=== PATIENT | female | born 1980 | race Caucasian/White ===

== ENCOUNTER 2020-06-02 12:25 | Outpatient (REF) | payer MEDICAID, SELFPAY ==
--- NOTE | ~2020-06-02 | MM_ITS ---
EXAMINATION: MM SCREENING DIGITAL BREAST TOMOSYNTHESIS, BILATERAL CLINICAL INFORMATION: Screening. Asymptomatic. The lifetime risk of breast cancer based on the Tyrer-Cuzick Model is 11%. COMPARISON: Mammography: 05/28/2019 (baseline) TECHNIQUE: Digital breast tomosynthesis is performed in both the craniocaudal and mediolateral oblique views along with computer-aided detection (CAD). Synthesized 2D images are generated from the tomosynthesis. FINDINGS: The breasts are heterogeneously dense, which may obscure small masses (ACR BI-RADS breast composition Category c). There are no significant masses, abnormal calcifications, or other abnormalities. Parenchymal pattern is similar to prior study. No significant changes. MM/MM tomosynthesis screening BI IMPRESSION: No mammographic evidence of malignancy. ASSESSMENT: BI-RADS 1: Negative RECOMMENDATION: Routine annual mammography screening. This patient's information was entered into a reminder system with a target due date for their next mammogram.
== END 2020-06-02 12:26 | disposition home or self-care (01) ==
LOC: HO.MAMMO 12:25
PROVIDERS: PCP Nurse Practitioner; Visit Provider Nurse Practitioner
DX: Z12.31 Encounter for screening mammogram for malignant neoplasm of breast (principal)
CPT/HCPCS: 77063; 77067

== ENCOUNTER 2021-01-09 09:49 | Emergency (ER) | payer MEDICAID, SELFPAY ==
[2021-01-09 09:51] VITALS: BP 120/67; PULSE 92; RESP 16; TEMP 36.7; O2SAT 98; BMI 31.8
--- NOTE | 2021-01-09 10:13 | ED.PSYCH ---
HPI - Psych General Chief Complaint: ETOH/Substance Use Stated Complaint: withdrawal Time Seen by Provider: 01/09/21 09:55 Source: patient and family Mode of arrival: ambulatory Limitations: no limitations History of Present Illness HPI Narrative: felt her meds were making her more depressed - now she feels anxious and shaking stopped trazodone 50mg QHS, gabapentin 300mg QHS, hydroxyzine 25mg TID, cymbalta 30mg ER daily complaint: anxiety and other (took herself off her medications 1 week ago) Onset (ago): week(s) (1) Duration: getting worse History of same: Yes Relieving factors: none Exacerbating factors: other (took herself off her meds) Context: not taking psychiatric medications Associated psychiatric symptoms: depression and other (not eating, not sleeping) Treatments prior to arrival: none Related Data Previous Rx's Medication Instructions Recorded lorazepam 1 mg tablet (Ativan) 1 mg PO TID PRN 7 Days #21 tab 01/09/21 Allergies Allergy/AdvReac Type Severity Reaction Status Date / Time No Known Allergies Allergy Unverified 01/10/20 16:37 Review of Systems Review of Systems: Constitutional : No Fever, No Chills, pos anorexia ENT/Mouth : No Ear Pain, No Nasal Congestion, No sore throat Eyes: No Eye Pain, No Swelling, No Redness Cardiovascular : No Chest Pain, No SOB Respiratory : No Cough, No Sputum, No Dyspnea Gastrointestinal : No Nausea, No Vomiting, No Diarrhea, No Hematochezia, No Melena Genitourinary : No Dysuria, No Urinary Frequency, No Hematuria Musculoskeletal : No Myalgias Skin : No Skin Lesions, No rash Neuro : No Weakness, No Numbness, No Paresthesias, No Dizziness, No Headache Psych : positive Anxiety, positive Depression, no SI/HI Heme/Lymph: No Lymphadenopathy Endocrine : No Polyuria, No Polydipsia All other systems reviewed and are negative [facility] Past Medical History Attestation statement: The following information was validated with the patient. Medical History Cleft palate HTN (hypertension) No known health problems Social History Social History (Updated 01/09/21 @ 10:13 by Rubi Todd DO) Alcohol intake: former Patient Tobacco Use Status: Current someday Tobacco user Use of substances other than those prescribed or required for medical reasons: No Advance Directives: No Patient : No Physical Exam Vital Signs: Vital Signs: Last Vital Signs Temp 98.0 F 01/09/21 09:51 Pulse 85 01/09/21 13:23 Resp 16 01/09/21 13:23 BP 115/73 01/09/21 13:23 Pulse Ox 100 01/09/21 13:23 Body Mass Index 31.8 Appearance: Alert. Oriented X3. No acute distress. Anxious Eyes: Pupils equal, round and reactive to light. ENT: Pharynx normal. Neck: Normal inspection. Neck supple. CVS: Normal heart rate and rhythm. Pulses normal. Respiratory: No respiratory distress. Breath sounds normal. Abdomen: Soft and non-tender. Skin: Skin warm and dry. Normal skin color. Normal skin turgor. Extremities: No lower extremity edema. No calf ttp Neuro: Oriented X 3. No motor deficit. No sensory deficit. Tremulous Psych: pos anxiety, pos depressio, no SI Course Course Course Narrative: medically cleared for CARE team discussion with CARE team - encourage to follow up with PCP, [facility], has no SI Dr. Francisco - continue fluoxetine, and ativan PRN 1mg TID for the next 10 days follow up as outpatient MDM - Psych MDM Narrative Medical decision making narrative: 40 yo female with HTN, depression took herself off her medications 1 week ago she thought it was making her more depressed now she feels anxious and shaky. She isn't eating, she is depressed but denies SI. Will obtain labs, hydrate, offer anxiolytic, refer to CARE team/N. Lab Data Result diagrams: 01/09/21 10:21 01/09/21 10:21 Labs: Lab Results 01/09/21 01/09/21 01/09/21 Range/Units 10:21 10:21 10:21 WBC 10.5 (4.8-10.8) X10*3/uL RBC 4.32 (4.20-5.50) X10*6/uL Hgb 12.6 (12.0-16.0) g/dl Hct 36.4 L (37-47) % MCV 84.3 (80-98) fL MCH 29.2 (27.0-33.0) pg MCHC 34.6 (31.0-35.0) g/dl RDW 13.2 (11.0-16.0) % Plt Count 442 H (160-400) X10*3/uL MPV 8.4 L (9.4-12.3) fL Immature Gran % (Auto) 0.3 (0.0-0.4) % Neut % (Auto) 73.1 H (45-73) % Lymph % (Auto) 19.4 L (20-40) % [place] % (Auto) 5.6 (2-11) % Eos % (Auto) 1.3 (0-4) % Baso % (Auto) 0.3 (0-2) % Lymph # (Auto) 2.0 (1.2-4.9) X10*3/uL [place] # (Auto) 0.6 (0.1-1.2) X10*3/uL Eos # (Auto) 0.1 (0.0-0.4) X10*3/uL Baso # (Auto) 0.0 (0.0-0.2) X10*3/uL Abs Immat Gran (auto) 0.03 (0.00-0.03) X10*3/uL Absolute Neuts (auto) 7.7 (2.0-8.3) X10*3/uL Absolute Nucleated RBC 0.000 (0.0-0.012) X10*3/uL Nucleated RBC % (auto) 0.0 (0.0-0.2) /100WBC Sodium 138 (135-145) mmol/L Potassium 3.0 L (3.3-5.1) mmol/L Chloride 101 (96-108) mmol/L Carbon Dioxide 26 (22-29) mmol/L Anion Gap 14 (12-20) BUN 4 L (9-16) mg/dL Creatinine 0.68 (0.5-1.4) mg/dL Estim Creat Clear Calc 54.7 Estimated GFR > 60 Random Glucose 165 H (60-115) mg/dL Calcium 9.9 (8.4-10.2) mg/dL Magnesium 1.5 L (1.6-2.6) mg/dL Total Bilirubin 0.4 (0.0-1.0) mg/dL Direct Bilirubin < 0.2 (0.0-0.5) mg/dL AST 17 (5-31) U/L ALT 16 (0-31) U/L Alkaline Phosphatase 68 (39-117) U/L Total Protein 7.4 (6.5-8.0) g/dL Albumin 4.5 (3.5-5.0) g/dL TSH 0.80 (0.32-4.0) uIU/mL Urine Color Urine Appearance Urine pH (5.0-8.0) Ur Specific [place] (1.005-1.025) Urine Protein (NEG-TRACE) MG/DL Urine Glucose (UA) (NEG) MG/DL Urine Ketones (NEG) MG/DL Urine Blood (NEG) Urine Nitrite (NEG) Ur Leukocyte Esterase (NEG) Urine Test (NEGATIVE) Urine Opiates Screen (Not Detect) Urine Fentanyl Screen (Not Detect) Ur Barbiturates Screen (Not Detect) Ur Phencyclidine Scrn (Not Detect) Ur Amphetamines Screen (Not Detect) U Benzodiazepines Scrn (Not Detect) Urine Cocaine Screen (Not Detect) U Marijuana (THC) Screen (Not Detect) COVID-19 ([place]) Negative (Negative) COVID-19 Clin Com See Note 01/09/21 01/09/21 01/09/21 Range/Units 10:49 10:49 10:49 WBC (4.8-10.8) X10*3/uL RBC (4.20-5.50) X10*6/uL Hgb (12.0-16.0) g/dl Hct (37-47) % MCV (80-98) fL MCH (27.0-33.0) pg MCHC (31.0-35.0) g/dl RDW (11.0-16.0) % Plt Count (160-400) X10*3/uL MPV (9.4-12.3) fL Immature Gran % (Auto) (0.0-0.4) % Neut % (Auto) (45-73) % Lymph % (Auto) (20-40) % [place] % (Auto) (2-11) % Eos % (Auto) (0-4) % Baso % (Auto) (0-2) % Lymph # (Auto) (1.2-4.9) X10*3/uL [place] # (Auto) (0.1-1.2) X10*3/uL Eos # (Auto) (0.0-0.4) X10*3/uL Baso # (Auto) (0.0-0.2) X10*3/uL Abs Immat Gran (auto) (0.00-0.03) X10*3/uL Absolute Neuts (auto) (2.0-8.3) X10*3/uL Absolute Nucleated RBC (0.0-0.012) X10*3/uL Nucleated RBC % (auto) (0.0-0.2) /100WBC Sodium (135-145) mmol/L Potassium (3.3-5.1) mmol/L Chloride (96-108) mmol/L Carbon Dioxide (22-29) mmol/L Anion Gap (12-20) BUN (9-16) mg/dL Creatinine (0.5-1.4) mg/dL Estim Creat Clear Calc Estimated GFR Random Glucose (60-115) mg/dL Calcium (8.4-10.2) mg/dL Magnesium (1.6-2.6) mg/dL Total Bilirubin (0.0-1.0) mg/dL Direct Bilirubin (0.0-0.5) mg/dL AST (5-31) U/L ALT (0-31) U/L Alkaline Phosphatase (39-117) U/L Total Protein (6.5-8.0) g/dL Albumin (3.5-5.0) g/dL TSH (0.32-4.0) uIU/mL Urine Color STRAW Urine Appearance CLEAR Urine pH 7.5 (5.0-8.0) Ur Specific [place] 1.010 (1.005-1.025) Urine Protein NEG (NEG-TRACE) MG/DL Urine Glucose (UA) NEG (NEG) MG/DL Urine Ketones NEG (NEG) MG/DL Urine Blood NEG (NEG) Urine Nitrite NEG (NEG) Ur Leukocyte Esterase NEG (NEG) Urine Test NEGATIVE (NEGATIVE) Urine Opiates Screen Not Detected (Not Detect) Urine Fentanyl Screen Not Detected (Not Detect) Ur Barbiturates Screen Not Detected (Not Detect) Ur Phencyclidine Scrn Not Detected (Not Detect) Ur Amphetamines Screen Not Detected (Not Detect) U Benzodiazepines Scrn Not Detected (Not Detect) Urine Cocaine Screen Not Detected (Not Detect) U Marijuana (THC) Screen POSITIVE H (Not Detect) COVID-19 ([place]) (Negative) COVID-19 Clin Com Discharge Plan Discharge Clinical Impression: Acute hypokalemia, Hypomagnesemia, Depression, Medical non-compliance Patient Disposition: Home, Self-Care Instructions: Hypokalemia (ED), Depression (ED), Hypomagnesemia (ED) Additional Instructions: return to ED for any worsening symptoms or concerns continue to fluoxetine Prescriptions: New lorazepam [Ativan] 1 mg tablet 1 mg PO TID PRN (Reason: anxiety) 7 Days Qty: 21 RF: 0 Referrals: Saba Fishman [Primary Care Provider] - 3 days Denise Barrera [Registered Nurse] - 1 week (any provider call for appointment)
[2021-01-09] MEDS: LORazepam 1 MG TABLET PO (10:28)
[2021-01-09] MEDS: 0.9 % Sodium Chloride 1,000 ML 999 ML IVCONT (10:28)
[2021-01-09 10:29] VITALS: BP 128/83; PULSE 85; RESP 16; O2SAT 99
[2021-01-09 10:31] LABS: MANUAL DIFF FLAG NO
[2021-01-09 10:33] LABS: Basophils Percent Auto 0.3 % (0-2); Eosinophils Absolute Auto 0.1 X10*3/uL (0.0-0.4); Eosinophils Percent Auto 1.3 % (0-4); Hematocrit 36.4 % (37-47); Hemoglobin 12.6 g/dl (12.0-16.0); Imm Gran Abs Auto 0.03 X10*3/uL (0.00-0.03); Imm Gran Pct Auto 0.3 % (0.0-0.4); Lymphocytes Percent Auto 19.4 % (20-40); Mean Corpuscular HGB Conc 34.6 g/dl (31.0-35.0); Mean Corpuscular Hemoglobin 29.2 pg (27.0-33.0); Mean Corpuscular Volume 84.3 fL (80-98); Mean Platelet Volume 8.4 fL (9.4-12.3); Monocytes Absolute Auto 0.6 X10*3/uL (0.1-1.2); Monocytes Percent Auto 5.6 % (2-11); Neutrophils Absolute Auto 7.7 X10*3/uL (2.0-8.3); Neutrophils Percent Auto 73.1 % (45-73); Platelet Count 442 X10*3/uL (160-400); Red Blood Count 4.32 X10*6/uL (4.20-5.50); Red Cell Distribution Width 13.2 % (11.0-16.0); White Blood Count 10.5 X10*3/uL (4.8-10.8)
--- NOTE | 2021-01-09 10:37 | PC.NURSE ---
Pt reports not taking meds for a couple of days, unsure of what meds but via external med claim history pt states some meds including Hydroxyzine, gapapentin, trazodone, cymbalta and flexeril. Pt states she has stopped taking meds d/t feeling crazy and feels as though I don't feel right in this world After pt has stopped meds now reports feeling of being shaky and anxious with lack of motivation. Denies SI or HI. Sister at bedside. IV established and labs sent. Fluids infusing and Ativan given for comfort.
[2021-01-09 10:51] LABS: Alanine Aminotransferase 16 U/L (0-31); Albumin Level 4.5 g/dL (3.5-5.0); Alkaline Phosphatase 68 U/L (39-117); Anion Gap 14 (12-20); Aspartate Amino Transferase 17 U/L (5-31); Bilirubin Direct < 0.2 mg/dL (0.0-0.5); Bilirubin Total 0.4 mg/dL (0.0-1.0); Blood Urea Nitrogen 4 mg/dL (9-16); Calcium 9.9 mg/dL (8.4-10.2); Carbon Dioxide 26 mmol/L (22-29); Chloride 101 mmol/L (96-108); Creatinine Clr Calc Pharmacy 54.7; Estimated Glomerular Filt Rate > 60; Glucose Random 165 mg/dL (60-115); Magnesium 1.5 mg/dL (1.6-2.6); Sodium 138 mmol/L (135-145); Total Protein 7.4 g/dL (6.5-8.0)
[2021-01-09 10:55] LABS: COVID-19 Test Negative (Negative); IDNOW Serial# 9DD0AD1C
[2021-01-09 11:03] LABS: Appearance Urine CLEAR; Color Urine STRAW; Glucose Urine UA NEG (NEG); Leukocyte Esterase Urine NEG (NEG); Nitrite Urine NEG (NEG); PH 7.5 (5.0-8.0); Urine Blood NEG (NEG); Urine Ketones NEG (NEG); Urine Protein NEG (NEG-TRACE)
[2021-01-09 11:05] LABS: UPreg QC Valid YES; Urine Pregnancy NEGATIVE (NEGATIVE)
[2021-01-09] MEDS: Potassium Chloride ER 20 MEQ TAB.ER.PRT 40 MEQ PO (11:11)
[2021-01-09] MEDS: Magnesium Sulfate/H2O 2 GM/50 ML PIGGYBACK IV (11:11)
[2021-01-09 11:32] LABS: Amphetamine Screen Urine Not Detected (Not Detect); Barbiturates, Urine Not Detected (Not Detect); Benzodiazepines Screen Urine Not Detected (Not Detect); Cannabinoid Screen Urine POSITIVE (Not Detect); Cocaine Screen Urine Not Detected (Not Detect); Fentanyl, urine Not Detected (Not Detect); Opiate Screen Urine Not Detected (Not Detect); Phencyclidine Screen Urine Not Detected (Not Detect)
--- NOTE | 2021-01-09 12:08 | MHC.RECOVSUP ---
? Reason for consult:Continuity of care o Current location:BED 20 o Identified substance use concern: nothing - - Intervention: ? Plan: o ? Additional information:PT.denies using anything, Tox screen was negative except for marijuana. Pt. has drank nothing.
[2021-01-09 13:23] VITALS: BP 115/73; PULSE 85; RESP 16; O2SAT 100
--- NOTE | 2021-01-09 13:24 | PC.NURSE ---
seen by CARE team, awaiting dispo
--- NOTE | 2021-01-09 13:45 | MHC.CARE ---
CARE Team was consulted to meet with patient by ED provider. Pt had her eyes closed and appeared tired. Her speech is slow and quiet. Eye contact was within normal limits. Pt reported that she had stopped her psychiatric medications several days ago after taking them for over a year because she was experiencing increased SI and anxiety. CARE Team encouraged pt to speak with medication provider if having side effects from medications in the future before stopping the medications. Pt reported that she hasn't been sleeping or eating well. She has been sleeping more than usual but still feels tired. Pt reports that she has being feeling overwhelmed by trying to find work and other personal stressors. Pt has a 14 y/o son she lives with. Pt reported having good social supports including her siblings who she is close with. Pt does not have a therapist or psychiatrist and would like a referral to [facility]. Pt denied HI/, but reported vague SI without a plan. Pt does not have access to firearms, denies hx of self-harm, denies hx of suicide attempts, and denies hx of inpatient psych admissions. Pt reports history of alcohol use disorder and has been sober for 18 months. CARE Team case consulted with psychiatry, Dr. Francisco who provided medication recommendations and was agreement with discharge to follow up with outpatient providers. CARE Team provided pt with a referral to [facility] and the contact information for crisis and the CARE Team.
--- NOTE | 2021-01-09 14:29 | P.CNPS_ITS ---
History of Present Illness Date of Service: 01/09/2021 Chief Complaint: withdrawal Reason for Consult: medications management recommendations HPI Narrative: pt reports she had been stable on her psych meds regimen for many months but had been feeling increasingly anxious in recent days so stopped taking them. she experienced dysphoria and sweats shortly after and had some SI. this was several days ago and the SI has resolved but she still feels very anxious. she states she has been unemployed recently and has been feeling very stressed about that. she has not been eating or sleeping well. she came to the ED today due to her anxiety. she denies any active substance use disorder, stating she used to drink heavily but has not for a year and 8 months now. she reported she was still taking fluoxetine, but she is not a confident historian. she is interested in therapy and medications mgmt. Past Psychiatric History: no hosps, no SA Medical Evaluation Reviewed: Yes Personal & Social History: unemployed, experiencing severe situational stress [facility] Medical History Cleft palate HTN (hypertension) No known health problems Substance History: h/o alcohol use disorder, sober for the past 18 months. Diagnostics Vital Signs (24Hr): Vital Signs - 24 hr 01/09/21 09:51 01/09/21 10:29 01/09/21 13:23 Temperature 98.0 F Pulse Rate 92 85 85 Respiratory Rate 16 16 16 Blood Pressure 120/67 128/83 115/73 Pulse Oximetry 98 99 100 Body Mass Index 31.8 Labs Results: 01/09/21 10:21 01/09/21 10:21 Labs: Laboratory Results - last 48 hr 01/09/21 01/09/21 01/09/21 10:21 10:21 10:21 WBC 10.5 RBC 4.32 Hgb 12.6 Hct 36.4 L MCV 84.3 MCH 29.2 MCHC 34.6 RDW 13.2 Plt Count 442 H MPV 8.4 L Immature Gran % (Auto) 0.3 Neut % (Auto) 73.1 H Lymph % (Auto) 19.4 L [place] % (Auto) 5.6 Eos % (Auto) 1.3 Baso % (Auto) 0.3 Lymph # (Auto) 2.0 [place] # (Auto) 0.6 Eos # (Auto) 0.1 Baso # (Auto) 0.0 Abs Immat Gran (auto) 0.03 Absolute Neuts (auto) 7.7 Absolute Nucleated RBC 0.000 Nucleated RBC % (auto) 0.0 Sodium 138 Potassium 3.0 L Chloride 101 Carbon Dioxide 26 Anion Gap 14 BUN 4 L Creatinine 0.68 Estim Creat Clear Calc 54.7 Estimated GFR > 60 Random Glucose 165 H Calcium 9.9 Magnesium 1.5 L Total Bilirubin 0.4 Direct Bilirubin < 0.2 AST 17 ALT 16 Alkaline Phosphatase 68 Total Protein 7.4 Albumin 4.5 TSH 0.80 Urine Color Urine Appearance Urine pH Ur Specific [place] Urine Protein Urine Glucose (UA) Urine Ketones Urine Blood Urine Nitrite Ur Leukocyte Esterase Urine Test Urine Opiates Screen Urine Fentanyl Screen Ur Barbiturates Screen Ur Phencyclidine Scrn Ur Amphetamines Screen U Benzodiazepines Scrn Urine Cocaine Screen U Marijuana (THC) Screen COVID-19 ([place]) Negative COVID-19 Clin Com See Note 01/09/21 01/09/21 01/09/21 10:49 10:49 10:49 WBC RBC Hgb Hct MCV MCH MCHC RDW Plt Count MPV Immature Gran % (Auto) Neut % (Auto) Lymph % (Auto) [place] % (Auto) Eos % (Auto) Baso % (Auto) Lymph # (Auto) [place] # (Auto) Eos # (Auto) Baso # (Auto) Abs Immat Gran (auto) Absolute Neuts (auto) Absolute Nucleated RBC Nucleated RBC % (auto) Sodium Potassium Chloride Carbon Dioxide Anion Gap BUN Creatinine Estim Creat Clear Calc Estimated GFR Random Glucose Calcium Magnesium Total Bilirubin Direct Bilirubin AST ALT Alkaline Phosphatase Total Protein Albumin TSH Urine Color STRAW Urine Appearance CLEAR Urine pH 7.5 Ur Specific [place] 1.010 Urine Protein NEG Urine Glucose (UA) NEG Urine Ketones NEG Urine Blood NEG Urine Nitrite NEG Ur Leukocyte Esterase NEG Urine Test NEGATIVE Urine Opiates Screen Not Detected Urine Fentanyl Screen Not Detected Ur Barbiturates Screen Not Detected Ur Phencyclidine Scrn Not Detected Ur Amphetamines Screen Not Detected U Benzodiazepines Scrn Not Detected Urine Cocaine Screen Not Detected U Marijuana (THC) Screen POSITIVE H COVID-19 ([place]) COVID-19 Clin Com Mental Status Exam Mental Status Exam Narrative: appropriately groomed and dressed - hospital shayy in ED, lying in bed. cooperative, no PMA/PMR. speech dysarthric, nml rate, amount, loudness. flattened tone. nml latency. thoughts linear and logical. affect constricted, consistent with context, non-labile, hypo-intense. mood anxious. denies SI/HI/AVH. Medications Allergies Allergies Allergy/AdvReac Type Severity Reaction Status Date / Time No Known Allergies Allergy Unverified 01/10/20 16:37 Assessment & Plan Assessment & Plan (1) Depression: Qualifiers: Depression Type: unspecified Qualified Code(s): F32.9 - Major depressive disorder, single episode, unspecified Status: Acute Code(s): F32.9 - Major depressive disorder, single episode, unspecified (2) Anxiety: Status: Acute Code(s): F41.9 - Anxiety disorder, unspecified Assessment and Plan: situational anxiety is the main underlying cause of this patient's presentation. she recently stopped her SNRI, which may have provoked some SNRI withdrawal syndrome, but she is likely through or nearly through that. she is open to meeting with a presciber and therapist and should be referred for those services. she stated she is still taking fluoxetine, which is dubious, but i do not believe these recent symptoms have anything to do with taking any medication (they may have something to do with stopping a medication); therefore, she can safely continue to take whatever psych meds she would like at this time. she would also benefit from zyprexa 5-10 mg at HS to help with sleep, appetite, and anxiety. alternatively, but a bit more riskily, ativan might be helpful for acute anxiety as a PRN and at HS for insomnia. the focus should be on getting her in to see a therapist and psych MD ALAS. Greater than 50% of the session was spent on counseling and/or coordination of care
== END 2021-01-09 14:56 | disposition home or self-care (01) ==
PROVIDERS: Emergency Provider Emergency Medicine; PCP Nurse Practitioner
DX: F10.239 Alcohol dependence with withdrawal, unspecified (principal); F32.9 Major depressive disorder, single episode, unspecified; F41.9 Anxiety disorder, unspecified; E83.42 Hypomagnesemia; Y90.9 Presence of alcohol in blood, level not specified; E87.6 Hypokalemia; Z20.822 Contact with and (suspected) exposure to COVID-19; Z91.14 Patient's other noncompliance with medication regimen; Z79.899 Other long term (current) drug therapy
CPT/HCPCS: 36415; 80048; 80076; 80307; 81003; 81025; 83735; 84443; 85025; 87635; 96361; 96365; 96366; 99284; 99285; J3475

== ENCOUNTER 2021-02-04 11:58 | Emergency (ER) | payer MEDICAID, SELFPAY ==
[2021-02-04 12:28] VITALS: BP 128/75; PULSE 70; RESP 18; TEMP 36.6; O2SAT 99; BMI 22.0
--- NOTE | 2021-02-04 14:39 | ED.ANXIETY ---
HPI - Anxiety General Chief Complaint: Anxiety Stated Complaint: Anxiety Time Seen by Provider: 02/04/21 13:31 Source: patient Mode of arrival: ambulatory Limitations: no limitations History of Present Illness HPI narrative: 40 y/o female with history of anxiety, hypertension, cleft palate, depression who reports worsening anxiety over the last couple of weeks. She recently took herself off of several of her medications. She does not know the names of. She did not do this under the direction of her doctor. She reports not liking how the medications make her feel but admits now she is more anxious off of them. She has been taking Xanax in the morning for anxiety. She will not tell me where she gets this from. She has not called her doctor about her anxiety. She has not seen a psychiatrist or a therapist. She denies drug use and alcohol use at this time. She feels sweaty and anxious for intermittently throughout the day, worse lately. MD complaint: anxiety Onset (ago): week(s) Symptoms: palpitations, dry mouth and sense of impending doom Severity: moderate Quality: intermittent Place: home History of similar episodes: Yes Provoking factors: none known Relieving factors: medication, deep breaths, rest and sleep Exacerbating factors: nothing Associated symptoms: diaphoresis, headaches and malaise Related Data Previous Rx's Medication Instructions Recorded lorazepam 1 mg tablet (Ativan) 1 mg PO TID PRN 7 Days #21 tab 01/09/21 hydroxyzine HCl 25 mg tablet 25 mg PO BID PRN #20 tab 02/04/21 Allergies Allergy/AdvReac Type Severity Reaction Status Date / Time No Known Allergies Allergy Verified 02/04/21 12:28 Review of Systems Review of Systems: Constitutional: No Fever, + Chills Cardiovascular: No Chest Pain, No SOB Respiratory: No Cough, No Sputum, No Wheezing, + dyspnea (intermittently when anxious only) Gastrointestinal: No Nausea, No Vomiting, No Diarrhea, No abdominal Pain Musculoskeletal: No joint pain, No Myalgias Skin: No Skin Lesions, No rash Neuro: No Weakness, No Numbness, No Dizziness, + Headache Psych: + Anxiety/Panic, + Depression, No SI, No HI Heme/Lymph: No Bruising, No Lymphadenopathy PMFSH Past Medical History Medical History Cleft palate HTN (hypertension) No known health problems Social History Social History (Updated 01/09/21 @ 10:13 by Rubi Todd DO) Alcohol intake: former Patient Tobacco Use Status: Current someday Tobacco user Advance Directives: No Advance Directives Information Provided: No Patient : No Physical Exam Vital Signs: Vital Signs: Last Vital Signs Temp 97.9 F 02/04/21 12:28 Pulse 70 02/04/21 12:28 Resp 18 02/04/21 12:28 BP 128/75 02/04/21 12:28 Pulse Ox 99 02/04/21 12:28 Body Mass Index 22.0 Appearance: Alert. Oriented X3. No acute distress. Eyes: Pupils equal, round and reactive to light. ENT: Pharynx normal. Neck: Normal inspection. Neck supple. CVS: Normal heart rate and rhythm. Pulses normal. Respiratory: No respiratory distress. Breath sounds normal. Skin: Skin warm and dry. Normal skin color. Normal skin turgor. No rashes. Extremities: No lower extremity edema. Neuro: Oriented X 3. No motor deficit. No sensory deficit. Slight hand tremor bilaterally. Course Course Course Narrative: 40-year-old female presenting to the ER with worsening anxiety. She reports taking herself off of multiple medications at home. She did not like the way they are making her feel. She now has worsening anxiety. She reports taking Xanax in the morning. But upon review of [facility] does not appear that she has ever been prescribed Xanax. She was previously prescribed Ativan last time she was here about a month ago. She was given 1 week's worth and told to follow-up with her doctor. She never did. She was also told to follow-up with counselor and she says she called but no one answered and she never got a phone call back. Her next telephone appointment with her doctor is on February 09. We will give her short course of p.r.n. hydroxyzine for anxiety. She was encouraged to call her primary care doctor and try to move up her appointment if she can. She denies SI, HI and feels safe at home. She is stable for discharge home with close outpatient follow-up with her PCP. Critical Care Time Critical Care Time Critical Care Time: No Discharge Plan Discharge Clinical Impression: Anxiety Patient Disposition: Home, Self-Care Instructions: Cognitive Behavioral Therapy (ED), Anxiety (ED) Additional Instructions: Follow up with your doctor BISHOP Take the prescribed medication as needed for anxiety Prescriptions: New hydroxyzine HCl 25 mg tablet 25 mg PO BID PRN (Reason: anxiety) Qty: 20 RF: 0 No Action lorazepam [Ativan] 1 mg tablet 1 mg PO TID PRN (Reason: anxiety) 7 Days Qty: 21 RF: 0 Referrals: [facility] [Primary Care Provider] - 1 day Interventions: ED Discharge Assessment Last Done: 02/04/21 15:03 Discharge Date/Time: 02/04/21 15:05
[2021-02-04] MEDS: hydrOXYzine HCL 25 MG TABLET PO (15:02)
== END 2021-02-04 15:05 | disposition home or self-care (01) ==
PROVIDERS: Emergency Provider Internal Medicine
DX: F41.9 Anxiety disorder, unspecified (principal); I10 Essential (primary) hypertension
CPT/HCPCS: 99283

== ENCOUNTER 2021-03-25 13:44 | Outpatient (REF) | payer MEDICAID, SELFPAY | END 2021-03-25 13:45 | disposition home or self-care (01) | LOC: HO.LAB 13:44 | PROVIDERS: Visit Provider Internal Medicine | DX: Z20.822 Contact with and (suspected) exposure to COVID-19 (principal) | CPT/HCPCS: C9803; U0003; U0005 ==

== ENCOUNTER 2021-04-27 14:13 | Outpatient (REF) | payer MEDICAID, SELFPAY ==
--- NOTE | ~2021-04-27 | XR_ITS ---
EXAMINATION: 1. RADIOGRAPHS RIGHT SHOULDER 2. RADIOGRAPHS LEFT SHOULDER CLINICAL INFORMATION: Bilateral shoulder pain COMPARISON: Radiographs of the left shoulder 10/07/2017 and radiographs of the right shoulder 08/25/2017 TECHNIQUE: 4 views of each shoulder were obtained. FINDINGS: Right shoulder: Visualized portion of the proximal right humerus demonstrate no fracture. Humeral head demonstrates good articulation with the glenoid fossa. Acromioclavicular joint is normal in appearance. Right-sided ribs and lung parenchyma are unremarkable. Left shoulder: Visualized portion of the proximal left humerus demonstrate no fracture. Left humeral head demonstrates good articulation with the glenoid fossa. The left acromioclavicular joint is normal in appearance. Visualized left-sided ribs and lung parenchyma are unremarkable. XR/XR shoulder RT min 2V IMPRESSION: Unremarkable radiographs of the bilateral shoulders.
--- NOTE | ~2021-04-27 | XR_ITS ---
EXAMINATION: 1. RADIOGRAPHS RIGHT SHOULDER 2. RADIOGRAPHS LEFT SHOULDER CLINICAL INFORMATION: Bilateral shoulder pain COMPARISON: Radiographs of the left shoulder 10/07/2017 and radiographs of the right shoulder 08/25/2017 TECHNIQUE: 4 views of each shoulder were obtained. FINDINGS: Right shoulder: Visualized portion of the proximal right humerus demonstrate no fracture. Humeral head demonstrates good articulation with the glenoid fossa. Acromioclavicular joint is normal in appearance. Right-sided ribs and lung parenchyma are unremarkable. Left shoulder: Visualized portion of the proximal left humerus demonstrate no fracture. Left humeral head demonstrates good articulation with the glenoid fossa. The left acromioclavicular joint is normal in appearance. Visualized left-sided ribs and lung parenchyma are unremarkable. XR/XR shoulder LT min 2V IMPRESSION: Unremarkable radiographs of the bilateral shoulders.
--- NOTE | ~2021-04-27 | XR_ITS ---
EXAMINATION: XR CERVICAL SPINE CLINICAL INFORMATION: Cervicalgia COMPARISON: None TECHNIQUE: 6 views of the cervical spine were obtained. FINDINGS: There are no prevertebral soft tissue abnormalities demonstrated. The dens is intact. No compression fractures or subluxations are identified. Alignment is maintained at the atlanto-axial articulation. The disc spaces are preserved. There are equivocal mild endplate changes and uncovertebral degeneration at C5-C6, otherwise no endplate changes are seen. There is straightening of the cervical lordosis with focal reversal at C4-C5 which may be positional. The prevertebral soft tissues are normal. The foramina are patent. XR/XR cervical spine 4V IMPRESSION: Mild degenerative change at C5-C6 and straightening of the cervical lordosis which could be positional in nature. No acute fracture or subluxation.
== END 2021-04-27 14:14 | disposition home or self-care (01) ==
LOC: HO.XRAY 14:13
PROVIDERS: PCP Emergency Medicine; Visit Provider Emergency Medicine
DX: M25.511 Pain in right shoulder (principal); M25.512 Pain in left shoulder; M54.2 Cervicalgia
CPT/HCPCS: 72050; 73030

== ENCOUNTER → 2021-06-08 11:04 | Outpatient (BNVA) | payer MEDICAID, SELFPAY | PROVIDERS: PCP Emergency Medicine; Visit Provider Anesthesiology | DX: M50.30 Other cervical disc degeneration, unspecified cervical region (principal); M47.812 Spondylosis without myelopathy or radiculopathy, cervical region | CPT/HCPCS: 99202 ==

== ENCOUNTER 2022-06-18 17:27 | Emergency (ER) | payer MEDICAID, SELFPAY ==
--- NOTE | ~2022-06-18 | CT_ITS ---
EXAMINATION: CT CERVICAL SPINE WITHOUT CONTRAST CLINICAL INFORMATION: Neck pain with right arm numbness and weakness COMPARISON: Cervical spine radiographs 04/27/2021 TECHNIQUE: Contiguous helical images of the cervical spine were obtained without IV contrast. Multiplanar reconstructions were performed. This CT examination was performed using dose optimization techniques as appropriate, variously including the following: *Automated exposure control *Adjustment of mA and/or kV according to patient size (this includes techniques or standardized protocols for targeted exams where dose is matched to indication/reason for exam; i.e. extremities or head) *Use of iterative reconstruction technique DLP: 265 mGy-cm FINDINGS: Alignment:Mild reversal the normal cervical lordosis. Trace retrolisthesis at C5-C6. No additional subluxation. Vertebra:No acute fracture. No prevertebral soft tissue swelling. Degenerative disc disease:Mild disc height loss and minimal endplate proliferative changes C5-C6 consistent with mild degenerative disc disease. Intervertebral disc heights otherwise maintained. Limited assessment of spinal canal contents via CT without myelographic technique. There is a small posterior disc protrusion at C5-C6 with minimal central canal narrowing. A left subarticular disc extrusion is also seen at C6-C7, which could result in left-sided nerve root impingement. Other findings:Minimal groundglass/atelectasis at the lung apices. Visualized lung apices otherwise grossly clear. Major salivary glands and visualized thyroid gland grossly unremarkable. No cervical lymphadenopathy identified. CT/CT cervical spine wo IV con IMPRESSION: 1. No traumatic subluxation or acute cervical spine fracture. 2. Mild degenerative disc disease at C5-C6 with a small posterior disc protrusion. 3. Suspected left subarticular disc extrusion at C6-C7 which may result in left sided nerve root impingement. Correlate clinically with left-sided radicular symptoms. Consider dedicated MRI cervical spine if concern for radicular pathology.
[2022-06-18 17:47] VITALS: BP 134/75; PULSE 82; RESP 16; TEMP 36.8; O2SAT 96; BMI 24.2
--- NOTE | 2022-06-18 17:48 | ED_ITS ---
HPI - General Adult General Chief complaint: General Medical <NAIF Cramer - Last Filed: 06/18/22 17:49> Stated complaint: R side body pain, numbness- neck, shoulder x 3days <NAIF Cramer - Last Filed: 06/18/22 17:49> Time Seen by Provider: 06/18/22 22:36 <NAIF Cramer - Last Filed: 06/18/22 17:49> Source: patient and family (Sister) <Wayne Medina MD - Last Filed: 06/19/22 01:26> Mode of arrival: ambulatory <Wayne Medina MD - Last Filed: 06/19/22 01:26> Limitations: no limitations <Wayne Medina MD - Last Filed: 06/19/22 01:26> History of Present Illness HPI narrative: 42-year-old female who presents emergency department for evaluation of right-sided with pain radiating down her right arm and numbness of the right arm. The patient states she has had the symptoms for at least 2 weeks. She states the symptoms got worse so she came to the emergency department for evaluation. She has been taking Tylenol and ibuprofen with only minimal relief of her pain. Patient states that she has had similar pain in the past and has had steroid injections in her neck. 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 The patient denied fever, chills, nausea, vomiting. She states that over the past year she has been having night sweats. She denied weight loss or weight gain. <Wayne Medina MD - Last Filed: 06/19/22 01:26> Related Data Home medications: Home Medications Medication Instructions Recorded Confirmed acetaminophen 500 mg tablet 500 - 1,000 mg PO Q8H PRN 06/08/21 baclofen 10 mg tablet 10 mg PO BID PRN muscle spasm 06/08/21 fluoxetine 20 mg capsule 20 mg PO DAILY 06/08/21 ibuprofen 200 mg tablet 200 - 400 mg PO Q6H PRN 06/08/21 lisinopril 10 mg tablet 10 mg PO DAILY 06/08/21 Previous Rx's Medication Instructions Recorded lorazepam 1 mg tablet (Ativan) 1 mg PO TID PRN anxiety 7 days #21 01/09/21 tabs hydroxyzine HCl 25 mg tablet 25 mg PO BID PRN anxiety #20 tabs 02/04/21 cyclobenzaprine 10 mg tablet 10 mg PO TID PRN pain, muscle 06/19/22 spasm #15 tabs prednisone 20 mg tablet 40 mg PO DAILY 7 days #14 tabs 06/19/22 <NAIF Cramer - Last Filed: 06/18/22 17:49> Allergies/adverse reactions: Allergies Allergy/AdvReac Type Severity Reaction Status Date / Time No Known Allergies Allergy Verified 06/18/22 17:47 <NAIF Cramer - Last Filed: 06/18/22 17:49> Review of Systems Review of Systems: Yes all other systems are reviewed and are negative <Wayne Medina MD - Last Filed: 06/19/22 01:26> [facility] Past Medical History [facility] Narrative: Social history: She denies alcohol use. She does smoke cigarettes. She smokes marijuana. She works as a MANAGER CLINIC. <Wayne Medina MD - Last Filed: 06/19/22 01:26> Medical History: Medical History Cleft palate Degeneration, intervertebral disc, cervical HTN (hypertension) No known health problems Spondylosis of cervical joint <NAIF Cramer - Last Filed: 06/18/22 17:49> Social History Social History: Social History Alcohol intake: former Patient Tobacco Use Status: Current someday Tobacco user Advance Directives: No Advance Directives Information Provided: No <NAIF Cramer - Last Filed: 06/18/22 17:49> Physical Exam ED Vital Signs: Vital Signs - 24 hr 06/18/22 17:47 06/18/22 23:53 Temperature 98.2 F Pulse Rate 82 Respiratory Rate 16 16 Blood Pressure 134/75 Pulse Oximetry 96 Oxygen Delivery Method Room Air BMI result Body Mass Index 24.2 <NAIF Cramer - Last Filed: 06/18/22 17:49> Vital Signs - 24 hr 06/18/22 17:47 06/18/22 23:53 Temperature 98.2 F Pulse Rate 82 Respiratory Rate 16 16 Blood Pressure 134/75 Pulse Oximetry 96 Oxygen Delivery Method Room Air BMI result Body Mass Index 24.2 <Wayne Medina MD - Last Filed: 06/19/22 01:26> Const General: cooperative and no acute distress <MD Tana Cook Last Filed: 06/19/22 01:26> Orientation/consciousness: oriented to person and oriented to place <Wayne Medina MD - Last Filed: 06/19/22 01:26> Limitations: no limitations <MD Tana Cook Last Filed: 06/19/22 01:26> HENMT Head: Yes normal to inspection, Yes normocephalic and Yes atraumatic <Wayne Medina MD - Last Filed: 06/19/22 01:26> Ears: external ears normal <Wayne Medina MD - Last Filed: 06/19/22 01:26> General nose exam: Normal external nose present <MD Tana Cook Last Filed: 06/19/22 01:26> Face and sinus: Yes normal facial exam <MD Tana Cook Last Filed: 06/19/22 01:26> Mouth: Normal oral and palatal mucosa present <MD Tana Cook Last Filed: 06/19/22 01:26> Throat: Yes posterior oropharynx normal <Wayne Medina MD - Last Filed: 06/19/22 01:26> Eyes General: appearance normal, both eyes and all related structures <MD Tana Cook Last Filed: 06/19/22 01:26> Pupils: Equal, round and reactive pupils present <MD Tana Cook Last Filed: 06/19/22 01:26> Neck Other: Patient has tenderness palpation of her cervical spine as well as tenderness palpation of her right trapezius muscle. <MD Tana Cook Last Filed: 06/19/22 01:26> Chest Chest palpation & inspection: normal inspection of the chest and normal palpation of entire chest wall <MD Tana Cook Last Filed: 06/19/22 01:26> Resp Effort & Inspection: normal respiratory effort and able to speak in complete sentences <Wayne Medina MD - Last Filed: 06/19/22 01:26> Auscultation: clear to auscultation bilaterally <MD Tana Cook Last Filed: 06/19/22 01:26> Cardio Rate: regular rate <Wayne Medina MD - Last Filed: 06/19/22 01:26> Rhythm: regular rhythm <Wayne Medina MD - Last Filed: 06/19/22 01:26> Heart sounds: S1 normal heart sound present, S2 normal heart sound present and no murmurs <MD Tana Cook Last Filed: 06/19/22 01:26> GI Inspection: Yes normal to inspection <Wayne Medina MD - Last Filed: 06/19/22 01:26> Palpation (GI): Soft to palpation, nontender and no guarding <Wayne Medina MD - Last Filed: 06/19/22 01:26> Auscultation: normal bowel sounds <MD Tana Cook Last Filed: 06/19/22 01:26> General: Yes no CVA tenderness <Wayne Medina MD - Last Filed: 06/19/22 01:26> Back/Spine/Pelvis Back: no CVA tenderness <Wayne Medina MD - Last Filed: 06/19/22 01:26> Skin General skin exam: no rashes or lesions noted <MD Tana Cook Last Filed: 06/19/22 01:26> Neuro Other: Strength is symmetric in the upper extremities, the patient has symmetric normal reflexes of her upper extremities <Wayne Medina MD - Last Filed: 06/19/22 01:26> General: oriented to person and oriented to place <MD Tana Cook Last Filed: 06/19/22 01:26> Cranial nerves: Yes CN's II-XII intact bilaterally and Yes Equal, round and reactive pupils present <Wayne Medina MD - Last Filed: 06/19/22 01:26> Cognition (Neuro): normal cognition <Wayne Medina MD - Last Filed: 06/19/22 01:26> Extrem General: Yes normal to inspection <Wayne Medina MD - Last Filed: 06/19/22 01:26> Psych Appearance: grossly normal <Wayne Medina MD - Last Filed: 06/19/22 01:26> Speech and movement: Normal speech and movement present <Wayne Medina MD - Last Filed: 06/19/22 01:26> Affect: normal affect <Wayne Medina MD - Last Filed: 06/19/22 01:26> Attitude: cooperative <Wayne Medina MD - Last Filed: 06/19/22 01:26> Thought process: Normal thought process present <Wayne Medina MD - Last Filed: 06/19/22 01:26> Thought content: Normal thought content present <Wayne Medina MD - Last Filed: 06/19/22 01:26> Course Course Course Narrative: RME performed by Elizabeth Ramirez PA-C. Patient is a 42 year old female presenting to the emergency department with right sided pain. Patient states that she also can't feel her scalp behind the right side of her hair. Labs ordered. Patient placed back in the waiting room pending results and room availability. <NAIF Cramer - Last Filed: 06/18/22 17:49> Medications Administered Discontinued Medications Generic Name Dose Route Start Last Admin Trade Name Freq PRN Reason Stop Dose Admin Acetaminophen 975 mg 06/18/22 22:56 06/18/22 23:17 Acetaminophen 325 Mg Tablet PO 06/18/22 22:57 975 mg ONCE STA Administration Cyclobenzaprine HCl 10 mg 06/18/22 22:56 06/18/22 23:17 Cyclobenzaprine Hcl 10 Mg Tablet PO 06/18/22 22:57 10 mg ONCE ONE Administration <NAIF Cramer Last Filed: 06/18/22 17:49> Medications Administered Discontinued Medications Generic Name Dose Route Start Last Admin Trade Name Freq PRN Reason Stop Dose Admin Acetaminophen 975 mg 06/18/22 22:56 06/18/22 23:17 Acetaminophen 325 Mg Tablet PO 06/18/22 22:57 975 mg ONCE STA Administration Cyclobenzaprine HCl 10 mg 06/18/22 22:56 06/18/22 23:17 Cyclobenzaprine Hcl 10 Mg Tablet PO 06/18/22 22:57 10 mg ONCE ONE Administration <Wayne Medina MD - Last Filed: 06/19/22 01:26> Medical Decision Making Medical Decision Making [facility] Narrative: 42-year-old female who presents emergency department for evaluation of 2 weeks of right-sided neck pain with numbness and pain radiating down her right arm. The patient does have known degenerative disc disease with spondylosis of the cervical joints. Patient does have normal strength and has normal reflexes. Patient does not have any significant systemic symptoms to suggest that she might have an infectious process. I did order a CT of the patient's cervical spine to evaluate her joints and discs. Patient was ordered to get Tylenol 975 mg orally Flexeril 10 mg orally. 0113: Patient's laboratory evaluation included a CBC, CMP and COVID tests all which were negative. CT scan of the patient's cervical spine did reveal degenerative disc disease C5-C6, C6-C7. The radiologist question possible left subarticular disc extrusion at C6-C7 which may be impinging the left sided nerve root which is on the opposite side of the patient's pain. I did discuss this with the patient. The patient will be treated with prednisone 40 mg once a day for 7 days, Tylenol 1000 mg every 6 hours as needed and Flexeril 10 mg 3 times a day as needed for pain and spasm. I think that the patient will need an MRI as an outpatient and she will need to follow-up with her PCP. I also told that she could try to get seen at [facility] as well. Patient was d ischarged home <Wayne Medina MD - Last Filed: 06/19/22 01:26> Differential Diagnosis Differential diagnosis includes was not limited to degenerative disc disease, degenerative joint disease, nerve impingement <Wayne Medina MD - Last Filed: 06/19/22 01:26> Lab Data [facility] Lab Attestation statement: I reviewed the patient's lab results. <Wayne Medina MD - Last Filed: 06/19/22 01:26> Result Diagrams: 06/18/22 18:24 06/18/22 19:48 <NAIF Cramer - Last Filed: 06/18/22 17:49> Labs: Lab Results 06/18/22 06/18/22 06/18/22 Range/Units 18:24 18:24 19:48 WBC 10.0 (4.8-10.8) X10*3/uL RBC 4.68 (4.20-5.50) X10*6/uL Hgb 13.7 (12.0-16.0) g/dl Hct 40.3 (37.0-47.0) % MCV 86.1 (80.0-98.0) fL MCH 29.3 (27.0-33.0) pg MCHC 34.0 (31.0-35.0) g/dl RDW 13.3 (11.0-16.0) % Plt Count 386 (160-400) X10*3/uL MPV 8.8 L (9.4-12.3) fL Immature Gran % (Auto) 0.8 H (0.0-0.4) % Neut % (Auto) 54.2 (45-73) % Lymph % (Auto) 33.6 (20-40) % [place] % (Auto) 6.2 (2-11) % Eos % (Auto) 4.6 H (0-4) % Baso % (Auto) 0.6 (0-2) % Lymph # (Auto) 3.4 (1.2-4.9) X10*3/uL [place] # (Auto) 0.6 (0.1-1.2) X10*3/uL Eos # (Auto) 0.5 H (0.0-0.4) X10*3/uL Baso # (Auto) 0.1 (0.0-0.2) X10*3/uL Abs Immat Gran (auto) 0.08 H (0.00-0.03) X10*3/uL Absolute Neuts (auto) 5.4 (2.0-8.3) x10*3/uL Absolute Nucleated RBC 0.000 (0.0-0.012) X10*3/uL Nucleated RBC % (auto) 0.0 (0.0-0.2) /100WBC Sodium 138 (135-145) mmol/L Potassium 4.3 D (3.3-5.1) mmol/L Chloride 107 (96-108) mmol/L Carbon Dioxide 20 L (22-29) mmol/L Anion Gap 15 (12-20) BUN 4 L (9-16) mg/dL Creatinine 0.75 (0.5-1.4) mg/dL Estim Creat Clear Calc 72.8 Estimated GFR > 60 Random Glucose 89 (60-115) mg/dL Calcium 9.2 D (8.4-10.2) mg/dL Magnesium 1.8 (1.6-2.6) mg/dL Total Bilirubin 0.4 (0.0-1.0) mg/dL AST 18 (5-31) U/L ALT 13 (0-31) U/L Alkaline Phosphatase 100 (39-117) U/L Total Protein 7.6 (6.5-8.0) g/dL Albumin 4.4 (3.5-5.0) g/dL COVID-19 ([facility]) Negative (Negative) COVID-19 Clin Com See Note <NAIF Cramer - Last Filed: 06/18/22 17:49> Lab Results 06/18/22 06/18/22 06/18/22 Range/Units 18:24 18:24 19:48 WBC 10.0 (4.8-10.8) X10*3/uL RBC 4.68 (4.20-5.50) X10*6/uL Hgb 13.7 (12.0-16.0) g/dl Hct 40.3 (37.0-47.0) % MCV 86.1 (80.0-98.0) fL MCH 29.3 (27.0-33.0) pg MCHC 34.0 (31.0-35.0) g/dl RDW 13.3 (11.0-16.0) % Plt Count 386 (160-400) X10*3/uL MPV 8.8 L (9.4-12.3) fL Immature Gran % (Auto) 0.8 H (0.0-0.4) % Neut % (Auto) 54.2 (45-73) % Lymph % (Auto) 33.6 (20-40) % [place] % (Auto) 6.2 (2-11) % Eos % (Auto) 4.6 H (0-4) % Baso % (Auto) 0.6 (0-2) % Lymph # (Auto) 3.4 (1.2-4.9) X10*3/uL [place] # (Auto) 0.6 (0.1-1.2) X10*3/uL Eos # (Auto) 0.5 H (0.0-0.4) X10*3/uL Baso # (Auto) 0.1 (0.0-0.2) X10*3/uL Abs Immat Gran (auto) 0.08 H (0.00-0.03) X10*3/uL Absolute Neuts (auto) 5.4 (2.0-8.3) x10*3/uL Absolute Nucleated RBC 0.000 (0.0-0.012) X10*3/uL Nucleated RBC % (auto) 0.0 (0.0-0.2) /100WBC Sodium 138 (135-145) mmol/L Potassium 4.3 D (3.3-5.1) mmol/L Chloride 107 (96-108) mmol/L Carbon Dioxide 20 L (22-29) mmol/L Anion Gap 15 (12-20) BUN 4 L (9-16) mg/dL Creatinine 0.75 (0.5-1.4) mg/dL Estim Creat Clear Calc 72.8 Estimated GFR > 60 Random Glucose 89 (60-115) mg/dL Calcium 9.2 D (8.4-10.2) mg/dL Magnesium 1.8 (1.6-2.6) mg/dL Total Bilirubin 0.4 (0.0-1.0) mg/dL AST 18 (5-31) U/L ALT 13 (0-31) U/L Alkaline Phosphatase 100 (39-117) U/L Total Protein 7.6 (6.5-8.0) g/dL Albumin 4.4 (3.5-5.0) g/dL COVID-19 ([facility]) Negative (Negative) COVID-19 Clin Com See Note <Wayne Medina MD - Last Filed: 06/19/22 01:26> Independent Historian Clinical information obtained from an independent historian. History obtained from or confirmed by: Other (Patient's sister) <Wayne Medina MD - Last Filed: 06/19/22 01:26> Discharge Plan Discharge Clinical Impression: Neck pain on right side, Right cervical radiculopathy <NAIF Cramer - Last Filed: 06/18/22 17:49> Patient Disposition: Home, Self-Care <NAIF Cramer - Last Filed: 06/18/22 17:49> Instructions: Cervical Radiculopathy (ED) <NAIF Cramer - Last Filed: 06/18/22 17:49> Additional Instructions: Your blood work was normal. Your COVID-[address] test was [address] The CT scan of your neck did revealed mild degenerative disc disease at C5-C6 and this disease at C6-C7 with bulging discs the left. However this does not explain the right-sided neck and arm pain that you are having. You need to follow-up with your primary care doctor to get an MRI as an outpatient to further evaluate your neck pain and right arm pain. You can also try to follow up with [facility] to see if they can see you if your doctors unable to see you. Take Tylenol (acetaminophen) 500 mg pills, 2 pills every 4 to 6 hours as needed for pain. Take prednisone 20 mg pills, 2 pills once a day for 7 days. While you are taking prednisone, do not take any NSAIDs (Motrin, Advil, ibuprofen, Aleve, naproxen). Take Flexeril (cyclobenzaprine) 10 mg pills, 1 pill every 6-8 hours as needed for pain or spasm. This medication will make you sleepy. Do not drive or work while taking this medication. Follow-up with your doctor in 2 days. Please return to the emergency department if your symptoms get worse or if you develop any symptoms that are concerning to you. When you see your doctor please bring the CT scan report with you. <NAIF Cramer - Last Filed: 06/18/22 17:49> Prescriptions: New cyclobenzaprine 10 mg tablet 10 mg PO TID PRN (Reason: pain, muscle spasm) Qty: 15 0RF prednisone 20 mg tablet 40 mg PO DAILY 7 Days Qty: 14 0RF No Action lorazepam [Ativan] 1 mg tablet 1 mg PO TID PRN (Reason: anxiety) 7 Days Qty: 21 0RF hydroxyzine HCl 25 mg tablet 25 mg PO BID PRN (Reason: anxiety) Qty: 20 0RF fluoxetine 20 mg capsule 20 mg PO DAILY baclofen 10 mg tablet 10 mg PO BID PRN (Reason: muscle spasm) ibuprofen 200 mg tablet 200 - 400 mg PO Q6H PRN acetaminophen 500 mg tablet 500 - 1,000 mg PO Q8H PRN lisinopril 10 mg tablet 10 mg PO DAILY <NAIF Cramer - Last Filed: 06/18/22 17:49>
[2022-06-18 18:29] LABS: MANUAL DIFF FLAG NO
[2022-06-18 18:43] LABS: COVID-19 Test Negative (Negative); IDNOW Serial# BCCEAD1C
[2022-06-18 18:55] LABS: Basophils Absolute Auto 0.1 X10*3/uL (0.0-0.2); Basophils Percent Auto 0.6 % (0-2); Eosinophils Absolute Auto 0.5 X10*3/uL (0.0-0.4); Eosinophils Percent Auto 4.6 % (0-4); Hematocrit 40.3 % (37.0-47.0); Hemoglobin 13.7 g/dl (12.0-16.0); Imm Gran Abs Auto 0.08 X10*3/uL (0.00-0.03); Imm Gran Pct Auto 0.8 % (0.0-0.4); Lymphocytes Absolute Auto 3.4 X10*3/uL (1.2-4.9); Lymphocytes Percent Auto 33.6 % (20-40); Mean Corpuscular Hemoglobin 29.3 pg (27.0-33.0); Mean Corpuscular Volume 86.1 fL (80.0-98.0); Mean Platelet Volume 8.8 fL (9.4-12.3); Monocytes Absolute Auto 0.6 X10*3/uL (0.1-1.2); Monocytes Percent Auto 6.2 % (2-11); Neutrophils Absolute Auto 5.4 x10*3/uL (2.0-8.3); Neutrophils Percent Auto 54.2 % (45-73); Platelet Count 386 X10*3/uL (160-400); Red Blood Count 4.68 X10*6/uL (4.20-5.50); Red Cell Distribution Width 13.3 % (11.0-16.0)
[2022-06-18 20:14] LABS: Alanine Aminotransferase 13 U/L (0-31); Albumin Level 4.4 g/dL (3.5-5.0); Alkaline Phosphatase 100 U/L (39-117); Anion Gap 15 (12-20); Aspartate Amino Transferase 18 U/L (5-31); Bilirubin Total 0.4 mg/dL (0.0-1.0); Blood Urea Nitrogen 4 mg/dL (9-16); Calcium 9.2 mg/dL (8.4-10.2); Carbon Dioxide 20 mmol/L (22-29); Chloride 107 mmol/L (96-108); Creatinine Clr Calc Pharmacy 72.8; Estimated Glomerular Filt Rate > 60; Glucose Random 89 mg/dL (60-115); Magnesium 1.8 mg/dL (1.6-2.6); Potassium 4.3 mmol/L (3.3-5.1); Sodium 138 mmol/L (135-145); Total Protein 7.6 g/dL (6.5-8.0)
[2022-06-18] MEDS: Cyclobenzaprine HCl 10 MG TABLET PO (23:17)
[2022-06-18] MEDS: Acetaminophen 325 MG TABLET 975 MG PO (23:17)
--- NOTE | 2022-06-18 23:19 | PC.NURSE ---
pt medicated per provider order for 8/10 neck pain and right sided numbness. pt pending CT results.
[2022-06-18 23:53] VITALS: RESP 16
--- NOTE | 2022-06-18 23:53 | PC.NURSE ---
pt sleeping, RR even and unlabored.
--- NOTE | 2022-06-19 01:40 | PC.NURSE ---
I assumed nursing care of Christy at 0015 from Sak[facility] CHRISTENSEN. The pt is discharged at this tiem. She verbalized an understanding of all DC orders and ambulated out of the ED independently and with steady gait.
== END 2022-06-19 01:42 | disposition home or self-care (01) ==
PROVIDERS: Physician Assistant Medical; Emergency Provider Emergency Medicine Emergency Medical Services; PCP Nurse Practitioner
DX: M79.10 Myalgia, unspecified site (principal); M54.2 Cervicalgia; R51.9 Headache, unspecified; M79.601 Pain in right arm; Z20.822 Contact with and (suspected) exposure to COVID-19; Z20.828 Contact with and (suspected) exposure to other viral communicable diseases; Z79.899 Other long term (current) drug therapy
CPT/HCPCS: 36415; 72125; 80053; 83735; 85025; 87635; 99284

== ENCOUNTER → 2022-09-01 09:04 | Outpatient (BNVA) | payer MEDICAID, SELFPAY | PROVIDERS: PCP Nurse Practitioner; Visit Provider Anesthesiology | DX: M50.30 Other cervical disc degeneration, unspecified cervical region (principal); M47.812 Spondylosis without myelopathy or radiculopathy, cervical region | CPT/HCPCS: 99212 ==

== ENCOUNTER 2022-09-10 12:21 | Day surgery (SDC) | payer MEDICAID, SELFPAY ==
--- NOTE | 2022-09-09 10:09 | HO.ANESPROP2 ---
Documented by User: Joi Mendez NP 09/09/22 10:11 HPI - Anesthesia Eval Consult details Narrative: 42yo F for C5-C6 Interlaminar Epidural Steroid Injection PMFSH Active Problems Active Problems: All Active Problems (Updated 06/20/22 @ 00:00 by Anabell Franks) Spondylosis of cervical joint (Acute) Degeneration, intervertebral disc, cervical (Acute) Anxiety (Acute) Past Medical History Medical History Cleft palate Degeneration, intervertebral disc, cervical HTN (hypertension) No known health problems Spondylosis of cervical joint Surgical History Surgical History (Updated 09/10/22 @ 13:27 by Brooke Atwood MD) H/O cleft lip repair Social History Social History Alcohol intake: never Patient Tobacco Use Status: Current everyday Tobacco user Tobacco use type: Cigarette Cigarettes Per Day: 5 Second Hand Smoke Exposure: No Use of substances other than those prescribed or required for medical reasons: Yes Substance Use Frequency: Daily Advance Directives: No Advance Directives Information Provided: Yes Meds Allergies Allergy/AdvReac Type Severity Reaction Status Date / Time No Known Allergies Allergy Verified 09/01/22 09:10 Home Medications Medication Instructions Recorded Confirmed Last Taken Type acetaminophen 500 mg tablet 500 - 1,000 mg PO Q8H PRN 06/08/21 Unknown History fluoxetine 20 mg capsule 20 mg PO DAILY 06/08/21 Unknown History cyclobenzaprine 5 mg tablet 5 mg PO TID PRN muscle spasm 09/01/22 Unknown History medroxyprogesterone 150 mg/mL mg IM 09/01/22 Unknown History intramuscular suspension Exam Exam Date and Time: September 09, 2022 1009 Pertinent Lab Results Pertinent Lab Results: Laboratory Tests 06/18/22 06/18/22 18:24 19:48 WBC 10.0 Hgb 13.7 Hct 40.3 Plt Count 386 Sodium 138 Potassium 4.3 D Chloride 107 Carbon Dioxide 20 L BUN 4 L Creatinine 0.75 Assessment and Plan Assessment Anesthesia Assessment: Chart Reviewed Documented by User: Brooke Atwood MD 09/10/22 13:31 PMF Active Problems Active Problems: All Active Problems (Updated 09/10/22 @ 13:17 by Brooke Atwood MD) Spondylosis of cervical joint (Acute) Degeneration, intervertebral disc, cervical (Acute) Anxiety (Acute) Past Medical History Medical History Cleft palate Degeneration, intervertebral disc, cervical HTN (hypertension) No known health problems Spondylosis of cervical joint Family History Family history of problems with anesthesia: No Surgical History Surgical History (Updated 09/10/22 @ 13:27 by Brooke Atwood MD) H/O cleft lip repair History of Problems with Anesthesia: No Social History Social History Alcohol intake: never Patient Tobacco Use Status: Current everyday Tobacco user Tobacco use type: Cigarette Cigarettes Per Day: 5 Second Hand Smoke Exposure: No Use of substances other than those prescribed or required for medical reasons: Yes Substance Use Frequency: Daily Advance Directives: No Advance Directives Information Provided: Yes Meds Allergies Allergy/AdvReac Type Severity Reaction Status Date / Time No Known Allergies Allergy Verified 09/01/22 09:10 Home Medications Medication Instructions Recorded Confirmed Last Taken Type acetaminophen 500 mg tablet 500 - 1,000 mg PO Q8H PRN 06/08/21 Unknown History fluoxetine 20 mg capsule 20 mg PO DAILY 06/08/21 Unknown History cyclobenzaprine 5 mg tablet 5 mg PO TID PRN muscle spasm 09/01/22 Unknown History medroxyprogesterone 150 mg/mL mg IM 09/01/22 Unknown History intramuscular suspension Exam Height,Weight and Vital Signs: Height 4 ft 11 in Weight 53.07 kg Vital Signs Temp Pulse Resp BP Pulse Ox O2 Del Method 09/10/22 13:18 97.8 F 82 16 127/78 98 Room Air Pertinent Lab Results Pertinent Lab Results: Laboratory Tests 06/18/22 06/18/22 18:24 19:48 WBC 10.0 Hgb 13.7 Hct 40.3 Plt Count 386 Sodium 138 Potassium 4.3 D Chloride 107 Carbon Dioxide 20 L BUN 4 L Creatinine 0.75 Lab Results 09/10/22 Range/Units 12:57 Urine Test NEGATIVE (NEGATIVE) Airway Mallampati Class: III TM Dist: >3cm Neck ROM: Full Partial: Upper and Lower Loose/Missing/Broken Teeth: Yes (Partial dentures. Denies broken or loose teeth) Heart: RRR Lungs: CTAB Assessment and Plan Assessment Anesthesia Assessment: Anesthesia Plan Discussed Final Anesthetic Review Family History of Problems with Anesthesia: No History of Problems with Anesthesia: No NPO: Yes ASA Class: II Final Preanesthetic Review: No Changes in Pt Med Stat, Meds/Allgs Chart Reviewed, Consent Obtained/Reviewed and Anes Risks/Benef Reviewed Patient Risk: Low Procedure Risk: Low Assessment/Block/Sedation in SS: Assess/Block/Sedation-SS Anesthetic Plan Anesthetic Plan: MAC: Disposition: Standard PACU
--- NOTE | ~2022-09-10 | FL_ITS ---
EXAMINATION: XR FLUOROSCOPY WITH IMAGES CLINICAL INFORMATION: Pain management, cervical interlaminar MOHAMUD. COMPARISON: Cervical spine radiographs 01/12/2022. TECHNIQUE: Fluoroscopy Supervised By: Dr. Chay Tracey. Fluoroscopy Time: 0.2 minutes. Cumulative Dose: 1.89 mGy. DAP: 0.342 Gycm2. Images: 2. FINDINGS: There is a spinal needle at the lower posterior interlaminar cervical spine. Trace epidural contrast is seen on the lateral view. No visible vascular communication. FL/FL guidance in OR IMPRESSION: Fluoroscopy for pain management procedure.
[2022-09-10 12:53] VITALS: BMI 23.6
[2022-09-10 13:10] LABS: UPreg QC Valid YES; Urine Pregnancy NEGATIVE (NEGATIVE)
[2022-09-10 13:18] VITALS: BP 127/78; PULSE 82; RESP 16; TEMP 36.6; O2SAT 98
[2022-09-10] MEDS: Lactated Ringers 1,000 ML 100 ML IVCONT (13:19)
--- NOTE | 2022-09-10 13:24 | MHC.SHP ---
Pre-Procedural Eval Section A Date of Service: 09/10/22 The patient is an INPATIENT: No Changes since office visit: Yes Patient answered all questions The History & Physical has been completed within 30 days and I have reviewed it.: No Section B Chief Complaint: Other cervical disc degeneration Details of Present Illness: as above Relevant Family History (Specify if Yes): No Relevant Social History: None Present Medications: see Short Stay Collaborative assessment Medical History: No relevant PMH History of Previous Operations: No relevant previous surgery Allergies: Allergies Allergy/AdvReac Type Severity Reaction Status Date / Time No Known Allergies Allergy Verified 09/01/22 09:10 Review of Systems Sugical H&P ROS: Negative: Constitution, Cardiovascular, Respiratory, Neurological, Psychiatric, Hem-Onc, Allergic/Immunologic, Gastrointestinal, Genitourinary, Musculoskeletal, Integumentary, Endocrine and Eyes/Ears/Nose/Throat Exam Surgical H&P Exam: Normal: HEENT, Normal: Heart, Normal: Lungs, Normal: Extremities, Normal: Abdomen, Normal: Skin and Normal: Neurological Plan Diagnosis/Plan: Unchanged I have reviewed the history and physical and performed a pertinent physical examination on my patient. No changes have occurred unless specified. Time Spent With Patient Time: Total time managing care of this patient today ____ minutes.
[2022-09-10 13:59] VITALS: BP 132/81; PULSE 71; RESP 16; TEMP 36.7; O2SAT 100
[2022-09-10 14:14] VITALS: BP 121/93; PULSE 75; RESP 17; O2SAT 100
[2022-09-10 14:26] VITALS: BP 135/90; PULSE 74; RESP 18; TEMP 36.7; O2SAT 99
--- NOTE | 2022-09-10 14:30 | P.BOP_ITS ---
Brief Operative Note Date of Service: 09/10/22 Pre-op diagnosis: disc degeneration lumbar Post-op diagnosis: same Procedure: cervical C5- C6 interlaminar epidural steroid injection. Surgeon: Chay Tracey MD Anesthesia: MAC Was an Edge Trimmer Mechanic used for this Procedure?: No Estimated blood loss (mL): 0 Condition: stable Disposition: PACU
--- NOTE | 2022-09-10 14:34 | P.OP_ITS ---
Operative Note Operative Note Date of Service: 09/10/22 Narrative: Interlaminar C5- C6 epidural steroid injection. Christy is very pleasant 42 y.o female who came today to the OR for interlaminar epidural C5- C6 steroid injection for the treatment of cervical radiculopathy. After obtaining informed consent she was brought to the OR where she was positioned pone on the OR table. ASA monitors were applied and the patient was minimally sedated, she was able to respond to the commands throughout of the procedure. Time out was done delineating name and of the patient, site and side of the procedure and DVT prophylactics need, prophylactic antibiotics need and risk of fire. her back of the head, back of the neck and upper back were prepped with Chloroprep and draped with sterile utilities self-adhesive towels. C- arm was brought to the operating field and C5 and C6 vertebrae were demonstrated on the screen. The RIGHT upper lamina of the C6 vertebra was chosen as a site if the injection. The projection of the upper border of the lamina close to the C6 spinous process to the skin was chosen as a site of the epidural needle insertion. The skin and subcutaneou tissue were infiltrated with lidocaine 1% 2 mls. after that Tuohy 10 cm 20 gauge needle was inserted through the anaesthetized skin and advanced to the upper border of the lamina under intermittent AP ans lateral views. RODRÍGUEZ to PF saline was used as a detector of the epidural space. When the tip of the needle passed 1 mm behind interlaminar line RODRÍGUEZ was sensed and PF saline started to go to the epidural space. [place] 180 contrast was injected into the needle and no intravascular and no intrathec al spread of the contrast was noted. The treatment solution of dexametasone 12 mg mixed with 4 mls of PF saline with trace amount of lidocaine ( few drops) was injected into the epidural space. The needle was removed and bandaid was applied. The patient tolerated the procedure well she was taken outside of the OR to recovery room where recovered uneventfully.
== END 2022-09-10 14:35 | disposition home or self-care (01) ==
PROVIDERS: Nurse Practitioner; PCP Registered Nurse; Visit Provider Anesthesiology
PROC: 3E0R33Z Introduction of Anti-inflammatory into Spinal Canal, Percutaneous Approach (ICD-10-PCS; CPT 62321; principal; 2022-09-10 13:50)
DX: M50.30 Other cervical disc degeneration, unspecified cervical region (principal); M47.812 Spondylosis without myelopathy or radiculopathy, cervical region; I10 Essential (primary) hypertension; Q35.9 Cleft palate, unspecified; F41.1 Generalized anxiety disorder; Z79.899 Other long term (current) drug therapy; F17.210 Nicotine dependence, cigarettes, uncomplicated
CPT/HCPCS: 62321; 81025; J1100

== ENCOUNTER → 2022-10-28 08:32 | Outpatient (BNVA) | payer MEDICAID, SELFPAY | PROVIDERS: PCP Registered Nurse; Visit Provider Anesthesiology | DX: M50.30 Other cervical disc degeneration, unspecified cervical region (principal); M47.812 Spondylosis without myelopathy or radiculopathy, cervical region | CPT/HCPCS: 99212 ==

== ENCOUNTER 2023-02-14 14:02 | Outpatient (AMB) | payer MEDICAID, SELFPAY ==
--- NOTE | 2023-02-14 14:08 | A.OFFVIS_ITS ---
Intake Vital Signs 02/14/23 14:16 Height 4 ft 11 in Weight 110 lb 8 oz BMI 22.3 BP 165/88 H Blood Pressure Location Lt brachial Position Sitting Pulse 76 Pulse Source Pulse Oximeter Pulse Oximetry (%) 100 Oxygen Delivery Method Room Air Intake Visit Reasons: Procedure discussion Intake Note: Pt here stating she would like a repeat C5-C6 MOHAMUD under MAC-she last had this inj in August 2022. Heel Slicker Required: No Allergies No Known Allergies Allergy (Verified 02/14/23 14:17) Medication List - Last Reconciled 02/14/23 by Angeles Blackwood RN acetaminophen 500 - 1,000 mg PO Q8H PRN cyclobenzaprine 5 mg PO TID PRN fluoxetine 20 mg PO DAILY ibuprofen 600 mg PO Q8H PRN lisinopril 5 mg PO DAILY medroxyprogesterone mg IM HPI HPI Comments History of Present Illness Details Christy is Very pleasant 41 years old female who who is here for the follow-up after interlaminar epidural steroid injection C5-C6 more to the right. The procedure was done on 09/10/2022. She reported excellent pain improvement up to 70% for up to 5 month after the procedure. She is here to request repeat of the injection. I will schedule this procedure for her without sedation. CT scan cervical spine dictated as below.? She has large disc extrusion on CT which is by suspicion of radiologist compresses her nerve roots.? She went for interlaminar therapeutic C5-C6 epidural steroid injection, 1 level above her protrusion at C6-C7 area.? She received the injection 09/10/2022. She reports better neck mobility less pain radiating into bilateral arms and forearms, improvement in and stability of hands movements. This is a good results of the injection. I recommended her to give us a call when her pain will be back and stronger again will schedule her procedure right away without her visiting my office. Briefly I explained to her 1 alternative to treat her pain which is Nevro SCS. I would planted in cervical position. She was given brochure to read however she is negative about implantable devices. Prior: ?complains on pain in the right neck with radiation into the right shoulder right arm right forearm with intermittent sensation of pins and needles and numbness in all fingers.? She reports that this pain started few years ago.? She reports that because of this pain she cannot sleep normally she can not do activities of daily living she can take care of herself but she cannot function normally.? She is working part-time as a homemaker.? She is reporting that the cold application weather changes in movements aggravates her pain and oral medications and heat applications alleviate her pain. She had physical therapy 2 years ago and reports good help from physical therapy she also had occupational therapy.? She had x-ray of her shoulders an of her nec k reports of which are dictated as below.? She never had MRI of her neck. She denies drinking alcohol she denies recreational drugs?she reports history of rehabilitation. [facility], [facility] Medical History (Updated 02/14/23 @ 14:39 by Chay Tracey MD) Spondylosis of cervical joint Degeneration, intervertebral disc, cervical Cleft palate HTN (hypertension) No known health problems Surgical History (Updated 09/10/22 @ 13:27 by Brooke Atwood MD) H/O cleft lip repair Social History Alcohol intake: never Patient Tobacco Use Status: Current everyday Tobacco user Tobacco use type: Cigarette Cigarettes Per Day: 5 Second Hand Smoke Exposure: No Review of Systems Const All systems reviewed & are unremarkable except as noted in HPI and below Neuro Denies confusion Psych Denies confusion Physical Exam Vital Signs: Last Vital Signs Pulse 76 02/14/23 14:16 BP 165/88 H 02/14/23 14:16 Pulse Ox 100 02/14/23 14:16 Oxygen Delivery Method Room Air 02/14/23 14:16 BMI result Body Mass Index 22.3 Const General: No confusion Orientation/consciousness: No confusion Eyes Pupils: Equal, round and reactive pupils present EOM: EOMs intact bilaterally Chest Chest palpation & inspection: normal inspection of the chest Resp Effort & Inspection: normal respiratory effort, able to speak in complete sentences, normal respiratory pattern, no audible wheezes and no cough Cardio Jugular venous distension: no JVD Back/Spine/Pelvis Other: Mild tenderness on palpation in paraspinal spinal region in cervical spine. Minimally limited range of motion of the cervical spine. Lhermitte is negative. However Spurling on the right side is positive. Neuro General: No confusion Cranial nerves: Yes Equal, round and reactive pupils present Psych Speech and movement: Normal speech and movement present Affect: normal affect Attitude: cooperative Thought process: Normal thought process present Thought content: Normal thought content present Insight: Good insight present (Psych) Judgement: Good judgement present (Psych) Results Reviewed Results Reviewed: CT CERVICAL SPINE WITHOUT CONTRAST CLINICAL INFORMATION: Neck pain with right arm numbness and weakness COMPARISON: Cervical spine radiographs 04/27/2021 FINDINGS: Alignment:Mild reversal the normal cervical lordosis. Trace retrolisthesis at C5-C6. No additional subluxation. Vertebra:No acute fracture. No prevertebral soft tissue swelling. Degenerative disc disease:Mild disc height loss and minimal endplate proliferative changes C5-C6 consistent with mild degenerative disc disease. Intervertebral disc heights otherwise maintained. Limited assessment of spinal canal contents via CT without myelographic technique. There is a small posterior disc protrusion at C5-C6 with minimal central canal narrowing. A left subarticular disc extrusion is also seen at C6-C7, which could result in left-sided nerve root impingement. Other findings:Minimal groundglass/atelectasis at the lung apices. Visualized lung apices otherwise grossly clear. Major salivary glands and visualized thyroid gland grossly unremarkable. No cervical lymphadenopathy identified. cervical spine wo IV con IMPRESSION: 1.? No traumatic subluxation or acute cervical spine fracture. 2.? Mild degenerative disc disease at C5-C6 with a small posterior disc protrusion. 3.? Suspected left subarticular disc extrusion at C6-C7 which may result in left sided nerve root impingement. Correlate clinically with left-sided radicular symptoms. Consider dedicated MRI cervical spine if concern for radicular pathology. Assessment & Plan Assessment & Plan (1) Degeneration, intervertebral disc, cervical: Code(s): M50.30 - Other cervical disc degeneration, unspecified cervical region (2) Spondylosis of cervical joint: Code(s): M47.812 - Spondylosis without myelopathy or radiculopathy, cervical region Plan: I did C5-C6 interlaminar epidural steroid injection 1 level above the C6-C7 disc protrusion. She reported significant and prolonged pain relief for almost past 2 months since the procedure. I the procedure was performed on 09/10/2022. This is 5 months since her procedure will schedule another injection as such for her as soon as possible. (3) Radiculopathy, cervical: Code(s): M54.12 - Radiculopathy, cervical region Coding Level of Care Code Est Pt Level 3 (02116) Diagnoses Degeneration, intervertebral disc, cervical M50.30 Spondylosis of cervical joint M47.812 Radiculopathy, cervical M54.12
[2023-02-14 14:16] VITALS: BP 165/88; PULSE 76; O2SAT 100; BMI 22.3
== END 2023-02-14 14:33 | disposition home or self-care (01) ==
PROVIDERS: PCP Registered Nurse; Visit Provider Anesthesiology
DX: M50.30 Other cervical disc degeneration, unspecified cervical region (principal); M47.812 Spondylosis without myelopathy or radiculopathy, cervical region; M54.12 Radiculopathy, cervical region
CPT/HCPCS: 99213

== ENCOUNTER → 2023-02-14 14:02 | Outpatient (BNVA) | payer MEDICAID, SELFPAY | PROVIDERS: PCP Registered Nurse; Visit Provider Anesthesiology | DX: M50.30 Other cervical disc degeneration, unspecified cervical region (principal); M47.812 Spondylosis without myelopathy or radiculopathy, cervical region; M54.12 Radiculopathy, cervical region | CPT/HCPCS: 99212 ==

== ENCOUNTER 2023-03-08 06:20 | Outpatient (REF) | payer MEDICAID, SELFPAY ==
--- NOTE | ~2023-03-08 | FL_ITS ---
EXAMINATION: XR FLUOROSCOPY WITH IMAGES CLINICAL INFORMATION: Radiculopathy, cervical region. COMPARISON: None available. TECHNIQUE: Fluoroscopy Supervised By: Dr. Chay Tracey. Fluoroscopy Time: 0.3 minutes. Cumulative Dose: 3.55 mGy. DAP: 0.0324 Gycm2. Images: 2. FINDINGS: AP view demonstrates needle projecting over the lower left side of the cervical spine FL/FL guidance in treatment room IMPRESSION: Fluoroscopy guidance for pain management procedure.
== END 2023-03-08 06:21 | disposition home or self-care (01) ==
LOC: CF 06:20
PROVIDERS: PCP Registered Nurse; Visit Provider Anesthesiology
DX: M54.12 Radiculopathy, cervical region (principal); M47.812 Spondylosis without myelopathy or radiculopathy, cervical region; M50.30 Other cervical disc degeneration, unspecified cervical region
CPT/HCPCS: 62321; J1100; Q9967

== ENCOUNTER 2023-03-08 07:02 | Outpatient (AMB) | payer MEDICAID, SELFPAY ==
[2023-03-08 07:08] VITALS: BP 110/72; PULSE 82; RESP 12; O2SAT 100
--- NOTE | 2023-03-08 07:08 | A.OFFVIS_ITS ---
Intake Vital Signs 03/08/23 07:08 BP 110/72 Blood Pressure Location Rt brachial Position Sitting Respiration 12 Pulse 82 Pulse Source Pulse Oximeter Pulse Oximetry (%) 100 Oxygen Delivery Method Room Air Intake Visit Reasons: C5-C6 INTERLAMINAR MOHAMUD-MORE TO THE R/LOCAL Allergies No Known Allergies Allergy (Verified 03/08/23 07:09) [facility] [place] Medical History (Updated 02/14/23 @ 14:39 by Chay Tracey MD) Spondylosis of cervical joint Degeneration, intervertebral disc, cervical Cleft palate HTN (hypertension) No known health problems Surgical History (Updated 09/10/22 @ 13:27 by Brooke Atwood MD) H/O cleft lip repair Social History Alcohol intake: never Patient Tobacco Use Status: Current everyday Tobacco user Tobacco use type: Cigarette Cigarettes Per Day: 5 Second Hand Smoke Exposure: No Physical Exam Vital Signs: Last Vital Signs Pulse 82 03/08/23 07:08 Resp 12 03/08/23 07:08 BP 110/72 03/08/23 07:08 Pulse Ox 100 03/08/23 07:08 Oxygen Delivery Method Room Air 03/08/23 07:08 Assessment & Plan Assessment & Plan (1) Radiculopathy, cervical: Code(s): M54.12 - Radiculopathy, cervical region (2) Spondylosis of cervical joint: Code(s): M47.812 - Spondylosis without myelopathy or radiculopathy, cervical region (3) Degeneration, intervertebral disc, cervical: Code(s): M50.30 - Other cervical disc degeneration, unspecified cervical region Plan Interlaminar C5- C6 epidural steroid injection. Christy is very pleasant 42 y.o female who came today to the OR for interlaminar epidural C5- C6 steroid injection for the treatment of cervical radiculopathy. After obtaining informed consent she was brought to the OR where she was positioned pone on the OR table. Time out was done delineating name and of the patient, site and side of the procedure and DVT prophylactics need, prophylactic antibiotics need and risk of fire. her back of the head, back of the neck and upper back were prepped with Chloroprep and draped with sterile utilities self-adhesive towels. C- arm was brought to the operating field and C5 and C6 vertebrae were demonstrated on the screen. The RIGHT upper lamina of the C6 vertebra was chosen as a site if the injection. The projection of the upper border of the lamina close to the C6 spinous process to the skin was chosen as a site of the epidural needle insertion. The skin and subcutaneou tissue were infiltrated with lidocaine 1% 2 mls. after that Tuohy 10 cm 20 gauge needle was inserted through the anaesthetized skin and advanced to the upper border of the lamina under intermittent AP , contralateral oblique ans lateral views. RODRÍGUEZ toair was used as a detector of the epidural space. When the tip of the needle passed 1 mm behind interlaminar line RODRÍGUEZ was sensed and [place] 180 contrast was injected into the needle and no intravascular and no intrathecal spread of the contrast was noted. The treatment solution of dexametasone 10 mg mixed with 5 mls of PF saline with trace amount of PF lidocaine ( few drops) was injected into the epidural space. The needle was removed and bandaid was applied. The patient tolerated the procedure well she was taken outside of the OR to recovery room where recovered uneventfully. Orders: Orders FL guidance in treatment room Today M54.12 - Radiculopathy, cervical region Coding Level of Care Code Procedure Only Diagnoses Radiculopathy, cervical M54.12 Spondylosis of cervical joint M47.812 Degeneration, intervertebral disc, cervical M50.30
== END 2023-03-08 08:22 | disposition home or self-care (01) ==
LOC: HO.PMCPRC 07:02
PROVIDERS: PCP Registered Nurse; Visit Provider Anesthesiology
DX: M54.12 Radiculopathy, cervical region (principal); M47.812 Spondylosis without myelopathy or radiculopathy, cervical region; M50.30 Other cervical disc degeneration, unspecified cervical region
CPT/HCPCS: 62321

== ENCOUNTER 2023-04-11 08:26 | Outpatient (AMB) | payer MEDICAID, SELFPAY ==
--- NOTE | 2023-04-11 08:30 | A.OFFVIS_ITS ---
Intake Vital Signs 04/11/23 08:37 Height 4 ft 11 in Weight 111 lb 6 oz BMI 22.5 BP 112/78 Blood Pressure Location Lt brachial Position Sitting Respiration 16 Pulse 82 Pulse Source Pulse Oximeter Pulse Oximetry (%) 99 Oxygen Delivery Method Room Air Intake Visit Reasons: C5-C6 INTERLAMINAR MOHAMUD 03/08/23/lvm Allergies No Known Allergies Allergy (Verified 04/11/23 08:40) HPI HPI Comments History of Present Illness Details Christy is Very pleasant 41 years old female who who is here for the follow-up after interlaminar epidural steroid injection C5-C6 more to the right. The procedure was done on 03/08/2023. She reports before the procedure her pain was 7/10. Today after the procedure 1 month she reported pain 2/10. She reported only unpleasant sensation in the left(!) shoulder. Her procedure was done more to the right. She reports that she takes Tylenol for the unpleasant sensations in the shoulder. She reports that she cannot take NSAIDs because they upset her stomach. I recommended her to try diclofenac gel OTC this will help her to bypass her stomach in delivering the medication to the painful area. Prior to that she had epidural steroid injection on 09/10/2022. She reported excellent pain improvement up to 70% for up to 5 month after the procedure. CT scan cervical spine dictated as below.? She has large disc extrusion on CT which is by suspicion of radiologist compresses her nerve roots.? In the past we discussed possibility of treating her pain with neuro surgery and as an alternative as treating her pain with Nevro SCS. She is very negative to go for neuro surgery, is very negative to try spinal cord stimulation. Prior: ?complains on pain in the right neck with radiation into the right shoulder right arm right forearm with intermittent sensation of pins and needles and numbness in all fingers.? She reports that this pain started few years ago.? She reports that because of this pain she cannot sleep normally she can not do activities of daily living she can take care of herself but she cannot function normally.? She is working part-time as a homemaker.? She is reporting that the cold application weather changes in movements aggravates her pain and oral medications and heat applications alleviate her pain. She had physical therapy 2 years ago and reports good help from physical therapy she also had occupational therapy.? She had x-ray of her shoulders an of her neck reports of which are dictated as below.? She never had MRI of her neck. She denies drinking alcohol she denies recreational drugs?she reports history of rehabilitation. [facility] Medical History (Updated 02/14/23 @ 14:39 by Chay Tracey MD) Spondylosis of cervical joint Degeneration, intervertebral disc, cervical Cleft palate HTN (hypertension) No known health problems Surgical History (Updated 09/10/22 @ 13:27 by Brooke Atwood MD) H/O cleft lip repair Social History Alcohol intake: never Patient Tobacco Use Status: Current everyday Tobacco user Tobacco use type: Cigarette Cigarettes Per Day: 5 Second Hand Smoke Exposure: No Review of Systems Const All systems reviewed & are unremarkable except as noted in HPI and below Neuro Denies confusion Psych Denies confusion Physical Exam Vital Signs: Last Vital Signs Pulse 82 04/11/23 08:37 Resp 16 04/11/23 08:37 BP 112/78 04/11/23 08:37 Pulse Ox 99 04/11/23 08:37 Oxygen Delivery Method Room Air 04/11/23 08:37 Const General: No confusion Orientation/consciousness: No confusion Eyes Pupils: Equal, round and reactive pupils present EOM: EOMs intact bilaterally Chest Chest palpation & inspection: normal inspection of the chest Resp Effort & Inspection: normal respiratory effort, able to speak in complete sentences, normal respiratory pattern, no audible wheezes and no cough Cardio Jugular venous distension: no JVD Back/Spine/Pelvis Other: Mild tenderness on palpation in paraspinal spinal region in cervical spine. Minimally limited range of motion of the cervical spine. Lhermitte is negative. However Spurling on the right side is positive. Neuro General: No confusion Cranial nerves: Yes Equal, round and reactive pupils present Psych Speech and movement: Normal speech and movement present Affect: normal affect Attitude: cooperative Thought process: Normal thought process present Thought content: Normal thought content present Insight: Good insight present (Psych) Judgement: Good judgement present (Psych) Results Reviewed Results Reviewed: CT CERVICAL SPINE WITHOUT CONTRAST CLINICAL INFORMATION: Neck pain with right arm numbness and weakness COMPARISON: Cervical spine radiographs 04/27/2021 FINDINGS: Alignment:Mild reversal the normal cervical lordosis. Trace retrolisthesis at C5-C6. No additional subluxation. Vertebra:No acute fracture. No prevertebral soft tissue swelling. Degenerative disc disease:Mild disc height loss and minimal endplate proliferative changes C5-C6 consistent with mild degenerative disc disease. Intervertebral disc heights otherwise maintained. Limited assessment of spinal canal contents via CT without myelographic technique. There is a small posterior disc protrusion at C5-C6 with minimal central canal narrowing. A left subarticular disc extrusion is also seen at C6-C7, which could result in left-sided nerve root impingement. Other findings:Minimal groundglass/atelectasis at the lung apices. Visualized lung apices otherwise grossly clear. Major salivary glands and visualized thyroid gland grossly unremarkable. No cervical lymphadenopathy identified. cervical spine wo IV con IMPRESSION: 1.? No traumatic subluxation or acute cervical spine fracture. 2.? Mild degenerative disc disease at C5-C6 with a small posterior disc protrusion. 3.? Suspected left subarticular disc extrusion at C6-C7 which may result in left sided nerve root impingement. Correlate clinically with left-sided radicular symptoms. Consider dedicated MRI cervical spine if concern for radicular pathology. Assessment & Plan Assessment & Plan (1) Degeneration, intervertebral disc, cervical: Code(s): M50.30 - Other cervical disc degeneration, unspecified cervical region (2) Spondylosis of cervical joint: Code(s): M47.812 - Spondylosis without myelopathy or radiculopathy, cervical region Plan: I did C5-C6 interlaminar epidural steroid injection 1 level above the C6-C7 disc protrusion. She reported significant and prolonged pain relief for 1 month after the procedure. This procedure was performed on 03/08/2023. Prior to that she had the procedure done on 09/10/2022. She reports that minor discomfort she is treating with Tylenol. She reports that she cannot take NSAIDs. Her stomach is getting seriously upset. I recommended her to try OTC diclofenac gel to help her pain.. (3) Radiculopathy, cervical: Code(s): M54.12 - Radiculopathy, cervical region Plan: Plan Coding Level of Care Code Est Pt Level 3 (26438) Diagnoses Degeneration, intervertebral disc, cervical M50.30 Spondylosis of cervical joint M47.812 Radiculopathy, cervical M54.12
[2023-04-11 08:37] VITALS: BP 112/78; PULSE 82; RESP 16; O2SAT 99; BMI 22.5
== END 2023-04-11 08:42 | disposition home or self-care (01) ==
PROVIDERS: PCP Registered Nurse; Visit Provider Anesthesiology
DX: M50.30 Other cervical disc degeneration, unspecified cervical region (principal); M47.812 Spondylosis without myelopathy or radiculopathy, cervical region; M54.12 Radiculopathy, cervical region
CPT/HCPCS: 99213

== ENCOUNTER → 2023-04-11 08:26 | Outpatient (BNVA) | payer MEDICAID, SELFPAY | PROVIDERS: PCP Registered Nurse; Visit Provider Anesthesiology | DX: M50.30 Other cervical disc degeneration, unspecified cervical region (principal); M47.812 Spondylosis without myelopathy or radiculopathy, cervical region; M54.12 Radiculopathy, cervical region | CPT/HCPCS: 99212 ==

== ENCOUNTER 2023-09-30 08:50 | Outpatient (REF) | payer MEDICAID, SELFPAY ==
[2023-09-30 11:47] LABS: Anion Gap 14 (12-20); Blood Urea Nitrogen 9 mg/dL (9-16); Calcium 9.1 mg/dL (8.4-10.2); Carbon Dioxide 21 mmol/L (22-29); Chloride 107 mmol/L (96-108); Estimated Glomerular Filt Rate > 60; Glucose Random 159 mg/dL (60-115); Potassium 3.2 mmol/L (3.3-5.1); Sodium 139 mmol/L (135-145)
== END 2023-09-30 08:51 | disposition home or self-care (01) ==
LOC: HO.HHCL 08:50
PROVIDERS: Visit Provider Registered Nurse
DX: I10 Essential (primary) hypertension (principal)
CPT/HCPCS: 36415; 80048

== ENCOUNTER → 2023-10-10 16:15 | Outpatient (BNV) | payer MEDICAID, SELFPAY | PROVIDERS: PCP Registered Nurse; Visit Provider Radiology Diagnostic Radiology | DX: Z12.31 Encounter for screening mammogram for malignant neoplasm of breast (principal) | CPT/HCPCS: 77063; 77067 ==

== ENCOUNTER 2023-10-10 16:17 | Outpatient (REF) | payer MEDICAID, SELFPAY | END 2023-10-10 16:18 | disposition home or self-care (01) | LOC: HO.MAMMO 16:17 | PROVIDERS: PCP Registered Nurse; Visit Provider Registered Nurse | DX: Z12.31 Encounter for screening mammogram for malignant neoplasm of breast (principal) | CPT/HCPCS: 77063; 77067 ==

== ENCOUNTER 2023-11-16 11:51 | Outpatient (REF) | payer MEDICAID, SELFPAY ==
[2023-11-16 13:21] LABS: MANUAL DIFF FLAG NO
[2023-11-16 13:28] LABS: Basophils Absolute Auto 0.1 X10*3/uL (0.0-0.2); Basophils Percent Auto 0.5 % (0-2); Eosinophils Absolute Auto 0.2 X10*3/uL (0.0-0.4); Eosinophils Percent Auto 2.2 % (0-4); Hematocrit 38.1 % (37.0-47.0); Hemoglobin 12.9 g/dl (12.0-16.0); Imm Gran Abs Auto 0.03 X10*3/uL (0.00-0.03); Imm Gran Pct Auto 0.3 % (0.0-0.4); Lymphocytes Percent Auto 27.5 % (20-40); Mean Corpuscular HGB Conc 33.9 g/dl (31.0-35.0); Mean Corpuscular Hemoglobin 29.5 pg (27.0-33.0); Mean Platelet Volume 8.9 fL (9.4-12.3); Monocytes Absolute Auto 0.8 X10*3/uL (0.1-1.2); Monocytes Percent Auto 7.5 % (2-11); Neutrophils Absolute Auto 6.8 x10*3/uL (2.0-8.3); Platelet Count 430 X10*3/uL (160-400); Red Blood Count 4.38 X10*6/uL (4.20-5.50); Red Cell Distribution Width 13.8 % (11.0-16.0); White Blood Count 10.9 X10*3/uL (4.8-10.8)
[2023-11-16 13:49] LABS: Alanine Aminotransferase 18 U/L (0-31); Albumin Level 4.6 g/dL (3.5-5.0); Alkaline Phosphatase 79 U/L (39-117); Anion Gap 16 (12-20); Aspartate Amino Transferase 17 U/L (5-31); Bilirubin Total 0.3 mg/dL (0.0-1.0); Blood Urea Nitrogen 9 mg/dL (9-16); Calcium 10.2 mg/dL (8.4-10.2); Carbon Dioxide 22 mmol/L (22-29); Chloride 105 mmol/L (96-108); Estimated Glomerular Filt Rate > 60; Glucose Random 86 mg/dL (60-115); Potassium 3.2 mmol/L (3.3-5.1); Sodium 140 mmol/L (135-145); Total Protein 8.2 g/dL (6.5-8.0)
[2023-11-16 14:13] LABS: TSH reflex Free T4 1.12 uIU/mL (0.32-4.0); Vitamin D 25-OH Total 42.1 ng/mL (>30)
[2023-11-16 14:24] LABS: Folate 13.4 ng/mL (> or = 4.0); Vitamin B12 558 pg/mL (200-900)
[2023-11-19 16:53] LABS: Methylmalonic Acid 72 nmol/L (55-335)
== END 2023-11-16 11:52 | disposition home or self-care (01) ==
LOC: HO.HHCL 11:51
PROVIDERS: Visit Provider Registered Nurse
DX: R53.83 Other fatigue (principal)
CPT/HCPCS: 36415; 80053; 82306; 82607; 82746; 83921; 84443; 85025

== ENCOUNTER 2023-12-14 14:15 | Outpatient (REF) | payer MEDICAID, SELFPAY ==
[2023-12-14 17:17] LABS: Anion Gap 12 (12-20); Blood Urea Nitrogen 8 mg/dL (9-16); Calcium 9.9 mg/dL (8.4-10.2); Carbon Dioxide 26 mmol/L (22-29); Chloride 107 mmol/L (96-108); Estimated Glomerular Filt Rate > 60; Glucose Random 83 mg/dL (60-115); Potassium 3.9 mmol/L (3.3-5.1); Sodium 141 mmol/L (135-145)
== END 2023-12-14 14:16 | disposition home or self-care (01) ==
LOC: HO.HHCL 14:15
PROVIDERS: Visit Provider Registered Nurse
DX: E87.6 Hypokalemia (principal)
CPT/HCPCS: 36415; 80048

== ENCOUNTER 2024-02-15 12:20 | Outpatient (REF) | payer MEDICAID, SELFPAY ==
[2024-02-15 13:43] LABS: Estimated Average Glucose 128 mg/dL; Hemoglobin A1C 150.3887 umol/L; Hemoglobin A1c % 6.1 % (<6.0); Total Hemoglobin (HGBA1C) 3465.8729 umol/L
[2024-02-15 14:25] LABS: Anion Gap 13 (12-20); Blood Urea Nitrogen 7 mg/dL (9-16); Calcium 9.8 mg/dL (8.4-10.2); Carbon Dioxide 25 mmol/L (22-29); Chloride 103 mmol/L (96-108); Estimated Glomerular Filt Rate > 60; Glucose Random 79 mg/dL (60-115); Sodium 138 mmol/L (135-145)
[2024-02-15 14:37] LABS: Potassium 2.9 mmol/L (3.3-5.1)
== END 2024-02-15 12:21 | disposition home or self-care (01) ==
LOC: HO.HHCL 12:20
PROVIDERS: Visit Provider Registered Nurse
DX: Z00.00 Encounter for general adult medical examination without abnormal findings (principal); I10 Essential (primary) hypertension
CPT/HCPCS: 36415; 80048; 83036

== ENCOUNTER 2024-03-01 15:04 | Outpatient (REF) | payer MEDICAID, SELFPAY ==
[2024-03-01 17:59] LABS: Anion Gap 13 (12-20); Blood Urea Nitrogen 6 mg/dL (9-16); Calcium 9.3 mg/dL (8.4-10.2); Carbon Dioxide 23 mmol/L (22-29); Chloride 107 mmol/L (96-108); Estimated Glomerular Filt Rate > 60; Glucose Random 135 mg/dL (60-115); Potassium 3.3 mmol/L (3.3-5.1); Sodium 140 mmol/L (135-145)
== END 2024-03-01 15:05 | disposition home or self-care (01) ==
LOC: HO.CHCLDS 15:04
PROVIDERS: Visit Provider Registered Nurse
DX: I10 Essential (primary) hypertension (principal)
CPT/HCPCS: 36415; 80048

== ENCOUNTER 2024-06-13 22:20 | Emergency (ER) | payer MEDICAID, SELFPAY ==
--- NOTE | ~2024-06-13 | XR_ITS ---
EXAMINATION: XR CERVICAL SPINE CLINICAL INFORMATION: Neck pain COMPARISON: None available. TECHNIQUE: 3 views of the cervical spine were obtained. FINDINGS: No scoliosis. Mild reversal of the normal lordosis. No fracture, subluxation, compression deformity, or suspicious bone lesion. Craniocervical junction and C1-2 articulation are intact and aligned. There is normal facet alignment. No significant facet arthropathy. There is mild to moderate focal disc degeneration at C5-6. Discs are otherwise preserved. No prevertebral or paravertebral soft tissue abnormality. Lung apices are clear. XR/XR cervical spine 3V IMPRESSION: 1. No acute findings of the cervical spine. 2. Mild reversal of the normal lordosis. 3. Mild to moderate degenerative disc changes C5-6. Electronically signed by: Rigoberto Ledbetter MD 06/14/2024 02:27 PM FABIANO
[2024-06-13 22:22] VITALS: BP 174/110; PULSE 103; RESP 20; TEMP 36.5; O2SAT 100; BMI 22.2
--- OUTSIDE RECORDS SUMMARY | 2024-06-14 10:03 | XMS_ITS | Encounter Summary ---
Author Organization [employer] Address [address] [place] [address] [address] [place] [address] Care Team Providers Care Highway Maintenance Technician Name Role Phone Virgie Cartagena Primary Care Provider [phone] Reason for Visit * Reason Comments Med Refill Encounter Details Date Type Department Care Team ([facility] st Contact Info) Description 03/25/2023 Refill [facility] [address], [place] [phone] Virgie Cartagena FNP [address] [place], [place] [phone] Neck pain Social History Tobacco Use Types Packs/Day Years Used Date Smoking Tobacco: Every Day Cigarettes Smokeless Tobacco: Never Alcohol Use Standard Drinks/Week Comments Not Currently 0 (1 standard drink = 0.6 oz pur e alcohol) Depression Answer Date Recorded Patient Health Questionnaire-9 Score 7 08/30/2022 Housing Stability Answer Date Recorded What is your housing situation today? I have david frazier 02/10/[address] you li ve. Do you have problems with any of the following? None of the above 02/10/2023 Food Insecurity Answer Date Recorded Within the past 12 months, y ou worried that your food would run out before you got money to buy more: Never True 02/10/2023 Within the past 12 months,th e food you bought just didn't last and you didn't have enough money to get more: Never True Transportation Answer Date Recorded In the past 12 months, has l ack of transportation kept you from medical appts, meetings, work or from getting things needed for daily living? No 02/10/2023 Utilities Answer Date Recorded In the past 12 months, has t he electric, gas, oil or water company threatened to shut off services in your home? No 02/10/2023 Depression Answer Date Recorded Patient Health Questionnaire-2 Score 2 08/30/2022 Comments Unknown Sex and Gender Information Value Date Recorded Sex Assigned at Female 02/22/2022 10:16 AM EDT Legal Sex Female 10:16 AM EDT Gender Identity Female 07/29/2022 3:58 PM EDT Sexual Orientation Choose not to disclose 2021 10:16 AM EDT documented as of this encounter Plan of Treatment Upcoming Encounters Date Type Department Care Team (Late st Contact Info) Description 08/02/2024 1:00 PM EDT Office Visit [facility] AD[facility] DENTAL [address] [place] [address] Nydia, Esthela [address] [place] [address] 09/07/2024 10:00 AM EDT Office Visit [facility] OPTOMETRY [address] [place] [address] Nsaim, Elma, OD [address] [place] [address] documented as of this encounter Visit Diagnoses Diagnosis Neck pain Cervicalgia documented in this encounter Additional Health Concerns Assessment Noted Time PHQ-9 Depression Total Score: 7 08/31/19 23 11:48 AM EDT documented as of this encounter Care Teams Highway Maintenance Technician Relationship Specialty Start Date End Date Virgie Cartagena FNP [address] [place] [address] PCP - General Family Medicine 12/15/21 documented as of this encounter
--- OUTSIDE RECORDS SUMMARY | 2024-06-14 10:03 | XMS_ITS | Clinical Summary ---
Author Organization [employer] Address [address] [facility] [address] [place] [address] Care Team Providers Care Provisioning Analyst Name Role Phone Virgie Cartagena PRODUCTION POSTING CLERK Primary Care Provider [phone] Allergies No known active allergies Medications Diclofenac Sodium 1 % gel Apply 2 g topically every 6 (six) hours. 2 Active nicotine (Nicoderm, Step 2) 14 MG/24HR patch Apply 1 patch q a.m. (transdermal route) as explained. Alternate shoulders every other day. 1 Active nicotine polacrilex (Commit) 2 MG lozenge 1or 2 lozenges PO ~ q 4 hrs as needed instead of a cigarette. Allow it to dissolve slowly in your mouth. 1 Active omeprazole OTC (PriLOSEC OTC) 20 MG EC tablet Take 1 tablet (20 mg) by mouth before breakfast. Do not crush, chew, or split. 30 tablet 3 Active Acetaminophen Extra Strength 500 MG tablet TAKE 1 TO 2 TABLETS BY MOUTH EVERY 8 HOURS NEEDED FOR PAIN 100 tablet 3 4 Active ammonium lactate (Amlactin) 12 % creamIndications :Xerosis of skin apply 1 liberally by Topical route 1 time every day to feet 140 g 3 4 Active Additional Information Patient not taking.Reported on 02/23/2024 tretinoin (Retin-A) 0.025 % gelIndications:O ther acne Apply topically at bedtime. 20 g 3 4 Active Additional Information Patient not taking.Reported on 02/23/2024 Blood Pressure kitIndications:E ssential hypertension Use to check blood pressure as directed 1 kit 4 Active olmesartan (Benicar) 5 MG tabletIndication s:Essential hypertension Take 1 tablet (5 mg) by mouth Once per day. 90 tablet 4 02/15/20 25 Active cyclobenzaprine (Flexeril) 5 MG tabletIndication s:Neck pain TAKE 1 TABLET BY MOUTH DAILY AT BEDTIME NEEDED FOR MUSCLE SPASMS 15 tablet 2 5 Active Active Problems Problem Noted Date Diagnosed Date Ill-fitting dentures 02/23/2024 Palpitations 02/23/2024 Assessment & Plan (02/23/2024 5:59 PM EDT): Referred to cardiology Jan 2024 Last TSH WNL October 2023 Other acne 11/16/2023 Assessment & Plan (11/16/2023 5:21 PM EDT): Continue tretinoin 0.025% gel for acne (aware not covered by insurance, plan to pay out of pocket) Dental caries 02/10/2023 GERD (gastroesophageal reflux disease) 3 Assessment & Plan (02/01/2023 7:49 PM EDT): Pt reports GERD symptoms possible associated w NSAIDS use -omepraole trial -px today -life style changes advised, decrease heavy meals at night, HOB elevation -t f w PCP Periodontal disease 01/10/2023 Cervical radiculopathy 09/29/2022 Overview (09/12/2023): Followed by [facility] Pain Management Intralaminar epidural steroid injection 1 level above C6-C7 disc protrusion August 2022 Interlaminar epidural C5-C6 steroid injection Feb 2023 Plan for referral to Neurosurgery if interventions through Pain Management not effective Assessment & Plan (06/11/2024 5:29 PM EST): -Continues with cyclobenzaprine and ibuprofen Prn for pain -Referral to re-establish with Pain Management placed May 2024 Assessment & Plan (02/05/2023 1:42 PM EDT): -Continues with cyclobenzaprine and ibuprofen Prn for pain -Upcoming follow up scheduled with pain management (02/14/23) for consideration of repeat injection Assessment & Plan (02/01/2023 7:53 PM EDT): Cr wnl 06/2022 - from last PM 's note CT scan of the neck :large disc extrusion on CT which is by suspicion of radiologist compresses her nerve roots. Pt is s/p interlaminar therapeutic C5-C6 epidural steroid injection with improvement of symptoms as well tried w PT Symptoms and from exam current pain is muscular with no abnormal neuro exam at this time -warm compresses -cyclobenzaprine prn HS -explained to avoid ETOH,and to not drive or use heavy machinery after taking medication -tylenol prn -ibuprofen 400 pr x moderate pain -has at home -PM apt this month 02/14/2023 planned for possible another injection -alarm signs and symptoms discussed today Assessment & Plan (09/29/2022 5:49 PM EDT): Pt hesitant/cautious about surgery. Discussed treatment options include conservative measures versus surgical interventions. Encouraged to discuss benefits and risks in further detail with specialists, may benefit from consult with Neurosurgery to discuss expectations, risks, and benefits around surgery. Pt will consider. Encouraged to continue with symptomatic management for the time being Routine health maintenance 08/29/2022 Overview (06/11/2024): Pap 08/23/22: NILM HPV neg Mammo: BIRADS 1 on 10/10/23 Last PE 05/16/24 Colon Cancer screening: Cologuard order placed 05/16/24 OPH: referral to [facility] placed 05/16/24 Dental calculus 08/03/2022 Neck pain 06/25/2022 Assessment & Plan (09/01/2022 9:46 AM EDT): ?? No red flag symptoms ?? Continue with symptomatic management including pharm and non-pharm methods ?? Pharm: diclofenac gel and cyclobenzaprine PRN. Reviewed med safety and SE ?? Non-pharm: cont with light stretching, massage, and rest. Encouraged PT, pt will consider ?? Specialists: Upcoming appt to establish with Pain Management on 09/01/22. Assessment & Plan (07/29/2022 4:30 PM EDT): -Continue with symptomatic management including pharm and non-pharm methods -Pharm: diclofenac gel and cyclobenzaprine PRN. Reviewed med safety and SE -Non-pharm: cont with light stretching, massage, and rest. Encouraged PT, pt will consider -Referral to Pain Medicine for further eval and tx Assessment & Plan (07/09/2022 12:46 PM EDT): She has an orthopedic surgery appointment at [facility] on July 28 at 1400. Assessment & Plan (06/25/2022 5:03 PM EST): Return to the emergency department with new or worsening symptoms weakness, fevers, chills, loss of bladder or bowel control, numbness or tingling Pain in joint of right shoulder 06/10/2021 Assessment & Plan (06/25/2022 5:02 PM EST): Return to the emergency department with new or worsening symptoms weakness, fevers, chills, loss of bladder or bowel control, numbness or tingling Mixed anxiety and depressive disorder 03/06/2021 Assessment & Plan (11/16/2023 5:22 PM EDT): Plan to start taper of fluoxetine: decrease to 10mg daily x 2 weeks. Then may stop. If experiences withdrawal symptoms, additional pills provided to taper more slowly. Call PRN. Denies SI/HI/thoughts of self harm Assessment & Plan (08/29/2022 8:55 PM EDT): ?? Continues with fluoxetine 20mg daily ?? Denies SI/HI/thoughts of self harm History of alcohol abuse 01/23/2020 Cleft palate 02/12/2015 Dyslipidemia 02/12/2015 Essential hypertension 02/12/2015 Overview (06/11/2024): Encourage to continue with lifestyle interventions such as low salt diet, smoking cessation, and goal 150 mins exercise weekly Currently well controlled w/o pharmacotherapy Previous medications: -Chlorthalidone dc d/y hypokalemia (Jan 2024) -Olmesartan 5mg daily dc d/t well controlled w/o medication Assessment & Plan (02/23/2024 6:02 PM EDT): Repeat BMP with hypokalemia. Plan to DC chlorthalidone, replace with olmesartan. Potassium chloride BID x 3 days rx sent to pharmacy. Lab Results Component Value Date K 2.9 (LL) 02/15/2024 Assessment & Plan (02/15/2024 3:13 PM EDT): Well controlled Continue chlorthalidone 25mg daily. Reviewed med use and SE Re-check BMP Assessment & Plan (11/16/2023 5:23 PM EDT): Well controlled Continue chlorthalidone 25mg daily. Reviewed med use and SE Re-check BMP Assessment & Plan (09/13/2023 10:58 AM EDT): STOP lisinopril START chlorthalidone 25mg daily. Reviewed med use and SE Check BMP in 2 weeks Assessment & Plan (02/05/2023 1:41 PM EDT): -BP readings persistently elevated in office -Shared decision making to re-start lisinopril 5mg daily. Reviewed med safety and SE (no hx cough with med) -Review home readings over the next 2 weeks and bring to follow up appt with nurse -BP goal < 140/90 mmHg -If readings above goal at RN BP check, consider increase in lisinopril to 10mg daily -ED precautions -Repeat BMP following RN visit Assessment & Plan (02/01/2023 7:54 PM EDT): Pt used to take BP meds but hold in the past w normal BP at home Possible elevated BP now is in setting of acute pain -advised pt to resume checking BP at home once pain is better controlled and to bring readings to PCP in 1 week-already scheduled apt to monitor if need to resume BP med Assessment & Plan (09/29/2022 5:49 PM EDT): Mild elevation in office, possibly in setting of pain exacerbation Encourage to continue monitoring BP readings at home and follow up if continued to be elevated Assessment & Plan (08/31/2022 10:38 AM EDT): Started patient on Lisinopril due to elevated diastolic blood pressure. Her systolic bp did drop quite a bit while on lisinopril, she complained of lightheadedness and stopped taking the medication. Patients home blood pressure log showes borderline hypotension after stopping lisinopril. She is to continue logging her BP and bring logs to her PCP appointment on 07/29/22. Discontinued lisinopril. Tobacco dependence syndrome 02/12/2015 Assessment & Plan (06/11/2024 5:31 PM EST): Smoking 5 cigg/day Encouraged smoking cessation resources such as pharmacomtherapy, [facility] smoking cessation group, and [facility] pharmacy smoking cessation clinic Assessment & Plan (02/23/2024 6:03 PM EDT): Smoking 5 cigg/day Encouraged smoking cessation resources such as pharmacomtherapy, [facility] smoking cessation group, and [facility] pharmacy smoking cessation clinic Assessment & Plan (02/04/2023 2:59 PM EDT): ?? Smoking 5 cigg/day Vitamin D deficiency 02/12/2015 Resolved Problems Problem Noted Date Diagnosed Date Resolved Date COVID 04/23/2022 07/29/2022 Encounters Date Type Department Care Team Description 06/12/2024 Telephone [facility] [address] [place] [id number] Virgie Cartagena FNP 05/16/2024 9:15 AM EST Office Visit [facility] [address] [place] [address] Virgie Cartagena FNP Encounter for routine history and physical examination of adult (Primary Dx); Routine health maintenance; Essential hypertension; Screening for colon cancer; Cervical radiculopathy; Encounter for other contraceptive management; Dietary counseling; Exercise counseling; Tobacco dependence syndrome 05/16/2024 Patient Outreach [facility] [address] [place] [address] Virgie Cartagena FNP Care Coordination (CHW outreach for SDOH PT-1 and food needs-LVM ) 05/16/2024 Travel 05/15/2024 Telephone [facility] [address] [place] [address] Peggy Nash MA Chart Prep 05/04/2024 Patient Outreach [facility] [address] [place] [address] Virgie Cartagena FNP Pre-visit Planning (Pre-visit planning - LVM ) 04/30/2024 Refill [facility] [address] [place] [address] Virgie Cartagena FNP Neck pain from Last 3 Months Immunizations Name Administration Dates Next Due Hep B, adult 06/25/2010,03/09/2010,11/14/2001 Influenza injectable quadriv alent IIV4 with preservative 02/01/2018,02/05/2016,01/10/2015 Influenza injectable quadriv alent preservative free 02/04/2023,01/19/2021,01/23/2020,2018,02/10/2017 Influenza, IIV3, injectable 02/08/2014, 1,03/09/2010 Influenza, Split (incl. bunny fied surface antigen) 03/15/2013,02/02/2012 Influenza, seasonal, injecta ble, preservative free 02/15/2024 Pfizer Covid-19 Vaccine 12+ 02/15/2024, 4 Pneumococcal Conjugate PCV 20 09/12/2023 TD (adult), 2 Lf tetanus tox oid, preservative free, adsorbed 03/06/2021,06/25/2010,11/14/2001 Tdap 03/09/2010 Family History Medical History Relation Name Comments diabetes mellitus Brother Alcohol abuse Father Alzheimer's disease Father Hypertension Father diabetes mellitus Father diabetes mellitus Sister Relation Name Status Comments Brother Father Sister Social History Tobacco Use Types Packs/Day Years Used Date Smoking Tobacco: Every Day Cigarettes Smokeless Tobacco: Never Tobacco Cessation:Ready to Q uit: Not Asked; Counseling Given: Not Answered Alcohol Use Standard Drinks/Week Comments Not Currently 0 (1 standard drink = 0.6 oz pur e alcohol) Alcohol Answer Date Recorded Frequency of Alcohol Consumption Not on file 02/15/2024 Average Number of Drinks Not on file 024 Frequency of Binge Drinking Not on file 01/24 Score 0 02/15/2024 Depression Answer Date Recorded Patient Health Questionnaire-9 Score 12 06/11/2024 Patient Health Questionnaire-9 Score 12 06/11/2024 Last PHQ-9: Questionnaire Data Not on file 0 06/11/2024 Housing Stability Answer Date Recorded What is your housing situation today? I have david frazier 05/16/[address] you li ve. Do you have problems with any of the following? None of the above 05/16/2024 Food Insecurity Answer Date Recorded Within the past 12 months, y ou worried that your food would run out before you got money to buy more: Never True 11/08/2023 Within the past 12 months,th e food you bought just didn't last and you didn't have enough money to get more: Never True Transportation Answer Date Recorded In the past 12 months, has l ack of transportation kept you from medical appts, meetings, work or from getting things needed for daily living? No 11/08/2023 Utilities Answer Date Recorded In the past 12 months, has t he electric, gas, oil or water company threatened to shut off services in your home? Yes 05/16/2024 Depression Answer Date Recorded Patient Health Questionnaire-2 Score 4 06/11/2024 Internet Access Answer Date Recorded Internet Access Q1 Yes 12/26/2023 Internet Access Q2 Not on file 12/26/2023 Comments No Sex and Gender Information Value Date Recorded Sex Assigned at Female 02/22/2022 10:16 AM EDT Legal Sex Female 10:16 AM EDT Gender Identity Female 07/29/2022 3:58 PM EDT Sexual Orientation Choose not to disclose 2021 10:16 AM EDT Last Filed Vital Signs Vital Sign Reading Time Taken Comments Blood Pressure 136/88 05/16/2024 9:41 AM EST Pulse 84 05/16/2024 9:39 AM EST Temperature 36.3 ??C (97.4 ??F) 05/16/2024 9:39 AM ES T Respiratory Rate 20 05/16/2024 9:39 AM EST Oxygen Saturation 100% 05/16/2024 9:39 AM EST Inhaled Oxygen Concentration - - Weight 52.3 kg (115 lb 6 oz) 05/16/2024 9:39 AM EST Height 141.6 cm (4' 7.75 ) 05/16/2024 9:39 AM ES T Body Mass Index 26.1 05/16/2024 9:39 AM EST Plan of Treatment Upcoming Encounters Date Type Department Care Team (Late st Contact Info) Description 08/02/2024 1:00 PM EDT Office Visit [facility] [address] [place] [address] Nydia, Esthela [address] [place] [address] 09/07/2024 10:00 AM EDT Office Visit [facility] [address] [place] [address] Nasim, Elma, OD [address] [place] [address] Health Maintenance Due Date Last Done Comments CT Colonography 1979 Colonoscopy 1979 Colorectal Cancer Screening 1979 FIT DNA/Cologuard 1979 FIT 1979 FOBT 1979 Sigmoidoscopy 1979 Dental Oral Exam 08/02/2024 02/01/2024, 08/03/2022 Dental Prophylaxis 08/02/2024 02/01/2024, 08/19/2022 Mammogram 10/09/2024 10/10/2023, 02/0 11/2020, 05/29/2019 Depression Monitoring (PHQ-9) 12/09/2024 06/11/2024, 06/11/2024 Dental X-Ray: Bitewings 02/01/2025 02/01/2024, 08/03 Diabetes: Hemoglobin A1C 02/14/2025 024, 09/17/2020, 11/15/2019 Alcohol/Substance Use Screening 05/16/2025 05/16/2024 SDOH Screening 05/16/2025 05/16/2024 Tobacco Screening 05/16/2025 05/16/2024 Depression Screening 06/11/2025 06/11/2024, 06/11/19 Family Planning (PISQ) 06/11/2025 06/11/2024 Dental X-Ray: Full Mouth 08/04/2025 08/03/2022 Pap Smear 08/23/2025 08/23/2022 Lipid Panel 09/17/2025 09/17/2020, 05/26, 11/15/2019 Cervical Cancer Screening 08/24/2027 HPV/Cotest 08/24/2027 08/23/2022, 02/10/2017 Zoster Vaccines (1 of 2) 2029 DTaP/Tdap/Td Vaccines (4 - Td or Tdap) 03/06/2031 03/06/2021, 06/25/2010, 03/09/2010, Additional history exists RSV Patients and Patients Aged 60 years or older (1 - 1-dose 75+ series) 2054 Hepatitis B Vaccines Completed 06/25/2010, 03/09/2010, 11/14/2001 HIV Screening Completed 01/19/2021, 04/09/2019 Hepatitis C Screening Completed 01/19/2021 , 01/19/2021, 04/09/2019 Pneumococcal Vaccine: Pediatrics (0 to 5 Years) and At-Risk Patients (6 to 49) Years) Completed 09/12/2023 COVID-19 Vaccine Completed 02/15/2024, , 04/07/2021, Additional history exists Influenza Vaccine Completed 02/15/2024, , 01/19/2021, Additional history exists HIB Vaccines Aged Out No longer eligi ble based on patient's age to complete this topic HPV Vaccines Aged Out No longer eligi ble based on patient's age to complete this topic Hepatitis A Vaccines Discontinued IPV Vaccines Aged Out No longer eligi ble based on patient's age to complete this topic Meningococcal Vaccine Aged Out No margaret preston eligible based on patient's age to complete this topic RSV under 20 months Aged Out No longe r eligible based on patient's age to complete this topic Rotavirus Vaccines Aged Out No longer eligible based on patient's age to complete this topic Procedures Procedure Name Priority Date/Time Associated Diagnosis Comments POCT , URINE Routine 05/16/2024 10:53 AM EST Encounter for routine history and physical examination of adult HEMOGLOBIN A1C Routine 02/15/2024 12:20 PM EDT Routine health maintenance PROPHYLAXIS - ADULT Routine 02/01/2024 1 0:00 AM EDT Dental calculus Periodontal disease BITEWINGS - 4 RADIOGRAPHIC IMAGES Routine 02/01/2024 10:00 AM EDT Dental calculus Periodontal disease PERIODIC ORAL EVALUATION - ESTABLISHED PATIENT Routine 02/01/2024 10:00 AM EDT BI MAMMOGRAM SCREENING TOMOSYNTHESIS BILATERAL Routine 10/10/2023 4:31 PM EDT Routine health maintenance Encounter for screening mammogram for malignant neoplasm of breast IMAGE-GUIDED PAP W/AGE BASED SCR PROTOCOLS Routine 08/23/2022 11:08 AM EDT Cervical cancer screening INTRAORAL - COMPLETE SERIES OF RADIOGRAPHIC IMAGES Routine 08/03/2022 11:00 AM EDT HEPATITIS C ANTIBODY (EXTERNAL RESULTS ONLY) Routine 01/19/2021 9:39 PM EDT HIV 1/2 ANTIGEN/ANTIBODY, FOURTH GENERATION W/RFL Routine 01/19/2021 3:09 PM EDT LIPID PANEL, STANDARD Routine 09/17/2020 1:10 PM EDT from Last 3 Months or Most Recently Relevant to Health Maintenance Results * POCT Urine (05/16/2024 10:53 AM EST) Preg Test, Ur Negative Negative, Indeterminate, None Detected, Invalid, Specimen unsatisfactory for evaluation, Weakly Positive QC Media Lot # [id number] Lot# Expiration Date [id number] Urine 05/16/2024 10:5 3 AM EST us Virgie MADRID POINT OF CARE TEST ENTER/EDIT ORDERABLES Final Result * (ABNORMAL) Hemoglobin A1c (02/15/2024 12:20 PM EDT) Hemoglobin A1c 6.1(H) <6.0 % [facility] Comment:Hemoglobin A1C Refer ence Range Adults: 4.8 - 6.0 % Non diabetic: < 6.0 % Goal: < 7.0 %Additional Action Suggested: > 8.0 %Note: Hemoglobin A1c results are invalid for patients with abnormal amounts of HbF. Blood transfusions may impact the HbA1c concentration in the patient sample. Estimated Average Glucose 128 mg/dL [facility] Comment:eAG = Estimated ave rage glucose which is %A1C expressed asaverage glucose, using the formula of the Z9H-[id number] Glucose study (ADAG), Diabetes Care, Vol.31,#8,Nov. 2007 Blood Venous blood specimen / Unknown 02/15/2024 12:20 PM EDT 02/15/2024 1:24 PM EDT us Virgie Cartagena PRODUCTION POSTING CLERK LAB BLOOD ORDERABLES Final Res ult [facility] [address] [place] [address] [phone] * BI Mammogram Screening Tomosynthesis Bilateral (10/10/2023 4:31 PM EDT) Anatomical Region Laterality Modality Breast Bilateral Mammography 10/10/2023 4:31 PM EDT Narrative 11/09/2023 7:12 AM EDT ? [facility] [place] ? [address] ?[place] [address] ? Mammography Report ? Signed ? Patient: Shannan,Christy A ?MR#: [id number] ?? 25 ? : 1980 ?Acct:[id number] ? Age/Sex: 43 / F ?ADM Date: 06/17/24 ? Loc: HO.MAMMO ? Attending Ollie Cartagena PRODUCTION POSTING CLERK ? Ordering Physician: Virgie Cartagena PRODUCTION POSTING CLERK ?Results: 1Negat ?? kelsi ? Date of Service: 10/10/23 ?Follow Up: 1 Year From Orig ?? inal Mammogram ? Procedure(s): MM tomosynthesis screening BI ?? Accession Number(s): [id number] ? cc: Virgie Cartagena PRODUCTION POSTING CLERK ? EXAMINATION: ?? MM SCREENING DIGITAL BREAST TOMOSYNTHESIS, BILATERAL ? CLINICAL INFORMATION: ? Screening. Asymptomatic. ? COMPARISON: ?? Mammography: This study is compared with prior exams dating back to ?? 2019. ? TECHNIQUE: ?? Digital breast tomosynthesis is performed in both the craniocaudal and ?? mediolateral oblique views along with computer-aided detection (CAD). ?? Synthesized 2D images are generated from the tomosynthesis. ? FINDINGS: ?? The breasts are heterogeneously dense, which may obscure small masses ?? (ACR BI-RADS breast composition Category c). ? There are no significant masses, abnormal calcifications, or other ?? abnormalities. ? MM/MM tomosynthesis screening BI ?? IMPRESSION: ?? No mammographic evidence of malignancy. ? ASSESSMENT: ? BI-RADS BI-RADS 1 - Negative ? RECOMMENDATION: ?? Routine annual mammography screening. ? 1 year F/U ? This examination should not preclude the clinical evaluation of a ?? suspicious palpable abnormality. ? This patient's information was entered into a reminder system with a ?? target due date for their next mammogram. ? Dictated By: ?Tawny Buckley MD ? Signed By: ?<Electronically signed by Tawny Buckley MD in OV> ? 11/09/23 0707 ? DD/ 1631 ? TD/TT: ? Legal Administrative Secretary: ? Procedure Note Donotuseinterpreter, Image - 11/09/2023 [place] [facility] [address] [place] [address] Mammography Report Signed Patient: Christy Campbell AMR#: [id number] 25 : 1980Acct:[id number] Age/Sex: 43 / FADM Date: 10/10/23 Loc: HO.MAMMO Attending Dr: Virgie MADRID Ordering Physician: Virgie CartagenaPResults: 1Negat [place] Date of Service: 10/10/23Follow Up: 1 Year From Orig inal Mammogram Procedure(s): MM tomosynthesis screening BI Accession Number(s): [id number] cc: Virgie Cartagena EXAMINATION: MM SCREENING DIGITAL BREAST TOMOSYNTHESIS, BILATERAL CLINICAL INFORMATION: Screening. Asymptomatic. COMPARISON: Mammography: This study is compared with prior exams dating back to 2019. TECHNIQUE: Digital breast tomosynthesis is performed in both the craniocaudal and mediolateral oblique views along with computer-aided detection (CAD). Synthesized 2D images are generated from the tomosynthesis. FINDINGS: The breasts are heterogeneously dense, which may obscure small masses (ACR BI-RADS breast composition Category c). There are no significant masses, abnormal calcifications, or other abnormalities. MM/MM tomosynthesis screening BI IMPRESSION: No mammographic evidence of malignancy. ASSESSMENT: BI-RADS BI-RADS 1 - Negative RECOMMENDATION: Routine annual mammography screening. 1 year F/U This examination should not preclude the clinical evaluation of a suspicious palpable abnormality. This patient's information was entered into a reminder system with a target due date for their next mammogram. Dictated By: Tawny Buckley MD Signed By: <Electronically signed by Tawny Buckley MD in OV> 11/09/23 0707 DD/ 1631 TD/TT: Legal Administrative Secretary: Virgie MADRID IMG BI PROCEDURES Final Result * Image-Guided Pap with Age-Based Screening Protocols (08/23/2022 11:08 AM EDT) Comment [facility] Comment: This order for age-based cervical cancer and STI screening follows ACOG guidelines(PB 168, 140, VGK715). See individual assays for performing site location. Clinical Information: None given [facility] LMP: NONE GIVEN [facility] Prev. PAP: NONE GIVEN [facility] Prev. BX: NONE GIVEN [facility] SOURCE: None given [facility] Statement Of Adequacy: [facility] Comment: Satisfactory for evaluation. Endocervical/transformation zone component present. Interpretation/ Result: Negative for intraepithelial lesion or malignancy. [facility] COMMENT: This Pap test has been evaluated with computer assisted technology. [facility] Cytotechnologis t: [facility] Comment: KR, CT(ASCP) CT screening location: [address] ??[address] [facility] [employer]: [facility] Comment: ALS, CT(ASCP) CT screening location: [address] ??[address] (Always Message) [facility] Comment: EXPLANATORY NOTE: The Pap is a screening test for cervical cancer. It is not a diagnostic test and is subject to false negative and false positive results. It is most reliable when a satisfactory sample, regularly obtained, is submitted with relevant clinical findings and history, and when the Pap result is evaluated along with historic and current clinical information. HPV nRNA E6/E7 Not Detected Not Detected LIAt Comment: Methodology: Molder Foam Rubber-Mediated Amplification This assay detects E6/E7 viral messenger RNA (mRNA) from 14 high-risk HPV types (16,18,31,33,35,39,45,51,52,56,58,59,66,68). Cervical sources are required for HPV testing. If a vaginal source from a patient who has had a total hysterectomy with removal of cervix was submitted, please contact the testing laboratory for alternative testing options. For additional information, please refer to http://Tactile.MumsWay/faq/JVI628k7 (This link if provided for information/ educational purposes only.) Pap Vial 08/23/2022 11:0 8 AM EDT 08/24/2022 7:37 AM EDT Madhavi Powers CN LAB BLOOD ORDERABLES Nurys l Result [facility] [address] [facility], [place] [address] [facility] [address] [place] [address] * Hepatitis C Antibody (01/19/2021 9:39 PM EDT) Hepatitis C Antibody Nonreactive Blood 01/19/2021 9:39 PM EDT Historical Provider MD POINT OF CARE TEST ENTER/ EDIT ORDERABLES Final Result * HIV 1/2 ANTIGEN/ANTIBODY,FOURTH GENERATION W/RFL (01/19/2021 3:09 PM EDT) HIV-1/2 ANTIGEN AND ANTIBODIES, 4TH GENERATION W/ REFLEX NON-REACT KELSI NON-REACT KELSI [facility] Comment: HIV-1 antigen and HIV-1/HIV-2 antibodies were not detected. There is no laboratory evidence of HIV infection. ?? PLEASE NOTE: This information has been disclosed to you from records whose confidentiality may be protected by state law. ??If your state requires such protection, then the state law prohibits you from making any further disclosure of the information without the specific written consent of the person to whom it pertains, or as otherwise permitted by law. A general authorization for the release of medical or other information is NOT sufficient for this purpose. ? For additional information please refer to http://Tactile.MumsWay/faq/NPZ944 (This link is being provided for informational/ educational purposes only.) ? The performance of this assay has not been clinically validated in patients less than 2 years old. ?? 01/19/2021 3:09 PM EDT us Shaina Ramos PRODUCTION POSTING CLERK LAB BLOOD ORDERABLES Final Res ult Performing Organization Address [facility]/ZIP Co de Phone Number [facility] [address] * (ABNORMAL) LIPID PANEL, STANDARD (09/17/2020 1:10 PM EDT) Chol/HDLC Ratio 6.9(H) <5.0 (calc) [facility] Cholesterol, Total 243(H) <200 mg/dL [facility] HDL Cholesterol 35(L) > OR = 50 mg/dL [facility] LDL Cholesterol 181(H) mg/dL (calc) [facility] Comment: Reference range: <100 ?? Desirable range <100 mg/dL for primary prevention; ?? <70 mg/dL for patients with CHD or diabetic patients ?? with > or = 2 CHD risk factors. ?? LDL-C is now calculated using the Onofre-Rodriguez ?? calculation, which is a validated novel method providing ?? better accuracy than the Friedewald equation in the ?? estimation of LDL-C. ?? Onofre SS et al. SAVANNAH. 2013;310(19): 4663-0982 ?? (http://education.WhatsOpen/faq/JFD979) Non-HDL Cholesterol 208(H) <130 mg/dL (calc) [facility] Comment: For patients with diabetes plus 1 major ASCVD risk ?? factor, treating to a non-HDL-C goal of <100 mg/dL ?? (LDL-C of <70 mg/dL) is considered a therapeutic ?? option. Triglycerides 136 <150 mg/dL [facility] 09/17/2020 1:10 PM EDT us Saba Fishman MEDICAL GENETICS DIRECTOR LAB BLOOD ORDERABLES Final Resu lt Performing Organization Address [facility] Co de Phone Number [facility] [address] from Last 3 Months or Most Recently Relevant to Health Maintenance [place] AD[place] Care Teams Provisioning Analyst Relationship Specialty Start Date End Date Virgie Cartagena FNP [address] [place] [address] PCP - General Family Medicine 12/15/21
--- OUTSIDE RECORDS SUMMARY | 2024-06-14 10:03 | XMS_ITS | Encounter Summary ---
Author Organization [employer] Address [address] [facility] [address] [place] [address] Care Team Providers Care Customer Records Division Supervisor Name Role Phone Virgie Cartagena [employer] Primary Care Provider [phone] Encounter Details Date Type Department Care Team ([facility] st Contact Info) Description 11/22/2023 Orders Only [facility] CHC MED & PEDS [address] [place], [place] [phone] Virgie Cartagena FNP [address] [place] [address] Hypokalemia (Primary Dx) Social History Tobacco Use Types Packs/Day Years Used Date Smoking Tobacco: Every Day Cigarettes Smokeless Tobacco: Never Alcohol Use Standard Drinks/Week Comments Not Currently 0 (1 standard drink = 0.6 oz pur e alcohol) Depression Answer Date Recorded Patient Health Questionnaire-9 Score 6 09/12/2023 Patient Health Questionnaire-9 Score 6 09/12/2023 Last PHQ-9: Questionnaire Data Not on file 0 09/12/2023 Housing Stability Answer Date Recorded What is your housing situation today? I have david frazier 11/08/[address] you li ve. Do you have problems with any of the following? Water leaks 11/08/2023 Food Insecurity Answer Date Recorded Within the [...] shut off services in your home? No 11/08/2023 Depression Answer Date Recorded Patient Health Questionnaire-2 Score 4 09/12/2023 Comments Unknown Sex and Gender Information Value [...] Description 08/02/2024 1:00 PM EDT Office Visit [facility] ADULT DENTAL [address] [place] [address] Nydia, Esthela [address] [place] [address] 09/07/2024 10:00 AM EDT Office Visit [facility] OPTOMETRY [address] [place] [address] Nasim, Elma, OD [address] [place] [address] documented as of this encounter Procedures Procedure Name Priority Date/Time Associated Diagnosis Comments BASIC METABOLIC PANEL Routine 12/14/2023 2:16 PM EDT Hypokalemia documented in this encounter Results * (ABNORMAL) Basic Metabolic Panel (12/14/2023 2:16 PM EDT) Sodium 141 135 - 145 mmol/L [facility] Potassium 3.9 3.3 - 5.1 mmol/L [facility] Chloride 107 96 - 108 mmol/L [facility] Carbon Dioxide 26 22 - 29 mmol/L [facility] Anion Gap 12 12 - 20 [facility] Urea Nitrogen (BUN) 8(L) 9 - 16 mg/dL [facility] Creatinine, Serum 0.71 0.5 - 1.4 mg/dL [facility] Estimated Glomerular Filt Rate >60 [facility] Comment:NOTE: For -Am erican individuals, multiply the result by 1.210.Chronic Kidney Disease: Estimated GFR < 60 mL/min/1.76p4Hmhlfw Kidney Disease: Estimated GFR < 15 mL/min/1.73m2 Glucose 83 60 - 115 mg/dL [facility] Calcium 9.9 8.4 - 10.2 mg/dL [facility] Blood Venous blood specimen / Unknown 12/14/2023 2:16 PM EDT 12/14/2023 4:46 PM EDT us Virgie MADRID LAB BLOOD ORDERABLES Final Res ult [facility] [address] [place] [address] [phone] documented in this encounter Visit Diagnoses Diagnosis Hypokalemia- Primary Hypopotassemia documented in this encounter Additional Health Concerns Assessment Noted Time PHQ-9 Depression Total Score: 6 09/12/19 24 1:31 PM EDT documented as of this encounter Care Teams Customer Records Division Supervisor Relationship Specialty Start Date End Date Virgie Cartagena FNP [address] [place] [address] PCP - General Family Medicine 12/15/21 documented as of this encounter
--- OUTSIDE RECORDS SUMMARY | 2024-06-14 10:03 | XMS_ITS | Encounter Summary ---
Demographics Address [address] [place] [id number] Mobile Phone Home Phone Email Address . [employer] Preferred Language en Marital Status Single Orthodoxy Affiliation Unknown Race Other Race Ethnic Group Unknown Author Organization [employer] Address [address] [place] [address] [address] [place] [address] Care Team Providers Care Adjunct Writing Instructor Name Role Phone Virgie Cartagena Primary Care Provider [phone] Reason for Visit * Reason Comments Care Coordination CHW outreach for SDO H PT-1 and food needs-LVM Encounter Details Date Type Department Care Team (Latest Contact Info) Description 05/16/2024 Patient Outreach [facility] CHC MED & PEDS [address] [place], [place] [phone] Virgie Cartagena FNP [address] [place] [address] Care Coordination (CHW outreach for SDOH PT-1 and food needs-LVM ) Social History Tobacco Use Types Packs/Day Years [...] Recorded Patient Health Questionnaire-2 Score 4 09/12/2023 Internet Access Answer Date Recorded Internet Access Q1 Yes 12/26/2023 Internet Access Q2 Not on file 12/26/2023 Comments No Sex and Gender Information Value Date Recorded Sex Assigned at Female 02/22/2022 10:16 AM EDT Legal Sex Female 10:16 AM EDT Gender Identity Female 07/29/2022 3:58 PM EDT Sexual Orientation Choose not to disclose 2021 10:16 AM EDT documented as of this encounter Progress Notes * Sorin Rodriguez - 05/16/2024 1:45 PM EST CHW Sorin Rodriguez, placed outbound call to patient for assistance with SDOH as a referral was placed by the provider. Patient had screened positive for the following SDOH insecurities. No answer atthis time. Patient's name and were not confirmed. CHW left detailed message and provided contact information requesting return call for assistance. Patient educated on extended clinic hours on Mondays through Wednesdays, and Walk-In Urgent Care Located in [facility]. Patient provided with after-hours line for [facility], , which offer night time triage service and option to transfer toon call provider if needed. documented in this encounter Plan of Treatment Upcoming Encounters Date Type Department Care Team ([facility] Contact Info) Description 08/02/2024 1:00 PM EDT Office Visit [facility] ADULT DENTAL [address] [place] [address] Nydia, Esthela [address] [place] [address] 09/07/2024 10:00 AM EDT Office Visit [facility] OPTOMETRY [address] [place] [address] Nasim, Elma, OD [address] [place] [address] documented as of this encounter Visit Diagnoses Not on filedocumented in this encounter Additional Health Concerns Assessment Noted Time PHQ-9 Depression Total Score: 6 09/12/19 24 1:31 PM EDT documented as of this encounter Care Teams Adjunct Writing Instructor Relationship Specialty Start Date End Date Virgie Cartagena FNP [address] [place] [address] PCP - General Family Medicine 12/15/21 documented as of this encounter
--- OUTSIDE RECORDS SUMMARY | 2024-06-14 10:03 | XMS_ITS | Encounter Summary ---
Author Organization [employer] Address [address] [place] [address] [address] [place] [address] Care Team Providers Care Mechanical Design Engineer Facilities Name Role Phone Virgie Cartagena Primary Care Provider [phone] Reason for Referral * Consultation (Routine) - Canceled Specialty Diagnoses / Procedures Referred By Joy mcguire Referred To Contact Obstetrics and Gynecology Diagnoses Encounter for other contraceptive management Virgie Cartagena FNP [address] [place] [address] Phone: tel: fax: [facility] Referral ID Status Reason Start Date Expiration Date Visits Requested Visits Authorized [id number] Canceled Specialty Services Required 06/11/2024 06/11/2025 1 1 * Consultation (Routine) - Canceled Specialty Diagnoses / Procedures Referred By Joy mcguire Referred To Contact Pain Medicine Diagnoses Cervical radiculopathy Virgie Cartagena FNP [address] [place] [address] Phone: tel: fax: [facility] Referral ID Status Reason Start Date Expiration Date Visits Requested Visits Authorized [id number] Canceled Specialty Services Required 06/11/2024 06/11/2025 1 1 * Consultation (Routine) - Closed Specialty Diagnoses / Procedures Referred By Contjosefa t Referred To Contact Optometry Diagnoses Essential hypertension Virgie Cartagena FNP [address] [place] [address] Phone: tel: fax: [facility] OPT[facility] [address] [place] [address] Phone: tel: fax: Referral ID Status Reason Start Date Expiration Date V isits Requested Visits Authorized [id number] Closed Consult and Treat 05/16/2024 05/16/2025 1 1 Reason for Visit * Reason Comments Annual Exam Encounter Details Date Type Department Care Team (Latest Contact Info) Description 05/16/2024 9:15 AM EST Office Visit [facility] MED[facility] [address] [place] [address] Virgie Cartagena FNP [address] [place] [address] Encounter for routine history and physical examination of adult (Primary Dx); Routine health maintenance; Essential hypertension; Screening for colon cancer; Cervical radiculopathy; Encounter for other contraceptive management; Dietary counseling; Exercise counseling; Tobacco dependence syndrome Social History Tobacco Use Types Packs/Day Years [...] AM EDT documented as of this encounter Last Filed Vital Signs Vital Sign Reading [...] Mass Index 26.1 05/16/2024 9:39 AM EST documented in this encounter Patient Instructions * Patient Instructions* JULIUS Suresh - 05/16/2024 9:15 AM EST Benzoyl Peroxide wash (5%) - Over the counter option for acne Referrals for Pain Management and OBGYN will be placed. Please let us know if you do not hear aboutreferral details within 2 weeks. documented in this encounter Progress Notes * Virgie Cartagena, LATIN PROFESSOR - 05/16/2024 9:15 AM EST Subjective: Christy Campbell is a 44 y.o. female w/ PMH hypertension, cervical radiculopathy, GERD, tobacco use, mixed anxiety/depressive disorder, who presents to the office for a physical exam. Interim history: Last PCP visit: 02/15/24 Referred to podiatry and cardiology Prediabetes Potassium level - hypokalemia (2.9) suspected med SE. Improved to 3.3 after switching anti-hypertensive medication. HPI: Hypertension: Home BP readings well controlled in the 110-120/70-80s without medication. No longer taking olmesartan. Denies any chest pain, palpations, SOB, or swelling in legs. Will plan to continue off medication and cont with lifestyle interventions at this time Contraception: sexually active with male partner and continues with menses. Would be interested in consult for BTL for permanent contraceptive method as no longer interested in having children. Cervical radiculopathy: previously followed by [facility] Pain Management for cervical radiculopathy with intralaminar steroid injections. Interested in returning to care as pain has been worsening over past few months. Updated referral placed. Patient Active Problem List Diagnosis Cleft palate Dyslipidemia Essential hypertension History of alcohol abuse Mixed anxiety and depressive disorder Pain in joint of right shoulder Tobacco dependence syndrome Vitamin D deficiency Neck pain Dental calculus Routine health maintenance Cervical radiculopathy Periodontal disease GERD (gastroesophageal reflux disease) Dental caries Other acne Ill-fitting dentures Palpitations No past surgical history on file. Family History Problem Relation Alcohol abuse Father Alzheimer's disease Father Other (diabetes mellitus) Father Hypertension Father Other (diabetes mellitus) Sister Other (diabetes mellitus) Brother Social History Living situation: lives with adolescent son Substance use: -alcohol: none -tobacco: 5 cigg/day -opioids: none Sexual activity: male partner Contraception: condoms/withdrawal method. Referral for consideration of BTL placed May 2024 Mental health: denies SI/HI/thoughts of self harm Previously worked as a AUTO SERVICER started 1996 or 1997 Family: son graduating High school in 2023 Patient's last menstrual period was 04/22/2024 (exact date). No Known Allergies Review of Systems Constitutional: Negative for chills and fever. Respiratory: Negative for cough, shortness of breath and wheezing. Cardiovascular: Negative for chest pain and palpitations. Gastrointestinal: Negative for diarrhea, nausea and vomiting. Musculoskeletal: Positive for arthralgias and neck pain. Skin: Negative for rash. Psychiatric/Behavioral: Negative for suicidal ideas. Visit Vitals BP 136/88 (BP Location: Right arm, Patient Position: Sitting, BP Cuff Size: Adult) Pulse 84 Temp 97.4 ??F (36.3 ??C) (Oral) Resp 20 Ht 4' 7.75 (1.416 m) Wt 115 lb 6 oz (52.3 kg) LMP 04/22/2024 (Exact Date) SpO2 100% BMI 26.10 kg/m?? OB Status Menstrual status unknown Smoking Status Every Day BSA 1.43 m?? Physical Exam Constitutional: Appearance: Normal appearance. HENT: Head: Atraumatic. Right Ear: Tympanic membrane, ear canal and external ear normal. Left Ear: Tympanic membrane, ear canal and external ear normal. Nose: No congestion. Mouth/Throat: Mouth: Mucous membranes are moist. Pharynx: No posterior oropharyngeal erythema. Eyes: General: Right eye: No discharge. Left eye: No discharge. Pupils: Pupils are equal, round, and reactive to light. Cardiovascular: Rate and Rhythm: Normal rate and regular rhythm. Pulmonary: Effort: Pulmonary effort is normal. Breath sounds: Normal breath sounds. Abdominal: Palpations: Abdomen is soft. Musculoskeletal: General: Normal range of motion. Skin: General: Skin is warm. Capillary Refill: Capillary refill takes less than 2 seconds. Neurological: Mental Status: She is alert and oriented to person, place, and time. Psychiatric: Mood and Affect: Mood normal. Behavior: Behavior normal. Problem List Items Addressed This Visit Nervous Cervical radiculopathy Overview Followed by [facility] Pain Management Intralaminar epidural steroid injection 1 level above C6-C7 disc protrusion August 2022 Interlaminar epidural C5-C6 steroid injection Feb 2023 Plan for referral to Neurosurgery if interventions through Pain Management not effective Current Assessment & Plan -Continues with cyclobenzaprine and ibuprofen Prn for pain -Referral to re-establish with Pain Management placed May 2024 Relevant Orders Referral to Pain Medicine Circulatory Essential hypertension Overview Encourage to continue with lifestyle interventions such as low salt diet, smoking cessation, and goal 150 mins exercise weekly Currently well controlled w/o pharmacotherapy Previous medications: -Chlorthalidone dc nathalie/y hypokalemia (Jan 2024) -Olmesartan 5mg daily dc d/t well controlled w/o medication Relevant Orders Referral to [facility] Eye Care Other Tobacco dependence syndrome Current Assessment & Plan Smoking 5 cigg/day Encouraged smoking cessation resources such as pharmacomtherapy, [facility] smoking cessation group, and [facility] pharmacy smoking cessation clinic Routine health maintenance Overview Pap 08/23/22: NILM HPV neg Mammo: BIRADS 1 on 10/10/23 Last PE 05/16/24 Colon Cancer screening: Cologuard order placed 05/16/24 OPH: referral to [facility] Eye Care placed 05/16/24 Other Visit Diagnoses Encounter for routine history and physical examination of adult - Primary Relevant Orders POCT Urine (Completed) Screening for colon cancer Relevant Orders Cologuard?? colon cancer screening Encounter for other contraceptive management Relevant Orders Referral to Obstetrics / Gynecology Dietary counseling Exercise counseling Follow up: 3 months chronic conditions, sooner as needed Current Outpatient Medications Medication Sig Dispense Refill Acetaminophen Extra Strength 500 MG tablet TAKE 1 TO 2 TABLETS BY MOUTH EVERY 8 HOURS NEEDED FORPAIN 100 tablet 3 ammonium lactate (Amlactin) 12 % cream apply 1 liberally by Topical route 1 time every day to feet (Patient not taking: Reported on 02/23/2024) 140 g 3 Blood Pressure kit Use to check blood pressure as directed 1 kit 0 cyclobenzaprine (Flexeril) 5 MG tablet TAKE 1 TABLET BY MOUTH DAILY AT BEDTIME NEEDED FOR MUSCLESPASMS 15 tablet 2 Diclofenac Sodium 1 % gel Apply 2 g topically every 6 (six) hours. nicotine (Nicoderm, Step 2) 14 MG/24HR patch Apply 1 patch q a.m. (transdermal route) as explained.Alternate shoulders every other day. nicotine polacrilex (Commit) 2 MG lozenge 1or 2 lozenges PO ~ q 4 hrs as needed instead of a cigarette. Allow it to dissolve slowly in your mouth. olmesartan (Benicar) 5 MG tablet Take 1 tablet (5 mg) by mouth Once per day. 90 tablet 0 omeprazole OTC (PriLOSEC OTC) 20 MG EC tablet Take 1 tablet (20 mg) by mouth before breakfast. Do not crush, chew, or split. 30 tablet 0 tretinoin (Retin-A) 0.025 % gel Apply topically at bedtime. (Patient not taking: Reported on 02/23/2024) 20 g 3 No current facility-administered medications for this visit. Immunization History Administered Date(s) Administered Hep B, adult 11/14/2001, 03/09/2010, 06/25/2010 Influenza injectable quadrivalent IIV4 with preservative 01/10/2015, 02/05/2016, 02/01/2018 Influenza injectable quadrivalent preservative free 02/10/2017, 01/16/2019, 01/23/2020, 01/19/2021,02/04/2023 Influenza, IIV3, injectable 03/09/2010, 02/15/2011, 02/08/2014 Influenza, Split (incl. purified surface antigen) 02/02/2012, 03/15/2013 Influenza, seasonal, injectable, preservative free 02/15/2024 Pfizer Covid-19 Vaccine 12+ 05/05/2020, 05/26/2020, 04/07/2021, 09/12/2023, 02/15/2024 Pneumococcal Conjugate PCV 20 09/12/2023 TD (adult), 2 Lf tetanus toxoid, preservative free, adsorbed 11/14/2001, 06/25/2010, 03/06/2021 Tdap 03/09/2010 documented in this encounter Miscellaneous Notes * Assessment & Plan Note - JULIUS Suresh - 06/11/2024 5:31 PM ESTAssociated Problem(s): Tobacco dependence syndrome Smoking 5 cigg/day Encouraged smoking cessation resources such as pharmacomtherapy, [facility] smoking cessation group, and [facility] pharmacy smoking cessation clinic * Assessment & Plan Note - JULIUS Suresh - 06/11/2024 5:29 PM ESTAssociated Problem(s): Cervical radiculopathy -Continues with cyclobenzaprine and ibuprofen Prn for pain -Referral to re-establish with Pain Management placed May 2024 documented in this encounter Plan of Treatment Upcoming Encounters Date Type Department Care Team (Late st Contact Info) Description 08/02/2024 1:00 PM EDT Office Visit [facility] ADULT DENTAL [address] [place] [address] Nydia, Esthela [address] [place] [address] 09/07/2024 10:00 AM EDT Office Visit [facility] OPTOMETRY [address] [place] [address] Nasim, Elma, OD [address] [place] [address] Scheduled Orders Name Type Priority Associated Diagnoses Orde r Schedule Cologuard?? colon cancer screening Lab Routine Screening for colon cancer Ordered: 05/16/2024 Scheduled Referrals Name Type Priority Associated Diagnoses Orde r Schedule Referral to [facility] Care Outpatient Referral Routine Essential hypertension Expected: 05/16/2024 (Approximate), Expires: 05/16/2025 Referral to Pain Medicine Outpatient Referral Routine Cervical radiculopathy Expected: 06/11/2024 (Approximate), Expires: 06/11/2025 Referral to Obstetrics / Gynecology Outpatient Referral Routine Encounter for other contraceptive management Expected: 06/11/2024 (Approximate), Expires: 06/11/2025 documented as of this encounter Procedures Procedure Name Priority Date/Time Associated Diagnosis Comments POCT , URINE Routine 05/16/2024 10:53 AM EST Encounter for routine history and physical examination of adult documented in this encounter Results * POCT Urine (05/16/2024 10:53 AM EST) Preg Test, Ur Negative Negative, Indeterminate, None Detected, Invalid, Specimen unsatisfactory for evaluation, Weakly Positive QC Media Lot # [id number] Lot# Expiration Date [id number] Urine 05/16/2024 10:5 3 AM EST Virgie MADRID POINT OF CARE TEST ENTER/EDIT ORDERABLES Final Result documented in this encounter Visit Diagnoses Diagnosis Encounter for routine history and physical examination of adult- Primary Routine health maintenance Unspecified examination Essential hypertension Unspecified essential hypertension Screening for colon cancer Special screening for malignant neoplasms, colon Cervical radiculopathy Brachial neuritis or radiculitis nos Encounter for other contraceptive management Dietary counseling Dietary surveillance and counseling Exercise counseling Tobacco dependence syndrome Tobacco use disorder documented in this encounter Additional Health Concerns Assessment Noted Time PHQ-9 Depression Total Score: 12 06/11/ 025 5:28 PM EST documented as of this encounter Care Teams Mechanical Design Engineer Facilities Relationship Specialty Start Date End Date Virgie Cartagena FNP [address] [place] [address] PCP - General Family Medicine 12/15/21 documented as of this encounter
--- OUTSIDE RECORDS SUMMARY | 2024-06-14 10:03 | XMS_ITS | Encounter Summary ---
Author Organization [employer] Address [address] [place] [address] [address] [place] [address] Care Team Providers Care Structural Steel Painter Name Role Phone Virgie Cartagena SENIOR FUNCTIONAL ANALYST Primary Care Provider Reason for Visit * Reason Comments Med Refill Encounter Details Date Type Department Care Team (Late Contact Info) Description 05/20/2022 Refill [facility] MED[facility] [address] [place] [address] Virgie Bryant FNP Social History Tobacco Use Types Packs/Day Years Used Date Smoking Tobacco: Never Assessed Comments Unknown Sex and Gender Information Value Date Recorded Sex Assigned at Female 02/22/2022 10:16 AM EDT Legal Sex Female 10:16 AM EDT Gender Identity Female 07/29/2022 3:58 PM EDT Sexual Orientation Choose not to disclose 2021 10:16 AM EDT COVID-19 Exposure Response Date Recorded In the last 10 days, have yo u been in contact with someone who was confirmed or suspected to have Coronavirus/COVID-19? No / Unsure 05/03/2022 10:16 AM EST documented as of this encounter Plan of Treatment Upcoming Encounters Date Type Department Care Team (Late st Contact Info) Description 08/02/2024 1:00 PM EDT Office Visit [facility] ADULT DENTAL [address] [place], [place] [phone] Nydia, Esthela [address] [place] [address] 09/07/2024 10:00 AM EDT Office Visit [facility] OPTOMETRY [address] [place], [place] [phone] Nasim, Elma, OD [address] [place] [address] documented as of this encounter Visit Diagnoses Not on filedocumented in this encounter Care Teams Structural Steel Painter Relationship Specialty Start Date End Date Virgie Cartagena FNP [address] [place] [address] PCP - General Family Medicine 12/15/21 documented as of this encounter
--- OUTSIDE RECORDS SUMMARY | 2024-06-14 10:03 | XMS_ITS | Encounter Summary ---
Author Organization [employer] Address [address] [facility] [address] [place] [address] Care Team Providers Care Cigar Sorter Name Role Phone Virgie Cartagena COUNTY PROGRAM TECHNICIAN Primary Care Provider [phone] Encounter Details Date Type Department Care Team (Late Contact Info) Description 09/02/2022 Abstract [facility] ADULT DENTAL [address] [place] [address] Tyrone Rangel DDS [address] [place] [address] Social History Tobacco Use Types Packs/Day Years Used Date Smoking Tobacco: Every Day Cigarettes Smokeless Tobacco: Never Alcohol Use Standard Drinks/Week Comments Not Currently 0 (1 standard drink = 0.6 oz pur e alcohol) Depression Answer Date Recorded Patient Health Questionnaire-9 Score 7 08/30/2022 Depression Answer Date Recorded Patient Health Questionnaire-2 Score 2 08/30/2022 Comments No Sex and Gender Information Value [...] suspected to have Coronavirus/COVID-19? No / Unsure 08/30/2022 11:21 AM EDT documented as of this encounter Plan of Treatment Upcoming Encounters Date Type Department Care Team (Late Contact Info) Description 08/02/2024 1:00 PM EDT Office Visit [facility] ADULT DENTAL [address] [place], [place] [phone] Esthela Stafford [address] [place] [address] 09/07/2024 10:00 AM EDT Office Visit [facility] OPTOMETRY [address] [place], [place] [phone] Nasim Elma, OD [address] [place] [address] documented as of this encounter Visit Diagnoses Not on filedocumented in this encounter Additional Health Concerns Assessment Noted Time PHQ-9 Depression Total Score: 7 08/31/19 23 11:48 AM EDT documented as of this encounter Care Teams Cigar Sorter Relationship Specialty Start Date End Date Virgie Cartagena FNP [address] [place] [address] PCP - General Family Medicine 12/15/21 documented as of this encounter
--- OUTSIDE RECORDS SUMMARY | 2024-06-14 10:03 | XMS_ITS | Encounter Summary ---
Author Organization [employer] Address [address] [facility] [address] [place] [address] Care Team Providers Care Claim Rep Name Role Phone Virgie Cartagena AUTOMOTIVE FINANCE MANAGER Primary Care Provider [phone] Encounter Details Date Type Department Care Team (Late st Contact Info) Description 08/11/2022 Telephone [facility] MED[facility]INE [address] [place], [place] [phone] Mackenzie Us LPN Social History Tobacco Use Types Packs/Day Years Used Date Smoking Tobacco: Every Day Cigarettes Smokeless Tobacco: Never Alcohol Use Standard Drinks/Week Comments Not Currently 0 (1 standard drink = 0.6 oz pur e alcohol) Comments Unknown Sex and Gender Information Value [...] suspected to have Coronavirus/COVID-19? No / Unsure 08/03/2022 11:06 AM EDT documented as of this encounter Plan of Treatment Upcoming Encounters Date Type Department Care Team (Late st Contact Info) Description 08/02/2024 1:00 PM EDT Office Visit [facility] ADULT DENTAL [address] [place], [place] [phone] Nydia, Esthela [address] [place] [address] 09/07/2024 10:00 AM EDT Office Visit [facility] OPTOMETRY [address] [place], [place] [phone] Elma Rouse, OD [address] [place] [address] documented as of this encounter Visit Diagnoses Not on filedocumented in this encounter Care Teams Claim Rep Relationship Specialty Start Date End Date Virgie Cartagena FNP [address] [place] [address] PCP - General Family Medicine 12/15/21 documented as of this encounter
--- OUTSIDE RECORDS SUMMARY | 2024-06-14 10:03 | XMS_ITS | Encounter Summary ---
Author Organization [employer] Address [address] [facility] [address] [place] [address] Care Team Providers Care Field Kiln Burner Name Role Phone Virgie Cartagena Primary Care Provider [phone] Encounter Details Date Type Department Care Team ([facility] st Contact Info) Description 06/12/2024 Telephone [employer] Health Information Management [address] [place] [address] Virgie Cartagena FNP [address] [place] [address] Social History Tobacco Use Types Packs/Day Years [...] your housing situation today? I have david freddie 05/16/[address] you li [...] AM EDT documented as of this encounter Miscellaneous Notes * Telephone Encounter - Brenda Pro - 06/12/2024 9:57 AM EST Patient with no active insurance. TC to patient but unable to leave message due to voicemail box full. documented in this encounter Plan of Treatment Upcoming Encounters Date Type Department Care Team (Late st Contact Info) Description 08/02/2024 1:00 PM EDT Office Visit [facility] ADULT DENTAL [address] [place] [address] Nydia, Esthela [address] [place] [address] 09/07/2024 10:00 AM EDT Office Visit [facility] OPTOMETRY [address] [place] [address] Nasim, Elma, OD [address] [place] [address] documented as of this encounter Visit Diagnoses Not on filedocumented in this encounter Additional Health Concerns Assessment Noted Time PHQ-9 Depression Total Score: 12 025 5:28 PM EST documented as of this encounter Care Teams Field Kiln Burner Relationship Specialty Start Date End Date Virgie Cartagena FNP [address] [place] [address] PCP - General Family Medicine 12/15/21 documented as of this encounter
--- OUTSIDE RECORDS SUMMARY | 2024-06-14 10:03 | XMS_ITS | Encounter Summary ---
Author Organization [email or web address] Address [address] [place] [address] [address] [place] [address] Care Team Providers Care Brake Operator Helper Name Role Phone Virgie Cartagena Primary Care Provider [phone] Reason for Visit * Reason Comments Med Refill Encounter Details Date Type Department Care Team ([facility] st Contact Info) Description 03/30/2023 Refill [facility] [address] [place], [place] [phone] Virgie Cartagena FNP [address] [place], [place] [phone] Neck pain Social History Tobacco Use Types [...] Description 08/02/2024 1:00 PM EDT Office Visit [facility] ADULT DENTAL [address] [place] [address] Nydia, Esthela [address] [place] [address] 09/07/2024 10:00 AM EDT Office Visit [facility] OPTOMETRY [address] [place] [address] Nasim, Elma, OD [address] [place] [address] documented as of this encounter Visit Diagnoses Diagnosis Neck pain Cervicalgia documented in this encounter Additional Health Concerns Assessment Noted Time PHQ-9 Depression Total Score: 7 08/31/19 23 11:48 AM EDT documented as of this encounter Care Teams Brake Operator Helper Relationship Specialty Start Date End Date Virgie Cartagena FNP [address] [place] [address] PCP - General Family Medicine 12/15/21 documented as of this encounter
--- OUTSIDE RECORDS SUMMARY | 2024-06-14 10:03 | XMS_ITS | Encounter Summary ---
Author Organization [employer] Address [address] [place] [address] [address] [place] [address] Care Team Providers Care Community Education Coordinator Name Role Phone Virgie Cartagena MINI SHIFTER Primary Care Provider [phone] Encounter Details Date Type Department Care Team (Late st Contact Info) Description 08/31/2022 Abstract [facility] ADULT DENTAL [address] [place] [address] Nydia, Esthela [address] [place] [address] Social History Tobacco Use Types Packs/Day Years [...] Description 08/02/2024 1:00 PM EDT Office Visit [facility] ADULT DENTAL [address] [place] [address] Esthela Stafford [address] [place] [address] 09/07/2024 10:00 AM EDT Office Visit [facility] OPTOMETRY [address] [place] [address] Elma Rouse, OD [address] [place] [address] documented as of this encounter Visit Diagnoses Not on filedocumented in this encounter Additional Health Concerns Assessment Noted Time PHQ-9 Depression Total Score: 7 08/31/19 11:48 AM EDT documented as of this encounter Care Teams Community Education Coordinator Relationship Specialty Start Date End Date Virgie Cartagena FNP [address] [place] [address] PCP - General Family Medicine 12/15/21 documented as of this encounter
--- OUTSIDE RECORDS SUMMARY | 2024-06-14 10:03 | XMS_ITS | Clinical Summary ---
Author Organization [facility] ity Address [address] [place] [address] Care Team Providers Care Community Outreach Director Name Role Phone Physician, Pcp Unknown Primary Care Provider Guera vailable Social History Tobacco Use Types Packs/Day Years Used Date Smoking Tobacco: Never Assessed Comments Unknown Sex and Gender Information Value Date Recorded Sex Assigned at Not on file Legal Sex Female 1:37 AM EST Gender Identity Not on file Sexual Orientation Not on file Plan of Treatment Upcoming Encounters Date Type Department Care Team ([facility] st Contact Info) Description 06/21/2024 1:45 PM EST Consult Orthopedic Surgery - [place] [address] [phone] Douglas Mina, DPM [address] [address] Health Maintenance Due Date Last Done Comments Breast Cancer Screening 1979 DTaP,Tdap,and Td Vaccines (1 - Tdap) 1998 Hepatitis B Vaccines (1 of 3 - 19+ 3-dose series) 1998 Cervical Cancer Screening: P ap Smear 2000 COVID-19 Vaccine (2023-2 5 season) 2023 Influenza Vaccine (#1) 2023 Colorectal Cancer Screening: Colonoscopy 05/04/2024 Depression Screening 05/04/2024 HIV Screening 05/04/2024 Hepatitis C Screening 05/04/2024 Social Influencers of Health Screening 05/04/2024 HIB Vaccines Aged Out No longer eligi ble based on patient's age to complete this topic HPV Vaccines Aged Out No longer eligi ble based on patient's age to complete this topic Hepatitis A Vaccines Aged Out No long er eligible based on patient's age to complete this topic IPV Vaccines Aged Out No longer eligi ble based on patient's age to complete this topic MMR Vaccines Aged Out No longer eligi ble based on patient's age to complete this topic Meningococcal ACWY Vaccine Aged Out N o longer eligible based on patient's age to complete this topic Meningococcal B Vacine Aged Out No lo nger eligible based on patient's age to complete this topic Pneumococcal Vaccine: Pediat rics (0 to 5 Years) and At-Risk Patients (6 to 64 Years) Aged Out No longer eligible b ased on patient's age to complete this topic RSV Immunization Patients Un miriam 20 months Aged Out No longer eligible b ased on patient's age to complete this topic Varicella Vaccines Aged Out No longer eligible based on patient's age to complete this topic Care Teams Community Outreach Director Relationship Specialty Start Date End Date Physician, Pcp Unknown PCP - General 06/06/24
--- OUTSIDE RECORDS SUMMARY | 2024-06-14 10:03 | XMS_ITS | Encounter Summary ---
Author Organization [employer] Address [address] [place] [address] Care Team Providers Care Cloth Examiner Hand Name Role Phone Virgie Cartagena DATE PULLER Primary Care Provider [phone] Reason for Visit * Reason Onset Date Comments Chart Prep 05/15/2024 Encounter Details Date Type Department Care Team ([facility] st Contact Info) Description 05/15/2024 Telephone [facility] [address] [place], [place] [id number] Peggy Nash MA Chart Prep Social History Tobacco Use Types Packs/Day Years [...] is your housing situation today? I have davidconor frazier 05/16/[address] you [...] encounter Miscellaneous Notes * Telephone Encounter - Peggy Sims MA - 05/15/2024 9:11 AM EST Chart Prep Labs: done Images: done Vaccines due: no updates Referrals: pending appt Screenings: colonoscopy , PISQ Overdue care gaps: N/A documented in this encounter Plan of Treatment Upcoming Encounters Date Type Department Care Team (Late st Contact Info) Description 08/02/2024 1:00 PM EDT Office Visit [facility] ADULT DENTAL [address] [place] [address] Nydia, Esthela [address] [place] [address] 09/07/2024 10:00 AM EDT Office Visit [facility] OPTOMETRY [address] [place] [address] Nasim, Elma, OD [address] [place] [address] documented as of this encounter Visit Diagnoses Not on filedocumented in this encounter Additional Health Concerns Assessment Noted Time PHQ-9 Depression Total Score: 6 09/12/19 24 1:31 PM EDT documented as of this encounter Care Teams Cloth Examiner Hand Relationship Specialty Start Date End Date Virgie Cartagena FNP [address] [place] [address] PCP - General Family Medicine 12/15/21 documented as of this encounter
--- OUTSIDE RECORDS SUMMARY | 2024-06-14 10:03 | XMS_ITS | Encounter Summary ---
Author Organization [employer] Address [address] [facility] [address] [place] [address] Care Team Providers Care Cargo Trimmer Name Role Phone Virgie Cartagena STEWARD/STEWARDESS BANQUET Primary Care Provider [phone] Encounter Details Date Type Department Care Team (Latest Contact Info) Description 05/16/2024 Travel Social History Tobacco Use Types Packs/Day Years [...] Description 08/02/2024 1:00 PM EDT Office Visit [facility] ADULT DENTAL [address] [place] [address] Nydia, Esthela [address] [place] [address] 09/07/2024 10:00 AM EDT Office Visit [facility] OPTOMETRY [address] [place] [address] Nasim, Elma, OD [address] [place] [address] documented as of this encounter Visit Diagnoses Not on filedocumented in this encounter Additional Health Concerns Assessment Noted Time PHQ-9 Depression Total Score: 6 09/12/19 24 1:31 PM EDT documented as of this encounter Care Teams Cargo Trimmer Relationship Specialty Start Date End Date Virgie Cartagena FNP [address] [place] [address] PCP - General Family Medicine 12/15/21 documented as of this encounter
--- NOTE | 2024-06-14 10:14 | ED_ITS ---
HPI - Neck Pain/Injury General Chief Complaint: Neck Pain/Injury Stated Complaint: neck pain Time Seen by Provider: 06/14/24 09:48 Source: patient Mode of arrival: ambulatory Limitations: no limitations History of Present Illness ED Provider: DR. Melendez HPI Narrative: 44-year-old female history of cervical radiculopathy presented with neck pain radiating to her left arm, symptoms started 5 years ago was evaluated by pain management require cervical injection in the past, patient was arrested by the police 5 days ago and reported aggressive arrest causing her neck pain to become worse and radiating to the left upper extremity, feels intermittent numbness in the left hand, no fever, no chills, patient declined history of IV drug use in the past. No CP, no SOB, no weakness, no numbness. Related Data Home Medications ?Medication ?Instructions ?Recorded ?Confirmed acetaminophen 500 mg tablet 500 - 1,000 mg PO Q8H PRN 06/08/21 02/14/23 fluoxetine 20 mg capsule 20 mg PO DAILY 06/08/21 02/14/23 cyclobenzaprine 5 mg tablet 5 mg PO TID PRN muscle spasm 09/01/22 02/14/23 medroxyprogesterone 150 mg/mL mg IM 09/01/22 intramuscular suspension ibuprofen 600 mg tablet 600 mg PO Q8H PRN 02/14/23 02/14/23 lisinopril 5 mg tablet 5 mg PO DAILY 02/14/23 02/14/23 Previous Rx's ?Medication ?Instructions ?Recorded cyclobenzaprine 10 mg tablet 10 mg PO TID PRN muscle spasm #7 06/14/24 tabs ibuprofen 600 mg tablet 600 mg PO Q8H PRN pain #10 tabs 06/14/24 Allergies Allergy/AdvReac Type Severity Reaction Status Date / Time No Known Allergies Allergy Verified 06/13/24 22:24 Review of Systems 2 Review of Systems: All other systems are reviewed and are negative Constitutional: Reports as per HPI and Reports no additional constitutional complaints Eyes: Reports as per HPI and Reports no additional eye complaints Reports system reviewed and no additional complaints, except as documented Cardiovascular: Reports as per HPI and Reports no additional cardiovascular complaints Respiratory: Reports as per HPI and Reports no additional respiratory complaints Gastrointestinal: Reports as per HPI and Reports no additional gastrointestinal complaints Genitourinary: Reports no additional female genitourinary complaints Musculoskeletal: Reports no additional musculoskeletal complaints Skin/Breast: Reports system reviewed and no additional complaints, except as docu Psychiatric: Reports no additional psychiatric complaints Endocrine: Reports no additional endocrine complaints Hematologic/Lymphatic: Reports no additional hematologic/lymphatic complaints Allergic/Immunologic: Reports no additional allergic/immunologic complaints Reports system reviewed and no additional complaints, except as documented and Reports Abnormal speech present [facility] Past Medical History Medical History Spondylosis of cervical joint Degeneration, intervertebral disc, cervical Cleft palate HTN (hypertension) No known health problems Surgical History H/O cleft lip repair Social History Social History Alcohol intake: never Patient Tobacco Use Status: Current everyday Tobacco user Tobacco use type: Cigarette Cigarettes Per Day: 5 Second Hand Smoke Exposure: No Advance Directives: No Advance Directives Information Provided: Yes Physical Exam 2 Vital Signs: Vital Signs: Last Vital Signs Temp 97.7 F 06/13/24 22:22 Pulse 103 H 06/13/24 22:22 Resp 16 06/14/24 11:14 BP 174/110 H 06/13/24 22:22 Pulse Ox 100 06/13/24 22:22 O2 Del Method Room Air 06/13/24 22:22 BMI result Body Mass Index 22.2 Vital signs have been reviewed and appear to be correct. Blood pressure elevated. Heart rate normal. Respiratory rate normal. Temperature normal. Oxygen saturation normal. Appearance: Alert. Oriented X3. No acute distress. Head: Normal external exam. Normocephalic. Atraumatic. No Rosenthal signs noted. No raccoon eyes noted Eyes: PERRLA. EOMI. Conjunctiva and sclera normal. Eyelids normal. ENT: TM's Normal. Pharynx normal. Uvula midline. Moist mucous membranes. No trismus noted. No drooling noted. No muffled voice noted. Neck: Normal inspection. Neck supple. FROM. No adenopathy. Thyroid Normal. No meningeal signs. No neck mass noted. CVS: Normal heart rate and rhythm. Heart sound normal. No murmurs noted. Pulses normal throughout. Respiratory: No respiratory distress. Painless inspiration. Breath sounds normal. No wheezes/rales/rhonchi noted. Chest nontender. No accessory muscle usage noted or decreased air movement noted. Abdomen: Soft and nontender. Bowel sounds normal in all 4 quadrants. No distention noted. No organomegaly noted. No visible injury noted. Back: No CVA tenderness. Full range of motion noted. Skin: Skin warm and dry. Normal skin color. Normal skin turgor. No rashes/lesions/lacerations noted. Extremities: No lower extremity edema. Extremities exhibit normal range of motion. Extremities nontender. Neuro: Oriented X 3. Cranial nerve exam: II-XII are grossly intact No motor deficit. No sensory deficit. Reflexes normal. Course Reevaluation(s) Reevaluation #1: Left-sided cervical radiculopathy, no neurological deficit, feels better after Toradol and morphine injection patient was instructed to follow-up with spine/pain management clinic that the patient is already a patient there. Time: 13:00 Medications Administered Discontinued Medications Generic Name Dose Route Start Last Admin Trade Name Freq PRN Reason Stop Dose Admin Ketorolac Tromethamine 15 mg 06/14/24 09:58 06/14/24 11:14 Ketorolac Tromethamine 15 Mg/Ml Vial IM 06/14/24 09:59 15 mg ONCE ONE Administration Morphine Sulfate 2 mg 06/14/24 09:58 06/14/24 11:14 Morphine Sulfate 2 Mg/Ml Cartridge IM 06/14/24 09:59 2 mg ONCE ONE Administration Protocol Medical Decision Making Differential Diagnosis Differential Diagnoses: The differential diagnosis associated with the presentation includes (Cervical radiculopathy, ACS, electrolyte derangement, severe anemia.) Admission/Observation Consideration of admission/observation: Escalation of care including admission/observation considered Lab Data MDM Lab Attestation statement: I reviewed the patient's lab results. 06/14/24 10:29 06/14/24 10:29 Labs: Lab Results 06/14/24 Range/Units 10:29 WBC 8.1 (4.8-10.8) X10*3/uL RBC 4.33 (4.20-5.50) X10*6/uL Hgb 12.8 (12.0-16.0) g/dl Hct 37.4 (37.0-47.0) % MCV 86.4 (80.0-98.0) fL MCH 29.6 (27.0-33.0) pg MCHC 34.2 (31.0-35.0) g/dl RDW 14.3 (11.0-16.0) % Plt Count 319 D (160-400) X10*3/uL MPV 8.5 L (9.4-12.3) fL Immature Gran % (Auto) 0.2 (0.0-0.4) % Neut % (Auto) 64.7 (45-73) % Lymph % (Auto) 24.2 (20-40) % Bosque % (Auto) 6.8 (2-11) % Eos % (Auto) 3.6 (0-4) % Baso % (Auto) 0.5 (0-2) % Lymph # (Auto) 2.0 (1.2-4.9) X10*3/uL [place] # (Auto) 0.6 (0.1-1.2) X10*3/uL Eos # (Auto) 0.3 (0.0-0.4) X10*3/uL Baso # (Auto) 0.0 (0.0-0.2) X10*3/uL Abs Immat Gran (auto) 0.02 (0.00-0.03) X10*3/uL Absolute Neuts (auto) 5.2 (2.0-8.3) x10*3/uL Absolute Nucleated RBC 0.000 (0.0-0.012) X10*3/uL Nucleated RBC % (auto) 0.0 (0.0-0.2) /100WBC Sodium 139 (135-145) mmol/L Potassium 3.7 (3.3-5.1) mmol/L Chloride 112 H (96-108) mmol/L Carbon Dioxide 20 L (22-29) mmol/L Anion Gap 11 L (12-20) BUN 7 L (9-16) mg/dL Creatinine 0.56 (0.5-1.4) mg/dL Estim Creat Clear Calc 86.4 Estimated GFR > 60 Random Glucose 93 (60-115) mg/dL Calcium 8.8 (8.4-10.2) mg/dL Troponin I High Sens < 2.7 (<3.5-17.0) ng/L Independent Interpretation I performed an independent interpretation of an: Plain X-Ray (Cervical spine:1. No acute findings of the cervical spine. 2. Mild reversal of the normal lordosis. 3. Mild to moderate degenerative disc changes C5-6.) Radiology Impression Discussion of test interpretation with radiology: I have reviewed the radiologist's reading. Discharge Plan Discharge Clinical Impression: Radiculopathy, cervical Patient Disposition: Home, Self-Care Instructions: Cervical Radiculopathy (ED) Prescriptions: New cyclobenzaprine 10 mg tablet 10 mg PO TID PRN (Reason: muscle spasm) Qty: 7 0RF ibuprofen 600 mg tablet 600 mg PO Q8H PRN (Reason: pain) Qty: 10 0RF No Action fluoxetine 20 mg capsule 20 mg PO DAILY acetaminophen 500 mg tablet 500 - 1,000 mg PO Q8H PRN cyclobenzaprine 5 mg tablet 5 mg PO TID PRN (Reason: muscle spasm) medroxyprogesterone 150 mg/mL suspension IM ibuprofen 600 mg tablet 600 mg PO Q8H PRN lisinopril 5 mg tablet 5 mg PO DAILY Referrals: Virgie Cartagena FNP [Primary Care Provider] - Print Language: Burmese
[2024-06-14 10:33] LABS: MANUAL DIFF FLAG NO
[2024-06-14 10:36] LABS: Basophils Percent Auto 0.5 % (0-2); Eosinophils Absolute Auto 0.3 X10*3/uL (0.0-0.4); Eosinophils Percent Auto 3.6 % (0-4); Hematocrit 37.4 % (37.0-47.0); Hemoglobin 12.8 g/dl (12.0-16.0); Imm Gran Abs Auto 0.02 X10*3/uL (0.00-0.03); Imm Gran Pct Auto 0.2 % (0.0-0.4); Lymphocytes Percent Auto 24.2 % (20-40); Mean Corpuscular HGB Conc 34.2 g/dl (31.0-35.0); Mean Corpuscular Hemoglobin 29.6 pg (27.0-33.0); Mean Corpuscular Volume 86.4 fL (80.0-98.0); Mean Platelet Volume 8.5 fL (9.4-12.3); Monocytes Absolute Auto 0.6 X10*3/uL (0.1-1.2); Monocytes Percent Auto 6.8 % (2-11); Neutrophils Absolute Auto 5.2 x10*3/uL (2.0-8.3); Neutrophils Percent Auto 64.7 % (45-73); Platelet Count 319 X10*3/uL (160-400); Red Blood Count 4.33 X10*6/uL (4.20-5.50); Red Cell Distribution Width 14.3 % (11.0-16.0); White Blood Count 8.1 X10*3/uL (4.8-10.8)
[2024-06-14 10:57] LABS: Anion Gap 11 (12-20); Blood Urea Nitrogen 7 mg/dL (9-16); Calcium 8.8 mg/dL (8.4-10.2); Carbon Dioxide 20 mmol/L (22-29); Chloride 112 mmol/L (96-108); Creatinine Clr Calc Pharmacy 86.4; Estimated Glomerular Filt Rate > 60; Glucose Random 93 mg/dL (60-115); Potassium 3.7 mmol/L (3.3-5.1); Sodium 139 mmol/L (135-145)
[2024-06-14 11:10] LABS: Troponin-I High Sensitivity < 2.7 ng/L (<3.5-17.0)
[2024-06-14 11:14] VITALS: RESP 16
[2024-06-14] MEDS: Ketorolac Tromethamine 15 MG/ML VIAL IM (11:14)
[2024-06-14] MEDS: Morphine Sulfate 2 MG/ML CARTRIDGE IM (11:14)
--- NOTE | 2024-06-14 13:51 | PC.NURSE ---
Pt. is refusing to leave b/c she would like an x-ray. Linda Melendez MD aware
[2024-06-14 15:40] VITALS: BP 0/0; PULSE 0; RESP 0; TEMP -17.7; TEMP 0; O2SAT 0
--- NOTE | 2024-06-14 15:41 | PC.NURSE ---
This RN resumed care of patient at 1500, xray negative, wanting to move forward with dc. DC papers brought to pt and pt in agreement with dc at this time. Pt able to ambulate out of ED with sister.
== END 2024-06-14 15:41 | disposition home or self-care (01) ==
PROVIDERS: Emergency Provider Emergency Medicine; PCP Registered Nurse
DX: M54.12 Radiculopathy, cervical region (principal); M54.2 Cervicalgia; F17.210 Nicotine dependence, cigarettes, uncomplicated; Z79.899 Other long term (current) drug therapy
CPT/HCPCS: 36415; 72040; 80048; 84484; 85025; 96372; 99283; 99284; J1885; J2270

== ENCOUNTER → 2024-06-14 13:52 | Outpatient (BNV) | payer SELFPAY | PROVIDERS: Emergency Provider Emergency Medicine; PCP Registered Nurse; Visit Provider Radiology Diagnostic Radiology | DX: M50.322 Other cervical disc degeneration at C5-C6 level (principal) | CPT/HCPCS: 72040 ==

== ENCOUNTER 2024-07-19 10:25 | Outpatient (AMB) | payer MEDICAID, SELFPAY ==
--- NOTE | 2024-07-19 10:31 | MHC.OFFVIS ---
Vital Signs 07/19/24 10:32 Height 4 ft 11 in Weight 109 lb 6 oz BMI 22.1 BP 191/102 H Blood Pressure Location Rt brachial Position Sitting Pulse 99 Pulse Source Pulse Oximeter Pulse Oximetry (%) 99 Oxygen Delivery Method Room Air Intake Visit Reasons: FU neck pain/last seen 04/11/23 Allergies No Known Allergies Allergy (Verified 07/19/24 10:31) HPI Comments Details: Christy is back in my office with complains on pain in the cervical spine returning. She received interlaminar C5-C6 more to the right epidural steroid injection on 03/08/2023. She reported that she had very good pain relief for 1 year and a half. She is here today with request to repeat this procedure. I will schedule her for the procedure as soon as possible. Prior: CT scan cervical spine dictated as below.? She has large disc extrusion on CT which is by suspicion of radiologist compresses her nerve roots.? In the past we discussed possibility of treating her pain with neuro surgery and as an alternative as treating her pain with Nevro SCS. She is very negative to go for neuro surgery, is very negative to try spinal cord stimulation. Prior: ?complains on pain in the right neck with radiation into the right shoulder right arm right forearm with intermittent sensation of pins and needles and numbness in all fingers.? She reports that this pain started few years ago.? She reports that because of this pain she cannot sleep normally she can not do activities of daily living she can take care of herself but she cannot function normally.? She is working part-time as a homemaker.? She is reporting that the cold application weather changes in movements aggravates her pain and oral medications and heat applications alleviate her pain. She had physical therapy 2 years ago and reports good help from physical therapy she also had occupational therapy.? She had x-ray of her shoulders an of her neck reports of which are dictated as below.? She never had MRI of her neck. She denies drinking alcohol she denies recreational drugs?she reports history of rehabilitation. [facility] Medical History Spondylosis of cervical joint Degeneration, intervertebral disc, cervical Cleft palate HTN (hypertension) No known health problems Surgical History H/O cleft lip repair Social History Alcohol intake: never Patient Tobacco Use Status: Current everyday Tobacco user Tobacco use type: Cigarette Cigarettes Per Day: 5 Second Hand Smoke Exposure: No Review of Systems Const All systems reviewed & are unremarkable except as noted in HPI and below Neuro Denies confusion Psych Denies confusion Physical Exam Vital Signs: Last Vital Signs Pulse 99 07/19/24 10:32 BP 191/102 H 07/19/24 10:32 Pulse Ox 99 07/19/24 10:32 Oxygen Delivery Method Room Air 07/19/24 10:32 BMI result Body Mass Index 22.1 Const General: No confusion Orientation/consciousness: No confusion Eyes Pupils: Equal, round and reactive pupils present EOM: EOMs intact bilaterally Chest Chest palpation & inspection: normal inspection of the chest Resp Effort & Inspection: normal respiratory effort, able to speak in complete sentences, normal respiratory pattern, no audible wheezes and no cough Cardio Jugular venous distension: no JVD Back/Spine/Pelvis Other: Mild tenderness on palpation in paraspinal spinal region in cervical spine. Minimally limited range of motion of the cervical spine. Lhermitte is negative. However Spurling on the right side is positive. Neuro General: No confusion Cranial nerves: Yes Equal, round and reactive pupils present Psych Speech and movement: Normal speech and movement present Affect: normal affect Attitude: cooperative Thought process: Normal thought process present Thought content: Normal thought content present Insight: Good insight present (Psych) Judgement: Good judgement present (Psych) Results Reviewed Results Reviewed: CT CERVICAL SPINE WITHOUT CONTRAST CLINICAL INFORMATION: Neck pain with right arm numbness and weakness COMPARISON: Cervical spine radiographs 04/27/2021 FINDINGS: Alignment:Mild reversal the normal cervical lordosis. Trace retrolisthesis at C5-C6. No additional subluxation. Vertebra:No acute fracture. No prevertebral soft tissue swelling. Degenerative disc disease:Mild disc height loss and minimal endplate proliferative changes C5-C6 consistent with mild degenerative disc disease. Intervertebral disc heights otherwise maintained. Limited assessment of spinal canal contents via CT without myelographic technique. There is a small posterior disc protrusion at C5-C6 with minimal central canal narrowing. A left subarticular disc extrusion is also seen at C6-C7, which could result in left-sided nerve root impingement. Other findings:Minimal groundglass/atelectasis at the lung apices. Visualized lung apices otherwise grossly clear. Major salivary glands and visualized thyroid gland grossly unremarkable. No cervical lymphadenopathy identified. cervical spine wo IV con IMPRESSION: 1.? No traumatic subluxation or acute cervical spine fracture. 2.? Mild degenerative disc disease at C5-C6 with a small posterior disc protrusion. 3.? Suspected left subarticular disc extrusion at C6-C7 which may result in left sided nerve root impingement. Correlate clinically with left-sided radicular symptoms. Consider dedicated MRI cervical spine if concern for radicular pathology. Assessment & Plan Assessment & Plan (1) Degeneration, intervertebral disc, cervical: Code(s): M50.30 - Other cervical disc degeneration, unspecified cervical region Category: Medical (2) Spondylosis of cervical joint: Code(s): M47.812 - Spondylosis without myelopathy or radiculopathy, cervical region Category: Medical Plan: I did C5-C6 interlaminar epidural steroid injection 1 level above the C6-C7 disc protrusion. She reported significant and prolonged pain relief for more than 1 year after the procedure. She reports increased pain now injury she requests me to repeat this procedure. I will schedule her for the injection. I will see her after the procedure. (3) Radiculopathy, cervical: Code(s): M54.12 - Radiculopathy, cervical region Category: Medical Plan: She is suffering from radiculopathy of the cervical region this condition is chronic and her injection is very rare with very good results. Plan Patient Instructions: I here by testify that I spent 30 minutes in conversation with this patient as well as planning her care and organizing this note. Coding Level of Care Code Est Pt Level 4 (32048) Diagnoses Degeneration, intervertebral disc, cervical M50.30 Spondylosis of cervical joint M47.812 Radiculopathy, cervical M54.12
[2024-07-19 10:32] VITALS: BP 191/102; PULSE 99; O2SAT 99; BMI 22.1
== END 2024-07-19 11:00 | disposition home or self-care (01) ==
LOC: HO.PMC 10:26
PROVIDERS: PCP Registered Nurse; Referring Provider Registered Nurse; Visit Provider Anesthesiology
DX: M50.30 Other cervical disc degeneration, unspecified cervical region (principal); M47.812 Spondylosis without myelopathy or radiculopathy, cervical region; M54.12 Radiculopathy, cervical region
CPT/HCPCS: 99214

== ENCOUNTER → 2024-07-19 10:25 | Outpatient (BNVA) | payer MEDICAID, SELFPAY | PROVIDERS: PCP Registered Nurse; Referring Provider Registered Nurse; Visit Provider Anesthesiology | DX: M50.30 Other cervical disc degeneration, unspecified cervical region (principal); M47.812 Spondylosis without myelopathy or radiculopathy, cervical region; M54.12 Radiculopathy, cervical region | CPT/HCPCS: 99212 ==

== ENCOUNTER 2024-08-01 08:57 | Outpatient (AMB) | payer MEDICAID, SELFPAY ==
[2024-08-01 09:08] VITALS: BP 162/100; PULSE 73; BMI 21.4
--- NOTE | 2024-08-01 09:08 | MHC.OFFVIS ---
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 She was a 44 year female with longstanding history of hypertension but currently not taking any medications. She said that she was hoping that the antianxiety medicines that she is taking currently would help with a blood pressure control. She said the medicines are helping with anxiety but a blood pressure have remained elevated significantly. She was also significantly elevated today. She denies any headache. Denied any exertional chest pain or shortness of breath. She was in exercise much due to her spine issues but with exercise does not have any significant symptoms. She says she has been having symptoms of palpitation where she feels fluttering in his chest multiple times a day especially when she is under stress. Symptoms then subside within a minute. Occasionally gets lightheaded with these symptoms. She denies any syncopal episodes. Denies any orthopnea, PND, leg edema. She has been prescribed antihypertensive medication, seems like olmesartan although she is not sure by your office but she has not started taking. She does use quite a bit of salt in his diet as per the sister. She also has symptoms of daytime somnolence and snoring. She has not hypertension that she thinks she has had in the past. [facility] Medical History Spondylosis of cervical joint Degeneration, intervertebral disc, cervical Cleft palate HTN (hypertension) No known health problems Surgical History H/O cleft lip repair Social History Alcohol intake: never Patient Tobacco Use Status: Current everyday Tobacco user Tobacco use type: Cigarette Cigarettes Per Day: 5 Second Hand Smoke Exposure: No Review of Systems Const Denies chills, Denies daytime sleepiness, Denies fatigue, Denies fever(s), Denies frequent falls, Denies poor appetite, Denies snoring, Denies stops breathing during sleep, Denies weakness, Denies weight gain and Denies weight loss Eyes Denies loss of vision ENT Denies dizziness and Denies hearing loss Card Denies chest pain, Denies claudication, Denies leg edema, Denies lightheadedness, Reports palpitations, Denies dyspnea, Denies dyspnea on exertion and Denies orthopnea Resp Denies cough, Denies excessive phlegm production, Denies dyspnea, Denies dyspnea on exertion, Denies snoring and Denies wheezing GI Denies abdominal pain, Denies hematochezia, Denies change in bowel habits, Denies nausea and Denies vomiting Denies urinary frequency and Denies dysuria Musc Denies arthralgias, Denies muscle weakness, Denies numbness and Denies other (frequent falls) Skin/Breast Denies nail changes and Denies rash Neuro Denies Abnormal speech present, Denies dizziness, Denies frequent falls, Denies loss of vision, Denies memory loss, Denies numbness and Denies weakness Psych Denies depression and Denies memory loss Endo Denies fatigue and Reports palpitations Jackson/Lymph Reports easy bruising and Reports other (anemia) Aller/Immun Denies wheezing Physical Exam Vital Signs: Last Vital Signs Pulse 73 08/01/24 09:08 BP 162/100 H 08/01/24 09:08 BMI result Body Mass Index 21.4 Const General: cooperative, comfortable, no acute distress, alert, awake and Physically active Nutritional Appearance: thin Orientation/consciousness: patient oriented x3 Limitations: no limitations HEENT Head: Yes normocephalic and Yes atraumatic Neck Neck: Yes trachea midline, Yes supple and Yes no JVD Resp Effort & Inspection: normal respiratory effort Auscultation: clear to auscultation bilaterally Cardio Jugular venous distension: no JVD Palpation: normal PMI Rate: regular rate Rhythm: regular rhythm Heart sounds: S1 normal heart sound present, S2 normal heart sound present, no click, no gallops, no murmurs and no rubs GI Auscultation: normal bowel sounds Skin General skin exam: no rashes or lesions noted Neuro General: patient oriented x3 and no focal motor deficits Speech: No Abnormal speech present Extrem General: Yes no clubbing, cyanosis or edema Psych Appearance: grossly normal Office Procedures EKG Details: EKG shows normal sinus rhythm normal EKG at 73 beats per minute [id number], Complete Assessment & Plan Assessment & Plan (1) Uncontrolled hypertension: Code(s): I10 - Essential (primary) hypertension Category: Medical Plan: Longstanding uncontrolled hypertension this middle-aged woman, noncompliant with medication because she thought this medicines for anxiety would help a blood pressure. Although blood pressure remains uncontrolled. Need to rule out secondary hypertension such as renovascular hypertension with fibromuscular dysplasia in young women, obstructive sleep apnea given her symptoms as well as hormonal imbalance. If these are ruled out I have advised her to start her on her usual low-dose olmesartan that has been prescribed through office. Importance of this was discussed in details. Risk of end-organ damage were discussed in details. Advise lower salt diet. Also advise smoking cessation. (2) Palpitations: Code(s): R00.2 - Palpitations Category: Medical Plan: Palpitation which either suggestive of short atrial tachycardia or extra systoles. Will need a 7 day Holter monitor to assess the same. This will help with diagnose as well as prognosis. Will also suggest echocardiogram to evaluate LV systolic and diastolic function. These tests will be scheduled in near future. Will follow up in the clinic in 6 weeks time, sooner p.r.n.. Thank you for allowing me to partake in his care Coding Level of Care Code New Pt Level 4 (01162) Complex EM visit Add On G2211 Diagnoses Uncontrolled hypertension I10 Palpitations R00.2 CPT Codes EKG - CPT: 37393-[id number], Complete ([id number])
--- OUTSIDE RECORDS SUMMARY | 2024-08-01 09:23 | XMS_ITS | Clinical Summary ---
Author Organization [facility] Address [address] [place] [address] Phone Care Team Providers Care Archaeologist Name Role Phone Physician, Pcp Unknown Primary Care Provider Guera vailable Allergies No known active allergies Medications No known medications Encounters Date Type Department Care Team Description 06/21/2024 1:45 PM EST Consult Orthopedic Surgery - [place] [address] [id number] Douglas Mina DPM Hypertrophy of nail (Primary Dx); Verruca plantaris; Ingrowing nail from Last 3 Months Social History Tobacco Use Types Packs/Day Years Used Date Smoking Tobacco: Never Assessed Comments Unknown Sex and Gender Information Value Date Recorded Sex Assigned at Not on file Legal Sex Female 1:37 AM EST Gender Identity Not on file Sexual Orientation Not on file Last Filed Vital Signs Vital Sign Reading Time Taken Comments Blood Pressure - - Pulse - - Temperature - - Respiratory Rate - - Oxygen Saturation - - Inhaled Oxygen Concentration - - Weight 52.2 kg (115 lb) 06/21/2024 1:52 PM EST Height 147.3 cm (4' 10 ) 06/21/2024 1:52 PM EST Body Mass Index 24.04 06/21/2024 1:52 PM EST Plan of Treatment Health Maintenance Due Date Last Done Comments Breast Cancer Screening 1979 Cervical Cancer Screening: Pap Smear 2000 Colorectal Cancer Screening: Colonoscopy 05/04/2024 Hepatitis C Screening 05/04/2024 Social Influencers of Health Screening 05/04/2024 Depression Screening 06/11/2025 06/11/2024 Hypertension/CHF/CAD Annual BMP Blood Test 06/14/2025 06/14/2024 Cholesterol Screening (Lipid Panel) 09/17/2025 09/17/2020 DTaP,Tdap,and Td Vaccines (5 - Td or Tdap) 03/06/2031 03/06/2021, 06/25/2010, 03/09/2010, Additional history exists Hepatitis B Vaccines Completed 06/25/2010, 03/09/2010, 11/14/2001 HIV Screening Completed 01/19/2021 Pneumococcal Vaccine: Pediatrics (0 to 5 Years) and At-Risk Patients (6 to 64 Years) Aged Out 09/12/2023 No longer eligible based on patient's age to complete this topic COVID-19 Vaccine Completed 02/15/2024, , 04/07/2021, Additional [...] age to complete this topic Meningococcal B Vaccine Aged Out No l onger eligible based on patient's age to complete this topic RSV Immunization Patients Under 20 months Aged Out No longer eligible based on patient's age to complete this topic Varicella Vaccines Aged Out No longer eligible based on patient's age to complete this topic Insurance MEDICAID - [place] Care Teams Archaeologist Relationship Specialty Start Date End Date Physician, Pcp Unknown PCP - General 2/12/25
--- OUTSIDE RECORDS SUMMARY | 2024-08-01 09:23 | XMS_ITS | Encounter Summary ---
Author Organization [employer] Address [address] [place] [address] [address] [place] [address] Care Team Providers Care Manager Paper Name Role Phone Virgie Cartagena Primary Care Provider Reason for Visit * Reason Comments Med Refill Encounter Details Date Type Department Care Team ([facility] st Contact Info) Description 03/25/2023 Refill [facility] CHC MED & PEDS [address] [place], [place] [phone] Virgie Cartagena FNP [address] [place], [place] [phone] Neck pain Social History Tobacco Use Types [...] Care Team (Late st Contact Info) Description 09/07/2024 10:00 AM EDT Office Visit [facility] OPTOMETRY [address] [place] [address] Elma Rouse, OD [address] [place] [address] documented as of this encounter Visit Diagnoses Diagnosis Neck pain Cervicalgia documented in this encounter Additional Health Concerns Assessment Noted Time PHQ-9 Depression Total Score: 7 08/31/19 23 11:48 AM EDT documented as of this encounter Care Teams Manager Paper Relationship Specialty Start Date End Date Virgie Cartagena FNP [address] [place] [address] PCP - General Family Medicine 12/15/21 documented as of this encounter
--- OUTSIDE RECORDS SUMMARY | 2024-08-01 09:23 | XMS_ITS | Encounter Summary ---
Author Organization [employer] Address [address] [place] [address] [address] [place] [address] Care Team Providers Care Salesforce Business Analyst Name Role Phone Virgie Cartagena Primary Care Provider [phone] Reason for Visit * Reason Comments Med Refill Encounter Details Date Type Department Care Team ([facility] Contact Info) Description 05/20/[address] [facility] MEDICINE [address] [place] [address] Virgie Bryant FNP Social History Tobacco Use [...] Department Care Team (Late Contact Info) Description 09/07/2024 10:00 AM EDT Office Visit [facility] OPTOMETRY [address] [place] [address] Elma Rouse, OD [address] [place] [address] documented as of this encounter Visit Diagnoses Not on filedocumented in this encounter Care Teams Salesforce Business Analyst Relationship Specialty Start Date End Date Virgie Cartagena FNP [address] [place] [address] PCP - General Family Medicine 12/15/21 documented as of this encounter
--- OUTSIDE RECORDS SUMMARY | 2024-08-01 09:23 | XMS_ITS | Encounter Summary ---
Author Organization [employer] Address [address] [place] [address] [address] [place] [address] Care Team Providers Care Patternmaker Metal Bench Name Role Phone Virgie Cartagena PRACTICE OR STUDENT TEACHER Primary Care Provider [phone] Encounter Details Date Type Department Care Team ([facility] Contact Info) Description 08/11/2022 Telephone [facility] MEDICINE [address] [place], [place] [phone] Mackenzie Us LPN Social History Tobacco Use [...] Upcoming Encounters Date Type Department Care Team ([facility] Contact Info) Description 09/07/2024 10:00 AM EDT Office Visit [facility] OPTOMETRY [address] [place], [place] [phone] Nasim, Elma, OD [address] [place] [address] documented as of this encounter Visit Diagnoses Not on filedocumented in this encounter Care Teams Patternmaker Metal Bench Relationship Specialty Start Date End Date Virgie Cartagena FNP [address] [place] [address] PCP - General Family Medicine 12/15/21 documented as of this encounter
--- OUTSIDE RECORDS SUMMARY | 2024-08-01 09:23 | XMS_ITS | Encounter Summary ---
Author Organization [employer] Address [address] [facility] [address] [place] [address] Care Team Providers Care Veterinary Toxicologist Name Role Phone Virgie Cartagena VEGETABLE COOK Primary Care Provider [phone] Encounter Details Date Type Department Care Team ([facility] st Contact Info) Description 11/22/2023 Orders Only [facility] CHC MED & PEDS [address] [place], [place] [phone] Virgie Cartagena FNP [address] [place] [address] Hypokalemia (Primary Dx) Social History Tobacco Use [...] Description 09/07/2024 10:00 AM EDT Office Visit [facility] OPTOMETRY [address] [place], [place] [phone] Nasim, Elma, OD [address] [place] [address] documented as of this encounter Procedures Procedure Name Priority Date/Time Associated Diagnosis Comments BASIC METABOLIC PANEL Routine 12/14/2023 2:16 PM EDT Hypokalemia documented in this encounter Results * (ABNORMAL) Basic Metabolic Panel (12/14/2023 2:16 PM EDT) Sodium 141 135 - 145 mmol/L [facility] Potassium 3.9 3.3 - 5.1 mmol/L [facility] Chloride 107 96 - 108 mmol/L [facility] Carbon Dioxide 26 22 - 29 mmol/L [facility] Anion Gap 12 12 - 20 [facility] Urea Nitrogen (BUN) 8(L) 9 - 16 mg/dL [facility] Creatinine, Serum 0.71 0.5 - 1.4 mg/dL [facility] Estimated Glomerular Filt Rate >60 [facility] Comment:NOTE: For -Am erican individuals, multiply the result by 1.210.Chronic Kidney Disease: Estimated GFR < 60 mL/min/[id number] Kidney Disease: Estimated GFR < 15 mL/min/1.73m2 Glucose 83 60 - 115 mg/dL [facility] Calcium 9.9 8.4 - 10.2 mg/dL [facility] Blood Venous blood specimen / Unknown 12/14/2023 2:16 PM EDT 12/14/2023 4:46 PM EDT us Virgie MADRID LAB BLOOD ORDERABLES Final Res ult [facility] [address] [place] [address] [phone] documented in this encounter Visit Diagnoses Diagnosis Hypokalemia- Primary Hypopotassemia documented in this encounter Additional Health Concerns Assessment Noted Time PHQ-9 Depression Total Score: 6 09/12/19 24 1:31 PM EDT documented as of this encounter Care Teams Veterinary Toxicologist Relationship Specialty Start Date End Date Virgie Cartagena FNP [address] [place] [address] PCP - General Family Medicine 12/15/21 documented as of this encounter
--- OUTSIDE RECORDS SUMMARY | 2024-08-01 09:23 | XMS_ITS | Encounter Summary ---
Author Organization [employer] Address [address] [facility] [address] [place] [address] Care Team Providers Care Registered Radiologic Technologist Name Role Phone Virgie Cartagena AUTO BODY REPAIRMAN Primary Care Provider Encounter Details Date Type Department Care Team (Late Contact Info) Description 08/31/2022 Abstract [facility] ADULT DENTAL [address] [place] [address] Esthela Stafford [address] [place] [address] Social History Tobacco Use Types Packs/Day Years [...] Description 09/07/2024 10:00 AM EDT Office Visit [facility] OPTOMETRY [address] [place] [address] Elma Rouse, OD [address] [place] [address] documented as of this encounter Visit Diagnoses Not on filedocumented in this encounter Additional Health Concerns Assessment Noted Time PHQ-9 Depression Total Score: 7 08/31/19 23 11:48 AM EDT documented as of this encounter Care Teams Registered Radiologic Technologist Relationship Specialty Start Date End Date Virgie Cartagena FNP [address] [place] [address] PCP - General Family Medicine 12/15/21 documented as of this encounter
--- OUTSIDE RECORDS SUMMARY | 2024-08-01 09:23 | XMS_ITS | Clinical Summary ---
Author Organization [employer] Address [address] [facility] [address] [place] [address] Care Team Providers Care Cryptographic Technician Name Role Phone Virgie Cartagena HEADRIG SAWYER Primary Care Provider Allergies No known active allergies Medications * This document contains information received from the source organization and may not represent a complete record from that organization. Diclofenac Sodium 1 % gel Apply 2 [...] tablet 4 02/15/20 25 Active cyclobenzaprine (Flexeril) 10 MG tablet Take 1 tablet (10 mg) by mouth if needed at bedtime for muscle spasms. 30 tablet 2 5 Active FLUoxetine (PROzac) 20 MG capsule Take 1 capsule (20 mg) by mouth Once per day. 90 capsule 1 5 12/25/19 25 Active Active Problems Problem Noted Date Diagnosed Date DEVAN (generalized anxiety disorder) 06/27/2024 Cannabis use disorder 06/27/2024 Ill-fitting dentures 02/23/2024 Palpitations 02/23/2024 Assessment & Plan (02/23/2024 5:59 PM EDT): Referred to cardiology Jan 2024 Last TSH WNL October 2023 Other acne 11/16/2023 Assessment & Plan (11/16/2023 5:21 PM EDT): Continue tretinoin 0.025% gel for acne (aware not covered by insurance, plan to pay out of pocket) Dental caries 02/10/2023 GERD (gastroesophageal reflux disease) Assessment & Plan (02/01/2023 7:49 PM EDT): Pt reports GERD symptoms possible associated w NSAIDS use -omepraole trial -px today -life style changes advised, decrease heavy meals at night, HOB elevation -t f w PCP Periodontal disease 01/10/2023 Cervical radiculopathy 09/29/2022 Overview (09/12/2023): Followed by [facility] Intralaminar epidural steroid injection 1 level above C6-C7 disc protrusion August 2022 Interlaminar epidural C5-C6 steroid injection Feb 2023 Plan for referral to Neurosurgery if interventions through Pain Management not effective Assessment & Plan (06/28/2024 4:17 PM EST): -Continues with cyclobenzaprine and ibuprofen Prn for pain -Referral to re-establish with Pain Management placed June 2024 Assessment & Plan (06/11/2024 5:29 PM EST): [...] time being Routine health maintenance 08/29/2022 Overview (06/28/2024): Pap 08/23/22: NILM HPV neg Mammo: BIRADS 1 on 10/10/23 Last PE 05/16/24 Colon Cancer screening: Cologuard order placed 05/16/24, reordered 06/27/2024 OPH: referral to [facility] Eye Care placed 05/16/24 Dental calculus 08/03/2022 [...] She has an orthopedic surgery appointment at [facility] on July 28 at 1400. Assessment & [...] bladder or bowel control, numbness or tingling Major depressive episode 03/06/2021 Assessment & Plan (11/16/2023 5:22 PM [...] 02/12/2015 Dyslipidemia 02/12/2015 Essential hypertension 02/12/2015 Overview (06/28/2024): Encourage to continue with lifestyle interventions such as low salt diet, smoking cessation, and goal 150 mins exercise weekly Previous medications: -Chlorthalidone dc d/y hypokalemia (Jan 2024) -Olmesartan 5mg daily dc d/t well controlled w/o medication Assessment & Plan (06/28/2024 4:18 PM EST): Reports home readings well-controlled. suspect elevated in office secondary to acute pain. Encouraged to follow-up if home readings above goal. Assessment & Plan (02/23/2024 6:02 PM EDT): [...] Tobacco dependence syndrome 02/12/2015 Assessment & Plan (06/28/2024 4:18 PM EST): Smoking 5 cigg/day Encouraged smoking cessation resources such as pharmacomtherapy, [facility] smoking cessation group, and [facility] pharmacy smoking cessation clinic Assessment & Plan (06/11/2024 5:31 PM EST): Smoking 5 cigg/day Encouraged smoking cessation resources such as pharmacomtherapy, [facility] smoking cessation group, and [facility] pharmacy smoking cessation clinic Assessment & Plan (02/23/2024 6:03 PM EDT): Smoking 5 cigg/day Encouraged smoking cessation resources such as pharmacomtherapy, [facility] smoking cessation group, and [facility] pharmacy smoking cessation clinic Assessment & Plan (02/04/2023 2:59 PM EDT): ?? Smoking 5 cigg/day Vitamin D deficiency 02/12/2015 Resolved Problems Problem Noted Date Diagnosed Date Resolved Date COVID 04/23/2022 07/29/2022 Encounters * This document contains information received from the source organization and may not represent a complete record from that organization. Date Type Department Care Team Description 07/06/2024 Population Health Risk Score [facility] (C3) Department [address] [phone] Provider, Population Health Generic 06/27/2024 10:15 AM EST Office Visit [facility] MEDICINE [address] [place] [phone] Virgie Cartagena FNP Cervical radiculopathy (Primary Dx); Screening for colon cancer; Essential hypertension; Tobacco dependence syndrome; Routine health maintenance 06/27/2024 Travel 06/18/[address] [address] Virgie Cartagena FNP ER Follow-up 06/14/2024 Orders Only GENERIC EXTERNAL DATA DEPARTMENT Provider, Generic External Data 06/12/2024 Telephone [facility] [address] [place] [address] Virgie Cartagena FNP 05/16/2024 9:15 AM EST Office Visit [address] [address] Virgie Cartagena FNP Encounter for routine history and physical examination of adult (Primary Dx); Routine health maintenance; Essential hypertension; Screening for colon cancer; Cervical radiculopathy; Encounter for other contraceptive management; Dietary counseling; Exercise counseling; Tobacco dependence syndrome 05/16/2024 Patient Outreach [facility] [address], [place] [phone] Virgie Cartagena FNP Care Coordination (CHW outreach for SDOH PT-1 and food needs-LVM ) 05/16/2024 Travel 05/15/2024 Telephone [facility] [address] [place] [address] Peggy Nash MA Chart Prep 05/04/2024 Patient Outreach [facility] [address] [place] [address] Virgie Cartagena FNP Pre-visit Planning (Pre-visit planning - LVM ) from Last 3 Months Immunizations Name Administration [...] Answer Date Recorded Patient Health Questionnaire-9 Score 15 06/27/2024 Patient Health Questionnaire-9 Score 15 06/27/2024 Last PHQ-9: Questionnaire Data Not on file 0 06/27/2024 Housing Stability Answer Date Recorded What is [...] Answer Date Recorded Patient Health Questionnaire-2 Score 3 06/27/2024 Internet Access Answer Date Recorded Internet Access [...] Sign Reading Time Taken Comments Blood Pressure 154/96 06/27/2024 10:36 AM EST Pulse 64 06/27/2024 10:35 AM EST Temperature 36.4 ??C (97.5 ??F) 06/27/2024 10:[address] Respiratory Rate 17 06/27/2024 10:35 AM EST Oxygen Saturation 99% 06/27/2024 10:35 AM EST Inhaled Oxygen Concentration - - Weight 50.4 kg (111 lb 2 oz) 06/27/2024 10:35 AM EST Height 141.6 cm (4' 7.75 ) 06/27/2024 10:[address] Body Mass Index 25.14 06/27/2024 10:35 AM EST Plan of Treatment Upcoming Encounters Date Type Department Care Team (Late st Contact Info) Description 09/07/2024 10:00 AM EDT Office Visit [facility] [address] [place] [address] Elma Rouse, OD [address] [place] [address] Health Maintenance Due Date Last Done Comments CT Colonography 1979 Colonoscopy 1979 Colorectal Cancer Screening 1979 FIT DNA/Cologuard 1979 FIT 1979 FOBT 1979 Sigmoidoscopy 1979 Dental Oral Exam 08/02/2024 02/01/2024, 08/03/2022 Dental Prophylaxis 08/02/2024 02/01/2024, 08/19/2022 Mammogram 10/09/2024 10/10/2023, 02/0 11/2020, 05/29/2019 Depression Monitoring (PHQ-9) 12/28/2024 06/27/2024, 06/27/2024 Dental X-Ray: Bitewings 02/01/2025 02/01/2024, 08/03 Diabetes: Hemoglobin A1C 02/14/2025 024, 09/17/2020, 11/15/2019 Alcohol/Substance Use Screening 05/16/2025 05/16/2024 SDOH Screening 05/16/2025 05/16/2024 Family Planning (PISQ) 06/11/2025 06/11/2024 Depression Screening 06/27/2025 06/27/2024, 06/28/19 25 Tobacco Screening 06/27/2025 06/27/2024 Dental X-Ray: Full Mouth 08/04/2025 08/03/2022 Pap [...] Procedure Name Priority Date/Time Associated Diagnosis Comments XR CERVICAL SPINE 3V Routine 06/14/2024 1:52 PM EST HIGH SENSITIVITY TROPONIN I Routine 06/14/2024 10:29 AM EST BASIC METABOLIC PANEL Routine 06/14/2024 10:29 AM EST CBC WITH AUTO DIFFERENTIAL Routine 06/14/2024 10:29 AM EST POCT , URINE Routine 05/16/2024 10:53 AM [...] Recently Relevant to Health Maintenance Results * XR CERVICAL SPINE 3V (06/14/2024 1:52 PM EST) Anatomical Region Laterality Modality Abdomen Radiographic Eileen ging 06/14/2024 1:52 PM EST Narrative 06/14/2024 2:30 PM EST ? [facility] ?[address] ?[place] [address] ?XRay Report ? Signed ? Patient: Shannan,Christy A ?MR#: [id number] ?? 25 ? : 1980 ?Acct:[id number] ? Age/Sex: 44 / F ?ADM Date: 02/20/25 ? Loc: HO.ED ? Attending Dr: ? Ordering Physician: Amari Melendez MD ?? Date of Service: 06/14/24 ?? Procedure(s): XR cervical spine 3V ?? Accession Number(s): [id number] ? cc: Amari Melendez MD; Virgie Cartagena ? EXAMINATION: ?? XR CERVICAL SPINE ? CLINICAL INFORMATION: ?? Neck pain ? COMPARISON: ?? None available. ? TECHNIQUE: ?? 3 views of the cervical spine were obtained. ? FINDINGS: ?? No scoliosis. Mild reversal of the normal lordosis. ?? No fracture, subluxation, compression deformity, or suspicious bone ?? lesion. ?? Craniocervical junction and C1-2 articulation are intact and aligned. ?? There is normal facet alignment. No significant facet arthropathy. ?? There is mild to moderate focal disc degeneration at C5-6. Discs are ?? otherwise preserved. ? No prevertebral or paravertebral soft tissue abnormality. Lung apices ?? are clear. ? XR/XR cervical spine 3V ?? IMPRESSION: ?? 1. No acute findings of the cervical spine. ?? 2. Mild reversal of the normal lordosis. ?? 3. Mild to moderate degenerative disc changes C5-6. ? Electronically signed by: ??Rigoberto Ledbetter MD ??06/14/2024 02:27 PM EST RP ? Dictated By: ?Rigoberto Ledbetter MD ? Signed By: ?<Electronically signed by Rigoberto Ledbetter MD in OV> ?06/14/24 1427 ? DD/ 1352 ? TD/TT: 06/14/24 1420 ? Mortgage Loan Specialist: ? Procedure Note Hans, Image - 06/14/2024 [place] [address] XRay Report Signed Patient: Christy Campbell AMR#: [id number] [birth year] : 1980Acct:[id number] Age/Sex: 44 / FADM Date: 06/14/24 Loc: HO.ED Attending Dr: Ordering Physician: Amari Melendez MD Date of Service: 06/14/24 Procedure(s): XR cervical spine 3V Accession Number(s): [id number] cc: Amari Melendez MD; Virgie Cartagena HEADRIG SAWYER EXAMINATION: XR CERVICAL SPINE CLINICAL INFORMATION: Neck pain COMPARISON: None available. TECHNIQUE: 3 views of the cervical spine were obtained. FINDINGS: No scoliosis. Mild reversal of the normal lordosis. No fracture, subluxation, compression deformity, or suspicious bone lesion. Craniocervical junction and C1-2 articulation are intact and aligned. There is normal facet alignment. No significant facet arthropathy. There is mild to moderate focal disc degeneration at C5-6. Discs are otherwise preserved. No prevertebral or paravertebral soft tissue abnormality. Lung apices are clear. XR/XR cervical spine 3V IMPRESSION: 1. No acute findings of the cervical spine. 2. Mild reversal of the normal lordosis. 3. Mild to moderate degenerative disc changes C5-6. Electronically signed by: Rigoberto Ledbetter MD 06/14/2024 02:27 PM EST Dictated By: Rigoberto Ledbetter MD Signed By: <Electronically signed by Rigoberto Ledbetter MD in OV> 06/14/24 1427 DD/ 1352 TD/TT: 06/14/24 1420 Mortgage Loan Specialist: [facility] External Provider IMG XR PROCEDURES Final Result * High Sensitivity Troponin I (06/14/2024 10:29 AM EST) [facility] TROPONIN I HIGH SENSITIVITY <2.7 <3.5 - 17.0 ng/L [facility] Comment:The Gillespie high sens itivity Troponin-I results should beused in conjunction with other diagnostic information suchas ECG, clinical observations and information, and patientsymptoms to aid in the diagnosis of IL. 06/14/2024 10:2 9 AM EST 06/14/2024 10:32 AM EST Generic External Data Provider LAB BLOOD ORDERAB LES Final Result [facility] [address] [place] [phone] * (ABNORMAL) CBC auto differential (06/14/2024 10:29 AM EST) Pathologist [facility] White Blood Count 8.1 4.8 - 10.8 X10*3/uL [facility] Red Blood Count 4.33 4.20 - 5.50 X10*6/uL [facility] Hemoglobin 12.8 12.0 - 16.0 g/dl [facility] Hematocrit 37.4 37.0 - 47.0 % [facility] Mean Corpuscular Volume 86.4 80.0 - 98.0 fL [facility] Mean Corpuscular Hemoglobin 29.6 27.0 - 33.0 pg [facility] Mean Corpuscular HGB Conc 34.2 31.0 - 35.0 g/dl [facility] Red Cell Distribution Width 14.3 11.0 - 16.0 % [facility] Platelet Count 319 160 - 400 X10*3/uL [facility] Mean Platelet Volume 8.5(L) 9.4 - 12.3 fL [facility] Neutrophils Percent Auto 64.7 45 - 73 % [facility] Imm Gran Pct Auto 0.2 0.0 - 0.4 % [facility] Lymphocytes Percent Auto 24.2 20 - 40 % [facility] Monocytes Percent Auto 6.8 2 - 11 % [facility] Eosinophils Percent Auto 3.6 0 - 4 % [facility] Basophils Percent Auto 0.5 0 - 2 % [facility] NRBC Pct Auto 0.0 0.0 - 0.2 /100WBC [facility] Neutrophils Absolute Auto 5.2 2.0 - 8.3 x10*3/uL [facility] Imm Gran Abs Auto 0.02 0.00 - 0.03 X10*3/uL [facility] Lymphocytes Absolute Auto 2.0 1.2 - 4.9 X10*3/uL [facility] Monocytes Absolute Auto 0.6 0.1 - 1.2 X10*3/uL [facility] Eosinophils Absolute Auto 0.3 0.0 - 0.4 X10*3/uL [facility] Basophils Absolute Auto 0.0 0.0 - 0.2 X10*3/uL [facility] NRBC Abs Auto 0.000 0.0 - 0.012 X10*3/uL [facility] 06/14/2024 10:2 9 AM EST 06/14/2024 10:32 AM EST us Generic External Data Provider LAB BLOOD ORDERAB LES Final Result Performing Organization Address City/[facility] Hospital/ZIP Co de Phone Number [facility] [address] [place] [address] [phone] * (ABNORMAL) Basic Metabolic Panel (06/14/2024 10:29 AM EST) Sodium 139 135 - 145 mmol/L [facility] Potassium 3.7 3.3 - 5.1 mmol/L [facility] Chloride 112(H) 96 - 108 mmol/L [facility] Carbon Dioxide 20(L) 22 - 29 mmol/L [facility] Anion Gap 11(L) 12 - 20 [facility] Urea Nitrogen (BUN) 7(L) 9 - 16 mg/dL [facility] Creatinine, Serum 0.56 0.5 - 1.4 mg/dL [facility] Creatinine Clr Calc Pharmacy 86.4 [facility] Comment:Provided height and weight: 149.86 cm,49.895 kg.eGFR (calculated from the MDRD study equation) and eCrCl(calculated from the Cockcroft-Gault equation) are based ondifferent parameters and may not yield comparable results.If eCrCl result is absurd, please check patient'sheight/weight. Estimated Glomerular Filt Rate >60 [facility] Comment:Chronic Kidney Disea se: Estimated GFR < 60 mL/min/1.01w8Gfcbnd Kidney Disease: Estimated GFR < 15 mL/min/1.73m2 Glucose 93 60 - 115 mg/dL [facility] Calcium 8.8 8.4 - 10.2 mg/dL [facility] 06/14/2024 10:2 9 AM EST 06/14/2024 10:32 AM EST us Generic External Data Provider LAB BLOOD ORDERAB LES Final Result [facility] [address] [place] [address] [phone] * POCT Urine (05/16/2024 10:53 AM EST) Preg Test, Ur Negative Negative, Indeterminate, None Detected, Invalid, Specimen unsatisfactory for evaluation, Weakly Positive QC Media Lot # [id number] Lot# Expiration Date [id number] Urine 05/16/2024 10:5 3 AM EST Virgie Phalen HEADRIG SAWYER POINT OF CARE TEST ENTER/EDIT ORDERABLES Final Result * (ABNORMAL) Hemoglobin A1c (02/15/2024 12:20 PM EDT) Hemoglobin A1c 6.1(H) <6.0 % [facility] Comment:Hemoglobin A1C Refer ence Range Adults: 4.8 - 6.0 % Non diabetic: < 6.0 % Goal: < 7.0 %Additional Action Suggested: > 8.0 %Note: Hemoglobin A1c results are invalid for patients with abnormal amounts of HbF. Blood transfusions may impact the HbA1c concentration in the patient sample. Estimated Average Glucose 128 mg/dL [facility] Comment:eAG = Estimated ave rage glucose which is %A1C expressed asaverage glucose, using the formula of the A5O-TfpnjyeGjqnxea Glucose study (ADAG), Diabetes Care, Vol.31,#8,Nov. 2007 Blood Venous blood specimen / Unknown 02/15/2024 12:20 PM EDT 02/15/2024 1:24 PM EDT Virgie [employer] HEADRIG SAWYER LAB BLOOD ORDERABLES Final Res ult Performing Organization Address [facility]RUST Co de Phone Number [facility] [address] [place] [address] [phone] * BI Mammogram Screening Tomosynthesis Bilateral (10/10/2023 4:31 PM EDT) Anatomical Region Laterality Modality Breast Bilateral Mammography 10/10/2023 4:31 PM EDT Narrative 11/09/2023 7:12 AM EDT ? [facility] ? [address] ?[place] [address] ? Mammography Report ? Signed ? Patient: Shannan,Christy A ?MR#: [id number] ?? 25 ? : 1980 ?Acct:[id number] ? Age/Sex: 43 / F ?ADM Date: 10/10/23 ? Loc: HO.MAMMO ? Attending Dr: Virgie Cartagena HEADRIG SAWYER ? Ordering Physician: Virgie Cartagena HEADRIG SAWYER ?Results: 1Negat ?? kelsi ? Date of Service: 10/10/23 ?Follow Up: 1 Year From Orig ?? inal Mammogram ? Procedure(s): MM tomosynthesis screening BI ?? Accession Number(s): [id number] ? cc: Virgie Cartagena HEADRIG SAWYER ? EXAMINATION: ?? MM SCREENING DIGITAL BREAST [...] by Tawny Buckley MD in OV> ? 11/09/23706 ? DD/ 1631 ? TD/TT: ? Mortgage Loan Specialist: ? Procedure Note Harjit Maxwell - 11/09/2023 [facility] [address] [place] [address] Dr. Pete, [place] [address] Mammography Report Signed Patient: Christy Campbell AMR#: [id number] 25 : 1980Acct:[id number] Age/Sex: 43 / FADM Date: 10/10/23 Loc: HO.MAMMO Attending Dr: Virgie Cartagena HEADRIG SAWYER Ordering Physician: Virgie CartagenaPResults: 1Negat kelsi Date of Service: 10/10/23Follow Up: 1 Year From Orig inal Mammogram Procedure(s): MM tomosynthesis screening BI Accession Number(s): [id number] cc: Virgie Cartagena EXAMINATION: MM SCREENING DIGITAL [...] in OV> 11/09/23 0707 DD/ 1631 TD/TT: Mortgage Loan Specialist: Virgie Cartagena HEADRIG SAWYER IMG BI PROCEDURES Final Result * Image-Guided Pap with Age-Based Screening Protocols (08/23/2022 11:08 AM EDT) Comment [facility] Comment: This order for age-based cervical cancer and STI screening follows ACOG guidelines(PB 168, 140, LQY736). See individual assays for performing site location. Clinical Information: None given [facility] [facility] LMP: NONE GIVEN [facility] [employer] Prev. PAP: NONE GIVEN [facility] Prev. BX: NONE GIVEN [facility] SOURCE: None given [employer] Statement Of Adequacy: [facility] Comment: Satisfactory for evaluation. Endocervical/transformation zone component present. Interpretation/ Result: Negative for intraepithelial lesion or malignancy. [facility] COMMENT: This Pap test has been evaluated with computer assisted technology. [facility] Cytotechnologis t: [facility] Comment: KR, CT(ASCP) CT screening location: [address] ??[phone] Review [employer]otechnolog[employer]: [facility] Comment: ALS, CT(ASCP) CT screening location: [address] ??[phone] (Always Message) [facility] Comment: EXPLANATORY NOTE: The Pap is a [...] HPV nRNA E6/E7 Not Detected Not Detected [facility] Comment: Methodology: Nursing Unit Coordinator-Mediated Amplification This assay detects E6/E7 viral messenger RNA (mRNA) from 14 high-risk HPV types (16,18,31,33,35,39,45,51,52,56,58,59,66,68). Cervical sources are required for HPV testing. If a vaginal source from a patient who has had a total hysterectomy with removal of cervix was submitted, please contact the testing laboratory for alternative testing options. For additional information, please refer to http://education.Ram Power/faq/MGW051b3 (This link if provided for information/ educational purposes only.) Pap Vial 08/23/2022 11:0 8 AM EDT 08/24/2022 7:37 AM EDT Madhavi NICOLE LAB BLOOD ORDERABLES Nurys l Result [facility] [address], [place] [address] bright box [facility] [address] [place] [address] * Hepatitis C Antibody (01/19/2021 9:39 PM EDT) Hepatitis C Antibody Nonreactive Blood 01/19/2021 9:39 PM EDT Historical Provider MD POINT OF CARE TEST ENTER/ EDIT ORDERABLES Final Result * HIV 1/2 ANTIGEN/ANTIBODY,FOURTH GENERATION W/RFL (01/19/2021 3:09 PM EDT) HIV-1/2 ANTIGEN AND ANTIBODIES, 4TH GENERATION W/ REFLEX NON-REACT KELSI NON-REACT KELSI [facility] Comment: HIV-1 antigen and HIV-1/HIV-2 [...] ? For additional information please refer to http://[employer] Power/faq/HOP007 (This link is being provided for informational/ educational purposes only.) ? The performance of this assay has not been clinically validated in patients less than 2 years old. ?? 01/19/2021 3:09 PM EDT us Shaina Ramos [facility] LAB BLOOD ORDERABLES Final Res ult [facility] [address] * (ABNORMAL) LIPID PANEL, STANDARD (09/17/2020 [...] ?? LDL-C is now calculated using the Hever ?? calculation, which is a validated novel method providing ?? better accuracy than the Friedewald equation in the ?? estimation of LDL-C. ?? Onofre DUMONT et al. SAVANNAH. 2013;310(19): 5249-8053 ?? (http://education.Buy.On.Social/faq/TIN162) Non-HDL Cholesterol 208(H) <130 mg/dL (calc) [facility] Comment: For patients with diabetes plus 1 major ASCVD risk ?? factor, treating to a non-HDL-C goal of <100 mg/dL ?? (LDL-C of <70 mg/dL) is considered a therapeutic ?? option. Triglycerides 136 <150 mg/dL [facility] 09/17/2020 1:10 PM EDT us Saba Fishman BLUEPRINTING AND PHOTOCOPY SUPERVISOR LAB BLOOD ORDERABLES Final Resu lt [facility] [address] from Last 3 Months or Most Recently Relevant to Health Maintenance Insurance [facility] C3 DENTAL-[facility] MEDICAID STAND ADULT Care Teams Cryptographic Technician Relationship Specialty Start Date End Date Virgie Cartagena FNP [address] [place] [phone] PCP - General Family Medicine 12/15/21
--- OUTSIDE RECORDS SUMMARY | 2024-08-01 09:23 | XMS_ITS | Encounter Summary ---
Author Organization [employer] Address [address] [facility] [address] [place] [address] Care Team Providers Care Hand Former Helper Name Role Phone Virgie Cartagena JAVA SDET Primary Care Provider [phone] Encounter Details Date Type Department Care Team ([facility] Contact Info) Description 09/02/2022 Abstract [facility] ADULT DENTAL [address] [place] [address] Tyrone Rangel DDS [address] [place] [address] Social History Tobacco Use Types Packs/Day Years [...] Upcoming Encounters Date Type Department Care Team ([facility] Contact Info) Description 09/07/2024 10:00 AM EDT Office Visit [facility] [address] [place] [address] Elma Rouse, OD [address] [place] [address] documented as of this encounter Visit Diagnoses Not on filedocumented in this encounter Additional Health Concerns Assessment Noted Time PHQ-9 Depression Total Score: 7 08/31/19 23 11:48 AM EDT documented as of this encounter Care Teams Hand Former Helper Relationship Specialty Start Date End Date Virgie Cartagena FNP [address] [place] [address] PCP - General Family Medicine 12/15/21 documented as of this encounter
--- OUTSIDE RECORDS SUMMARY | 2024-08-01 09:23 | XMS_ITS | Encounter Summary ---
Author Organization [employer] Address [address] [place] [address] 7t [place] [address] Care Team Providers Care Line Runner Name Role Phone Virgie Cartagena Primary Care Provider [phone] Reason for Visit * Reason Comments Med Refill Encounter Details Date Type Department Care Team ([facility] st Contact Info) Description 03/30/2023 Refill [facility] CHC MED & PEDS [address] [place], [place] [phone] Virgie Cartagena FNP [address] [place], [place] [phone] Neck pain Social History Tobacco Use Types [...] Description 09/07/2024 10:00 AM EDT Office Visit [facility] OPTOMETRY [address] [place] [address] Elma Rouse, OD [address] [place] [address] documented as of this encounter Visit Diagnoses Diagnosis Neck pain Cervicalgia documented in this encounter Additional Health Concerns Assessment Noted Time PHQ-9 Depression Total Score: 7 08/31/19 23 11:48 AM EDT documented as of this encounter Care Teams Line Runner Relationship Specialty Start Date End Date Virgie Cartagena FNP [address] [place] [address] PCP - General Family Medicine 12/15/21 documented as of this encounter
== END 2024-08-01 09:43 | disposition home or self-care (01) ==
LOC: HO.HCS 08:57
PROVIDERS: PCP Registered Nurse; Visit Provider Internal Medicine Cardiovascular Disease
DX: I10 Essential (primary) hypertension (principal); R00.2 Palpitations
CPT/HCPCS: 93010; 99204

== ENCOUNTER 2024-08-01 08:57 | Outpatient (REF) | payer MEDICAID, SELFPAY ==
--- OUTSIDE RECORDS SUMMARY | 2024-08-01 10:45 | XMS_ITS | Encounter Summary ---
Author Organization [employer] Address [address] [facility] 7t [place] [address] Care Team Providers Care Medication Aid Name Role Phone Virgie Cartagena CONVERTING TECHNICIAN Primary Care Provider [phone] Encounter Details Date Type Department Care Team ([facility] Contact Info) Description 09/02/2022 Abstract [facility] ADULT DENTAL [address] [place] [address] Tyrone Rangel DDS [address] [place] [address] Social History Tobacco Use Types Packs/Day Years [...] Upcoming Encounters Date Type Department Care Team ([facility] Contact Info) Description 09/07/2024 10:00 AM EDT Office Visit [facility] OPTOMETRY [address] [place] [address] Elma Rouse, OD [address] [place] [address] documented as of this encounter Visit Diagnoses Not on filedocumented in this encounter Additional Health Concerns Assessment Noted Time PHQ-9 Depression Total Score: 7 08/31/19 23 11:48 AM EDT documented as of this encounter Care Teams Medication Aid Relationship Specialty Start Date End Date Virgie Cartagena FNP [address] [place] [address] PCP - General Family Medicine 12/15/21 documented as of this encounter
--- OUTSIDE RECORDS SUMMARY | 2024-08-01 10:45 | XMS_ITS | Encounter Summary ---
Author Organization [employer] Address [address] [place] [address] 7t [place] [address] Care Team Providers Care Electronics Assembler Name Role Phone Virgie Cartagena HYGIENE COORDINATOR Primary Care Provider [phone] Encounter Details Date Type Department Care Team ([facility] Contact Info) Description 08/11/2022 Telephone [facility] MEDICINE [address] [place], [place] [phone] Mackenzie Us LPN Social History Tobacco Use [...] Upcoming Encounters Date Type Department Care Team ([facility] Contact Info) Description 09/07/2024 10:00 AM EDT Office Visit [facility] OPTOMETRY [address] [place], [place] [phone] Nasim, Elma, OD [address] [place] [address] documented as of this encounter Visit Diagnoses Not on filedocumented in this encounter Care Teams Electronics Assembler Relationship Specialty Start Date End Date Virgie Cartagena FNP [address] [place] [address] PCP - General Family Medicine 12/15/21 documented as of this encounter
--- OUTSIDE RECORDS SUMMARY | 2024-08-01 10:45 | XMS_ITS | Encounter Summary ---
Author Organization [employer] Address [address] [facility] 7t [place] [address] Care Team Providers Care Nurse Staff Community Health Name Role Phone Virgie Cartagena TUBULAR STOCK GLASS BULB MACHINE FORMER Primary Care Provider [phone] Encounter Details Date Type Department Care Team ([facility] st Contact Info) Description 11/22/2023 Orders Only [facility] CHC MED & PEDS [address] [place], [place] [phone] Virgie Cartagena FNP [address] [place] [address] Hypokalemia (Primary Dx) Social History Tobacco Use [...] Description 09/07/2024 10:00 AM EDT Office Visit [facility] OPTOMETRY [address] [place], [place] [phone] Nasim, Elma, OD [address] [place] [address] documented as of this encounter Procedures Procedure Name Priority Date/Time Associated Diagnosis Comments BASIC METABOLIC PANEL Routine 12/14/2023 2:16 PM EDT Hypokalemia documented in this encounter Results * (ABNORMAL) Basic Metabolic Panel (12/14/2023 2:16 PM EDT) Sodium 141 135 - 145 mmol/L [facility] Potassium 3.9 3.3 - 5.1 mmol/L [facility] Chloride 107 96 - 108 mmol/L [facility] Carbon Dioxide 26 22 - 29 mmol/L [facility] Anion Gap 12 12 - 20 [facility] Urea Nitrogen (BUN) 8(L) 9 - 16 mg/dL [facility] Creatinine, Serum 0.71 0.5 - 1.4 mg/dL [facility] Estimated Glomerular Filt Rate >60 [facility] Comment:NOTE: For -Am erican individuals, multiply the result by 1.210.Chronic Kidney Disease: Estimated GFR < 60 mL/min/1.33p0Igmkxy Kidney Disease: Estimated GFR < 15 mL/min/1.73m2 Glucose 83 60 - 115 mg/dL [facility] Calcium 9.9 8.4 - 10.2 mg/dL [facility] Blood Venous blood specimen / Unknown 12/14/2023 2:16 PM EDT 12/14/2023 4:46 PM EDT us Virgie [facility] BLOOD ORDERABLES Final Res ult [facility] [address] [place] [address] [phone] documented in this encounter Visit Diagnoses Diagnosis Hypokalemia- Primary Hypopotassemia documented in this encounter Additional Health Concerns Assessment Noted Time PHQ-9 Depression Total Score: 6 09/12/19 24 1:31 PM EDT documented as of this encounter Care Teams Nurse Staff Community Health Relationship Specialty Start Date End Date Virgie Cartagena FNP [address] [place] [address] PCP - General Family Medicine 12/15/21 documented as of this encounter
--- OUTSIDE RECORDS SUMMARY | 2024-08-01 10:45 | XMS_ITS | Encounter Summary ---
Author Organization [employer] Address [address] [place] [address] 7[address] [place] [address] Care Team Providers Care Motor Vehicle Operator Road Supervisor Name Role Phone Virgie Cartagena Primary Care Provider [phone] Reason for Visit * Reason Comments Med Refill Encounter Details Date Type Department Care Team ([facility] st Contact Info) Description 03/30/2023 Refill [facility] CHC MED & PEDS [address] [place], [place] [phone] Virgie Cartagena FNP [address] [place], [place] [phone] Neck pain Social History Tobacco Use Types [...] Description 09/07/2024 10:00 AM EDT Office Visit [facility] OPTOMETRY [address] [place] [address] Elma Rouse, OD [address] [place] [address] documented as of this encounter Visit Diagnoses Diagnosis Neck pain Cervicalgia documented in this encounter Additional Health Concerns Assessment Noted Time PHQ-9 Depression Total Score: 7 08/31/19 23 11:48 AM EDT documented as of this encounter Care Teams Motor Vehicle Operator Road Supervisor Relationship Specialty Start Date End Date Virgie Cartagena FNP [address] [place] [address] PCP - General Family Medicine 12/15/21 documented as of this encounter
--- OUTSIDE RECORDS SUMMARY | 2024-08-01 10:45 | XMS_ITS | Encounter Summary ---
Author Organization [employer] Address [address] [place] [address] [address] [place] [address] Care Team Providers Care Wire Splicer Name Role Phone Virgie Cartagena Primary Care Provider [phone] Reason for Visit * Reason Comments Med Refill Encounter Details Date Type Department Care Team ([facility] Contact Info) Description 05/20/2022 Refill [facility] MEDICINE [address] [place] [address] Virgie Bryant FNP Social History Tobacco Use [...] Description 09/07/2024 10:00 AM EDT Office Visit [facility] OPTOMETRY [address] [place] [address] Elma Rouse, OD [address] [place] [address] documented as of this encounter Visit Diagnoses Not on filedocumented in this encounter Care Teams Wire Splicer Relationship Specialty Start Date End Date Virgie Cartagena FNP [address] [place] [address] PCP - General Family Medicine 12/15/21 documented as of this encounter
--- OUTSIDE RECORDS SUMMARY | 2024-08-01 10:45 | XMS_ITS | Encounter Summary ---
Author Organization [employer] Address [address] [place] [address] 7[address] [place] [address] Care Team Providers Care Operations Research Scientist Name Role Phone Virgie Cartagena Primary Care Provider [phone] Reason for Visit * Reason Comments Med Refill Encounter Details Date Type Department Care Team ([facility] st Contact Info) Description 03/25/2023 Refill [facility] CHC MED & PEDS [address] [place], [place] [phone] Virgie Cartagena FNP [address] [place], [place] [phone] Neck pain Social History Tobacco Use Types [...] Description 09/07/2024 10:00 AM EDT Office Visit [facility] OPTOMETRY [address] [place] [address] Elma Rouse, OD [address] [place] [address] documented as of this encounter Visit Diagnoses Diagnosis Neck pain Cervicalgia documented in this encounter Additional Health Concerns Assessment Noted Time PHQ-9 Depression Total Score: 7 08/31/19 23 11:48 AM EDT documented as of this encounter Care Teams Operations Research Scientist Relationship Specialty Start Date End Date Virgie Cartagena FNP [address] [place] [address] PCP - General Family Medicine 12/15/21 documented as of this encounter
--- OUTSIDE RECORDS SUMMARY | 2024-08-01 10:45 | XMS_ITS | Clinical Summary ---
Author Organization [employer] Address 75 [facility] 7t [place] [address] Care Team Providers Care Title I Teacher Name Role Phone Virgie Cartagena SLAB STRIPPER Primary Care Provider [phone] Allergies No known active allergies Medications * [...] Cervical radiculopathy 09/29/2022 Overview (09/12/2023): Followed by [facility] Pain Management Intralaminar epidural steroid injection 1 [...] placed 05/16/24, reordered 06/27/2024 OPH: referral to [facility] Eye Care placed 05/16/24 Dental calculus [...] She has an orthopedic surgery appointment at [facility] on July 28 at 1400. Assessment & [...] as pharmacomtherapy, [facility] smoking cessation group, and [facility] pharmacy smoking cessation clinic Assessment & Plan (06/11/2024 5:31 PM EST): Smoking 5 cigg/day Encouraged smoking cessation resources such as pharmacomtherapy, [facility] smoking cessation group, and [facility] pharmacy smoking cessation clinic Assessment & Plan (02/23/2024 6:03 PM EDT): Smoking 5 cigg/day Encouraged smoking cessation resources such as pharmacomtherapy, [facility] smoking cessation group, and [facility] pharmacy smoking cessation clinic Assessment & [...] Team Description 07/06/2024 Population Health Risk Score [facility] (C3) Department [address] [phone] Provider, Population Health Generic 06/27/2024 10:15 AM EST Office Visit [facility] MEDICINE [address] [place] [phone] Virgie Cartagena FNP Cervical radiculopathy (Primary Dx); Screening for colon cancer; Essential hypertension; Tobacco dependence syndrome; Routine health maintenance 06/27/2024 Travel 06/18/[address] [address] Virgie Cartagena FNP ER Follow-up 06/14/2024 Orders Only GENERIC EXTERNAL DATA DEPARTMENT Provider, Generic External Data 06/12/2024 Telephone [facility] [address] [place] [address] Virgie Cartagena FNP 05/16/2024 9:15 AM EST Office Visit [address] [address] Virgie Cartagena FNP Encounter for routine history and physical examination of adult (Primary Dx); Routine health maintenance; Essential hypertension; Screening for colon cancer; Cervical radiculopathy; Encounter for other contraceptive management; Dietary counseling; Exercise counseling; Tobacco dependence syndrome 05/16/2024 Patient Outreach [facility] MED & PEDS [address] [place], [place] [phone] Virgie Cartagena FNP Care Coordination (CHW outreach for SDOH PT-1 and food needs-LVM ) 05/16/2024 Travel 05/15/2024 Telephone [facility] MED & PEDS [address] [place] [address] Peggy Nash [place] Chart Prep 05/04/2024 Patient Outreach [facility] MED & PEDS [address] [place] [id number] Virgie Cartagena FNP Pre-visit Planning (Pre-visit planning [...] EDT Office Visit [facility] [address] [place] [address] Elma Rouse, OD [address] [place] [address] Health Maintenance Due Date Last Done Comments [...] EST Narrative 06/14/2024 2:30 PM EST ? [facility] ?[address] ?[place] [address] ?XRay Report ? Signed ? Patient: Shannan,Christy A ?MR#: [id number] ?? 25 ? : 1980 ?Acct:[id number] ? Age/Sex: 44 / F ?ADM Date: 02/20/25 ? Loc: HO.ED ? Attending Dr: ? Ordering Physician: Amari Melendez MD ?? Date of Service: 06/14/24 ?? Procedure(s): XR cervical spine 3V ?? Accession Number(s): [id number] ? cc: Amari Melendez MD; Virgie Cartagena [...] DD/ 1352 ? TD/TT: 06/14/24 1420 ? Manager In Training: ? Procedure Note Hans, Image - 06/14/2024 [place] [address] XRay Report Signed Patient: Christy Campbell AMR#: [id number] 26 : 1980Acct:[id number] Age/Sex: 44 / FADM Date: 06/14/24 Loc: HO.ED Attending Dr: Ordering Physician: Amari Melendez MD Date of Service: 06/14/24 Procedure(s): XR cervical spine 3V Accession Number(s): [id number] cc: Amari Melendez MD; Virgie Cartagena SLAB STRIPPER EXAMINATION: XR CERVICAL SPINE CLINICAL INFORMATION: Neck [...] 06/14/24 1427 DD/ 1352 TD/TT: 06/14/24 1420 Manager In Training: [facility] External Provider IMG XR PROCEDURES Final Result * High Sensitivity Troponin I (06/14/2024 10:29 AM EST) [facility] TROPONIN I HIGH SENSITIVITY <2.7 <3.5 - 17.0 ng/L [facility] Comment:The Gillespie high sens itivity Troponin-I results should beused in conjunction with other diagnostic information suchas ECG, clinical observations and information, and patientsymptoms to aid in the diagnosis of [place]. 06/14/2024 10:2 9 AM EST 06/14/2024 10:32 AM EST Generic External Data Provider LAB BLOOD ORDERAB LES Final Result [facility] [address] [place] [phone] * (ABNORMAL) CBC auto differential (06/14/2024 10:29 AM EST) Pathologist [facility] White Blood Count 8.1 4.8 - 10.8 X10*3/uL [facility] Red Blood Count 4.33 4.20 - 5.50 X10*6/uL [facility] Hemoglobin 12.8 12.0 - 16.0 g/dl [facility] Hematocrit 37.4 37.0 - 47.0 % [facility] Mean Corpuscular Volume 86.4 80.0 - 98.0 fL [facility] Mean Corpuscular Hemoglobin 29.6 27.0 - 33.0 pg [facility] Mean Corpuscular HGB Conc 34.2 31.0 - 35.0 g/dl [facility] Red Cell Distribution Width 14.3 11.0 - 16.0 % [facility] Platelet Count 319 160 - 400 X10*3/uL [facility] Mean Platelet Volume 8.5(L) 9.4 - 12.3 fL [facility] Neutrophils Percent Auto 64.7 45 - 73 % [facility] Imm Gran Pct Auto 0.2 0.0 - 0.4 % [facility] Lymphocytes Percent Auto 24.2 20 - 40 % [facility] Monocytes Percent Auto 6.8 2 - 11 % [facility] Eosinophils Percent Auto 3.6 0 - 4 % [facility] Basophils Percent Auto 0.5 0 - 2 % [facility] NRBC Pct Auto 0.0 0.0 - 0.2 /100WBC [facility] Neutrophils Absolute Auto 5.2 2.0 - 8.3 x10*3/uL [facility] Imm Gran Abs Auto 0.02 0.00 - 0.03 X10*3/uL [facility] Lymphocytes Absolute Auto 2.0 1.2 - 4.9 X10*3/uL [facility] Monocytes Absolute Auto 0.6 0.1 - 1.2 X10*3/uL [facility] Eosinophils Absolute Auto 0.3 0.0 - 0.4 X10*3/uL [facility] Basophils Absolute Auto 0.0 0.0 - 0.2 X10*3/uL [facility] NRBC Abs Auto 0.000 0.0 - 0.012 X10*3/uL [facility] 06/14/2024 10:2 9 AM EST 06/14/2024 10:32 AM EST us Generic External Data Provider LAB BLOOD ORDERAB LES Final Result Performing Organization Address City/[facility]/ZIP Co de Phone Number [facility] [address] [place] [address] [phone] * (ABNORMAL) Basic Metabolic Panel (06/14/2024 10:29 AM EST) Sodium 139 135 - 145 mmol/L [facility] Potassium 3.7 3.3 - 5.1 mmol/L [facility] Chloride 112(H) 96 - 108 mmol/L [facility] Carbon Dioxide 20(L) 22 - 29 mmol/L [facility] Anion Gap 11(L) 12 - 20 [facility] Urea Nitrogen (BUN) 7(L) 9 - 16 mg/dL [facility] Creatinine, Serum 0.56 0.5 - 1.4 mg/dL [facility] Creatinine Clr Calc Pharmacy 86.4 [facility] Comment:Provided height and weight: 149.86 cm,49.895 kg.eGFR (calculated from the MDRD study equation) and eCrCl(calculated from the Cockcroft-Gault equation) are based ondifferent parameters and may not yield comparable results.If eCrCl result is absurd, please check patient'sheight/weight. Estimated Glomerular Filt Rate >60 [facility] Comment:Chronic Kidney Disea se: Estimated GFR < 60 mL/min/1.81l7Zmsorc Kidney Disease: Estimated GFR < 15 mL/min/1.73m2 Glucose 93 60 - 115 mg/dL [facility] Calcium 8.8 8.4 - 10.2 mg/dL [facility] 06/14/2024 10:2 9 AM EST 06/14/2024 10:32 AM EST us Generic External Data Provider LAB BLOOD ORDERAB LES Final Result [facility] [address] [place] [address] [phone] * POCT Urine (05/16/2024 10:53 AM EST) Preg Test, Ur Negative Negative, Indeterminate, None Detected, Invalid, Specimen unsatisfactory for evaluation, Weakly Positive QC Media Lot # [id number] Lot# Expiration Date [id number] Urine 05/16/2024 10:5 3 AM EST Virgie Phalen SLAB STRIPPER POINT OF CARE TEST ENTER/EDIT ORDERABLES Final Result * (ABNORMAL) Hemoglobin A1c (02/15/2024 12:20 PM EDT) Hemoglobin A1c 6.1(H) <6.0 % [facility] Comment:Hemoglobin A1C Refer ence Range Adults: 4.8 - 6.0 % Non diabetic: < 6.0 % Goal: < 7.0 %Additional Action Suggested: > 8.0 %Note: Hemoglobin A1c results are invalid for patients with abnormal amounts of HbF. Blood transfusions may impact the HbA1c concentration in the patient sample. Estimated Average Glucose 128 mg/dL [facility] Comment:eAG = Estimated ave rage glucose which is %A1C expressed asaverage glucose, using the formula of the B6Z-JlgoopsLnbnylm Glucose study (ADAG), Diabetes Care, Vol.31,#8,Nov. 2007 Blood Venous blood specimen / Unknown 02/15/2024 12:20 PM EDT 02/15/2024 1:24 PM EDT Virgie IceWEBen SLAB STRIPPER LAB BLOOD ORDERABLES Final Res ult Performing Organization Address [facility] Co de Phone Number [facility] [address] [place] [address] [phone] * BI Mammogram Screening Tomosynthesis Bilateral (10/10/2023 4:31 PM EDT) Anatomical Region Laterality Modality Breast Bilateral Mammography 10/10/2023 4:31 PM EDT Narrative 11/09/2023 7:12 AM EDT ? [facility] ? [address] ?[place] [address] ? Mammography Report ? Signed ? Patient: Shannan,Christy A ?MR#: [id number] ?? 26 ? : 1980 ?Acct:[id number] ? Age/Sex: 43 / F ?ADM Date: 10/10/23 ? Loc: HO.MAMMO ? Attending Dr: Virgie Cartagena SLAB STRIPPER ? Ordering Physician: Virgie Cartagena SLAB STRIPPER ?Results: 1Negat ?? kelsi ? Date of Service: 10/10/23 ?Follow Up: 1 Year From Orig ?? inal Mammogram ? Procedure(s): MM tomosynthesis screening BI ?? Accession Number(s): [id number] ? cc: Virgie Cartagena SLAB STRIPPER ? EXAMINATION: ?? MM SCREENING DIGITAL BREAST [...] 11/09/23706 ? DD/ 1631 ? TD/TT: ? Manager In Training: ? Procedure Note Harjit Maxwell - 11/09/2023 [facility] [address] [place] [address] Dr. Pete, PAULINA [address] Mammography Report Signed Patient: Christy Campbell AMR#: [id number] [birth year] : 1980Acct:[id number] Age/Sex: 43 / FADM Date: 10/10/23 Loc: HO.MAMMO Attending Dr: Virgie Cartagena SLAB STRIPPER Ordering Physician: Virgie CartagenaPResults: 1Negat kelsi Date of Service: 10/10/23Follow Up: 1 Year From Orig inal Mammogram Procedure(s): MM tomosynthesis screening BI Accession Number(s): [id number] cc: Virgie Cartagena EXAMINATION: MM SCREENING DIGITAL [...] in OV> 11/09/23 0707 DD/ 1631 TD/TT: Manager In Training: Virgie Cartagena SLAB STRIPPER IMG BI PROCEDURES Final Result * Image-Guided Pap with Age-Based Screening Protocols (08/23/2022 11:08 AM EDT) Comment [employer] Comment: This order for age-based cervical cancer and STI screening follows ACOG guidelines(PB 168, 140, ZWC787). See individual assays for performing site location. Clinical Information: None given [employer] LMP: NONE GIVEN [facility] Prev. PAP: NONE GIVEN [facility] [facility] Prev. BX: NONE GIVEN [facility] SOURCE: None given [employer] Statement Of Adequacy: [employer] [facility] Comment: Satisfactory for evaluation. Endocervical/transformation zone component present. Interpretation/ Result: Negative for intraepithelial lesion or malignancy. [employer] [facility] COMMENT: This Pap test has been evaluated with computer assisted technology. [facility] Cytotechnologis t: [facility] Comment: KR, CT(ASCP) CT screening location: [address] ??[phone] Review Cytotechnologis t: [facility] Comment: ALS, CT(ASCP) CT screening location: [address] ??[phone] (Always Message) [employer] Comment: EXPLANATORY NOTE: The Pap is a [...] HPV nRNA E6/E7 Not Detected Not Detected [facility] Comment: Methodology: Senior Project Manager-Mediated Amplification This assay detects E6/E7 viral messenger RNA (mRNA) from 14 high-risk HPV types (16,18,31,33,35,39,45,51,52,56,58,59,66,68). Cervical sources are required for HPV testing. If a vaginal source from a patient who has had a total hysterectomy with removal of cervix was submitted, please contact the testing laboratory for alternative testing options. For additional information, please refer to http://education.Netlog/faq/XUZ687o6 (This link if provided for information/ educational purposes only.) Pap Vial 08/23/2022 11:0 8 AM EDT 08/24/2022 7:37 AM EDT Madhavi NICOLE LAB BLOOD ORDERABLES Nurys l Result [facility] [address], [place] [address] [employer] [facility] [address] [place] [address] * Hepatitis C Antibody (01/19/2021 9:39 PM EDT) Hepatitis C Antibody Nonreactive Blood 01/19/2021 9:39 PM EDT Historical Provider MD POINT OF CARE TEST ENTER/ EDIT ORDERABLES Final Result * HIV 1/2 ANTIGEN/ANTIBODY,FOURTH GENERATION W/RFL (01/19/2021 3:09 PM EDT) HIV-1/2 ANTIGEN AND ANTIBODIES, 4TH GENERATION W/ REFLEX NON-REACT KELSI NON-REACT KELSI [facility] Comment: HIV-1 antigen and HIV-1/HIV-2 [...] ? For additional information please refer to http://Pervasip.Netlog/faq/XOF001 (This link is being provided for informational/ educational purposes only.) ? The performance of this assay has not been clinically validated in patients less than 2 years old. ?? 01/19/2021 3:09 PM EDT us Shaina Ramos [facility] LAB BLOOD ORDERABLES Final Res ult [facility] [address] * (ABNORMAL) LIPID PANEL, STANDARD (09/17/2020 [...] ?? Onofre DUMONT et al. SAVANNAH. 2013;310(19): 4686-1014 ?? (http://education.[employer]/faq/ILU338) Non-HDL Cholesterol 208(H) <130 mg/dL (calc) [facility] Comment: For patients with diabetes plus 1 major ASCVD risk ?? factor, treating to a non-HDL-C goal of <100 mg/dL ?? (LDL-C of <70 mg/dL) is considered a therapeutic ?? option. Triglycerides 136 <150 mg/dL [facility] 09/17/2020 1:10 PM EDT us Saba Fishman FORM SETTER STEEL PAN FORMS LAB BLOOD ORDERABLES Final Resu lt [facility] [address] from Last 3 Months or Most Recently Relevant to Health Maintenance Insurance [facility] C3 DENTAL-[facility] MEDICAID STAND ADULT Care Teams Title I Teacher Relationship Specialty Start Date End Date Virgie Cartagena FNP [address] [place] [phone] PCP - General Family Medicine 12/15/21
--- OUTSIDE RECORDS SUMMARY | 2024-08-01 10:45 | XMS_ITS | Clinical Summary ---
Author Organization [address] [facility] Address [address] [place] [address] Phone Care Team Providers Care Center Medical Specialist Name Role Phone Physician, Pcp Unknown Primary Care Provider Guera vailable Allergies No known active allergies Medications No known medications Encounters Date Type Department Care Team Description 06/21/2024 1:45 PM EST Consult Orthopedic Surgery - [facility] [address] [address] Douglas Mina DPM Hypertrophy of [...] topic Insurance MEDICAID - [place] Care Teams Center Medical Specialist Relationship Specialty Start Date End Date Physician, Pcp Unknown PCP - General 2/12/25
--- OUTSIDE RECORDS SUMMARY | 2024-08-01 10:45 | XMS_ITS | Encounter Summary ---
Author Organization [employer] Address [address] [facility] 7t [place] [address] Care Team Providers Care Fireworks Display Specialist Name Role Phone Virgie Cartagena BARTENDER SERVER Primary Care Provider [phone] Encounter Details Date Type Department Care Team (Late Contact Info) Description 08/31/2022 Abstract [facility] ADULT DENTAL [address] [place] [address] Esthela Stafford [address] [place] [address] Social History Tobacco Use Types Packs/Day Years [...] Description 09/07/2024 10:00 AM EDT Office Visit [facility] OPTOMETRY [address] [place] [address] Elma Rouse, OD [address] [place] [address] documented as of this encounter Visit Diagnoses Not on filedocumented in this encounter Additional Health Concerns Assessment Noted Time PHQ-9 Depression Total Score: 7 08/31/19 23 11:48 AM EDT documented as of this encounter Care Teams Fireworks Display Specialist Relationship Specialty Start Date End Date Virgie Cartagena FNP [address] [place] [address] PCP - General Family Medicine 12/15/21 documented as of this encounter
[2024-08-01 11:17] LABS: Anion Gap 13 (12-20); Blood Urea Nitrogen 7 mg/dL (9-16); Carbon Dioxide 24 mmol/L (22-29); Chloride 105 mmol/L (96-108); Estimated Glomerular Filt Rate > 60; Glucose Random 97 mg/dL (60-115); Potassium 3.7 mmol/L (3.3-5.1); Sodium 138 mmol/L (135-145)
[2024-08-01 11:32] LABS: Cortisol Random 14.6 ug/dL
[2024-08-01 11:35] LABS: TSH reflex Free T4 1.17 uIU/mL (0.32-4.0)
[2024-08-06 13:48] LABS: Plasma Renin Activity 4.32 ng/mL/h (0.25-5.82)
[2024-08-06 19:48] LABS: Metanephrine, Free <25 pg/mL (<=57); Normetanephrines, Free 72 pg/mL (<=148); Total Metanephrine, Free 72 pg/mL (<=205)
== END 2024-08-01 08:58 | disposition home or self-care (01) ==
LOC: HO.LAB 08:57
PROVIDERS: PCP Registered Nurse; Visit Provider Internal Medicine Cardiovascular Disease
DX: I10 Essential (primary) hypertension (principal); R00.2 Palpitations
CPT/HCPCS: 36415; 80048; 82088; 82533; 83835; 84443; 93005; 99202

== ENCOUNTER → 2024-08-27 11:09 | Outpatient (REF) | payer MEDICAID, SELFPAY ==
--- NOTE | 2024-08-27 11:13 | CA_ITS ---
Transthoracic Echocardiogram Patient (Last, First, Middle): Christy Campbell A Gender: Female Date of : 1980 Age: 44 Procedure Date: 08/27/2024 Procedure Type: Transthoracic Echocardiogram Location: OP Height: 149.86 cm Weight: 47.63 kg BSA: 1.40 m2 Heart Rate: bpm BP: 124 / 90 mmHg Trailer Sections Assembler: TRICIA Referring MD: Galileo Magdaleno MD Symptoms: R00.2 - Palpitations Study Quality: Adequate ECG Rhythm: Sinus Conclusions: - The left ventricular systolic function is normal. The calculated ejection fraction is 65% by biplane method. - No obvious valvular pathology seen on this study. Findings Left Ventricle Normal left ventricular cavity size. There is normal left ventricular wall thickness. The left ventricular systolic function is normal. The calculated ejection fraction is 65% by biplane method. There is no evidence of regional wall motion abnormalities. Diastolic function is normal for age. Right Ventricle Normal right ventricular cavity size and systolic function. Atria Both atria are normal in size. Aortic Valve The aortic valve structure and function is likely normal. There is no aortic valve stenosis. There is no aortic valve regurgitation. Mitral Valve The mitral valve appears normal. There is no mitral valve regurgitation. There is no mitral valve stenosis. Pulmonic Valve The pulmonic valve is likely normal. Tricuspid Valve There is no tricuspid valve regurgitation. Tricuspid regurgitation envelope is inadequate for calculation of right ventricular systolic pressure. Great Vessels The asc aorta is normal in size. Venous The inferior vena cava is normal in size and collapses greater than 50% with inspiration. Pericardium/Pleural There is no evidence of pericardial effusion. Prior Study Comparison No prior study available for comparison. Recommendations, Care & Conclusions No obvious valvular pathology seen on this study. Measurements 2D Linear Measurements IVSd: 0.85 0.6-0.9/0.6-1.0 cm LVIDd: 3.66 3.9-5.3/4.2-5.9 cm LVIDd Index: 2.61 2.4-3.2/2.2-3.1 cm/m2 LVIDs: 2.35 2.0-3.6 cm LVPWd: 1.04 0.7-1.1 cm LA Diam: 3.00 2.7-3.8/3.0-4.0 cm LAIDs Index: 2.14 1.5-2.3 cm/m2 LV Mass: 126.80 67-162/88-224 g LV Mass Index: 90.57 43-95/49-115 g/m2 LVOT Diam: 1.80 3.0+(-)1.3 cm 2D Systolic Function EF 4C: 63.00 >55% EF 2C: 68.00 >55% EF BiP: 64.90 >55% Mitral Valve MV Pk E: 1.01 MV PK A: 0.72 MV Decel Time: 195.00 E/A: 1.40 E'Lateral: 11.20 E'Medial: 8.70 E/E' Med: 11.60 E/E' Lat: 9.00 PHT: 57.00 MVA PHT: 3.86 Decel [place]: 5.19 Aortic Valve AoV Pk Roldan: 1.15 AoV Mn Roldan: 0.82 AoV VTI: 0.27 AoV Pk Grad: 5.00 Aov Mn Grad: 3.00 DARION Cont.VTI: 1.66 LVOT LVOT Pk Roldan: 0.78 LVOT Mn Roldan: 0.53 LVOT VTI: 0.17 LVOT Pk Grad: 2.00 LVOT Mn Grad: 1.00 LVOT Diam: 1.80 LVOT Area: 2.54 Diastolic Function MV Pk E: 1.01 MV Pk A: 0.72 E/A: 1.40 E'Medial: 8.70 E/E' Med: 11.60 E' Laterial: 11.20 E/E' Lat: 9.00 Right Ventricle TAPSE (mm): 23.60 TVS' Roldan: 10.60 Tricuspid Valve RA Press: 3.00 Great Vessels Aorta Sinus of Valsalva: 2.49 2.0-3.[address] [place]: 2.27 1.7-3.4 cm Ao Asc: 2.80 2.1-3.4 cm Updated in Other Vendor System with Status of Final Enoc Ortega MD electronically signed on 08/28/2024 3:52:31 PM with status of Final
--- OUTSIDE RECORDS SUMMARY | 2024-08-27 12:54 | XMS_ITS | Encounter Summary ---
Author Organization [employer] Address 75 [facility] 7t [place] [address] Care Team Providers Care Kiln Tender Name Role Phone Virgie Cartagena BREAD JOCKEY Primary Care Provider [phone] Encounter Details Date Type Department Care Team ([facility] Contact Info) Description 09/02/2022 Abstract [facility] ADULT DENTAL [address] [place] [address] Tyrone Rangel DDS [address] [place] [address] Social History Tobacco Use Types Packs/Day Years [...] Upcoming Encounters Date Type Department Care Team ([facility] Contact Info) Description 09/07/2024 10:00 AM EDT Office Visit [facility] OPTOMETRY [address] [place] [address] Elma Rouse, OD [address] [place] [address] documented as of this encounter Visit Diagnoses Not on filedocumented in this encounter Additional Health Concerns Assessment Noted Time PHQ-9 Depression Total Score: 7 08/31/19 23 11:48 AM EDT documented as of this encounter Care Teams Kiln Tender Relationship Specialty Start Date End Date Virgie Cartagena FNP [address] [place] [address] PCP - General Family Medicine 12/15/21 documented as of this encounter
--- OUTSIDE RECORDS SUMMARY | 2024-08-27 12:54 | XMS_ITS | Encounter Summary ---
Author Organization [employer] Address 75 [facility] 7t [place] [address] Care Team Providers Care Milieu Manager Name Role Phone Virgie Cartagena GERIATRIC NURSING ASSISTANT Primary Care Provider [phone] Encounter Details Date Type Department Care Team ([facility] st Contact Info) Description 11/22/2023 Orders Only [facility] CH[facility] MED & PEDS [address] [place], [place] [phone] Virgie Cartagena FNP [address] [place] [address] Hypokalemia (Primary Dx) Social History Tobacco Use [...] Office Visit [facility] OPTOMETRY [address] [place], [place] [phone] Nasim, Elma, OD [address] [place] [address] documented as of this encounter Procedures Procedure Name Priority Date/Time Associated Diagnosis Comments BASIC METABOLIC PANEL Routine 12/14/2023 2:16 PM EDT Hypokalemia documented in this encounter Results * (ABNORMAL) Basic Metabolic Panel (12/14/2023 2:16 PM EDT) Sodium 141 135 - 145 mmol/L [facility] Potassium 3.9 3.3 - 5.1 mmol/L [facility] Chloride 107 96 - 108 mmol/L [facility] Carbon Dioxide 26 22 - 29 mmol/L [facility] Anion Gap 12 12 - 20 [facility] Urea Nitrogen (BUN) 8(L) 9 - 16 mg/dL [facility] Creatinine, Serum 0.71 0.5 - 1.4 mg/dL [facility] Estimated Glomerular Filt Rate >60 [facility] Comment:NOTE: For -Am erican individuals, multiply the result by 1.210.Chronic Kidney Disease: Estimated GFR < 60 mL/min/1.23n8Vbfbwo Kidney Disease: Estimated GFR < 15 mL/min/1.73m2 Glucose 83 60 - 115 mg/dL [facility] Calcium 9.9 8.4 - 10.2 mg/dL [facility] Blood Venous blood specimen / Unknown 12/14/2023 2:16 PM EDT 12/14/2023 4:46 PM EDT us Virgie MADRID LAB BLOOD ORDERABLES Final Res ult [facility] [address] [place] [address] [phone] documented in this encounter Visit Diagnoses Diagnosis Hypokalemia- Primary Hypopotassemia documented in this encounter Additional Health Concerns Assessment Noted Time PHQ-9 Depression Total Score: 6 09/12/19 24 1:31 PM EDT documented as of this encounter Care Teams Milieu Manager Relationship Specialty Start Date End Date Virgie Cartagena FNP [address] [place] [address] PCP - General Family Medicine 12/15/21 documented as of this encounter
--- OUTSIDE RECORDS SUMMARY | 2024-08-27 12:54 | XMS_ITS | Encounter Summary ---
Author Organization [employer] Address [address] [place] [address] [address] [place] [address] Care Team Providers Care Checkman Name Role Phone Virgie Cartagena Primary Care Provider [phone] Reason for Visit * Reason Comments Med Refill Encounter Details Date Type Department Care Team ([facility] st Contact Info) Description 03/25/2023 Refill [facility] [address] [place], [place] [phone] Virgie Cartagena FNP [address] [place], [place] [phone] Neck pain Social History Tobacco Use Types [...] Description 09/07/2024 10:00 AM EDT Office Visit [facility] [address] [place] [address] Elma Rouse, OD [address] [place] [address] documented as of this encounter Visit Diagnoses Diagnosis Neck pain Cervicalgia documented in this encounter Additional Health Concerns Assessment Noted Time PHQ-9 Depression Total Score: 7 08/31/19 23 11:48 AM EDT documented as of this encounter Care Teams Checkman Relationship Specialty Start Date End Date Virgie Cartagena FNP [address] [place] [address] PCP - General Family Medicine 12/15/21 documented as of this encounter
--- OUTSIDE RECORDS SUMMARY | 2024-08-27 12:54 | XMS_ITS | Encounter Summary ---
Author Organization [employer] Address [address] [facility] [address] [place] [address] Care Team Providers Care Career Advisor Name Role Phone Virgie Cartagena SUPERVISOR SANDBLASTER Primary Care Provider [phone] Encounter Details Date Type Department Care Team (Late Contact Info) Description 08/31/2022 Abstract [facility] [address] [place] [address] Esthela Stafford [address] [place] [address] Social History Tobacco Use Types Packs/Day Years [...] Description 09/07/2024 10:00 AM EDT Office Visit [facility] [address] [place] [address] Elma Rouse, OD [address] [place] [address] documented as of this encounter Visit Diagnoses Not on filedocumented in this encounter Additional Health Concerns Assessment Noted Time PHQ-9 Depression Total Score: 7 08/31/19 23 11:48 AM EDT documented as of this encounter Care Teams Career Advisor Relationship Specialty Start Date End Date Virgie Cartagena FNP [address] [place] [address] PCP - General Family Medicine 12/15/21 documented as of this encounter
--- OUTSIDE RECORDS SUMMARY | 2024-08-27 12:54 | XMS_ITS | Encounter Summary ---
Author Organization [employer] Address [address] [place] [address] [address] [place] [address] Care Team Providers Care Hospitalist Nocturnist Physician Name Role Phone Virgie Cartagena Primary Care Provider [phone] Reason for Visit * Reason Comments Med Refill Encounter Details Date Type Department Care Team ([facility] st Contact Info) Description 03/30/2023 Refill [facility] [address] [place], [place] [phone] Virgie Cartagena FNP [address] [place], [place] [phone] Neck pain Social History Tobacco Use Types [...] Description 09/07/2024 10:00 AM EDT Office Visit [facility] [address] [place] [address] Elma Rouse, OD [address] [place] [address] documented as of this encounter Visit Diagnoses Diagnosis Neck pain Cervicalgia documented in this encounter Additional Health Concerns Assessment Noted Time PHQ-9 Depression Total Score: 7 08/31/19 23 11:48 AM EDT documented as of this encounter Care Teams Hospitalist Nocturnist Physician Relationship Specialty Start Date End Date Virgie Cartagena FNP [address] [place] [address] PCP - General Family Medicine 12/15/21 documented as of this encounter
--- OUTSIDE RECORDS SUMMARY | 2024-08-27 12:54 | XMS_ITS | Encounter Summary ---
Author Organization [employer] Address [address] [place] [address] 7[address] [place] [address] Care Team Providers Care Senior Cytotechnologist Name Role Phone Virgie Cartagena SAMPLE TAKER OPERATOR Primary Care Provider [phone] Encounter Details Date Type Department Care Team ([facility] Contact Info) Description 08/11/2022 Telephone [facility] [address] [place], [place] [phone] Mackenzie Us LPN Social History Tobacco Use [...] Department Care Team ([facility] Contact Info) Description 09/07/2024 10:00 AM EDT Office Visit [facility] [address] [place], [place] [phone] Nasim, Elma, OD [address] [place] [address] documented as of this encounter Visit Diagnoses Not on filedocumented in this encounter Care Teams Senior Cytotechnologist Relationship Specialty Start Date End Date Virgie Cartagena FNP [address] [place] [address] PCP - General Family Medicine 12/15/21 documented as of this encounter
--- OUTSIDE RECORDS SUMMARY | 2024-08-27 12:55 | XMS_ITS | Clinical Summary ---
Author Organization [facility] Address [address] [place] [address] Phone Care Team Providers Care Cnc Operator Machinist Name Role Phone Physician, Pcp Unknown Primary Care Provider Guera vailable Allergies No known active allergies Medications No known medications Encounters Date Type Department Care Team Description 06/21/2024 1:45 PM EST Consult [facility] [place] [address] [phone] Douglas Mina DPM Hypertrophy of [...] topic Insurance MEDICAID - [place] Care Teams Cnc Operator Machinist Relationship Specialty Start Date End Date Physician, Pcp Unknown PCP - General 2/12/25
--- OUTSIDE RECORDS SUMMARY | 2024-08-27 12:55 | XMS_ITS | Clinical Summary ---
Author Organization [employer] Address [address] [facility] [address] [place] [address] Care Team Providers Care Human Factors Advisor Lead Name Role Phone Virgie Cartagena BUSINESS ACCOUNT EXECUTIVE Primary Care Provider [phone] Allergies No known active allergies Medications * This document contains information received from the source organization and may not represent a complete record from that organization. Diclofenac Sodium 1 % gel Apply 2 g topically every 6 (six) hours. 07/17/19 22 Active nicotine (Nicoderm, Step 2) 14 MG/24HR patch Apply 1 patch q a.m. (transdermal route) as explained. Alternate shoulders every other day. 09/18/19 21 Active nicotine polacrilex (Commit) 2 MG lozenge 1or 2 lozenges PO ~ q 4 hrs as needed instead of a cigarette. Allow it to dissolve slowly in your mouth. 09/18/19 21 Active omeprazole OTC (PriLOSEC OTC) 20 MG EC tablet Take 1 tablet (20 mg) by mouth before breakfast. Do not crush, chew, or split. 30 tablet 01/29/20 23 Active Acetaminophen Extra Strength 500 MG tablet TAKE 1 TO 2 TABLETS BY MOUTH EVERY 8 HOURS NEEDED FOR PAIN 100 tablet 3 05/02/19 24 Active ammonium lactate (Amlactin) 12 % creamIndication s:Xerosis of skin apply 1 liberally by Topical route 1 time every day to feet 140 g 3 11/16/19 24 Active Additional Information Patient not taking.Reported on 02/23/2024 tretinoin (Retin-A) 0.025 % gelIndications: Other acne Apply topically at bedtime. 20 g 3 11/16/19 24 Active Additional Information Patient not taking.Reported on 02/23/2024 Blood Pressure kitIndications: Essential hypertension Use to check blood pressure as directed 1 kit 02/15/20 Active cyclobenzaprine (Flexeril) 10 MG tablet Take 1 tablet (10 mg) by mouth if needed at bedtime for muscle spasms. 30 tablet 2 06/28/19 Active FLUoxetine (PROzac) 20 MG capsule Take 1 capsule (20 mg) by mouth Once per day. 90 capsule 1 06/28/19 25 2024 Active olmesartan (Benicar) 5 MG tabletIndicatio ns:Essential hypertension TAKE 1 TABLET BY MOUTH EVERY DAY 90 tablet 08/10/19 25 Active olmesartan (Benicar) 5 MG tabletIndicatio ns:Essential hypertension Take 1 tablet (5 mg) by mouth Once per day. 90 tablet 02/15/202024 Discontinued(R eorder (will not trigger notification to Pharmacy)) Active Problems Problem Noted Date Diagnosed Date [...] Cervical radiculopathy 09/29/2022 Overview (09/12/2023): Followed by [facility] Pain Management Intralaminar epidural steroid injection 1 [...] placed 05/16/24, reordered 06/27/2024 OPH: referral to [facility] placed 05/16/24 Dental calculus 08/03/2022 [...] She has an orthopedic surgery appointment at [facility] on July 28 at 1400. Assessment & [...] Encouraged smoking cessation resources such as pharmacomtherapy, [facility] smoking cessation group, and [facility] pharmacy smoking cessation clinic Assessment & Plan (06/11/2024 5:31 PM EST): Smoking 5 cigg/day Encouraged smoking cessation resources such as pharmacomtherapy, [facility] smoking cessation group, and [facility] pharmacy smoking cessation clinic Assessment & Plan (02/23/2024 6:03 PM EDT): Smoking 5 cigg/day Encouraged smoking cessation resources such as pharmacomtherapy, [facility] smoking cessation group, and [facility] pharmacy smoking cessation clinic Assessment & Plan (02/04/2023 2:59 PM EDT): ?? Smoking 5 cigg/day Vitamin D deficiency 02/12/2015 Resolved Problems Problem Noted Date Diagnosed Date Resolved Date COVID 04/23/2022 07/29/2022 Encounters * This document contains information received from the source organization and may not represent a complete record from that organization. Date Type Department Care Team Description 08/09/2024 Refill [facility] [address] [place] [address] Virgie Cartagena FNP Essential hypertension 08/01/2024 Orders Only GENERIC EXTERNAL DATA DEPARTMENT Provider, Generic External Data 07/06/2024 Population Health Risk Score Community [facility] (C[facility]) Department [address] [place] [address] [phone] Provider, Population Health Generic 06/27/2024 10:15 AM EST Office Visit [facility] [address] [place], [place] [phone] Virgie Cartagena FNP Cervical radiculopathy (Primary Dx); Screening for colon cancer; Essential hypertension; Tobacco dependence syndrome; Routine health maintenance 06/27/2024 Travel 06/18/2024 Telephone [facility] [address] [place], [place] [phone] Virgie Cartagena FNP ER Follow-up 06/14/2024 Orders Only GENERIC EXTERNAL DATA DEPARTMENT Provider, Generic External Data 06/12/2024 Telephone [facility] [address] [place] [address] Virgie Cartagena FNP from Last 3 Months Immunizations Name Administration Dates Next Due Hep B, adult 06/25/2010,03/09/2010,11/14/2001 Influenza injectable quadriv alent IIV4 with preservative 02/01/2018,02/05/2016,01/10/2015 Influenza injectable quadriv alent preservative free 02/04/2023,01/19/2021,01/23/2020,2018,02/10/2017 Influenza, IIV3, injectable 02/08/2014, 1,03/09/2010 Influenza, Split (incl. bunny fied surface antigen) 03/15/2013,02/02/2012 Influenza, seasonal, injecta ble, preservative free 02/15/2024 Pfizer Covid-19 Vaccine 12+ 02/15/2024, Pneumococcal Conjugate PCV 20 09/12/2023 TD (adult), [...] Description 09/07/2024 10:00 AM EDT Office Visit [facility] [address] [place] [address] Nasim, Elma, OD [address] [place] [address] Health Maintenance Due Date Last Done Comments CT Colonography 1979 Colonoscopy 1979 Colorectal Cancer Screening 1980 FIT DNA/Cologuard 1979 FIT 1979 FOBT 1979 Sigmoidoscopy 1980 Dental Oral Exam 08/02/2024 02/01/2024, 08/03/2022 Dental Prophylaxis 08/02/2024 02/01/2024, 08/19/2022 Mammogram 10/09/2024 10/10/2023, 02/0 11/2020, 05/29/2019 Dental X-Ray: Bitewings 02/01/2025 02/01/2024, 08/03 Diabetes: Hemoglobin A1C 02/14/2025 024, 09/17/2020, 11/15/2019 Alcohol/Substance Use Screening 05/16/2025 05/16/2024 SDOH Screening 05/16/2025 05/16/2024 Family Planning (PISQ) 06/11/2025 06/11/2024 Depression Screening 06/27/2025 06/27/2024, 06/28/19 Tobacco Screening 06/27/2025 06/27/2024 Dental X-Ray: Full [...] Procedure Name Priority Date/Time Associated Diagnosis Comments METANEPHRINES, FRACT, FREE, LC/MS/MS, PLASMA Routine 08/01/2024 10:04 AM EDT ALDOSTERONE/PLASMA RENIN ACTIVITY RATIO, LC/MS/MS Routine 08/01/2024 10:04 AM EDT TSH W/REFLEX TO FT4 Routine 08/01/2024 1 0:04 AM EDT CORTISOL RANDOM Routine 08/01/2024 10:04 AM EDT BASIC METABOLIC PANEL Routine 08/01/2024 10:04 AM EDT XR CERVICAL SPINE 3V Routine 06/14/2024 1:52 PM EST HIGH SENSITIVITY TROPONIN I Routine 06/14/2024 10:29 AM EST BASIC METABOLIC PANEL Routine 06/14/2024 10:29 AM EST CBC WITH AUTO DIFFERENTIAL Routine 06/14/2024 10:29 AM EST HEMOGLOBIN A1C Routine 02/15/2024 12:20 PM EDT [...] Recently Relevant to Health Maintenance Results * Metanephrines, Fractionated, Free, LC/MS/MS, Plasma (08/01/2024 10:04 AM EDT) Metanephrine, Free <25 <=57 pg/mL [facility] Comment:This test was develo ped and its analytical performancecharacteristics have been determined by [employer] [place], [place]. It hasnot been cleared or approved by the U.S. Food and DrugAdministration. This assay has been validated pursuantto the CLIA regulations and is used for clinicalpurposes. Normetanephrine, Free 72 <=148 pg/mL [facility] Comment:This test was develo ped and its analytical performancecharacteristics have been determined by [employer] [place], [place]. It hasnot been cleared or approved by the U.S. Food and DrugAdministration. This assay has been validated pursuantto the CLIA regulations and is used for clinicalpurposes. Total, Free (MN+NMN) 72 <=205 pg/mL [facility] Comment: For additional information, please refer tohttp://education.[employer]/faq/MetFractFree(This link is being provided for informational/educatioinformational/educational purposes only.)Elevations >4-fold upper reference range: stronglysuggestive of a pheochromocytoma(1).Elevations >1- 4-fold upper reference range:significant but not diagnostic, may be due tomedications or stress. Suggest running 24 hr urinefractionated metanephrines and/or serum Chromagranin Afor confirmation.Reference:(1)Samantha Johnson et al, Plasma Chromogranin Aor Urine Fractionated Metanephrines Follow-Up TestingImproves the Diagnostic Accuracy of Plasma FractionatedMetanephrines for Pheochromocytoma. The Journal ofClinical Endocrinology # Metabolism 93(1), 91-95, 2008.This test was developed and its analytical performancecharacteristics have been determined by [employer]. It hasnot been cleared or approved by the U.S. Food and DrugAdministration. This assay has been validated pursuantto the CLIA regulations and is used for clinicalpurposes.THIS TEST WAS PERFORMED AT:[employer] [place], [place] ??[phone] MAYEN MD,PHD 08/01/2024 10:0 4 AM EDT 08/01/2024 10:04 AM EDT us Generic External Data Provider LAB BLOOD ORDERAB LES Final Result [facility] [address] [place] [address] [phone] * Cortisol Random (08/01/2024 10:04 AM EDT) Cortisol Random 14.6 ug/dL [facility] Comment:Reference Range*: Be fore 10 am 6.2-19.4 ug/dL After 5 pm 2.3-11.9 ug/dL*Please interpret above results accordingly.This test was performed using the Gillespie chemiluminescentmethod. Values obtained from different assay methods cannotbe used interchangeably.Patients receiving fludrocortisone, prednisolone orprednisone may show artificially elevated cortisol valuesdue to cross-reactivity. 08/01/2024 10:0 4 AM EDT 08/01/2024 10:04 AM EDT Generic External Data Provider LAB BLOOD ORDERAB LES Final Result Performing Organization Address [facility] Co de Phone Number [facility] [address] [place] [phone] * TSH with Reflex to Free T4 (08/01/2024 10:04 AM EDT) TSH reflex Free T4 1.17 0.32 - 4.0 uIU/mL [facility] 08/01/2024 10:0 4 AM EDT 08/01/2024 10:04 AM EDT Generic External Data Provider LAB BLOOD ORDERAB LES Final Result Performing Organization Address [facility] de Phone Number [facility] [address] [place] [phone] * Aldosterone/Plasma Renin Activity Ratio, LC/MS/MS (08/01/2024 10:04 AM EDT) Aldosterone 13 see note ng/dL [facility] Comment:Unable to flag abnor mal result(s), please refer to reference range(s) below:Adult Reference Ranges for Aldosterone, LC/MS/MS: Upright 8:00 - 10:00 am < or = 28 ng/dL Upright 4:00 - 6:00 pm < or = 21 ng/dL Supine 8:00 - 10:00 am 3 - 16 ng/dLTHIS TEST WAS PERFORMED AT:[employer]/[facility] [place] [address]DOMNQOYRICCO MAYEN MD,PHD Plasma Renin Activity 4.32 0.25 - 5.82 ng/mL/h [facility] Aldosterone/Renin Ratio 3.0 0.9 - 28.9 Ratio [facility] Comment:This test was develo ped and its analytical performancecharacteristics have been determined by [employer] [place], [place]. It hasnot been cleared or approved by the U.S. Food and DrugAdministration. This assay has been validated pursuantto the CLIA regulations and is used for clinicalpurposes.THIS TEST WAS PERFORMED AT:[employer] [place] [address]PYYXRIQRICCO MAYEN MD,PHD 08/01/2024 10:0 4 AM EDT 08/01/2024 10:04 AM EDT us Generic External Data Provider LAB BLOOD ORDERAB LES Final Result [facility] [address] [place] [phone] * (ABNORMAL) Basic Metabolic Panel (08/01/2024 10:04 AM EDT) Only the most recent of2 resultswithin the time period is included. Sodium 138 135 - 145 mmol/L [facility] Potassium 3.7 3.3 - 5.1 mmol/L [facility] Chloride 105 96 - 108 mmol/L [facility] Carbon Dioxide 24 22 - 29 mmol/L [facility] Anion Gap 13 12 - 20 [facility] Urea Nitrogen (BUN) 7(L) 9 - 16 mg/dL [facility] Creatinine, Serum 0.75 0.5 - 1.4 mg/dL [facility] Estimated Glomerular Filt Rate >60 [facility] Comment:Chronic Kidney Disea se: Estimated GFR < 60 mL/min/1.41q0Auzacw Kidney Disease: Estimated GFR < 15 mL/min/1.73m2 Glucose 97 60 - 115 mg/dL [facility] Calcium 10.0 8.4 - 10.2 mg/dL [facility] 08/01/2024 10:0 4 AM EDT 08/01/2024 10:04 AM EDT us Generic External Data Provider LAB BLOOD ORDERAB LES Final Result [facility] [address] [facility] [place] [phone] * XR CERVICAL SPINE 3V (06/14/2024 1:52 PM EST) Anatomical Region Laterality Modality Abdomen Radiographic Eileen ging 06/14/2024 1:52 PM EST Narrative 06/14/2024 2:30 PM EST ? [facility] ?[address] ?[place] [address] ?XRay Report ? Signed ? Patient: Shannan,Christy A ?MR#: [id number] ?? 25 ? : 1980 ?Acct:[id number] ? Age/Sex: 44 / F ?ADM Date: 06/14/24 ? Loc: HO.ED ? Attending Dr: ? Ordering Physician: Amari Melendez MD ?? Date of Service: 06/14/24 ?? Procedure(s): XR cervical spine 3V ?? Accession Number(s): [id number] ? cc: Amari Melendez MD; Virgie Cartagena [...] DD/ 1352 ? TD/TT: 06/14/24 1420 ? City Planner: ? Procedure Note Donsamaninterpreter, Image - 06/14/[address] [address] XRay Report Signed Patient: Christy Campbell AMR#: [id number] [birth year] : 1980Acct:[id number] Age/Sex: 44 / FADM Date: 06/14/24 Loc: HO.ED Attending Dr: Ordering Physician: Amari Melendez MD Date of Service: 06/14/24 Procedure(s): XR cervical spine 3V Accession Number(s): [id number] cc: Amari Melendez MD; Virgie Cartagena BUSINESS ACCOUNT EXECUTIVE EXAMINATION: XR CERVICAL SPINE CLINICAL INFORMATION: Neck [...] by: Rigoberto Ledbetter MD 06/14/2024 02:27 PM [facility] Dictated By: Rigoberto Ledbetter MD Signed By: <Electronically signed by Rigoberto Ledbetter MD in OV> 06/14/24 1427 DD/ 1352 TD/TT: 06/14/24 1420 City Planner: [facility] External Provider IMG XR PROCEDURES Final Result * High Sensitivity Troponin I (06/14/2024 10:29 AM EST) [facility] TROPONIN I HIGH SENSITIVITY <2.7 <3.5 - 17.0 ng/L [facility] Comment:The Gillespie high sens itivity Troponin-I results should beused in conjunction with other diagnostic information suchas ECG, clinical observations and information, and patientsymptoms to aid in the diagnosis of [place]. 06/14/2024 10:2 9 AM EST 06/14/2024 10:32 AM EST Generic External Data Provider LAB BLOOD ORDERAB LES Final Result Performing Organization Address City/State/[facility] Co de Phone Number [facility] [address] [place] [phone] * (ABNORMAL) CBC auto differential (06/14/2024 10:29 AM EST) [facility] White Blood Count 8.1 4.8 - 10.8 X10*3/uL [facility] Red Blood Count 4.33 4.20 - 5.50 X10*6/uL [facility] Hemoglobin 12.8 12.0 - 16.0 g/dl [facility] Hematocrit 37.4 37.0 - 47.0 % [facility] Mean Corpuscular Volume 86.4 80.0 - 98.0 fL [facility] Mean Corpuscular Hemoglobin 29.6 27.0 - 33.0 pg [facility] Mean Corpuscular HGB Conc 34.2 31.0 - 35.0 g/dl [facility] Red Cell Distribution Width 14.3 11.0 - 16.0 % [facility] Platelet Count 319 160 - 400 X10*3/uL [facility] Mean Platelet Volume 8.5(L) 9.4 - 12.3 fL [facility] Neutrophils Percent Auto 64.7 45 - 73 % [facility] Imm Gran Pct Auto 0.2 0.0 - 0.4 % [facility] Lymphocytes Percent Auto 24.2 20 - 40 % [facility] Monocytes Percent Auto 6.8 2 - 11 % [facility] Eosinophils Percent Auto 3.6 0 - 4 % [facility] Basophils Percent Auto 0.5 0 - 2 % [facility] NRBC Pct Auto 0.0 0.0 - 0.2 /100WBC [facility] Neutrophils Absolute Auto 5.2 2.0 - 8.3 x10*3/uL [facility] Imm Gran Abs Auto 0.02 0.00 - 0.03 X10*3/uL [facility] Lymphocytes Absolute Auto 2.0 1.2 - 4.9 X10*3/uL [facility] Monocytes Absolute Auto 0.6 0.1 - 1.2 X10*3/uL [facility] Eosinophils Absolute Auto 0.3 0.0 - 0.4 X10*3/uL [facility] Basophils Absolute Auto 0.0 0.0 - 0.2 X10*3/uL [facility] NRBC Abs Auto 0.000 0.0 - 0.012 X10*3/uL [facility] 06/14/2024 10:2 9 AM EST 06/14/2024 10:32 AM EST us Generic External Data Provider LAB BLOOD ORDERAB LES Final Result [facility] [address] [place] [address] [phone] * (ABNORMAL) Hemoglobin A1c (02/15/2024 12:20 PM EDT) Hemoglobin A1c 6.1(H) <6.0 % [facility] Comment:Hemoglobin A1C Refer ence Range Adults: 4.8 - 6.0 % Non diabetic: < 6.0 % Goal: < 7.0 %Additional Action Suggested: > 8.0 %Note: Hemoglobin A1c results are invalid for patients with abnormal amounts of HbF. Blood transfusions may impact the HbA1c concentration in the patient sample. Estimated Average Glucose 128 mg/dL [facility] Comment:eAG = Estimated ave rage glucose which is %A1C expressed asaverage glucose, using the formula of the F5P-JrkqvshXybkguf Glucose study (ADAG), Diabetes Care, Vol.31,#8,Nov. 2007 Blood Venous blood specimen / Unknown 02/15/2024 12:20 PM EDT 02/15/2024 1:24 PM EDT us Virgie Cartagena BUSINESS ACCOUNT EXECUTIVE LAB BLOOD ORDERABLES Final Res ult [facility] [address] [place] [phone] * BI Mammogram Screening Tomosynthesis Bilateral (10/10/2023 4:31 PM EDT) Anatomical Region Laterality Modality Breast Bilateral Mammography 10/10/2023 4:31 PM EDT Narrative 11/09/2023 7:12 AM EDT ? [facility] [place] ? [address] ?[place] [address] ? Mammography Report ? Signed ? Patient: Shannan,Christy A ?MR#: [id number] ?? 25 ? : 1980 ?Acct:[id number] ? Age/Sex: 43 / F ?ADM Date: 06/17/24 ? Loc: HO.MAMMO ? Attending Dr: Virgie Cartagena BUSINESS ACCOUNT EXECUTIVE ? Ordering Physician: Osiel,Virgie BUSINESS ACCOUNT EXECUTIVE ?Results: 1Negat ?? kelsi ? Date of Service: 10/10/23 ?Follow Up: 1 Year From Orig ?? inal Mammogram ? Procedure(s): MM tomosynthesis screening BI ?? Accession Number(s): [id number] ? cc: Virgie Cartagena BUSINESS ACCOUNT EXECUTIVE ? EXAMINATION: ?? MM SCREENING DIGITAL BREAST [...] 11/09/23706 ? DD/ 1631 ? TD/TT: ? City Planner: ? Procedure Note Hans, Harjit - 11/09/2023 [facility] [address] [place] [address] Mammography Report Signed Patient: Christy Campbell AMR#: [id number] [birth year] : 1980Acct:[id number] Age/Sex: 43 / FADM Date: 10/10/23 Loc: HO.MAMMO Attending Dr: Virgie MADRID Ordering Physician: Virgie CartagenaPResults: 1Negat kelsi Date of Service: 10/10/23Follow Up: 1 Year From Orig inal Mammogram Procedure(s): MM tomosynthesis screening BI Accession Number(s): [id number] cc: Virgie Cartagena EXAMINATION: MM SCREENING DIGITAL [...] in OV> 11/09/23 0707 DD/ 1631 TD/TT: City Planner: Virgie MADRID IMG BI PROCEDURES Final Result * Image-Guided Pap with Age-Based Screening Protocols (08/23/2022 11:08 AM EDT) Comment [facility] Comment: This order for age-based cervical cancer and STI screening follows ACOG guidelines(PB 168, 140, MCM523). See individual assays for performing site location. Clinical Information: None given [facility] LMP: NONE GIVEN [facility] Prev. PAP: NONE GIVEN [facility] Prev. BX: NONE GIVEN [facility] ([facility]) Diagnostics [facility] SOURCE: None given [facility] Statement Of Adequacy: [facility] Comment: Satisfactory for evaluation. Endocervical/transformation zone component present. Interpretation/ Result: Negative for intraepithelial lesion or malignancy. [facility] [place] [facility] COMMENT: This Pap test has been evaluated with computer assisted technology. [facility] [place] [employer]: QA on Requestt Comment: KR, CT(ASCP) CT screening location: [address] ??[address] Review Cytotechnologis t: [facility] [place] [facility] Comment: ALS, CT(ASCP) CT screening location: [address] ??[address] (Always Message) QA on Requestt Comment: EXPLANATORY NOTE: The Pap is a [...] HPV nRNA E6/E7 Not Detected Not Detected [facility] Comment: Methodology: Sugar Boiler-Mediated Amplification This assay detects E6/E7 viral messenger RNA (mRNA) from 14 high-risk HPV types (16,18,31,33,35,39,45,51,52,56,58,59,66,68). Cervical sources are required for HPV testing. If a vaginal source from a patient who has had a total hysterectomy with removal of cervix was submitted, please contact the testing laboratory for alternative testing options. For additional information, please refer to http://education.[employer]/faq/SZQ644z5 (This link if provided for information/ educational purposes only.) Pap Vial 08/23/2022 11:0 8 AM EDT 08/24/2022 7:37 AM EDT Madhavi Powers CNM LAB BLOOD ORDERABLES Nurys l Result [facility] [address], [place] [address] [facility] [place] [facility] [address] [place] [address] * Hepatitis C Antibody (01/19/2021 9:39 PM EDT) Hepatitis C Antibody Nonreactive Blood 01/19/2021 9:39 PM EDT Historical Provider MD POINT OF CARE TEST ENTER/ EDIT ORDERABLES Final Result * HIV 1/2 ANTIGEN/ANTIBODY,FOURTH GENERATION W/RFL (01/19/2021 3:09 PM EDT) HIV-1/2 ANTIGEN AND ANTIBODIES, 4TH GENERATION W/ REFLEX NON-REACT KELSI NON-REACT KELSI [facility] Comment: HIV-1 antigen and HIV-1/HIV-2 [...] ? For additional information please refer to http://education.[employer]/faq/EPT046 (This link is being provided for informational/ educational purposes only.) ? The performance of this assay has not been clinically validated in patients less than 2 years old. ?? 01/19/2021 3:09 PM EDT Result [facility] Shaina Ramos BUSINESS ACCOUNT EXECUTIVE LAB BLOOD ORDERABLES Final Res ult [facility] [address] * (ABNORMAL) LIPID PANEL, STANDARD (09/17/2020 [...] ?? Onofre DUMONT et al. SAVANNAH. 2013;310(19): 7054-2629 ?? (http://education.[facility] [employer]/faq/JFK087) Non-HDL Cholesterol 208(H) <130 mg/dL (calc) [facility] Comment: For patients with diabetes plus 1 major ASCVD risk ?? factor, treating to a non-HDL-C goal of <100 mg/dL ?? (LDL-C of <70 mg/dL) is considered a therapeutic ?? option. Triglycerides 136 <150 mg/dL [facility] 09/17/2020 1:10 PM EDT us Saba Fishman DIRECTOR OF GRADUATE MEDICAL EDUCATION LAB BLOOD ORDERABLES Final Resu lt [facility] [address] from Last 3 Months or Most Recently Relevant to Health Maintenance Insurance [place] AD[place] Care Teams Human Factors Advisor Lead Relationship Specialty Start Date End Date Virgie Cartagena FNP [address] [place] [address] PCP - General Family Medicine 12/15/21
--- OUTSIDE RECORDS SUMMARY | 2024-08-27 12:55 | XMS_ITS | Encounter Summary ---
Author Organization [employer] Address [address] [place] [address] 7t [place] [address] Care Team Providers Care Wax Pot Tender Name Role Phone Virgie Cartagena Primary Care Provider [phone] Reason for Visit * Reason Comments Med Refill Encounter Details Date Type Department Care Team ([facility] Contact Info) Description 05/20/2022 Refill [facility] [address] [place] [address] Virgie Bryant FNP Social History Tobacco Use [...] Description 09/07/2024 10:00 AM EDT Office Visit [facility] [address] [place] [address] Elma Rouse, OD [address] [place] [address] documented as of this encounter Visit Diagnoses Not on filedocumented in this encounter Care Teams Wax Pot Tender Relationship Specialty Start Date End Date Virgie Cartagena FNP [address] [place] [address] PCP - General Family Medicine 12/15/21 documented as of this encounter
== END ==
LOC: HO.CARD 11:09
PROVIDERS: PCP Registered Nurse; Visit Provider Internal Medicine Cardiovascular Disease
DX: R00.2 Palpitations (principal)
CPT/HCPCS: 93242; 93306

== ENCOUNTER → 2024-08-27 11:13 | Outpatient (BNV) | payer MEDICAID, SELFPAY | PROVIDERS: PCP Registered Nurse; Visit Provider Internal Medicine | DX: R00.2 Palpitations (principal) | CPT/HCPCS: 93306 ==

== ENCOUNTER 2024-09-11 06:05 | Outpatient (REF) | payer MEDICAID, SELFPAY ==
--- NOTE | ~2024-09-11 | FL_ITS ---
EXAMINATION: XR FLUOROSCOPY WITH IMAGES CLINICAL INFORMATION: Cervical epidural pain management injection COMPARISON: 06/14/2024 radiographs cervical spine. TECHNIQUE: Fluoroscopy provided to: Dr. Tracey Fluoroscopy time: 0.3 minutes DAP: 0.0510 mGycm2 Images: 2 FINDINGS: 2 fluoroscopic spot images of the lower cervical spine taken during epidural injection. Please refer to the full procedural report for details. FL/FL guidance in treatment room IMPRESSION: Fluoroscopic guidance. Electronically signed by: Rigoberto Ledbetter MD 09/11/2024 10:39 AM EDT
--- OUTSIDE RECORDS SUMMARY | 2024-09-11 06:07 | XMS_ITS | Encounter Summary ---
Author Organization [employer] Address [address] [place] [address] 7t [place] [address] Care Team Providers Care Nursing Home Assistant Administrator Name Role Phone Virgie Cartagena JULIUS Primary Care Provider [phone] Encounter Details Date Type Department Care Team (Late st Contact Info) Description 09/02/2022 Abstract [facility] AD[facility] [address] [place] [address] Tyrone Rangel DDS [address] [place] [address] Social History Tobacco Use Types Packs/Day Years [...] as of this encounter Plan of Treatment Not on file documented as of this encounter Visit Diagnoses Not on filedocumented in this encounter Additional Health Concerns Assessment Noted Time PHQ-9 Depression Total Score: 7 08/31/19 23 11:48 AM EDT documented as of this encounter Care Teams Nursing Home Assistant Administrator Relationship Specialty Start Date End Date Virgie Cartagena FNP [address] [place] [address] PCP - General Family Medicine 12/15/21 documented as of this encounter
--- OUTSIDE RECORDS SUMMARY | 2024-09-11 06:07 | XMS_ITS | Clinical Summary ---
Author Organization [employer] Address [address] [facility] 7t [place] [address] Care Team Providers Care Salvage Laborer Name Role Phone Virgie Cartagena JULIUS Primary Care Provider [phone] Allergies No known active allergies Medications * [...] pressure as directed 1 kit 4 Active cyclobenzaprine (Flexeril) 10 MG tablet Take 1 tablet (10 mg) by mouth if needed at bedtime for muscle spasms. 30 tablet 2 5 Active FLUoxetine (PROzac) 20 MG capsule Take 1 capsule (20 mg) by mouth Once per day. 90 capsule 1 5 12/25/19 25 Active olmesartan (Benicar) 5 MG tabletIndication s:Essential hypertension TAKE 1 TABLET BY MOUTH EVERY DAY 90 tablet 5 Active Active Problems Problem Noted Date [...] Cervical radiculopathy 09/29/2022 Overview (09/12/2023): [place] [facility] Intralaminar epidural steroid injection 1 [...] placed 05/16/24, reordered 06/27/2024 OPH: referral to [facility] placed 05/16/24 Dental calculus [...] She has an orthopedic surgery appointment at [facility] on July 28 at 1400. Assessment & [...] as pharmacomtherapy, [facility] smoking cessation group, and [facility] pharmacy smoking cessation clinic Assessment & Plan (06/11/2024 5:31 PM EST): Smoking 5 cigg/day Encouraged smoking cessation resources such as pharmacomtherapy, [facility] smoking cessation group, and [facility] pharmacy smoking cessation clinic Assessment & Plan (02/23/2024 6:03 PM EDT): Smoking 5 cigg/day Encouraged smoking cessation resources such as pharmacomtherapy, [facility] smoking cessation group, and [facility] pharmacy smoking cessation clinic Assessment & Plan (02/04/2023 2:59 PM EDT): ?? Smoking 5 cigg/day Vitamin D deficiency 02/12/2015 Resolved Problems Problem Noted Date Diagnosed Date Resolved Date COVID 04/23/2022 07/29/2022 Encounters * This document contains information received from the source organization and may not represent a complete record from that organization. Date Type Department Care Team Description 09/07/2024 Telephone [facility] OPTOMETRY [address] [place] [address] AnsimCompa parksn, OD 09/06/2024 Telephone [facility] MEDICINE [address] [place], [place] [phone] Virgie Cartagena FNP May recall 08/09/2024 Refill [facility] MED & PEDS [address] [place], [place] [phone] Virgie Cartagena FNP Essential hypertension 08/01/2024 Orders Only GENERIC EXTERNAL DATA DEPARTMENT Provider, Generic External Data 07/06/2024 Population Health Risk Score [facility] [address] [phone] Provider, Population Health Generic 06/27/2024 10:15 AM EST Office Visit [facility] [address] [place] [address] Virgie Cartagena FNP Cervical radiculopathy (Primary Dx); Screening for colon cancer; Essential hypertension; Tobacco dependence syndrome; Routine health maintenance 06/27/2024 Travel 06/18/2024 Telephone [facility] [address] [place] [address] Virgie Cartagena FNP ER Follow-up 06/14/2024 Orders Only GENERIC EXTERNAL DATA DEPARTMENT Provider, Generic External Data from Last 3 Months Immunizations Immunization Administration Dates Next Due Hep B, adult [...] Q2 Not on file 12/26/2023 Comments No Intention Date Recorded No desire to become (finding) 0 05/16/2024 Sex and Gender Information Value Date Recorded [...] 06/27/2024 10:35 AM EST Plan of Treatment Health Maintenance Due Date Last Done Comments CT Colonography 1979 Colonoscopy 1979 Colorectal Cancer Screening 1979 FIT DNA/Cologuard 1979 FIT 1979 FOBT 1980 Sigmoidoscopy 1979 Disability Screening 1979 Dental Oral Exam 08/02/2024 02/01/2024, 08/03/2022 [...] AM EDT) Metanephrine, Free <25 <=57 pg/mL [facility] Comment:This test was develo ped and its analytical performancecharacteristics have been determined by [employer] [place], [place]. It hasnot been cleared or approved by the U.S. Food and DrugAdministration. This assay has been validated pursuantto the CLIA regulations and is used for clinicalpurposes. Normetanephrine, Free 72 <=148 pg/mL [facility] Comment:This test was develo ped and its analytical performancecharacteristics have been determined by [employer] [place], [place]. It hasnot been cleared or approved by the U.S. Food and DrugAdministration. This assay has been validated pursuantto the CLIA regulations and is used for clinicalpurposes. Total, Free (MN+NMN) 72 <=205 pg/mL [facility] Comment: For additional information, please refer tohttp://education.Enviance.Garpun/faq/MetFractFree(This link is being provided for informational/educatioinformational/educational purposes only.)Elevations >4-fold upper reference range: stronglysuggestive of a pheochromocytoma(1).Elevations >1- 4-fold upper reference range:significant but not diagnostic, may be due tomedications or stress. Suggest running 24 hr urinefractionated metanephrines and/or serum Chromagranin Afor confirmation.Reference:(1)Samantha Johnson et salbador, Plasma Chromogranin Aor Urine Fractionated Metanephrines Follow-Up TestingImproves the Diagnostic Accuracy of Plasma FractionatedMetanephrines for Pheochromocytoma. The Journal ofClinical Endocrinology # Metabolism 93(1), 91-95, 2008.This test was developed and its analytical performancecharacteristics have been determined by [employer] [place], [place]. It hasnot been cleared or approved by the U.S. Food and DrugAdministration. This assay has been validated pursuantto the CLIA regulations and is used for clinicalpurposes.THIS TEST WAS PERFORMED AT:[employer] [place], [place] ??[address]CPPWQYORICCO MAYEN MD,PHD 08/01/2024 10:0 4 AM EDT 08/01/2024 10:04 AM EDT us Generic External Data Provider LAB BLOOD ORDERAB LES Final Result [facility] [address] [place] [phone] * Cortisol Random (08/01/2024 10:04 AM EDT) Cortisol Random 14.6 ug/dL [facility] Comment:Reference Range*: Be fore 10 am 6.2-19.4 ug/dL After 5 pm 2.3-11.9 ug/dL*Please interpret above results accordingly.This test was performed using the GenePeeks chemiluminescentmethod. Values obtained from different assay methods cannotbe used interchangeably.Patients receiving fludrocortisone, prednisolone orprednisone may show artificially elevated cortisol valuesdue to cross-reactivity. 08/01/2024 10:0 4 AM EDT 08/01/2024 10:04 AM EDT us Generic External Data Provider LAB BLOOD ORDERAB LES Final Result Performing Organization Address [facility]/ZIP Co de Phone Number [facility] [address] [place] [phone] * TSH with Reflex to Free T4 (08/01/2024 10:04 AM EDT) TSH reflex Free T4 1.17 0.32 - 4.0 uIU/mL [facility] 08/01/2024 10:0 4 AM EDT 08/01/2024 10:04 AM EDT us Generic External Data Provider LAB BLOOD ORDERAB LES Final Result Performing Organization Address [facility] Co de Phone Number [facility] [address] [place] [phone] * Aldosterone/Plasma Renin Activity Ratio, LC/MS/MS (08/01/2024 10:04 AM EDT) Aldosterone 13 see note ng/dL [facility] Comment:Unable to flag abnor mal result(s), please refer to reference range(s) below:Adult Reference Ranges for Aldosterone, LC/MS/MS: Upright 8:00 - 10:00 am < or = 28 ng/dL Upright 4:00 - 6:00 pm < or = 21 ng/dL Supine 8:00 - 10:00 am 3 - 16 ng/dLTHIS TEST WAS PERFORMED AT:[employer]/[facility] [place] [address]NHMUBVXRICCO MAYEN MD,PHD Plasma Renin Activity 4.32 0.25 - 5.82 ng/mL/h [facility] Aldosterone/Renin Ratio 3.0 0.9 - 28.9 Ratio [facility] Comment:This test was develo ped and its analytical performancecharacteristics have been determined by [employer] [place], [place]. It hasnot been cleared or approved by the U.S. Food and DrugAdministration. This assay has been validated pursuantto the CLIA regulations and is used for clinicalpurposes.THIS TEST WAS PERFORMED AT:[employer] [place] [address]TQLGAOERICCO MAYEN MD,PHD 08/01/2024 10:0 4 AM EDT 08/01/2024 10:04 AM EDT us Generic External Data Provider LAB BLOOD ORDERAB LES Final Result [facility] [address] [place] [phone] * (ABNORMAL) Basic Metabolic Panel (08/01/2024 10:04 AM EDT) Only the most recent of2 resultswithin the time period is included. Sodium 138 135 - 145 mmol/L [facility] Potassium 3.7 3.3 - 5.1 mmol/L [facility] Chloride 105 96 - 108 mmol/L [facility] Carbon Dioxide 24 22 - 29 mmol/L [facility] Anion Gap 13 12 - 20 [facility] Urea Nitrogen (BUN) 7(L) 9 - 16 mg/dL [facility] Creatinine, Serum 0.75 0.5 - 1.4 mg/dL [facility] Estimated Glomerular Filt Rate >60 [facility] Comment:Chronic Kidney Disea se: Estimated GFR < 60 mL/min/1.87z4Blxwpj Kidney Disease: Estimated GFR < 15 mL/min/1.73m2 Glucose 97 60 - 115 mg/dL [facility] Calcium 10.0 8.4 - 10.2 mg/dL [facility] 08/01/2024 10:0 4 AM EDT 08/01/2024 10:04 AM EDT us Generic External Data Provider LAB BLOOD ORDERAB LES Final Result [facility] [address] [place] [phone] * XR CERVICAL SPINE 3V (06/14/2024 1:52 PM EST) Anatomical Region Laterality Modality Abdomen Radiographic Eileen ging 06/14/2024 1:52 PM EST Narrative 06/14/2024 2:30 PM EST ? [facility] ?[address] ?[place] [address] ?XRay Report ? Signed ? Patient: Shannan,Christy A ?MR#: [id number] ?? 25 ? : 1980 ?Acct:[id number] ? Age/Sex: 44 / F ?ADM Date: 06/14/24 ? Loc: HO.ED ? Attending Dr: ? Ordering Physician: Amari Melendez MD ?? Date of Service: 06/14/24 ?? Procedure(s): XR cervical spine 3V ?? Accession Number(s): [id number] ? cc: Amari Melendez MD; Virgie Cartagena [...] 02:27 PM EST RP ? Dictated By: ?Rigobreto Ledbetter MD ? Signed By: ?<Electronically signed by Rigoberto Ledbetter MD in OV> ?06/14/24 1427 ? DD/ 1352 ? TD/TT: 06/14/24 1420 ? Healthcare Or Medical: ? Procedure Note Hans, Image - 06/14/[address] [address] XRay Report Signed Patient: Christy Campbell AMR#: [id number] [birth year] : 1980Acct:[id number] Age/Sex: 44 / FADM Date: 06/14/24 Loc: HO.ED Attending Dr: Ordering Physician: Amari Melendez MD Date of Service: 06/14/24 Procedure(s): XR cervical spine 3V Accession Number(s): [id number] cc: Amari Melendez MD; Virgie Cartagena JIGGER OPERATOR EXAMINATION: XR CERVICAL SPINE CLINICAL INFORMATION: Neck [...] by: Rigoberto Ledbetter MD 06/14/2024 02:27 PM [facility] Dictated By: Rigoberto Ledbetter MD Signed By: <Electronically signed by Rigoberto Ledbetter MD in OV> 06/14/24 1427 DD/ 1352 TD/TT: 06/14/24 1420 Healthcare Or Medical: [facility] External Provider IMG XR PROCEDURES Final Result * High Sensitivity Troponin I (06/14/2024 10:29 AM EST) Pathologist [facility] TROPONIN I HIGH SENSITIVITY <2.7 <3.5 - 17.0 ng/L [facility] Comment:The Gillespie high sens itivity Troponin-I results should beused in conjunction with other diagnostic information suchas ECG, clinical observations and information, and patientsymptoms to aid in the diagnosis of UT. 06/14/2024 10:2 9 AM EST 06/14/2024 10:32 AM EST us Generic External Data Provider LAB BLOOD ORDERAB LES Final Result [facility] [address] [place] [phone] * (ABNORMAL) CBC auto differential (06/14/2024 10:29 AM EST) [facility] White Blood Count 8.1 4.8 - 10.8 X10*3/uL [facility] Red Blood Count 4.33 4.20 - 5.50 X10*6/uL [facility] Hemoglobin 12.8 12.0 - 16.0 g/dl [facility] Hematocrit 37.4 37.0 - 47.0 % [facility] Mean Corpuscular Volume 86.4 80.0 - 98.0 fL [facility] Mean Corpuscular Hemoglobin 29.6 27.0 - 33.0 pg [facility] Mean Corpuscular HGB Conc 34.2 31.0 - 35.0 g/dl [facility] Red Cell Distribution Width 14.3 11.0 - 16.0 % [facility] Platelet Count 319 160 - 400 X10*3/uL [facility] Mean Platelet Volume 8.5(L) 9.4 - 12.3 fL [facility] Neutrophils Percent Auto 64.7 45 - 73 % [facility] Imm Gran Pct Auto 0.2 0.0 - 0.4 % [facility] Lymphocytes Percent Auto 24.2 20 - 40 % [facility] Monocytes Percent Auto 6.8 2 - 11 % [facility] Eosinophils Percent Auto 3.6 0 - 4 % [facility] Basophils Percent Auto 0.5 0 - 2 % [facility] NRBC Pct Auto 0.0 0.0 - 0.2 /100WBC [facility] Neutrophils Absolute Auto 5.2 2.0 - 8.3 x10*3/uL [facility] Imm Gran Abs Auto 0.02 0.00 - 0.03 X10*3/uL [facility] Lymphocytes Absolute Auto 2.0 1.2 - 4.9 X10*3/uL [facility] Monocytes Absolute Auto 0.6 0.1 - 1.2 X10*3/uL [facility] Eosinophils Absolute Auto 0.3 0.0 - 0.4 X10*3/uL [facility] Basophils Absolute Auto 0.0 0.0 - 0.2 X10*3/uL [facility] NRBC Abs Auto 0.000 0.0 - 0.012 X10*3/uL [facility] 06/14/2024 10:2 9 AM EST 06/14/2024 10:32 AM EST us Generic External Data Provider LAB BLOOD ORDERAB LES Final Result [facility] [address] [place] [phone] * (ABNORMAL) Hemoglobin A1c (02/15/2024 12:20 PM EDT) Hemoglobin A1c 6.1(H) <6.0 % [facility] Comment:Hemoglobin A1C Refer ence Range Adults: 4.8 - 6.0 % Non diabetic: < 6.0 % Goal: < 7.0 %Additional Action Suggested: > 8.0 %Note: Hemoglobin A1c results are invalid for patients with abnormal amounts of HbF. Blood transfusions may impact the HbA1c concentration in the patient sample. Estimated Average Glucose 128 mg/dL [facility] Comment:eAG = Estimated ave rage glucose which is %A1C expressed asaverage glucose, using the formula of the L9D-YgwnokqHjkmijp Glucose study (ADAG), Diabetes Care, Vol.31,#8,Aug. 2008 Blood Venous blood specimen / Unknown 02/15/2024 12:20 PM EDT 02/15/2024 1:24 PM EDT us Virgie Cartagena JIGGER OPERATOR LAB BLOOD ORDERABLES Final Res ult [facility] [address] [place] [phone] * BI Mammogram Screening Tomosynthesis Bilateral (10/10/2023 4:31 PM EDT) Anatomical Region Laterality Modality Breast Bilateral Mammography 10/10/2023 4:31 PM EDT Narrative 11/09/2023 7:12 AM EDT ? [facility] ? [address] ?[place] [address] ? Mammography Report ? Signed ? Patient: On License Of [facility],Christy A ?MR#: [id number] ?? 25 ? : 1980 ?Acct:[id number] ? Age/Sex: 43 / F ?ADM Date: //24 ? Loc: HO.MAMMO ? Attending Dr: Virgie Cartagena JIGGER OPERATOR ? Ordering Physician: Osiel,Virgie JIGGER OPERATOR ?Results: 1Negat ?? kelsi ? Date of Service: 10/09/24 ?Follow Up: 1 Year From Orig ?? inal Mammogram ? Procedure(s): MM tomosynthesis screening BI ?? Accession Number(s): [id number] ? cc: Osiel,Virgie JIGGER OPERATOR ? EXAMINATION: ?? MM SCREENING DIGITAL BREAST [...] 0707 ? DD/ 1631 ? TD/TT: ? Healthcare Or Medical: ? Procedure Note Harjit Maxwell - 11/09/2023 [facility] [address] [place] [address] Dr. [place], [place] [address] Mammography Report Signed Patient: Christy Campbell AMR#: [id number] [birth year] : 1980Acct:[id number] Age/Sex: 43 / FADM Date: 10/10/23 Loc: HO.MAMMO Attending Dr: Virgie Cartagena JIGGER OPERATOR Ordering Physician: Virgie CartagenaPResults: 1Negat kelsi Date of Service: 10/10/23Follow Up: 1 Year From Orig inal Mammogram Procedure(s): MM tomosynthesis screening BI Accession Number(s): [id number] cc: Virgie Cartagena EXAMINATION: MM SCREENING DIGITAL [...] in OV> 11/09/23 0707 DD/ 1631 TD/TT: Healthcare Or Medical: Virgie MADRID IMG BI PROCEDURES Final Result * Image-Guided Pap with Age-Based Screening Protocols (08/23/2022 11:08 AM EDT) Comment [facility] Comment: This order for age-based cervical cancer and STI screening follows ACOG guidelines(PB 168, 140, QIA453). See individual assays for performing site location. Clinical Information: None given [facility] [employer] LMP: NONE GIVEN [facility] Prev. PAP: NONE GIVEN [facility] Prev. BX: NONE GIVEN [facility] SOURCE: None given [facility] [place] [employer] Statement Of Adequacy: [employer] [place] [employer] Comment: Satisfactory for evaluation. Endocervical/transformation zone component present. Interpretation/ Result: Negative for intraepithelial lesion or malignancy. [employer] [place] [employer] COMMENT: This Pap test has been evaluated with computer assisted technology. [employer] [place] [employer] Cytotechnologis t: [employer] [place] [employer] Comment: KR, CT(ASCP) CT screening location: [address] ??[address] Review Cytotechnologis t: [employer] [place] [employer] Comment: ALS, CT(ASCP) CT screening location: [address] ??[address] (Always Message) [employer] [place] [employer] Comment: EXPLANATORY NOTE: The Pap is a [...] HPV nRNA E6/E7 Not Detected Not Detected [employer] Comment: Methodology: Compensator Worker-Mediated Amplification This assay detects E6/E7 viral messenger RNA (mRNA) from 14 high-risk HPV types (16,18,31,33,35,39,45,51,52,56,58,59,66,68). Cervical sources are required for HPV testing. If a vaginal source from a patient who has had a total hysterectomy with removal of cervix was submitted, please contact the testing laboratory for alternative testing options. For additional information, please refer to http://education.Enviance.Garpun/faq/MQY209y8 (This link if provided for information/ educational purposes only.) Pap Vial 08/23/2022 11:0 8 AM EDT 08/24/2022 7:37 AM EDT us Madhavi NICOLE LAB BLOOD ORDERABLES Nurys l Result [facility] [address], [place] [address] [employer] [facility] [address] [place] [phone] * Hepatitis C Antibody (01/19/2021 9:39 PM EDT) Hepatitis C Antibody Nonreactive Blood 01/19/2021 9:3 9 PM EDT Historical Provider MD POINT OF [...] ? For additional information please refer to http://education.Climateminder/faq/AVL194 (This link is being provided for informational/ educational purposes only.) ? The performance of this assay has not been clinically validated in patients less than 2 years old. ?? 01/19/2021 3:[address] [facility] LAB BLOOD ORDERABLES Final Res ult [facility] [address] * (ABNORMAL) LIPID PANEL, STANDARD (09/17/2020 [...] ?? Onofre DUMONT et al. SAVANNAH. 2013;310(19): 4919-7001 ?? (http://DataEmail Group.ZeaKal/faq/LVY312) Non-HDL Cholesterol 208(H) <130 mg/dL (calc) [facility] Comment: For patients with diabetes plus 1 major ASCVD risk ?? factor, treating to a non-HDL-C goal of <100 mg/dL ?? (LDL-C of <70 mg/dL) is considered a therapeutic ?? option. Triglycerides 136 <150 mg/dL [facility] 09/17/2020 1:10 PM EDT us Saba Fishman NP LAB BLOOD ORDERABLES Final Resu lt [facility] [address] from Last 3 Months or Most Recently Relevant to Health Maintenance Insurance [employer] [place] AD[place] Care Teams Salvage Laborer Relationship Specialty Start Date End Date Virgie Cartagena FNP [address] [place] [address] PCP - General Family Medicine 12/15/21
--- OUTSIDE RECORDS SUMMARY | 2024-09-11 06:07 | XMS_ITS | Encounter Summary ---
Author Organization [employer] Address [address] [place] [address] 7t [place] [address] Care Team Providers Care Crown Wheel Assembler Name Role Phone Virgie Cartagena Primary Care Provider [phone] Encounter Details Date Type Department Care Team ([facility] st Contact Info) Description 08/11/2022 Telephone [facility] MEDICINE [address] [place] [address] Mackenzie Us LPN Social History Tobacco Use [...] on filedocumented in this encounter Care Teams Crown Wheel Assembler Relationship Specialty Start Date End Date Virgie Cartagena FNP [address] [place] [address] PCP - General Family Medicine 12/15/21 documented as of this encounter
--- OUTSIDE RECORDS SUMMARY | 2024-09-11 06:07 | XMS_ITS | Encounter Summary ---
Author Organization [employer] Address [address] [place] [address] 7t [place] [address] Care Team Providers Care Radiology Assistant Name Role Phone Virgie Cartagena Primary Care Provider [phone] Reason for Visit * Reason Comments Med Refill Encounter Details Date Type Department Care Team ([facility] st Contact Info) Description 03/25/2023 Refill [facility] CHC MED & PEDS [address] [place], [place] [phone] Virgie Cartagena FNP 505 [place] [address] Neck pain Social History Tobacco Use Types [...] documented as of this encounter Care Teams Radiology Assistant Relationship Specialty Start Date End Date Virgie Cartagena FNP [address] [place] [address] PCP - General Family Medicine 12/15/21 documented as of this encounter
--- OUTSIDE RECORDS SUMMARY | 2024-09-11 06:07 | XMS_ITS | Encounter Summary ---
Author Organization [employer] Address [address] [place] [address] 7t [place] [address] Care Team Providers Care High School Sports Coach Name Role Phone Virgie Cartagena Primary Care Provider [phone] Reason for Visit * Reason Onset Date Comments May recall 09/06/2024 Encounter Details Date Type Department Care Team ([facility] Contact Info) Description 09/06/2024 Telephone [facility] MEDICINE [address] [place] [address] Virgie Cartagena FNP [address] [place] [address] May recall Social History Tobacco Use Types Packs/Day Years [...] Telephone Encounter - Peggy Sims [place] - 09/06/2024 8:43 AM EDT Telephone call to patient to schedule a recall appointment. No answer, Left voicemail to return call to clinic.. Recall letter sent. Visit type: Follow up Appointment notes: Chronic Conditions Month due: May With: Osiel Please schedule appointment above if patient returns call [facility]AIL[facility] documented in this encounter Plan of Treatment Not on file documented as of this encounter Visit Diagnoses Not on filedocumented in this encounter Additional Health Concerns Assessment Noted Time PHQ-9 Depression Total Score: 15 025 10:50 AM EST documented as of this encounter Care Teams High School Sports Coach Relationship Specialty Start Date End Date Virgie Cartagena FNP [address] [place] [address] PCP - General Family Medicine 12/15/21 documented as of this encounter
--- OUTSIDE RECORDS SUMMARY | 2024-09-11 06:07 | XMS_ITS | Encounter Summary ---
Author Organization [employer] Address [address] [place] [address] 7t [place] [address] Care Team Providers Care Chemist Water Purification Name Role Phone Virgie Cartagena JULIUS Primary Care Provider [phone] Encounter Details Date Type Department Care Team (Late st Contact Info) Description 08/31/2022 Abstract [facility] ADULT DENTAL [address] [place] [address] Gonsalo Staffordaris [address] [place] [address] Social History Tobacco Use Types Packs/Day Years [...] documented as of this encounter Care Teams Chemist Water Purification Relationship Specialty Start Date End Date Virgie Cartagena FNP [address] [place] [address] PCP - General Family Medicine 12/15/21 documented as of this encounter
--- OUTSIDE RECORDS SUMMARY | 2024-09-11 06:07 | XMS_ITS | Clinical Summary ---
Author Organization [facility] Address [address] [place] [address] Phone Care Team Providers Care Chief Technologist Name Role Phone Physician, Pcp Unknown Primary Care Provider Guera vailable Allergies No known active allergies Medications No known medications Encounters Date Type Department Care Team Description 06/21/2024 1:45 PM EST Consult Orthopedic Surgery - [place] [address] [address] Douglas Mina DPM Hypertrophy of [...] topic Insurance MEDICAID - [place] Care Teams Chief Technologist Relationship Specialty Start Date End Date Physician, Pcp Unknown PCP - General 2/12/25
--- OUTSIDE RECORDS SUMMARY | 2024-09-11 06:07 | XMS_ITS | Encounter Summary ---
Author Organization [employer] Address [address] [facility] 7t [place] [address] Care Team Providers Care Strap Machine Operator Automatic Name Role Phone Virgie Cartagena VARNISHER Primary Care Provider [phone] Encounter Details Date Type Department Care Team ([facility] st Contact Info) Description 09/07/2024 Telephone [facility] [address] [place] [address] Nasim, Elma, OD [address] [place] [address] Social History Tobacco Use Types Packs/Day Years [...] documented as of this encounter Care Teams Strap Machine Operator Automatic Relationship Specialty Start Date End Date Virgie Cartagnea FNP [address] [place] [address] PCP - General Family Medicine 12/15/21 documented as of this encounter
--- OUTSIDE RECORDS SUMMARY | 2024-09-11 06:07 | XMS_ITS | Encounter Summary ---
Author Organization [employer] Address [address] [place] [address] 7t [place] [address] Care Team Providers Care Cemetery Laborer Name Role Phone Virgie Cartagena Primary Care Provider [phone] Reason for Visit * Reason Comments Med Refill Encounter Details Date Type Department Care Team ([facility] st Contact Info) Description 03/30/2023 Refill [facility] CHC MED & PEDS [address] [place], [place] [phone] Virgie Cartagena FNP [address] [place] [address] Neck pain Social History Tobacco Use Types [...] documented as of this encounter Care Teams Cemetery Laborer Relationship Specialty Start Date End Date Virgie Cartagena FNP [address] [place] [address] PCP - General Family Medicine 12/15/21 documented as of this encounter
--- OUTSIDE RECORDS SUMMARY | 2024-09-11 06:07 | XMS_ITS | Encounter Summary ---
Author Organization [employer] Address [address] [place] [address] 7t [place] [address] Care Team Providers Care Pantograph Transferrer Name Role Phone Virgie Cartagena Primary Care Provider Encounter Details Date Type Department Care Team ([facility] st Contact Info) Description 11/22/2023 Orders Only [facility] CHC MED & PEDS [address] [place], [place] [phone] Virgie Cartagena FNP [address] [place] [address] Hypokalemia (Primary Dx) Social History Tobacco Use [...] on file documented as of this encounter Procedures Procedure Name Priority Date/Time Associated Diagnosis Comments BASIC METABOLIC PANEL Routine 12/14/2023 2:16 PM EDT Hypokalemia documented in this encounter Results * (ABNORMAL) Basic Metabolic Panel (12/14/2023 2:16 PM EDT) Sodium 141 135 - 145 mmol/L [facility] Potassium 3.9 3.3 - 5.1 mmol/L [facility] Chloride 107 96 - 108 mmol/L [facility] Carbon Dioxide 26 22 - 29 mmol/L [facility] Anion Gap 12 12 - 20 [facility] Urea Nitrogen (BUN) 8(L) 9 - 16 mg/dL [facility] Creatinine, Serum 0.71 0.5 - 1.4 mg/dL [facility] Estimated Glomerular Filt Rate >60 [facility] Comment:NOTE: For -Am erican individuals, multiply the result by 1.210.Chronic Kidney Disease: Estimated GFR < 60 mL/min/1.80f3Gndstm Kidney Disease: Estimated GFR < 15 mL/min/1.73m2 Glucose 83 60 - 115 mg/dL [facility] Calcium 9.9 8.4 - 10.2 mg/dL [facility] Blood Venous blood specimen / Unknown 12/14/2023 2:16 PM EDT 12/14/2023 4:46 PM EDT us Virgie MADRID LAB BLOOD ORDERABLES Final Res ult [facility] [address] [place] [address] [phone] documented in this encounter Visit Diagnoses Diagnosis Hypokalemia- Primary Hypopotassemia documented in this encounter Additional Health Concerns Assessment Noted Time PHQ-9 Depression Total Score: 6 09/12/19 24 1:31 PM EDT documented as of this encounter Care Teams Pantograph Transferrer Relationship Specialty Start Date End Date Virgie Cartagena FNP [address] [place] [address] PCP - General Family Medicine 12/15/21 documented as of this encounter
--- OUTSIDE RECORDS SUMMARY | 2024-09-11 06:07 | XMS_ITS | Encounter Summary ---
Author Organization [employer] Address [address] [place] [address] 7 [place] [address] Care Team Providers Care Financial Analysis Manager Name Role Phone Virgie Cartagena Primary Care Provider [phone] Reason for Visit * Reason Comments Med Refill Encounter Details Date Type Department Care Team (Late st Contact Info) Description 05/20/2022 Refill [facility] MEDICINE [address] [place], [place] [phone] Virgie Bryant FNP Social History Tobacco Use [...] on filedocumented in this encounter Care Teams Financial Analysis Manager Relationship Specialty Start Date End Date Virgie Cartagena FNP [address] [place], [place] [phone] PCP - General Family Medicine 12/15/21 documented as of this encounter
== END 2024-09-11 06:06 | disposition home or self-care (01) ==
LOC: CF 06:05
PROVIDERS: Visit Provider Anesthesiology
DX: M47.22 Other spondylosis with radiculopathy, cervical region (principal); M50.122 Cervical disc disorder at C5-C6 level with radiculopathy
CPT/HCPCS: 62321; J1100; J2003; Q9967

== ENCOUNTER 2024-09-11 09:07 | Outpatient (AMB) | payer MEDICAID, SELFPAY ==
[2024-09-11 09:19] VITALS: BP 130/70; PULSE 71; RESP 16; O2SAT 16
--- NOTE | 2024-09-11 09:19 | MHC.OFFVIS ---
Vital Signs 09/11/24 09:19 09/11/24 09:49 BP 130/70 108/64 Blood Pressure Location Lt brachial Lt brachial Position Sitting Sitting Respiration 16 16 Pulse 71 70 Pulse Source Pulse Oximeter Pulse Oximeter Pulse Oximetry (%) 16 L 99 Oxygen Delivery Method Room Air Room Air Intake Visit Reasons: C5, C6 INTERLAMINAR MOHAMUD Delivery Assistant Required: No Allergies No Known Allergies Allergy (Verified 09/11/24 09:19) PFSH Medical History Spondylosis of cervical joint Degeneration, intervertebral disc, cervical Cleft palate HTN (hypertension) No known health problems Surgical History H/O cleft lip repair Social History Alcohol intake: never Patient Tobacco Use Status: Current everyday Tobacco user Tobacco use type: Cigarette Cigarettes Per Day: 5 Second Hand Smoke Exposure: No Physical Exam Vital Signs: Last Vital Signs Pulse 70 09/11/24 09:49 Resp 16 09/11/24 09:49 BP 108/64 09/11/24 09:49 Pulse Ox 99 09/11/24 09:49 Oxygen Delivery Method Room Air 09/11/24 09:49 Assessment & Plan Assessment & Plan (1) Radiculopathy, cervical: Code(s): M54.12 - Radiculopathy, cervical region Category: Medical (2) Spondylosis of cervical joint: Code(s): M47.812 - Spondylosis without myelopathy or radiculopathy, cervical region Category: Medical (3) Degeneration, intervertebral disc, cervical: Code(s): M50.30 - Other cervical disc degeneration, unspecified cervical region Category: Medical Plan Interlaminar C5- C6 epidural steroid injection. Christy is very pleasant 42 y.o female who came today to the OR for interlaminar epidural C5- C6 steroid injection for the treatment of cervical radiculopathy. After obtaining informed consent she was brought to the OR where she was positioned pone on the OR table. Time out was done delineating name and of the patient, site and side of the procedure and DVT prophylactics need, prophylactic antibiotics need and risk of fire. her back of the head, back of the neck and upper back were prepped with Chloroprep and draped with sterile utilities self-adhesive towels. C- arm was brought to the operating field and C5 and C6 vertebrae were demonstrated on the screen. The left upper lamina of the C6 vertebra was chosen as a site if the injection. The projection of the upper border of the lamina close to the C6 spinous process to the skin was chosen as a site of the epidural needle insertion. The skin and subcutaneou tissue were infiltrated with lidocaine 1% 2 mls. after that Tuohy 10 cm 20 gauge needle was inserted through the anaesthetized skin and advanced to the upper border of the lamina under intermittent AP , contralateral oblique ans lateral views. RODRÍGUEZ toair was used as a detector of the epidural space. When the tip of the needle passed 1 mm behind interlaminar line RODRÍGUEZ was sensed and Isoview M contrast was injected into the needle and no intravascular and no intrathecal spread of the contrast was noted. The treatment solution of dexametasone 10 mg mixed with 5 mls of PF saline with trace amount of PF lidocaine ( few drops) was injected into the epidural space. The needle was removed and bandaid was applied. The patient tolerated the procedure well she was taken outside of the OR to recovery room where recovered uneventfully. Orders: Orders [place] guidance in treatment room Today M54.12 - Radiculopathy, cervical region Coding Level of Care Code Procedure Only Diagnoses Radiculopathy, cervical M54.12 Spondylosis of cervical joint M47.812 Degeneration, intervertebral disc, cervical M50.30
--- OUTSIDE RECORDS SUMMARY | 2024-09-11 09:48 | XMS_ITS | Encounter Summary ---
Author Organization [employer] Address [address] [place] [address] 7t [place] [address] Care Team Providers Care Rn Medicare Name Role Phone Virgie Cartagena Primary Care Provider [phone] Encounter Details Date Type Department Care Team ([facility] st Contact Info) Description 08/11/2022 Telephone [facility] MEDICINE [address] [place] [address] Mackenzie Us LPN Social History Tobacco Use [...] on filedocumented in this encounter Care Teams Rn Medicare Relationship Specialty Start Date End Date Virgie Cartagena FNP [address] [place] [address] PCP - General Family Medicine 12/15/21 documented as of this encounter
--- OUTSIDE RECORDS SUMMARY | 2024-09-11 09:48 | XMS_ITS | Clinical Summary ---
Author Organization 175 [facility] Address [address] [place] [address] Phone Care Team Providers Care Seed Service Advisor Name Role Phone Physician, Pcp Unknown Primary Care Provider Guera vailable Allergies No known active allergies Medications No known medications Encounters Date Type Department Care Team Description 06/21/2024 1:45 PM EST Consult Orthopedic Surgery - [place] [address] [address] Douglas Mina DPM Hypertrophy of [...] topic Insurance MEDICAID - [place] Care Teams Seed Service Advisor Relationship Specialty Start Date End Date Physician, Pcp Unknown PCP - General 2/12/25
--- OUTSIDE RECORDS SUMMARY | 2024-09-11 09:48 | XMS_ITS | Encounter Summary ---
Author Organization [employer] Address [address] [place] [address] 7t [place] [address] Care Team Providers Care Broke Beater Name Role Phone Virgie Cartagena Primary Care Provider [phone] Reason for Visit * Reason Onset Date Comments May recall 09/06/2024 Encounter Details Date Type Department Care Team ([facility] Contact Info) Description 09/06/2024 Telephone [facility] MEDICINE [address] [place] [address] Virgie Cartagena FNP [address] [place] [address] May recall Social History Tobacco Use Types [...] documented as of this encounter Care Teams Broke Beater Relationship Specialty Start Date End Date Virgie Cartagena FNP [address] [place] [address] PCP - General Family Medicine 12/15/21 documented as of this encounter
--- OUTSIDE RECORDS SUMMARY | 2024-09-11 09:48 | XMS_ITS | Encounter Summary ---
Author Organization [employer] Address [address] [place] [address] 7t [place] [address] Care Team Providers Care Metallurgical Tester Name Role Phone Virgie Cartagena Primary Care Provider [phone] Encounter Details Date Type Department Care Team ([facility] st Contact Info) Description 11/22/2023 Orders Only [facility] CHC MED & PEDS [address] [place], [place] [phone] Virgie Cartagena FNP [address] [place] [address] Hypokalemia (Primary Dx) Social History Tobacco Use [...] EDT) Sodium 141 135 - 145 mmol/L [facility] Potassium 3.9 3.3 - 5.1 mmol/L [facility] Chloride 107 96 - 108 mmol/L [facility] Carbon Dioxide 26 22 - 29 mmol/L [facility] Anion Gap 12 12 - 20 [facility] Urea Nitrogen (BUN) 8(L) 9 - 16 mg/dL [facility] Creatinine, Serum 0.71 0.5 - 1.4 mg/dL [facility] Estimated Glomerular Filt Rate >60 [facility] Comment:NOTE: For -Am erican individuals, multiply the result by 1.210.Chronic Kidney Disease: Estimated GFR < 60 mL/min/1.62u0Udaizf Kidney Disease: Estimated GFR < 15 mL/min/1.73m2 Glucose 83 60 - 115 mg/dL [facility] Calcium 9.9 8.4 - 10.2 mg/dL [facility] Blood Venous blood specimen / Unknown 12/14/2023 2:16 PM EDT 12/14/2023 4:46 PM EDT us Virgie MADRID LAB BLOOD ORDERABLES Final Res ult [facility] [address] [place] [address] [phone] documented in this encounter Visit Diagnoses Diagnosis Hypokalemia- Primary Hypopotassemia documented in this encounter Additional Health Concerns Assessment Noted Time PHQ-9 Depression Total Score: 6 09/12/19 24 1:31 PM EDT documented as of this encounter Care Teams Metallurgical Tester Relationship Specialty Start Date End Date Virgie Cartagena FNP [address] [place] [address] PCP - General Family Medicine 12/15/21 documented as of this encounter
--- OUTSIDE RECORDS SUMMARY | 2024-09-11 09:48 | XMS_ITS | Encounter Summary ---
Author Organization [employer] Address [address] [facility] 7t [place] [address] Care Team Providers Care Ramp Jockey Name Role Phone Virgie Cartagena DESK PEN SET ASSEMBLER Primary Care Provider [phone] Encounter Details Date Type Department Care Team ([facility] st Contact Info) Description 09/07/2024 Telephone [facility] [address] [place] [address] Nasim, Elma, OD [address] [place] [address] Social History Tobacco Use Types Packs/Day Years [...] documented as of this encounter Care Teams Ramp Jockey Relationship Specialty Start Date End Date Virgie Cartagena FNP [address] [place] [address] PCP - General Family Medicine 12/15/21 documented as of this encounter
--- OUTSIDE RECORDS SUMMARY | 2024-09-11 09:48 | XMS_ITS | Encounter Summary ---
Author Organization [employer] Address [address] [place] [address] 7t [place] [address] Care Team Providers Care Manager Body Name Role Phone Virgie Cartagena JULIUS Primary Care Provider [phone] Encounter Details Date Type Department Care Team (Late st Contact Info) Description 08/31/2022 Abstract [facility] ADULT DENTAL [address] [place] [address] Gonsalo Staffordaris [address] [place] [address] Social History Tobacco Use Types Packs/Day Years [...] as of this encounter Care Teams Manager Body Relationship Specialty Start Date End Date Virgie Cartagena FNP [address] [place] [address] PCP - General Family Medicine 12/15/21 documented as of this encounter
--- OUTSIDE RECORDS SUMMARY | 2024-09-11 09:48 | XMS_ITS | Encounter Summary ---
Author Organization [employer] Address [address] [place] [address] 7t [place] [address] Care Team Providers Care School Bus Inspector Name Role Phone Virgie Cartagena JULIUS Primary Care Provider [phone] Encounter Details Date Type Department Care Team (Late st Contact Info) Description 09/02/2022 Abstract [facility] ADULT DENTAL [address] [place] [address] Tyrone Rangel DDS [address] [place] [address] Social History Tobacco Use Types Packs/Day Years [...] documented as of this encounter Care Teams School Bus Inspector Relationship Specialty Start Date End Date Virgie Cartagena FNP [address] [place] [address] PCP - General Family Medicine 12/15/21 documented as of this encounter
--- OUTSIDE RECORDS SUMMARY | 2024-09-11 09:48 | XMS_ITS | Encounter Summary ---
Author Organization [employer] Address [address] [place] [address] 7 [place] [address] Care Team Providers Care Fence Installer Name Role Phone Virgie Cartagena Primary Care Provider [phone] Reason for Visit * Reason Comments Med Refill Encounter Details Date Type Department Care Team (Late st Contact Info) Description 05/20/2022 Refill [facility] MEDICINE [address] [place], [place] [phone] Virgie Bryant FNP Social History Tobacco Use [...] on filedocumented in this encounter Care Teams Fence Installer Relationship Specialty Start Date End Date Virgie Cartagena FNP [address] [place], [place] [phone] PCP - General Family Medicine 12/15/21 documented as of this encounter
--- OUTSIDE RECORDS SUMMARY | 2024-09-11 09:48 | XMS_ITS | Encounter Summary ---
Author Organization [employer] Address [address] [place] [address] 7t [place] [address] Care Team Providers Care Installer Metal Flooring Name Role Phone Virgie Cartagena Primary Care Provider [phone] Reason for Visit * Reason Comments Med Refill Encounter Details Date Type Department Care Team ([facility] st Contact Info) Description 03/30/2023 Refill [facility] CHC MED & PEDS [address] [place], [place] [phone] Virgie Cartagena FNP [address] [place] [address] Neck pain Social History Tobacco Use Types [...] documented as of this encounter Care Teams Installer Metal Flooring Relationship Specialty Start Date End Date Virgie Cartagena FNP [address] [place] [address] PCP - General Family Medicine 12/15/21 documented as of this encounter
--- OUTSIDE RECORDS SUMMARY | 2024-09-11 09:48 | XMS_ITS | Encounter Summary ---
Author Organization [employer] Address [address] [place] [address] 7t [place] [address] Care Team Providers Care Factory Manager Name Role Phone Virgie Cartagena Primary Care Provider [phone] Reason for Visit * Reason Comments Med Refill Encounter Details Date Type Department Care Team ([facility] st Contact Info) Description 03/25/2023 Refill [facility] CHC MED & PEDS [address] [place], [place] [phone] Virgie Cartagena FNP [address] [place] [address] Neck pain Social History Tobacco Use Types [...] documented as of this encounter Care Teams Factory Manager Relationship Specialty Start Date End Date Virgie Cartagena FNP [address] [place] [address] PCP - General Family Medicine 12/15/21 documented as of this encounter
--- OUTSIDE RECORDS SUMMARY | 2024-09-11 09:48 | XMS_ITS | Clinical Summary ---
Author Organization [employer] Address [address] [facility] 7t [place] [address] Care Team Providers Care Latent Fingerprint Examiner Name Role Phone Virgie Cartagena JULIUS Primary Care Provider Allergies No known active [...] Cervical radiculopathy 09/29/2022 Overview (09/12/2023): Followed by [facility] Pain Management Intralaminar epidural [...] placed 05/16/24, reordered 06/27/2024 OPH: referral to [facility] Eye Care placed 05/16/24 Dental calculus 08/03/2022 [...] She has an orthopedic surgery appointment at [facility] on July 28 at [...] as pharmacomtherapy, [facility] smoking cessation group, and [facility] pharmacy smoking cessation clinic Assessment & Plan (06/11/2024 5:31 PM EST): Smoking 5 cigg/day Encouraged smoking cessation resources such as pharmacomtherapy, [facility] smoking cessation group, and [facility] pharmacy smoking cessation clinic Assessment & Plan (02/23/2024 6:03 PM EDT): Smoking 5 cigg/day Encouraged smoking cessation resources such as pharmacomtherapy, [facility] smoking cessation group, and [facility] pharmacy smoking cessation clinic Assessment & Plan (02/04/2023 2:59 PM EDT): ?? Smoking 5 cigg/day Vitamin D deficiency 02/12/2015 Resolved Problems Problem Noted Date Diagnosed Date Resolved Date COVID 04/23/2022 07/29/2022 Encounters * This document contains information received from the source organization and may not represent a complete record from that organization. Date Type Department Care Team Description 09/07/2024 Telephone [facility] OPTOMETRY [address] [place] [address] NasimCompa parksn, OD 09/06/2024 Telephone [facility] MEDICINE [address] [place], [place] [phone] Virgie Cartagena FNP May recall 08/09/2024 Refill [facility] CHC MED & PEDS [address] [place], [place] [phone] Virgie Cartagena FNP Essential hypertension 08/01/2024 Orders Only GENERIC EXTERNAL DATA DEPARTMENT Provider, Generic External Data 07/06/2024 Population Health Risk Score [facility] Department [address] [phone] Provider, Population Health Generic 06/27/2024 10:15 AM EST Office Visit [facility] MEDICINE [address] [place] [address] Virgie Cartagena FNP Cervical radiculopathy (Primary Dx); Screening for colon cancer; Essential hypertension; Tobacco dependence syndrome; Routine health maintenance 06/27/2024 Travel 06/18/2024 Telephone [facility] MEDICINE [address] [place] [address] Virgie Cartagena FNP ER Follow-up 06/14/2024 Orders [...] AM EDT) Metanephrine, Free <25 <=57 pg/mL [facility] Comment:This test was develo ped and its analytical performancecharacteristics have been determined by [employer] [place], [place]. It hasnot been cleared or approved by the U.S. Food and DrugAdministration. This assay has been validated pursuantto the CLIA regulations and is used for clinicalpurposes. Normetanephrine, Free 72 <=148 pg/mL [facility] Comment:This test was develo ped and its analytical performancecharacteristics have been determined by [employer] [place], [place]. It hasnot been cleared or approved by the U.S. Food and DrugAdministration. This assay has been validated pursuantto the CLIA regulations and is used for clinicalpurposes. Total, Free (MN+NMN) 72 <=205 pg/mL [facility] Comment: For additional information, please refer tohttp://education.[employer].Appirio/faq/MetFractFree(This link is being provided for informational/educatioinformational/educational purposes [...] its analytical performancecharacteristics have been determined by [employer] [place], [place]. It hasnot been cleared or approved by the U.S. Food and DrugAdministration. This assay has been validated pursuantto the CLIA regulations and is used for clinicalpurposes.THIS TEST WAS PERFORMED AT:[employer] [place], [place] ??[phone] MAYEN MD,PHD 08/01/2024 10:0 4 AM EDT 08/01/2024 10:04 AM EDT us Generic External Data Provider LAB BLOOD ORDERAB LES Final Result [facility] [address] [place] [phone] * Cortisol Random (08/01/2024 10:04 AM EDT) Cortisol Random 14.6 ug/dL [facility] Comment:Reference Range*: Be fore 10 am 6.2-19.4 ug/dL After 5 pm 2.3-11.9 ug/dL*Please interpret above results accordingly.This test was performed using the [employer]_ [employer] chemiluminescentmethod. Values obtained from different assay methods cannotbe used interchangeably.Patients receiving fludrocortisone, prednisolone orprednisone may show artificially elevated cortisol valuesdue to cross-reactivity. 08/01/2024 10:0 4 AM EDT 08/01/2024 10:04 AM EDT us Generic External Data Provider LAB BLOOD ORDERAB LES Final Result Performing Organization Address [facility]/ZIP Co de Phone Number [facility] [address] [place] [phone] * TSH with Reflex to Free T4 (08/01/2024 10:04 AM EDT) TSH reflex Free T4 1.17 0.32 - 4.0 uIU/mL [facility] 08/01/2024 10:0 4 AM EDT 08/01/2024 10:04 AM EDT us Generic External Data Provider LAB BLOOD ORDERAB LES Final Result Performing Organization Address [facility] Co de Phone Number [facility] [address] [place] [phone] * Aldosterone/Plasma Renin Activity Ratio, LC/MS/MS (08/01/2024 10:04 AM EDT) Aldosterone 13 see note ng/dL [facility] Comment:Unable to flag abnor mal result(s), please refer to reference range(s) below:Adult Reference Ranges for Aldosterone, LC/MS/MS: Upright 8:00 - 10:00 am < or = 28 ng/dL Upright 4:00 - 6:00 pm < or = 21 ng/dL Supine 8:00 - 10:00 am 3 - 16 ng/dLTHIS TEST WAS PERFORMED AT:[employer] [place] [address]IEUEPHPRICCO MAYEN MD,PHD Plasma Renin Activity 4.32 0.25 - 5.82 ng/mL/h [facility] Aldosterone/Renin Ratio 3.0 0.9 - 28.9 Ratio [facility] Comment:This test was develo ped and its analytical performancecharacteristics have been determined by [employer] [place], [place]. It hasnot been cleared or approved by the U.S. Food and DrugAdministration. This assay has been validated pursuantto the CLIA regulations and is used for clinicalpurposes.THIS TEST WAS PERFORMED AT:[employer] [place] [address]NJDHOGYRICCO MAYEN MD,PHD 08/01/2024 10:0 4 AM EDT 08/01/2024 10:04 AM EDT us Generic External Data Provider LAB BLOOD ORDERAB LES Final Result [facility] [address] [place] [phone] * (ABNORMAL) Basic Metabolic Panel (08/01/2024 10:04 AM EDT) Only the most recent of2 resultswithin the time period is included. Sodium 138 135 - 145 mmol/L [facility] Potassium 3.7 3.3 - 5.1 mmol/L [facility] Chloride 105 96 - 108 mmol/L [facility] Carbon Dioxide 24 22 - 29 mmol/L [facility] Anion Gap 13 12 - 20 [facility] Urea Nitrogen (BUN) 7(L) 9 - 16 mg/dL [facility] Creatinine, Serum 0.75 0.5 - 1.4 mg/dL [facility] Estimated Glomerular Filt Rate >60 [facility] Comment:Chronic Kidney Disea se: Estimated GFR < 60 mL/min/1.75x4Xjmfid Kidney Disease: Estimated GFR < 15 mL/min/1.73m2 Glucose 97 60 - 115 mg/dL [facility] Calcium 10.0 8.4 - 10.2 mg/dL [facility] 08/01/2024 10:0 4 AM EDT 08/01/2024 10:04 AM EDT us Generic External Data Provider LAB BLOOD ORDERAB LES Final Result [facility] [address] [place] [phone] * XR CERVICAL SPINE 3V (06/14/2024 1:52 PM EST) Anatomical Region Laterality Modality Abdomen Radiographic Eileen ging 06/14/2024 1:52 PM EST Narrative 06/14/2024 2:30 PM EST ? [facility] ?[address] ?[place] [address] ?XRay Report ? Signed ? Patient: Shannan,Christy A ?MR#: [id number] ?? 25 ? : 1980 ?Acct:[id number] ? Age/Sex: 44 / F ?ADM Date: 06/14/24 ? Loc: HO.ED ? Attending Dr: ? Ordering Physician: Amari Melendez MD ?? Date of Service: 06/14/24 ?? Procedure(s): XR cervical spine 3V ?? Accession Number(s): [id number] ? cc: Amari Melendez MD; Virgie Cartagena [...] DD/ 1352 ? TD/TT: 06/14/24 1420 ? Hand I Tube Bender: ? Procedure Note Hans, Image - 06/14/[address] [address] XRay Report Signed Patient: Christy Campbell AMR#: [id number] [birth year] : 1980Acct:[id number] Age/Sex: 44 / FADM Date: 06/14/24 Loc: HO.ED Attending Dr: Ordering Physician: Amari Melendez MD Date of Service: 06/14/24 Procedure(s): XR cervical spine 3V Accession Number(s): [id number] cc: Amari Melendez MD; Virgie Cartagena PAINT ROLLER ASSEMBLER EXAMINATION: XR CERVICAL SPINE CLINICAL INFORMATION: Neck [...] by: Rigoberto Ledbetter MD 06/14/2024 02:27 PM [facility] Dictated By: Rigoberto Ledbetter MD Signed By: <Electronically signed by Rigoberto Ledbetter MD in OV> 06/14/24 1427 DD/ 1352 TD/TT: 06/14/24 1420 Hand I Tube Bender: [facility] External Provider IMG XR PROCEDURES Final Result * High Sensitivity Troponin I (06/14/2024 10:29 AM EST) Pathologist [facility] TROPONIN I HIGH SENSITIVITY <2.7 <3.5 - 17.0 ng/L [facility] Comment:The Gillespie high sens itivity Troponin-I results should beused in conjunction with other diagnostic information suchas ECG, clinical observations and information, and patientsymptoms to aid in the diagnosis of [place]. 06/14/2024 10:2 9 AM EST 06/14/2024 10:32 AM EST us Generic External Data Provider LAB BLOOD ORDERAB LES Final Result [facility] [address] [place] [phone] * (ABNORMAL) CBC auto differential (06/14/2024 10:29 AM EST) [facility] [address] [place] Blood Count 8.1 4.8 - 10.8 X10*3/uL [facility] Red Blood Count 4.33 4.20 - 5.50 X10*6/uL [facility] Hemoglobin 12.8 12.0 - 16.0 g/dl [facility] Hematocrit 37.4 37.0 - 47.0 % [facility] Mean Corpuscular Volume 86.4 80.0 - 98.0 fL [facility] Mean Corpuscular Hemoglobin 29.6 27.0 - 33.0 pg [facility] Mean Corpuscular HGB Conc 34.2 31.0 - 35.0 g/dl [facility] Red Cell Distribution Width 14.3 11.0 - 16.0 % [facility] Platelet Count 319 160 - 400 X10*3/uL [facility] Mean Platelet Volume 8.5(L) 9.4 - 12.3 fL [facility] Neutrophils Percent Auto 64.7 45 - 73 % [facility] Imm Gran Pct Auto 0.2 0.0 - 0.4 % [facility] Lymphocytes Percent Auto 24.2 20 - 40 % [facility] Monocytes Percent Auto 6.8 2 - 11 % [facility] Eosinophils Percent Auto 3.6 0 - 4 % [facility] Basophils Percent Auto 0.5 0 - 2 % [facility] NRBC Pct Auto 0.0 0.0 - 0.2 /100WBC [facility] Neutrophils Absolute Auto 5.2 2.0 - 8.3 x10*3/uL [facility] Imm Gran Abs Auto 0.02 0.00 - 0.03 X10*3/uL [facility] Lymphocytes Absolute Auto 2.0 1.2 - 4.9 X10*3/uL [facility] Monocytes Absolute Auto 0.6 0.1 - 1.2 X10*3/uL [facility] Eosinophils Absolute Auto 0.3 0.0 - 0.4 X10*3/uL [facility] Basophils Absolute Auto 0.0 0.0 - 0.2 X10*3/uL [facility] NRBC Abs Auto 0.000 0.0 - 0.012 X10*3/uL [facility] 06/14/2024 10:2 9 AM EST 06/14/2024 10:32 AM EST us Generic External Data Provider LAB BLOOD ORDERAB LES Final Result [facility] [address] [place] [phone] * (ABNORMAL) Hemoglobin A1c (02/15/2024 12:20 PM EDT) Hemoglobin A1c 6.1(H) <6.0 % [facility] Comment:Hemoglobin A1C Refer ence Range Adults: 4.8 - 6.0 % Non diabetic: < 6.0 % Goal: < 7.0 %Additional Action Suggested: > 8.0 %Note: Hemoglobin A1c results are invalid for patients with abnormal amounts of HbF. Blood transfusions may impact the HbA1c concentration in the patient sample. Estimated Average Glucose 128 mg/dL [facility] Comment:eAG = Estimated ave rage glucose which is %A1C expressed asaverage glucose, using the formula of the W9P-LhwqbnyHoqcpas Glucose study (ADAG), Diabetes Care, Vol.31,#8,Aug. 2008 Blood Venous blood specimen / Unknown 02/15/2024 12:20 PM EDT 02/15/2024 1:24 PM EDT us Virgie Cartagena PAINT ROLLER ASSEMBLER LAB BLOOD ORDERABLES Final Res ult [facility] [address] [place] [phone] * BI Mammogram Screening Tomosynthesis Bilateral (10/10/2023 4:31 PM EDT) Anatomical Region Laterality Modality Breast Bilateral Mammography 10/10/2023 4:31 PM EDT Narrative 11/09/2023 7:12 AM EDT ? [facility] [place] ? [address] ?[place] [address] ? Mammography Report ? Signed ? Patient: [facility],Christy A ?MR#: [id number] ?? 25 ? : 1980 ?Acct:[id number] ? Age/Sex: 43 / F ?ADM Date: //24 ? Loc: HO.MAMMO ? Attending Dr: Virgie Cartagena PAINT ROLLER ASSEMBLER ? Ordering Physician: Osiel,Virgie PAINT ROLLER ASSEMBLER ?Results: 1Negat ?? kelsi ? Date of Service: 10/09/24 ?Follow Up: 1 Year From Orig ?? inal Mammogram ? Procedure(s): MM tomosynthesis screening BI ?? Accession Number(s): [id number] ? cc: Osiel,Virgie PAINT ROLLER ASSEMBLER ? EXAMINATION: ?? MM SCREENING DIGITAL BREAST [...] 0707 ? DD/ 1631 ? TD/TT: ? Hand I Tube Bender: ? Procedure Note Harjit Maxwell - 11/09/2023 [facility] [address] [place] [address] Dr. [place], [place] [address] Mammography Report Signed Patient: Christy Campbell AMR#: [id number] 25 : 1980Acct:[id number] Age/Sex: 43 / FADM Date: 10/10/23 Loc: HO.MAMMO Attending Dr: Virgie Cartagena PAINT ROLLER ASSEMBLER Ordering Physician: Virgie CartagenaPResults: 1Negat kelsi Date of Service: 10/10/23Follow Up: 1 Year From Orig inal Mammogram Procedure(s): MM tomosynthesis screening BI Accession Number(s): [id number] cc: Virgie Cartagena EXAMINATION: MM SCREENING DIGITAL [...] in OV> 11/09/23 0707 DD/ 1631 TD/TT: Hand I Tube Bender: Virgie MADRID IMG BI PROCEDURES Final Result * Image-Guided Pap with Age-Based Screening Protocols (08/23/2022 11:08 AM EDT) Comment [facility] Comment: This order for age-based cervical cancer and STI screening follows ACOG guidelines(PB 168, 140, GTZ800). See individual assays for performing site location. Clinical Information: None given [facility] [employer] LMP: NONE GIVEN [facility] Prev. PAP: NONE GIVEN [facility] Prev. BX: NONE GIVEN [facility] SOURCE: None given [facility] [place] [employer] Statement Of Adequacy: [employer] [place] [employer] Comment: Satisfactory for evaluation. Endocervical/transformation zone component present. Interpretation/ Result: Negative for intraepithelial lesion or malignancy. [employer] [place] [employer] COMMENT: This Pap test has been evaluated with computer assisted technology. [employer] [place] [employer] Cytotechnologis t: [employer] [place] [employer] Comment: KR, CT(ASCP) CT screening location: [address] ??[address] Review Cytotechnologis t: [employer] [place] [employer] Comment: ALS, CT(ASCP) CT screening location: [address] ??[address] (Always Message) [employer] [place] [employer] Comment: EXPLANATORY NOTE: The Pap is a [...] HPV nRNA E6/E7 Not Detected Not Detected [employer] Comment: Methodology: Production Hardener-Mediated Amplification This assay detects E6/E7 viral messenger RNA (mRNA) from 14 high-risk HPV types (16,18,31,33,35,39,45,51,52,56,58,59,66,68). Cervical sources are required for HPV testing. If a vaginal source from a patient who has had a total hysterectomy with removal of cervix was submitted, please contact the testing laboratory for alternative testing options. For additional information, please refer to http://education.[employer].Appirio/faq/GGH948z3 (This link if provided for information/ educational purposes only.) Pap Vial 08/23/2022 11:0 8 AM EDT 08/24/2022 7:37 AM EDT us Madhavi NICOLE LAB BLOOD ORDERABLES Nurys l Result [facility] [address], [place] [address] [employer] [facility] [address] [place] [address] * Hepatitis C Antibody (01/19/2021 9:39 PM EDT) Hepatitis C Antibody Nonreactive Blood 01/19/2021 9:3 9 PM EDT Historical Provider MD POINT OF CARE TEST ENTER/ EDIT ORDERABLES Final Result * HIV 1/2 ANTIGEN/ANTIBODY,FOURTH GENERATION W/RFL (01/19/2021 3:09 PM EDT) HIV-1/2 ANTIGEN AND ANTIBODIES, 4TH GENERATION W/ REFLEX NON-REACT KELSI NON-REACT KELSI [facility] Comment: HIV-1 antigen and [...] ? For additional information please refer to http://education.[employer]/faq/IAW046 (This link is being provided for informational/ educational purposes only.) ? The performance of this assay has not been clinically validated in patients less than 2 years old. ?? 01/19/2021 3:09 PM EDT Shaina Ramos [facility] LAB BLOOD ORDERABLES Final Res ult [facility] [address] * (ABNORMAL) LIPID PANEL, STANDARD (09/17/2020 [...] ?? Onofre DUMONT et al. SAVANNAH. 2013;310(19): 9305-5386 ?? (http://ShareGrove.Stylewhile/faq/WDT134) Non-HDL Cholesterol 208(H) <130 mg/dL (calc) [facility] [...] Resu lt [facility] [address] from Last 3 Months or Most Recently Relevant to Health Maintenance Insurance [employer] [place] AD[place] Care Teams Latent Fingerprint Examiner Relationship Specialty Start Date End Date Virgie Cartagena FNP [address] [place] [address] PCP - General Family Medicine 12/15/21
[2024-09-11 09:49] VITALS: BP 108/64; PULSE 70; RESP 16; O2SAT 99
== END 2024-09-11 09:58 | disposition home or self-care (01) ==
LOC: HO.PMCPRC 09:07
PROVIDERS: PCP Registered Nurse; Visit Provider Anesthesiology
DX: M54.12 Radiculopathy, cervical region (principal); M47.812 Spondylosis without myelopathy or radiculopathy, cervical region; M50.30 Other cervical disc degeneration, unspecified cervical region
CPT/HCPCS: 62321

== ENCOUNTER 2024-09-13 09:06 | Outpatient (REF) | payer MEDICAID, SELFPAY ==
--- NOTE | ~2024-09-13 | US_ITS ---
CLINICAL HISTORY: HTN US renal duplex ultrasound Comparison: None Technique: Real time duplex ultrasound imaging was performed by the torpedo specialist. Multiple telephone service representative static images were saved for review. Findings: Aorta: Normal waveform, 84.6 cm/s. Right kidney: Normal size and echotexture, 10.4 cm length. Main renal artery peak systolic velocities: Proximal: 125.0 cm/s Mid: 107.0 cm/s Distal: 72.2 cm/sec Segmental resistive index: Upper pole 0.66, midpole 0.67 and lower pole 0.72 RAR: 1.47 Right renal vein is patent Left kidney: Normal size and echotexture, 10.3 cm length. Main renal artery peak systolic velocities: Proximal: 77.4 cm/s Mid: 116.0 cm/s Distal: 73.7 cm/s Segmental resistive index: Upper pole 0.67, midpole 0.67, lower pole 0.62 RAR: 1.37 Left renal vein is patent Impression: 1. Normal renal artery duplex This document has been electronically signed by: Gerardo Aguilar MD on 09/13/2024 12:58:47
--- NOTE | ~2024-09-13 | US_ITS ---
CLINICAL HISTORY: HTN US renal duplex ultrasound Comparison: None Technique: Real time duplex ultrasound imaging was performed by the life coach. Multiple inside sales representative static images were saved for review. Findings: Aorta: Normal waveform, 84.6 cm/s. Right kidney: Normal size and echotexture, 10.4 cm length. Main renal artery peak systolic velocities: Proximal: 125.0 cm/s Mid: 107.0 cm/s Distal: 72.2 cm/sec Segmental resistive index: Upper pole 0.66, midpole 0.67 and lower pole 0.72 RAR: 1.47 Right renal vein is patent Left kidney: Normal size and echotexture, 10.3 cm length. Main renal artery peak systolic velocities: Proximal: 77.4 cm/s Mid: 116.0 cm/s Distal: 73.7 cm/s Segmental resistive index: Upper pole 0.67, midpole 0.67, lower pole 0.62 RAR: 1.37 Left renal vein is patent Impression: 1. Normal renal artery duplex This document has been electronically signed by: Gerardo Aguilar MD on 09/13/2024 12:58:47
--- OUTSIDE RECORDS SUMMARY | 2024-09-13 09:21 | XMS_ITS | Encounter Summary ---
Author Organization [employer] Address [address] [place] [address] [address] [place] [address] Care Team Providers Care Lumber Handler Name Role Phone Virgie Cartagena SENIOR HARDWARE DESIGN ENGINEER Primary Care Provider [phone] Encounter Details Date Type Department Care Team (Late Contact Info) Description 08/31/2022 Abstract [facility] ADULT DENTAL [address] [place] [address] NydiaEsthela [address] [place] [address] Social History Tobacco Use Types Packs/Day Years [...] Department Care Team (Late Contact Info) Description 01/30/2025 10:00 AM EDT Office Visit [facility] OPTOMETRY [address] [place] [address] Elma Rouse OD [address] [place] [address] 03/26/2025 8:00 AM EST Office Visit [facility] ADULT DENTAL [address] [place] [address] Veronica Mortensen documented as of this encounter Visit Diagnoses Not on filedocumented in this encounter Additional Health Concerns Assessment Noted Time PHQ-9 Depression Total Score: 7 08/31/19 23 11:48 AM EDT documented as of this encounter Care Teams Lumber Handler Relationship Specialty Start Date End Date Virgie Cartagena FNP [address] [place] [address] PCP - General Family Medicine 12/15/21 documented as of this encounter
--- OUTSIDE RECORDS SUMMARY | 2024-09-13 09:21 | XMS_ITS | Clinical Summary ---
Author Organization [employer] Address [address] [facility] 7t [place] [address] Care Team Providers Care Supervisor Histology Name Role Phone Virgie Cartagena JULIUS Primary Care Provider [phone] Allergies No known active allergies Medications * [...] Cervical radiculopathy 09/29/2022 Overview (09/12/2023): Followed by [facility] Pain Management Intralaminar epidural steroid injection 1 [...] placed 05/16/24, reordered 06/27/2024 OPH: referral to [facility] Eye Care placed 05/16/24 Dental [...] She has an orthopedic surgery appointment at [facility] on July 28 at 1400. Assessment & [...] as pharmacomtherapy, [facility] smoking cessation group, and [facility] pharmacy smoking cessation clinic Assessment & Plan (06/11/2024 5:31 PM EST): Smoking 5 cigg/day Encouraged smoking cessation resources such as pharmacomtherapy, [facility] smoking cessation group, and [facility] pharmacy smoking cessation clinic Assessment & Plan (02/23/2024 6:03 PM EDT): Smoking 5 cigg/day Encouraged smoking cessation resources such as pharmacomtherapy, [facility] smoking cessation group, and [facility] pharmacy smoking cessation clinic Assessment & Plan (02/04/2023 2:59 PM EDT): ?? Smoking 5 cigg/day Vitamin D deficiency 02/12/2015 Resolved Problems Problem Noted Date Diagnosed Date Resolved Date COVID 04/23/2022 07/29/2022 Encounters * This document contains information received from the source organization and may not represent a complete record from that organization. Date Type Department Care Team Description 09/12/2024 Telephone [facility] MEDICINE [address] [place] [address] Virgie Cartagena FNP Appointment Request 09/07/2024 Telephone [facility] OPTOMETRY [address] [place] [address] NasimElma parks, OD 09/06/2024 Telephone [facility] MEDICINE [address] [place] [address] Virgie Cartagena FNP May recall 08/09/2024 Refill [facility] CHC MED & PEDS [address] [place], [place] [phone] Virgie Cartagena FNP Essential hypertension 08/01/2024 Orders Only GENERIC EXTERNAL DATA DEPARTMENT Provider, Generic External Data 07/06/2024 Population Health Risk Score [facility] (C3) Department [address] [place] [phone] Provider, Population Health Generic 06/27/2024 10:15 AM EST Office Visit [facility] MEDICINE [address] [place] [address] Virgie Cartagena FNP Cervical radiculopathy (Primary Dx); Screening for colon cancer; Essential hypertension; Tobacco dependence syndrome; Routine health maintenance 06/27/2024 Travel 06/18/2024 Telephone [facility] MEDICINE [address], [place] [phone] Virgie Cartagena FNP ER Follow-up from Last 3 Months Immunizations Immunization Administration [...] Care Team (Late st Contact Info) Description 01/30/2025 10:00 AM EDT Office Visit [facility] OPTOMETRY [address] [place] [address] Elma Rouse, OD [address] [place] [address] 03/26/2025 8:00 AM EST Office Visit [facility] ADULT DENTAL [address] [place] [address] Veronica Mortensen Health Maintenance Due Date Last Done Comments [...] Smear 08/23/2025 08/23/2022 Lipid Panel 09/17/2025 09/17/2020, 0204/2020, 11/15/2019 Cervical Cancer Screening 08/24/2027 HPV/Cotest 08/24/2027 [...] this topic Meningococcal Vaccine Aged Out No magraret preston eligible based on patient's age to [...] METABOLIC PANEL Routine 08/01/2024 10:04 AM EDT HEMOGLOBIN A1C Routine 02/15/2024 12:20 PM EDT [...] AM EDT) Metanephrine, Free <25 <=57 pg/mL [facility] Comment:This test was develo ped and its analytical performancecharacteristics have been determined by .[employer] [place], [place]. It hasnot been cleared or approved by the U.S. Food and DrugAdministration. This assay has been validated pursuantto the CLIA regulations and is used for clinicalpurposes. Normetanephrine, Free 72 <=148 pg/mL [facility] Comment:This test was develo ped and its analytical performancecharacteristics have been determined by .[employer] [place], [place]. It hasnot been cleared or approved by the U.S. Food and DrugAdministration. This assay has been validated pursuantto the CLIA regulations and is used for clinicalpurposes. Total, Free (MN+NMN) 72 <=205 pg/mL [facility] Comment: For additional information, please refer tohttp://education.SLEDVision.Synapse Wireless/faq/MetFractFree(This link is being provided for informational/educatioinformational/educational purposes [...] its analytical performancecharacteristics have been determined by [employer] [place], [place]. It hasnot been cleared or approved by the U.S. Food and DrugAdministration. This assay has been validated pursuantto the CLIA regulations and is used for clinicalpurposes.THIS TEST WAS PERFORMED AT:[employer] [place], [place] ??[address]VPVHUGR W. MASON,MD,PHD 08/01/2024 10:0 4 AM EDT 08/01/2024 10:04 AM EDT us Generic External Data Provider LAB BLOOD ORDERAB LES Final Result [facility] [address] [place] [phone] * Cortisol Random (08/01/2024 10:04 AM EDT) Cortisol Random 14.6 ug/dL [facility] Comment:Reference Range*: Be fore 10 am 6.2-19.4 ug/dL After 5 pm 2.3-11.9 ug/dL*Please interpret above results accordingly.This test was performed using the [employer] chemiluminescentmethod. Values obtained from different assay methods cannotbe used interchangeably.Patients receiving fludrocortisone, prednisolone orprednisone may show artificially elevated cortisol valuesdue to cross-reactivity. 08/01/2024 10:0 4 AM EDT 08/01/2024 10:04 AM EDT Generic External Data Provider LAB BLOOD ORDERAB LES Final Result Performing Organization Address [facility]/ZIP Co de Phone Number [facility] [address] [place] [phone] * TSH with Reflex to Free T4 (08/01/2024 10:04 AM EDT) TSH reflex Free T4 1.17 0.32 - 4.0 uIU/mL [facility] 08/01/2024 10:0 4 AM EDT 08/01/2024 10:04 AM EDT Generic External Data Provider LAB BLOOD ORDERAB LES Final Result Performing Organization Address [facility] Co de Phone Number [facility] [address] [place] [phone] * Aldosterone/Plasma Renin Activity Ratio, LC/MS/MS (08/01/2024 10:04 AM EDT) Aldosterone 13 see note ng/dL [facility] Comment:Unable to flag abnor mal result(s), please refer to reference range(s) below:Adult Reference Ranges for Aldosterone, LC/MS/MS: Upright 8:00 - 10:00 am < or = 28 ng/dL Upright 4:00 - 6:00 pm < or = 21 ng/dL Supine 8:00 - 10:00 am 3 - 16 ng/dLTHIS TEST WAS PERFORMED AT:[employer]/[facility] [place] [address]MUDWTMCRICCO MAYEN MD,PHD Plasma Renin Activity 4.32 0.25 - 5.82 ng/mL/h [facility] Aldosterone/Renin Ratio 3.0 0.9 - 28.9 Ratio [facility] Comment:This test was develo ped and its analytical performancecharacteristics have been determined by [employer] [place], [place]. It hasnot been cleared or approved by the U.S. Food and DrugAdministration. This assay has been validated pursuantto the CLIA regulations and is used for clinicalpurposes.THIS TEST WAS PERFORMED AT:[employer] [place] [address]SUZEFGERICCO MAYEN MD,PHD 08/01/2024 10:0 4 AM EDT 08/01/2024 10:04 AM EDT us Generic External Data Provider LAB BLOOD ORDERAB LES Final Result [facility] [address] [place] [phone] * (ABNORMAL) Basic Metabolic Panel (08/01/2024 10:04 AM EDT) Sodium 138 135 - 145 mmol/L [facility] Potassium 3.7 3.3 - 5.1 mmol/L [facility] Chloride 105 96 - 108 mmol/L [facility] Carbon Dioxide 24 22 - 29 mmol/L [facility] Anion Gap 13 12 - 20 [facility] Urea Nitrogen (BUN) 7(L) 9 - 16 mg/dL [facility] Creatinine, Serum 0.75 0.5 - 1.4 mg/dL [facility] Estimated Glomerular Filt Rate >60 [facility] Comment:Chronic Kidney Disea se: Estimated GFR < 60 mL/min/1.42m7Unepuj Kidney Disease: Estimated GFR < 15 mL/min/1.73m2 Glucose 97 60 - 115 mg/dL [facility] Calcium 10.0 8.4 - 10.2 mg/dL [facility] 08/01/2024 10:0 4 AM EDT 08/01/2024 10:04 AM EDT us Generic External Data Provider LAB BLOOD ORDERAB LES Final Result Performing Organization Address [facility] de Phone Number [facility] [address] [place] [address] [phone] * (ABNORMAL) Hemoglobin A1c (02/15/2024 12:20 PM EDT) Hemoglobin A1c 6.1(H) <6.0 % [facility] Comment:Hemoglobin A1C Refer ence Range Adults: 4.8 - 6.0 % Non diabetic: < 6.0 % Goal: < 7.0 %Additional Action Suggested: > 8.0 %Note: Hemoglobin A1c results are invalid for patients with abnormal amounts of HbF. Blood transfusions may impact the HbA1c concentration in the patient sample. Estimated Average Glucose 128 mg/dL [facility] Comment:eAG = Estimated ave rage glucose which is %A1C expressed asaverage glucose, using the formula of the T0R-JnlwboqSuccoir Glucose study (ADAG), Diabetes Care, Vol.31,#8,Aug. 2007 Blood Venous blood specimen / Unknown 02/15/2024 12:20 PM EDT 02/15/2024 1:24 PM EDT Virgie Cartagena CHAR FILTER TANK TENDER HEAD LAB BLOOD ORDERABLES Final Res ult Performing Organization Address [facility] de Phone Number [facility] [address] [place] [address] [phone] * BI Mammogram Screening Tomosynthesis Bilateral (10/10/2023 4:31 PM EDT) Anatomical Region Laterality Modality Breast Bilateral Mammography 10/10/2023 4:31 PM EDT Narrative 11/09/2023 7:12 AM EDT ? [facility] ? [address] ?[place] [address] ? Mammography Report ? Signed ? Patient: Shannan,Christy A ?MR#: [id number] ?? 25 ? : 1980 ?Acct:[id number] ? Age/Sex: 43 / F ?ADM Date: 06/17/24 ? Loc: HO.MAMMO ? Attending Dr: Virgie Cartagena CHAR FILTER TANK TENDER HEAD ? Ordering Physician: Virgie Cartagena ?Results: 1Negat ?? kelsi ? Date of Service: 10/10/23 ?Follow Up: 1 Year From Orig ?? inal Mammogram ? Procedure(s): MM tomosynthesis screening BI ?? Accession Number(s): [id number] ? cc: Virgie Cartagena CHAR FILTER TANK TENDER HEAD ? EXAMINATION: ?? MM SCREENING DIGITAL BREAST [...] 0707 ? DD/ 1631 ? TD/TT: ? Assistant Public Defender: ? Procedure Note Donfaheemter, Image - [facility] [address] [place], [place] [address] Mammography Report Signed Patient: Christy Campbell AMR#: [id number] 26 : 1980Acct:[id number] Age/Sex: 43 / FADM Date: 10/10/23 Loc: HO.MAMMO Attending Dr: Virgie Cartagena CHAR FILTER TANK TENDER HEAD Ordering Physician: Virgie Cartagena FNPResults: 1Negat kelsi Date of Service: 10/10/23Follow Up: 1 Year From Orig inal Mammogram Procedure(s): MM tomosynthesis screening BI Accession Number(s): [id number] cc: Virgie Cartagena CHAR FILTER TANK TENDER HEAD EXAMINATION: MM SCREENING DIGITAL BREAST TOMOSYNTHESIS, BILATERAL [...] in OV> 11/09/23 0707 DD/ 1631 TD/TT: Assistant Public Defender: Virgie Cartagena CHAR FILTER TANK TENDER HEAD IMG BI PROCEDURES Final Result * Image-Guided Pap with Age-Based Screening Protocols (08/23/2022 11:08 AM EDT) Comment [facility] Comment: This order for age-based cervical cancer and STI screening follows ACOG guidelines(PB 168, 140, IJS178). See individual assays for performing site location. Clinical Information: None given [facility] LMP: NONE GIVEN [facility] Prev. PAP: NONE GIVEN [facility] Prev. BX: NONE GIVEN [facility] SOURCE: None given [facility] Statement Of Adequacy: [facility] Comment: Satisfactory for evaluation. Endocervical/transformation zone component present. Interpretation/ Result: Negative for intraepithelial lesion or malignancy. [facility] COMMENT: This Pap test has been evaluated with computer assisted technology. [facility] Cytotechnologis t: [facility] Comment: KR, CT(ASCP) CT screening location: [address] ??[address] Review Cytotechnologis t: [facility] Comment: ALS, CT(ASCP) CT screening location: [address] ??[address] (Always Message) [facility] Comment: EXPLANATORY NOTE: The Pap is a [...] HPV nRNA E6/E7 Not Detected Not Detected [facility] Comment: Methodology: Metabolic Specialist-Mediated Amplification This assay detects E6/E7 viral messenger RNA (mRNA) from 14 high-risk HPV types (16,18,31,33,35,39,45,51,52,56,58,59,66,68). Cervical sources are required for HPV testing. If a vaginal source from a patient who has had a total hysterectomy with removal of cervix was submitted, please contact the testing laboratory for alternative testing options. For additional information, please refer to http://education.motionID technologies/faq/XHO163s6 (This link if provided for information/ educational purposes only.) Pap Vial 08/23/2022 11:0 8 AM EDT 08/24/2022 7:37 AM EDT Madhavi Powers [facility] LAB BLOOD ORDERABLES Nurys l Result [facility] [address] [place] [address], [place] [address] [facility] [address] [place] [address] * Hepatitis C Antibody (01/19/2021 9:39 PM EDT) Hepatitis C Antibody Nonreactive Blood 01/19/2021 9:39 PM EDT Historical Provider MD POINT OF CARE TEST ENTER/ EDIT ORDERABLES Final Result * HIV 1/2 ANTIGEN/ANTIBODY,FOURTH GENERATION W/RFL (01/19/2021 3:09 PM EDT) HIV-1/2 ANTIGEN AND ANTIBODIES, 4TH GENERATION W/ REFLEX NON-REACT KELSI NON-REACT KELSI [facility] Comment: HIV-1 antigen and HIV-1/HIV-2 [...] ? For additional information please refer to http://[employer] Systems.motionID technologies/faq/ATY461 (This link is being provided for informational/ educational purposes only.) ? The performance of this assay has not been clinically validated in patients less than 2 years old. ?? 01/19/2021 3:09 PM EDT us Shaina Ramos CHAR FILTER TANK TENDER HEAD LAB BLOOD ORDERABLES Final Res ult [facility] [address] * (ABNORMAL) LIPID PANEL, STANDARD (09/17/2020 [...] ?? Onofre DUMONT et al. SAVANNAH. 2013;310(19): 7515-0027 ?? (http://education.Prism Analytical Technologies/faq/SVW703) Non-HDL Cholesterol 208(H) <130 mg/dL (calc) [facility] Comment: For patients with diabetes plus 1 major ASCVD risk ?? factor, treating to a non-HDL-C goal of <100 mg/dL ?? (LDL-C of <70 mg/dL) is considered a therapeutic ?? option. Triglycerides 136 <150 mg/dL [facility] 09/17/2020 1:10 PM EDT us Saba Fishman NP LAB BLOOD ORDERABLES Final Resu lt [facility] [address] from Last 3 Months or Most Recently Relevant to Health Maintenance Insurance [facility] STAND ADULT Care Teams Supervisor Histology Relationship Specialty Start Date End Date Virgie Cartagena FNP [address] [place] [phone] PCP - General Family Medicine 12/15/21
--- OUTSIDE RECORDS SUMMARY | 2024-09-13 09:21 | XMS_ITS | Encounter Summary ---
Author Organization [employer] Address [address] [place] [address] 7t [place] [address] Care Team Providers Care Audit Analyst Name Role Phone Virgie Cartagena Primary Care Provider [phone] Reason for Visit * Reason Comments Med Refill Encounter Details Date Type Department Care Team ([facility] st Contact Info) Description 03/30/2023 Refill [facility] CHC MED & PEDS [address] [place], [place] [phone] Virgie Cartagena FNP [address] [place] [address] Neck pain Social History Tobacco Use Types [...] Description 01/30/2025 10:00 AM EDT Office Visit [facility] OPTOMETRY [address] [place] [address] Nasim, Elma, OD [address] [place] [address] 03/26/2025 8:00 AM EST Office Visit [facility] ADULT DENTAL [address] [place] [address] Veronica Mortensen documented as of this encounter Visit Diagnoses Diagnosis Neck pain Cervicalgia documented in this encounter Additional Health Concerns Assessment Noted Time PHQ-9 Depression Total Score: 7 08/31/19 23 11:48 AM EDT documented as of this encounter Care Teams Audit Analyst Relationship Specialty Start Date End Date Virgie Cartagena FNP [address] [place] [address] PCP - General Family Medicine 12/15/21 documented as of this encounter
--- OUTSIDE RECORDS SUMMARY | 2024-09-13 09:21 | XMS_ITS | Encounter Summary ---
Author Organization [employer] Address [address] [place] [address] 7t [place] [address] Care Team Providers Care Forensic Chemist Name Role Phone Virgie Cartagena JULIUS Primary Care Provider [phone] Encounter Details Date Type Department Care Team ([facility] Contact Info) Description 08/11/2022 Telephone [facility] MEDICINE [address] [place] [address] Mackenzie Us LPN Social History Tobacco Use [...] Description 01/30/2025 10:00 AM EDT Office Visit [facility] OPTOMETRY [address] [place] [address] Nasim, Elma, OD [address] [place] [address] 03/26/2025 8:00 AM EST Office Visit [facility] ADULT DENTAL [address] [place] [address] Veronica Mortensen documented as of this encounter Visit Diagnoses Not on filedocumented in this encounter Care Teams Forensic Chemist Relationship Specialty Start Date End Date Virgie Cartagena FNP [address] [place] [address] PCP - General Family Medicine 12/15/21 documented as of this encounter
--- OUTSIDE RECORDS SUMMARY | 2024-09-13 09:21 | XMS_ITS | Encounter Summary ---
Author Organization [employer] Address [address] [place] [address] 7t [place] [address] Care Team Providers Care Offset Assistant Press Operator Name Role Phone Virgie Cartagena Primary Care Provider [phone] Encounter Details Date Type Department Care Team ([facility] st Contact Info) Description 11/22/2023 Orders Only [facility] CHC MED & PEDS [address] [place], [place] [phone] Virgie Cartagena FNP [address] [place] [address] Hypokalemia (Primary Dx) Social History Tobacco Use [...] Description 01/30/2025 10:00 AM EDT Office Visit [facility] OPTOMETRY [address] [place] [address] Nasim, Elma, OD [address] [place] [address] 03/26/2025 8:00 AM EST Office Visit [facility] ADULT DENTAL [address] [place] [address] Veronica Mortensen documented as of this encounter Procedures Procedure Name Priority Date/Time Associated Diagnosis Comments BASIC METABOLIC PANEL Routine 12/14/2023 2:16 PM EDT Hypokalemia documented in this encounter Results * (ABNORMAL) Basic Metabolic Panel (12/14/2023 2:16 PM EDT) Sodium 141 135 - 145 mmol/L [facility] Potassium 3.9 3.3 - 5.1 mmol/L [facility] Chloride 107 96 - 108 mmol/L [facility] Carbon Dioxide 26 22 - 29 mmol/L [facility] Anion Gap 12 12 - 20 [facility] Urea Nitrogen (BUN) 8(L) 9 - 16 mg/dL [facility] Creatinine, Serum 0.71 0.5 - 1.4 mg/dL [facility] Estimated Glomerular Filt Rate >60 [facility] Comment:NOTE: For -Am erican individuals, multiply the result by 1.210.Chronic Kidney Disease: Estimated GFR < 60 mL/min/1.42x4Hyagsr Kidney Disease: Estimated GFR < 15 mL/min/1.73m2 Glucose 83 60 - 115 mg/dL [facility] Calcium 9.9 8.4 - 10.2 mg/dL [facility] Blood Venous blood specimen / Unknown 12/14/2023 2:16 PM EDT 12/14/2023 4:46 PM EDT us Virgie MADRID LAB BLOOD ORDERABLES Final Res ult [facility] [address] [place] [phone] documented in this encounter Visit Diagnoses Diagnosis Hypokalemia- Primary Hypopotassemia documented in this encounter Additional Health Concerns Assessment Noted Time PHQ-9 Depression Total Score: 6 09/12/19 24 1:31 PM EDT documented as of this encounter Care Teams Offset Assistant Press Operator Relationship Specialty Start Date End Date Virgie Cartagena FNP [address] [place] [address] PCP - General Family Medicine 12/15/21 documented as of this encounter
--- OUTSIDE RECORDS SUMMARY | 2024-09-13 09:21 | XMS_ITS | Clinical Summary ---
Author Organization [facility] Address [address] [place] [address] Phone Care Team Providers Care Workers' Compensation Claims Examiner Name Role Phone Physician, Pcp Unknown Primary Care Provider Guera vailable Allergies No known active allergies Medications No known medications Encounters Date Type Department Care Team Description 06/21/2024 1:45 PM EST Consult Orthopedic Surgery - [place] [address] [address] [place] Mina DPM Hypertrophy of [...] topic Insurance MEDICAID - [place] Care Teams Workers' Compensation Claims Examiner Relationship Specialty Start Date End Date Physician, Pcp Unknown PCP - General 2/12/25
--- OUTSIDE RECORDS SUMMARY | 2024-09-13 09:21 | XMS_ITS | Encounter Summary ---
Author Organization [employer] Address [address] [place] [address] [address] [place] [address] Care Team Providers Care Grain Origination Specialist Name Role Phone Virgie Cartagena Primary Care Provider [phone] Reason for Visit * Reason Onset Date Comments Appointment Request 09/12/2024 Encounter Details Date Type Department Care Team ([facility] Contact Info) Description 09/12/2024 Telephone [facility] MEDICINE [address] [place] [address] Virgie Cartagena FNP [address] [place] [address] Appointment Request Social History Tobacco Use Types Packs/Day Years [...] Telephone Encounter - Peggy Sims MA - 09/12/2024 1:51 PM EDT Call pt to schedule a follow-up appt. No answer, LVM to call clinic back. If pt call back please schedule pt soonest available for a follow-up. Ty * Telephone Encounter - Leora Caputo - 09/12/2024 12:05 PM EDT Tc from pt requesting a follow up appt with PCP regarding visit from 09/11/24 in [facility] Contact pt at [phone] documented in this encounter Plan of Treatment Upcoming Encounters Date Type Department Care Team ([facility] st Contact Info) Description 01/30/2025 10:00 AM EDT Office Visit [facility] OPTOMETRY [address] [place] [address] Elma Rouse, OD [address] [place] [address] 03/26/2025 8:00 AM EST Office Visit [facility] ADULT DENTAL [address] [place] [address] Veronica Mortensen documented as of this encounter Visit Diagnoses Not on filedocumented in this encounter Additional Health Concerns Assessment Noted Time PHQ-9 Depression Total Score: 15 025 10:50 AM EST documented as of this encounter Care Teams Grain Origination Specialist Relationship Specialty Start Date End Date Virgie Cartagena FNP [address] [place] [address] PCP - General Family Medicine 12/15/21 documented as of this encounter
--- OUTSIDE RECORDS SUMMARY | 2024-09-13 09:21 | XMS_ITS | Encounter Summary ---
Author Organization [employer] Address [address] [place] [address] 7[address] [place] [address] Care Team Providers Care Surgical Tech Name Role Phone Virgie Cartagena Primary Care Provider [phone] Reason for Visit * Reason Comments Med Refill Encounter Details Date Type Department Care Team ([facility] st Contact Info) Description 03/25/2023 Refill [facility] CHC MED & PEDS [address] [place], [place] [phone] Virgie Cartagena FNP [address] [place] [address] Neck pain Social History Tobacco Use Types [...] Description 01/30/2025 10:00 AM EDT Office Visit [facility] OPTOMETRY [address] [place] [address] Nasim, Elma, OD [address] [place] [address] 03/26/2025 8:00 AM EST Office Visit [facility] ADULT DENTAL [address] [place] [address] Veronica Mortensen documented as of this encounter Visit Diagnoses Diagnosis Neck pain Cervicalgia documented in this encounter Additional Health Concerns Assessment Noted Time PHQ-9 Depression Total Score: 7 08/31/19 23 11:48 AM EDT documented as of this encounter Care Teams Surgical Tech Relationship Specialty Start Date End Date Virgie Cartagena FNP [address] [place] [address] PCP - General Family Medicine 12/15/21 documented as of this encounter
--- OUTSIDE RECORDS SUMMARY | 2024-09-13 09:21 | XMS_ITS | Encounter Summary ---
Author Organization [employer] Address [address] [place] [address] 7 [place] [address] Care Team Providers Care Certified Ophthalmic Medical Technician Name Role Phone Osiel Virgie MADRID Primary Care Provider [phone] Reason for Visit * Reason Comments Med Refill Encounter Details Date Type Department Care Team (Late Contact Info) Description 05/20/2022 Refill [facility] MEDICINE [address] [place] [address] Virgie Bryant FNP Social History Tobacco Use [...] Description 01/30/2025 10:00 AM EDT Office Visit [facility] OPTOMETRY [address] [place] [address] Nasim, Megan, OD [address] [place] [address] 03/26/2025 8:00 AM EST Office Visit [facility] ADULT DENTAL [address] [place] [address] Veronica Mortensen documented as of this encounter Visit Diagnoses Not on filedocumented in this encounter Care Teams Certified Ophthalmic Medical Technician Relationship Specialty Start Date End Date Virgie Cartagena FNP [address] [place] [address] PCP - General Family Medicine 12/15/21 documented as of this encounter
--- OUTSIDE RECORDS SUMMARY | 2024-09-13 09:21 | XMS_ITS | Encounter Summary ---
Author Organization [employer] Address [address] [place] [address] 7[address] [place] [address] Care Team Providers Care Reconstructive Dentist Name Role Phone Virgie Cartagena JULIUS Primary Care Provider [phone] Encounter Details Date Type Department Care Team ([facility] Contact Info) Description 09/02/2022 Abstract [facility] ADULT DENTAL [address] [place] [address] Tyrone Rangel DDS [address] [place] [address] Social History Tobacco Use Types Packs/Day Years [...] Upcoming Encounters Date Type Department Care Team ([facility] Contact Info) Description 01/30/2025 10:00 AM EDT Office Visit [facility] OPTOMETRY [address] [place] [address] Elma Rouse, OD [address] [place] [address] 03/26/2025 8:00 AM EST Office Visit [facility] ADULT DENTAL [address] [place] [address] Veronica Mortensen documented as of this encounter Visit Diagnoses Not on filedocumented in this encounter Additional Health Concerns Assessment Noted Time PHQ-9 Depression Total Score: 7 08/31/19 23 11:48 AM EDT documented as of this encounter Care Teams Reconstructive Dentist Relationship Specialty Start Date End Date Virgie Cartagena FNP [address] [place] [address] PCP - General Family Medicine 12/15/21 documented as of this encounter
== END 2024-09-13 09:07 | disposition home or self-care (01) ==
LOC: HO.US 09:06
PROVIDERS: PCP Registered Nurse; Visit Provider Internal Medicine Cardiovascular Disease
DX: I10 Essential (primary) hypertension (principal)
CPT/HCPCS: 76775; 93975

== ENCOUNTER → 2024-09-13 09:13 | Outpatient (BNV) | payer MEDICAID, SELFPAY | PROVIDERS: PCP Registered Nurse; Visit Provider Radiology Diagnostic Radiology | DX: I10 Essential (primary) hypertension (principal) | CPT/HCPCS: 76775 ==

== ENCOUNTER 2024-10-15 15:51 | Outpatient (REF) | payer MEDICAID, SELFPAY ==
--- NOTE | ~2024-10-15 | MM_ITS ---
EXAMINATION: MM SCREENING DIGITAL BREAST TOMOSYNTHESIS, BILATERAL CLINICAL INFORMATION: Screening. Asymptomatic. COMPARISON: Mammography: Comparison is made with available priors TECHNIQUE: Digital breast mammography with tomosynthesis is performed in both the craniocaudal and mediolateral oblique views along with computer-aided detection (CAD). FINDINGS: The breasts are heterogeneously dense, which may obscure small masses (ACR BI-RADS breast composition Category c). There are no significant masses, abnormal calcifications, or other abnormalities. MM/MM tomosynthesis screening BI IMPRESSION: No mammographic evidence of malignancy. ASSESSMENT: BI-RADS BI-RADS 1 - Negative RECOMMENDATION: Routine annual mammography screening. 1 year F/U This examination should not preclude the clinical evaluation of a suspicious palpable abnormality. This patient's information was entered into a reminder system with a target due date for their next mammogram. Electronically signed by: Lola Cain DO 10/19/2024 05:32 PM EDT
--- OUTSIDE RECORDS SUMMARY | 2024-10-15 17:18 | XMS_ITS | Encounter Summary ---
Author Organization [employer] Address [address] [place] [address] [address] [place] [address] Care Team Providers Care Sorter Upholstery Parts Name Role Phone Virgie Cartagena Primary Care Provider [phone] Reason for Visit * Reason Comments Med Refill Encounter Details Date Type Department Care Team ([facility] st Contact Info) Description 03/25/2023 Refill [facility] CHC MED & PEDS [address] [place], [place] [phone] Virgie Cartagena FNP [address] [place] [address] Neck pain Social History Tobacco Use Types [...] Care Team (Late st Contact Info) Description 12/19/2024 9:00 AM EDT Office Visit [facility] MEDICINE [address] [place] [address] Virgie Cartagena FNP [address] [place] [address] 01/30/2025 10:00 AM EDT Office Visit [facility] OPTOMETRY [address] [place] [address] Nasim, Elma, OD [address] [place] [address] 03/26/2025 8:00 AM EST Office Visit [facility] ADULT DENTAL [address] [place] [address] Veronica Mortensen documented as of this encounter Visit Diagnoses Diagnosis Neck pain Cervicalgia documented in this encounter Additional Health Concerns Assessment Noted Time PHQ-9 Depression Total Score: 7 08/31/19 23 11:48 AM EDT documented as of this encounter Care Teams Sorter Upholstery Parts Relationship Specialty Start Date End Date Virgie Cartagena FNP [address] [place] [address] PCP - General Family Medicine 12/15/21 documented as of this encounter
== END 2024-10-15 15:52 | disposition home or self-care (01) ==
LOC: HO.MAMMO 15:51
PROVIDERS: PCP Registered Nurse; Visit Provider Registered Nurse
DX: Z12.31 Encounter for screening mammogram for malignant neoplasm of breast (principal)
CPT/HCPCS: 77063; 77067

== ENCOUNTER → 2024-10-15 16:00 | Outpatient (BNV) | payer MEDICAID, SELFPAY | PROVIDERS: PCP Registered Nurse; Visit Provider Internal Medicine | DX: Z12.31 Encounter for screening mammogram for malignant neoplasm of breast (principal) | CPT/HCPCS: 77063; 77067 ==

== ENCOUNTER 2024-11-02 15:18 | Emergency (ER) | payer MEDICAID, SELFPAY ==
--- NOTE | 2024-11-02 15:25 | ED.GENADULT ---
HPI - General Adult General Chief complaint: General Medical Stated complaint: hypertension, did not take meds Time Seen by Provider: 11/02/24 17:38 Source: patient, RN notes reviewed and old records reviewed Mode of arrival: ambulatory Limitations: no limitations History of Present Illness ED Provider: Priyanka FONTENOT narrative: 44 year old female presents for evaluation of high blood pressure. Patient reports that she takes olmesartan for her blood pressure, she would not take it this morning. She reports that she has not been feeling well since yesterday. She took her blood pressure at her sister's house and it was ?220/100. She denies any headache or chest pain and reports that she actually feels better now than she did yesterday and this morning. No other complaints or concerns at this time Related Data Home Medications ?Medication ?Instructions ?Recorded ?Confirmed acetaminophen 500 mg tablet 500 - 1,000 mg PO Q8H PRN 06/08/21 09/11/24 fluoxetine 20 mg capsule 20 mg PO DAILY 06/08/21 09/11/24 Previous Rx's ?Medication ?Instructions ?Recorded cyclobenzaprine 10 mg tablet 10 mg PO TID PRN muscle spasm #7 06/14/24 tabs ibuprofen 600 mg tablet 600 mg PO Q8H PRN pain #10 tabs 06/14/24 Allergies Allergy/AdvReac Type Severity Reaction Status Date / Time No Known Allergies Allergy Verified 11/02/24 15:37 Review of Systems Constitutional: Constitutional: Denies body ache(s), Denies chills, Denies fever(s) and Reports malaise ENT: Denies vertigo and Denies dizziness Cardiovascular: Cardiovascular: Denies chest pain and Denies dyspnea on exertion Respiratory: Respiratory: Denies cough and Denies dyspnea on exertion Gastrointestinal: Gastrointestinal: Denies abdominal pain, Denies nausea and Denies vomiting Neurologic: Denies vertigo and Denies dizziness Psychiatric: Psychiatric: Denies anxiety PMFSH Past Medical History Medical History Spondylosis of cervical joint Degeneration, intervertebral disc, cervical Cleft palate HTN (hypertension) No known health problems Surgical History H/O cleft lip repair Social History Social History Alcohol intake: never Patient Tobacco Use Status: Current everyday Tobacco user Tobacco use type: Cigarette Cigarettes Per Day: 5 Second Hand Smoke Exposure: No Advance Directives: No Advance Directives Information Provided: Yes Do you have a plan to hurt others: No Plan Physical Exam ED Vital Signs: Vital Signs - 24 hr 11/02/24 15:32 11/02/24 18:00 11/02/24 19:06 Temperature 97.5 F 98.4 F 98.4 F Pulse Rate 65 78 78 Respiratory Rate 16 18 18 Blood Pressure 151/96 H 151/84 H 151/84 H Pulse Oximetry 98 99 99 Oxygen Delivery Method Room Air Room Air Room Air BMI result Body Mass Index 22.7 Const General: healthy appearing, comfortable, no acute distress, alert and awake Nutritional Appearance: well nourished Orientation/consciousness: patient oriented x3 HENMT Head: Yes normocephalic and Yes atraumatic Throat: Yes posterior oropharynx normal Eyes Eyelids: Yes eyelids normal Conjunctivae: conjunctivae normal Sclerae: sclerae normal Corneas: corneas normal Pupils: Equal, round and reactive pupils present EOM: EOMs intact bilaterally Neck Neck: Yes full ROM Resp Effort & Inspection: normal respiratory effort, able to speak in complete sentences and not labored Cardio Rate: regular rate Rhythm: regular rhythm GI Inspection: No distended Palpation (GI): Soft to palpation, not firm, nontender, no guarding and not rigid Skin General skin exam: elasticity normal Neuro General: patient oriented x3 Cranial nerves: Yes Equal, round and reactive pupils present and Yes Bilaterally intact EOM present Cognition (Neuro): normal cognition Extrem Other: Moving all extremities well without any obvious deformities Course Course Course Narrative: RME, this is a rapid medical exam performed by Herman Mathew please refer to primary provider for complete H&P- 44 year old female presents for evaluation of not feeling well. She reports that it started a few days. Denies chest pain or headache. Her blood pressure was elevated today as high as 220/100. Current BP in triage is 151/96. Plan for labs, EKG, viral testing. Medical Decision Making Medical Decision Making MDM Narrative: 44-year-old female with a past medical history significant for hypertension, anxiety presents for evaluation of high blood pressure at home. She reports that she would not take her antihypertensive medication this morning. The patient's blood pressure in triage today is 151/96. Plan for basic labs, urinalysis and an EKG. She is currently asymptomatic. I do believe that are high blood pressure at home was likely due to noncompliance with her olmesartan. However this seems to have improved. She reports feeling well time, I have a low suspicion for ACS. EKG is nonischemic, labs are quite reassuring, no evidence of infectious process. She will be discharged to follow up with her primary doctor Differential Diagnosis Differential Diagnoses: The differential diagnosis associated with the presentation includes Uncontrolled hypertension Medication noncompliance High blood pressure Viral syndrome ACS less likely Lab Data MDM Lab Attestation statement: I reviewed the patient's lab results. No leukocytosis, no anemia. Normal platelet count. No electrolyte abnormalities warranting intervention. Renal function is stable, random glucose of 127, but the patient is not a diabetic. This is likely due to recently eating prior to having the trigger checked 11/02/24 16:30 11/02/24 16:30 Labs: Lab Results 11/02/24 11/02/24 Range/Units 16:30 18:20 WBC 7.7 (4.8-10.8) X10*3/uL RBC 4.51 (4.20-5.50) X10*6/uL Hgb 14.2 (12.0-16.0) g/dl Hct 40.6 (37.0-47.0) % MCV 90.0 (80.0-98.0) fL MCH 31.5 (27.0-33.0) pg MCHC 35.0 (31.0-35.0) g/dl RDW 14.7 (11.0-16.0) % Plt Count 264 (160-400) X10*3/uL MPV 9.1 L (9.4-12.3) fL Immature Gran % (Auto) 0.4 (0.0-0.4) % Neut % (Auto) 72.1 (45-73) % Lymph % (Auto) 15.0 L (20-40) % [place] % (Auto) 10.2 (2-11) % Eos % (Auto) 1.9 (0-4) % Baso % (Auto) 0.4 (0-2) % Lymph # (Auto) 1.2 (1.2-4.9) X10*3/uL [place] # (Auto) 0.8 (0.1-1.2) X10*3/uL Eos # (Auto) 0.2 (0.0-0.4) X10*3/uL Baso # (Auto) 0.0 (0.0-0.2) X10*3/uL Abs Immat Gran (auto) 0.03 (0.00-0.03) X10*3/uL Absolute Neuts (auto) 5.6 (2.0-8.3) x10*3/uL Absolute Nucleated RBC 0.000 (0.0-0.012) X10*3/uL Nucleated RBC % (auto) 0.0 (0.0-0.2) /100WBC Sodium 138 (135-145) mmol/L Potassium 3.4 (3.3-5.1) mmol/L Chloride 104 (96-108) mmol/L Carbon Dioxide 25 (22-29) mmol/L Anion Gap 12 (12-20) BUN 7 L (9-16) mg/dL Creatinine 0.57 (0.5-1.4) mg/dL Estim Creat Clear Calc 94.0 Estimated GFR > 60 Random Glucose 127 H (60-115) mg/dL Calcium 9.6 (8.4-10.2) mg/dL Magnesium 1.7 (1.6-2.6) mg/dL Total Bilirubin 0.4 (0.0-1.0) mg/dL AST 63 H (5-31) U/L ALT 68 H (0-31) U/L Alkaline Phosphatase 84 (39-117) U/L Troponin I High Sens < 2.7 (<3.5-17.0) ng/L Total Protein 7.6 (6.5-8.0) g/dL Albumin 4.5 (3.5-5.0) g/dL Lipase 59 (8-78) U/L Beta HCG, Quant < 2 mIU/mL Urine Color Yellow Urine Appearance Clear Urine pH 7.0 (5.0-9.0) Ur Specific [place] 1.010 (1.005-1.025) Urine Protein Negative (Neg-Trace) mg/dL Urine Glucose (UA) 250 H (Negative) mg/dL Urine Ketones Negative (Negative) mg/dL Urine Blood Negative (Negative) Urine Nitrite Negative (Negative) Ur Leukocyte Esterase Negative (Negative) Urine RBC 0-2 (0-2) /HPF Urine WBC 0-5 (0-5) /HPF Ur Squamous Epith Cells 0-2 (0-2) /HPF Urine Bacteria None Seen (None Seen) Hyaline Casts 0-2 (0-2) /LPF Influenza Type A (PCR) NEGATIVE (Negative) Influenza Type B (PCR) NEGATIVE (Negative) RSV RNA Qual (PCR) NEGATIVE (Negative) SARS-CoV-2 RNA (RT-PCR) NEGATIVE (Negative) Independent Interpretation I performed an independent interpretation of an: EKG (Normal sinus rhythm with a rate of [address] segment elevation or depressions) Discharge Plan Discharge Clinical Impression: High blood pressure Patient Disposition: Home, Self-Care Instructions: Hypertension (ED) Additional Instructions: I recommend that you take your medications as prescribed, your blood pressure in the ER today was reassuring. Your blood work was also reassuring, you are not . There was no signs of UTI. I recommend he follow up with your primary doctor, return for new or worsening symptoms Prescriptions: No Action cyclobenzaprine 10 mg tablet 10 mg PO TID PRN (Reason: muscle spasm) Qty: 7 0RF ibuprofen 600 mg tablet 600 mg PO Q8H PRN (Reason: pain) Qty: 10 0RF fluoxetine 20 mg capsule 20 mg PO DAILY acetaminophen 500 mg tablet 500 - 1,000 mg PO Q8H PRN Interventions: ED Discharge Assessment Last Done: 11/02/24 19:06 Print Language: Iraqi
[2024-11-02 15:32] VITALS: BP 151/96; PULSE 65; RESP 16; TEMP 36.4; O2SAT 98; BMI 22.7
--- NOTE | 2024-11-02 15:35 | ECG_ITS ---
Test Reason : CP Blood Pressure : */* mmHG Vent. Rate : 65 BPM Atrial Rate : 65 BPM P-R Int : 128 ms QRS Dur : 80 ms QT Int : 420 ms P-R-T Axes : 52 66 60 degrees QTcB Int : 436 ms Normal sinus rhythm Normal ECG When compared with ECG of 13-Nov-2018 14:16, No significant change was found Referred By: Rosendo Mathew Electronically Signed By: Juan F Luther
[2024-11-02 15:41] VITALS: BP 210/120; O2SAT 100
[2024-11-02 16:37] LABS: MANUAL DIFF FLAG NO
[2024-11-02 16:42] LABS: Hematocrit 40.6 % (37.0-47.0); Hemoglobin 14.2 g/dl (12.0-16.0); Imm Gran Abs Auto 0.03 X10*3/uL (0.00-0.03); Imm Gran Pct Auto 0.4 % (0.0-0.4); Lymphocytes Absolute Auto 1.2 X10*3/uL (1.2-4.9); Mean Corpuscular HGB Conc 35.0 g/dl (31.0-35.0); Mean Corpuscular Hemoglobin 31.5 pg (27.0-33.0); Mean Corpuscular Volume 90.0 fL (80.0-98.0); NRBC Abs Auto 0.000 X10*3/uL (0.0-0.012); NRBC Pct Auto 0.0 /100WBC (0.0-0.2); Platelet Count 264 X10*3/uL (160-400); Red Blood Count 4.51 X10*6/uL (4.20-5.50); White Blood Count 7.7 X10*3/uL (4.8-10.8)
[2024-11-02 17:02] LABS: Alanine Aminotransferase 68 U/L (0-31); Albumin Level 4.5 g/dL (3.5-5.0); Alkaline Phosphatase 84 U/L (39-117); Anion Gap 12 (12-20); Aspartate Amino Transferase 63 U/L (5-31); Blood Urea Nitrogen 7 mg/dL (9-16); Calcium 9.6 mg/dL (8.4-10.2); Carbon Dioxide 25 mmol/L (22-29); Chloride 104 mmol/L (96-108); Creatinine Clr Calc Pharmacy 94.0; Estimated Glomerular Filt Rate > 60; Lipase 59 U/L (8-78); Magnesium 1.7 mg/dL (1.6-2.6); Potassium 3.4 mmol/L (3.3-5.1); Sodium 138 mmol/L (135-145); Total Protein 7.6 g/dL (6.5-8.0)
[2024-11-02 17:09] LABS: Troponin-I High Sensitivity < 2.7 ng/L (<3.5-17.0)
[2024-11-02 17:17] LABS: Resp Syncy Virus RNA Qual PCR NEGATIVE (Negative); SARS COV2 PCR INHOUSE NEGATIVE (Negative)
[2024-11-02 18:00] VITALS: BP 151/84; PULSE 78; RESP 18; TEMP 36.9; O2SAT 99
[2024-11-02 18:29] LABS: Appearance Urine Clear; Glucose Urine UA 250 mg/dL (Negative); PH 7.0 (5.0-9.0); Specific Gravity - Urine 1.010 (1.005-1.025)
[2024-11-02 19:06] VITALS: BP 151/84; PULSE 78; RESP 18; TEMP 36.9; O2SAT 99
== END 2024-11-03 02:12 | disposition home or self-care (01) ==
PROVIDERS: Physician Assistant; Emergency Provider Emergency Medicine; PCP Dentist General Practice
DX: I10 Essential (primary) hypertension (principal); R53.81 Other malaise; F17.210 Nicotine dependence, cigarettes, uncomplicated; Z03.818 Encounter for observation for suspected exposure to other biological agents ruled out
CPT/HCPCS: 80053; 81001; 83690; 83735; 84484; 84702; 85025; 87637; 93005; 99283; 99284

== ENCOUNTER → 2024-11-02 15:35 | Outpatient (BNV) | payer MEDICAID, SELFPAY | PROVIDERS: Emergency Provider Emergency Medicine; PCP Dentist General Practice; Visit Provider Internal Medicine Cardiovascular Disease | DX: R07.9 Chest pain, unspecified (principal) | CPT/HCPCS: 93010 ==

== ENCOUNTER 2025-03-20 10:19 | Outpatient (REF) | payer MEDICAID, SELFPAY ==
--- OUTSIDE RECORDS SUMMARY | 2025-03-20 12:12 | XMS_ITS | Clinical Summary ---
Author Organization [address] [place] [address] Address [address] [place] [address] Phone Care Team Providers Care Wildlife Forensic Geneticist Name Role Phone Physician, Pcp Unknown Primary Care Provider Guera vailable Allergies No known active allergies Medications No known medications Social History Tobacco Use Types Packs/Day Years [...] Last Done Comments Breast Cancer Screening 1979 Colorectal Cancer Screening: Colonoscopy 1979 Cervical Cancer Screening: Pap Smear 2000 Depression Screening 04/25/2024 Hepatitis C Screening 05/04/2024 Social Influencers of Health Screening 05/04/2024 COVID-19 Vaccine ( season) 2024 02/15/2024, 09/12/2023, 04/07/2021, Additional history exists Influenza Vaccine (#1) 2024 , 02/04/2023, 01/19/2021, Additional history exists Hypertension/CHF/CAD Annual BMP Blood Test 06/14/2025 06/14/2024 Cholesterol Screening (Lipid Panel) 09/17/2025 09/17/2020 DTaP,Tdap,and Td Vaccines (5 - Td or Tdap) 03/06/2031 03/06/2021, 06/25/2010, 03/09/2010, Additional history exists RSV Immunization Adult Patients (1 - 1-dose 75+ series) 2054 Hepatitis B Vaccines Completed 06/25/2010, 03/09/2010, 11/14/2001 HIV Screening Completed 01/19/2021 Pneumococcal Vaccine: Pediatrics (0 to 5 Years) and At-Risk Patients (6 to 49 Years) Aged Out 09/12/2023 No longer eligible based on patient's age to complete this topic HIB Vaccines Aged Out No longer eligi [...] topic Insurance MEDICAID - [place] Care Teams Wildlife Forensic Geneticist Relationship Specialty Start Date End Date Physician, Pcp Unknown PCP - General 06/06/24
[2025-03-20 13:54] LABS: Anion Gap 12 (12-20); Blood Urea Nitrogen 8 mg/dL (9-16); Calcium 9.4 mg/dL (8.4-10.2); Carbon Dioxide 24 mmol/L (22-29); Chloride 107 mmol/L (96-108); Estimated Glomerular Filt Rate > 60; Potassium 3.6 mmol/L (3.3-5.1); Sodium 139 mmol/L (135-145)
== END 2025-03-20 10:20 | disposition home or self-care (01) ==
LOC: HO.HHCL 10:19
PROVIDERS: PCP Registered Nurse; Visit Provider Registered Nurse
DX: Z00.00 Encounter for general adult medical examination without abnormal findings (principal); I10 Essential (primary) hypertension; Z32.00 Encounter for pregnancy test, result unknown
CPT/HCPCS: 36415; 80048; 84702